=== PATIENT | female | born 1945 | race Caucasian/White ===

== ENCOUNTER 2016-08-10 10:52 | Inpatient (IN) | payer OTHER ==
[~2016-08-10] VITALS: Ht 162.6 cm; Wt 85.0 kg
[~2016-08-10 10:52] MED LIST: ALBUAER2 INH; ARTIOIN OPB; ASCO10003 PO; CALCTAB65 PO; CLOB-65 TOP; GLUC1CAP35 PO; LACT10SO30 PO; LSX20 PO; MAGN400T6 PO; METO25TA3 PO; MULTTAB58 PO; OFLO0.3S OP; OMEP20CA9 PO; PRED1SUS3 OPL; RSTOPS OPB; SPIR25TA PO; TRAM-10 PO; ZINC1CAP PO
[2016-08-10] MEDS ORDERED: DIFL0.0519 OP (11:36)
[2016-08-10] MEDS ORDERED: SODIUM CHLORIDE 0.9% 1000ML 1,000 ML IV STA ×2 (12:05→14:13)
--- NOTE | 2016-08-10 12:34 | DIAGNOSTIC IMAGING REPORT ---
CHEST ONE VIEW PORTABLE CLINICAL HISTORY: Altered mental status. Weakness. COMPARISON STUDY: Chest radiograph June 08, 2014. FINDINGS: Lung volumes are normal. No consolidation is present. Mild interstitial thickening is likely chronic. There is no evidence of pulmonary edema. Cardiomediastinal silhouette is normal. IMPRESSION: No acute cardiopulmonary findings. Electronically signed by: Nelson Stokes M.D. 08/10/2016 12:32 PM Dictated Date/Time: 08/10/2016 12:32 PM
[2016-08-10 13:04] LABS: VEN BLD GAS O2 SATURATION 72.5 %
[2016-08-10 13:25] LABS: INR 1.3 (0.9-1.1); PARTIAL THROMBOPLASTIN RATIO 1.2; PROTHROMBIN TIME (PATIENT) 14.1 SECONDS (9.0-12.0)
[2016-08-10 13:38] LABS: BASO ABS # 0.06 K/uL (0-0.2); COMPLETE YES; EOS % 2.5 %; HEMATOCRIT 39.4 % (37-47); IG% 0.2 %; LYMPH % 20.4 %; LYMPH ABS # 1.23 K/uL (1.2-3.4); MEAN CELL VOLUME 92.7 fL (80-100); MEAN CORPUSCULAR HEMOGLOBIN 33.9 pg (25-34); MEAN CORPUSCULAR HGB CONC 36.5 g/dl (32-36); MEAN PLATELET VOLUME 10.8 fL (7.4-10.4); MONO % 10.4 %; NEUT % 65.5 %; PLATELET COUNT 55 K/uL (130-400); PLT ESTIMATE DECREASED; RED BLOOD COUNT 4.25 M/uL (4.2-5.4); WHITE BLOOD COUNT 6.03 K/uL (4.8-10.8)
[2016-08-10 13:40] LABS: ALT/SGPT 27 U/L (12-78); AST/SGOT 33 U/L (15-37); BETA-HYDROXYBUTYRATE 4.01 mg/dL (0.2-2.81); BLOOD UREA NITROGEN 12 mg/dl (7-18); BUN/CREATININE RATIO 11.7 (10-20); CALCIUM 9.8 mg/dl (8.5-10.1); CARBON DIOXIDE 26 mmol/L (21-32); CHLORIDE 99 mmol/L (98-107); CREATININE 0.99 mg/dl (0.60-1.20); GLUCOSE 475 mg/dl (70-99); MAGNESIUM 1.8 mg/dl (1.8-2.4); PHOSPHORUS 2.6 mg/dl (2.5-4.9); POTASSIUM 4.2 mmol/L (3.5-5.1); SODIUM 135 mmol/L (136-145)
[2016-08-10 13:49] LABS: ALKALINE PHOSPHATASE 81 U/L (45-117); THYROID STIMULATING HORMONE 0.035 uIu/ml (0.300-4.500)
--- NOTE | 2016-08-10 14:03 | DIAGNOSTIC IMAGING REPORT ---
CT SCAN OF THE BRAIN WITHOUT IV CONTRAST CLINICAL HISTORY: Weakness. Change in mental status. COMPARISON STUDY: CT of the brain dated 06/06/2014. TECHNIQUE: Unenhanced axial CT scan of the brain is performed from the vertex to the skull base. CT DOSE: 729.78 mGycm FINDINGS: Brain parenchyma: There are age-related involutional changes noting mild subcortical and periventricular microangiopathic change. A chronic lacunar infarct is identified in the right caudate head. There is no hemorrhage, mass effect, or evidence of acute territorial ischemia by CT criteria. Sunshine-white matter is preserved. Mineralization is noted in the basal ganglia. No extra-axial fluid collection is seen. Ventricles, sulci, cisterns: Prominent secondary to involutional change. Intracranial vasculature: There is atherosclerotic calcification of the cavernous carotid and vertebral arteries. Calvarium: Unremarkable. Sinuses and mastoids: The visualized paranasal sinuses are clear. The mastoid air cells are well pneumatized. Orbits: The bony orbits are grossly intact. There is a left ocular lens implant. IMPRESSION: There is no hemorrhage, mass effect, or evidence of acute territorial ischemia by CT criteria. Electronically signed by: Warren Sifuentes M.D. 08/10/2016 2:01 PM Dictated Date/Time: 08/10/2016 1:56 PM
[2016-08-10] MEDS ORDERED: NovoLIN-R INSULIN PER UNIT CHARGE IV STA (14:13)
[2016-08-10 14:19] LABS: URINE APPEARANCE CLEAR (CLEAR); URINE BILIRUBIN NEG (NEG); URINE COLOR YELLOW; URINE EPITHELIAL CELL AUTO 20-30 /lpf (0-5); URINE NITRITE NEG (NEG); URINE PH 6.5 (4.5-7.5); URINE SPECIFIC GRAVITY 1.014 (1.000-1.030); UROBILINOGEN NEG (NEG)
[2016-08-10 14:30] LABS: MANUAL MICROSCOPIC REQUIRED? NO; REVIEW REQ? NO
--- NOTE | 2016-08-10 15:35 | EMERGENCY ROOM VISIT NOTE ---
History Report prepared by Dianna: Daisy Culver Under the Supervision of: Dr. Alfonso Willson D.O. First contact with patient: 11:59 Chief Complaint: ABNORMAL LABS Stated Complaint: LIVER DISEASE-ABNORMAL LABS History of Present Illness The patient is a 70 year old female who presents to the Emergency Room as referred by PCP as her ammonia levels were found to be elevated at 97 during her appointment yesterday. Per , patient was diagnosed with cirrhosis of her liver 4 years ago, but her ammonia levels have normally been controlled with lactulose. However, over the past 3 weeks, states that the patient has become more confused and began hallucinating, so he took her to her PCP's office yesterday. During her appointment, states that the patient's ammonia levels were elevated at 97, her BSG was over 500, and they told him that she had "poor liver functioning", so she was referred to the ED for further evaluation today. Patient states that she has become increasingly incontinent, but she denies having any rectal bleeding, diarrhea, melena or hematochezia. She also denies fevers, chills, headache, chest pain, shortness of breath, abdominal pain, nausea, vomiting, or urinary symptoms. She has not suffered any recent falls or had any other abnormal bleeding. does note that the patient has a new rash around the area of her peritoneum, but there is no swelling or discharge present. Source of History: patient, spouse/significant other Onset: yesterday Position: other (general) Quality: other (elevated ammonia) Timing: other (increased) Associated Symptoms: No SOB, No abdominal pain, No chest pain, No chills, No diarrhea, No fevers, No headache, No nausea, No urinary symptoms, No vomiting Note: Per , patient has been more confused over the past 3 weeks. Review of Systems See HPI for pertinent positives & negatives. A total of 10 systems reviewed and were otherwise negative. Past Medical & Surgical Medical Problems: (1) Alcoholic cirrhosis (2) Asthma with COPD (3) Bakers cyst (4) CVA (cerebral vascular accident) (5) Diverticulosis (6) Dyslipidemia (7) GERD (gastroesophageal reflux disease) (8) Heel spur (9) HTN (hypertension) (10) Osteoarthritis (11) Osteoporosis (12) Thrombocytopenia (13) VRE (vancomycin resistant enterococcus) culture positive Surgical Problems: (1) H/O Achilles tendon repair (2) H/O arthroscopic knee surgery (3) H/O hemorrhoidectomy (4) H/O inguinal hernia repair (5) H/O shoulder surgery (6) H/O tubal ligation (7) H/O unilateral oophorectomy (8) History of appendectomy (9) History of partial colectomy (10) History of total hip replacement Family History FHx: heart disease Hypertension Social History Smoking Status: Former Smoker Alcohol Use: occasionally Drug Use: none Marital Status: Housing Status: lives with family Occupation Status: retired Current/Historical Medications Scheduled Artificial Tears Oph Oint (Lacri-Lube Sop Oph Oint), 0.25-0.5 INCH OPB HS Ascorbic Acid (Vitamin C), 1,000 MG PO QAM Calcium Carbonate-Vitamin D (Calcium 500 + D), 1 TAB PO BID Clobetasol Propionate (Clobetasol Propionate), 1 APPLN TOP BID Difluprednate (Durezol), 1 DROP OP QID Furosemide (Furosemide), 1 TAB PO DIRECTED Nkgmwckpuyw-Knpkfqvsbmu-Naa C- (Glucosamine Chondroitin), 1 CAP PO QPM Lactulose (Encephalopathy) (Lactulose), 15 ML PO BID Magnesium Oxide (Mag-Ox), 400 MG PO QAM Metoprolol Succ (Toprol Xl) (Toprol-Xl), 25 MG PO QAM Multiple Vitamin (Multivitamin), 1 TAB PO QAM Omeprazole (Prilosec), 20 MG PO BID Spironolactone (Aldactone), 2 TAB PO BID Zinc Sulfate (Zinc Sulfate), 220 MG PO BID Scheduled PRN Tramadol (Ultram), 25-50 MG PO Q6H PRN for Pain Allergies Coded Allergies: TAMAR Inhibitors (Verified Adverse Reaction, Mild, PALPITATIONS (BUT TAKES LISINOPRIL), 07/26/16) LOTREL - DIDN'T FEEL WELL. COMBO TAMAR INHIB IS PROBLEM - NOT TAMAR SOLO. Hydrocodone (Verified Adverse Reaction, Mild, HEART RACING, 07/26/16) Meperidine (Verified Adverse Reaction, Mild, SEVERE GI, 07/26/16) Oxycodone (Verified Adverse Reaction, Mild, DEPRESSION, 07/26/16) Ranitidine (Verified Adverse Reaction, Mild, DIZZINESS, 07/26/16) Sulfa Antibiotics (Verified Adverse Reaction, Mild, "SULFA DRUGS": SEVERE GI, 07/26/16) Physical Exam Vital Signs Date Time Temp Pulse Resp B/P Pulse Ox O2 Delivery O2 Flow Rate FiO2 08/10/16 17:27 36.8 75 19 127/57 96 08/10/16 16:41 75 19 127/57 96 Room Air 08/10/16 15:37 Room Air 08/10/16 14:23 78 08/10/16 14:04 84 17 139/70 95 Room Air 08/10/16 13:17 75 16 118/55 94 Room Air 78 134/57 75 137/74 08/10/16 12:54 Room Air 08/10/16 12:52 Room Air 08/10/16 10:57 36.8 79 17 124/66 93 Room Air Physical Exam GENERAL: Patient is awake, alert, and non-anxious appearing. Does not appear to be in pain. EYES: The conjunctivae are clear. The pupils are round and reactive. EARS, NOSE, MOUTH AND THROAT: The nose is without any evidence of any deformity. Mucous membranes are dry, tongue is midline NECK: The neck is nontender and supple. RESPIRATORY: Lung sounds diminished at both bases. CARDIOVASCULAR: Regular rate and rhythm noted there no murmurs rubs or gallops normal S1 normal S2 GASTROINTESTINAL: The abdomen is soft. Bowel sounds are present in all quadrants. Abdomen is nontender RECTAL: Rectal exam revealed brown stool, heme negative. MUSCULOSKELETAL/EXTREMITIES: There is no evidence of gross deformity full range of motion is noted in the hips and shoulders SKIN: There appears to be a candidal rash in the peritoneum. No swelling or discharge noted. NEUROLOGIC: Patient is awake alert and oriented x3, strength is symmetric Medical Decision & Procedures ER Provider Diagnostic Interpretation: CT results as stated below per my review and radiologist interpretation. X-ray results as stated below per interpretation by me and the radiologist. CT SCAN OF THE BRAIN WITHOUT IV CONTRAST CLINICAL HISTORY: Weakness. Change in mental status. COMPARISON STUDY: CT of the brain dated 06/06/2014. TECHNIQUE: Unenhanced axial CT scan of the brain is performed from the vertex to the skull base. CT DOSE: 729.78 mGycm FINDINGS: Brain parenchyma: There are age-related involutional changes noting mild subcortical and periventricular microangiopathic change. A chronic lacunar infarct is identified in the right caudate head. There is no hemorrhage, mass effect, or evidence of acute territorial ischemia by CT criteria. Sunshine-white matter is preserved. Mineralization is noted in the basal ganglia. No extra-axial fluid collection is seen. Ventricles, sulci, cisterns: Prominent secondary to involutional change. Intracranial vasculature: There is atherosclerotic calcification of the cavernous carotid and vertebral arteries. Calvarium: Unremarkable. Sinuses and mastoids: The visualized paranasal sinuses are clear. The mastoid air cells are well pneumatized. Orbits: The bony orbits are grossly intact. There is a left ocular lens implant. IMPRESSION: There is no hemorrhage, mass effect, or evidence of acute territorial ischemia by CT criteria. Electronically signed by: Warren Sifuentes M.D. 08/10/2016 2:01 PM Dictated Date/Time: 08/10/2016 1:56 PM CHEST ONE VIEW PORTABLE CLINICAL HISTORY: Altered mental status. Weakness. COMPARISON STUDY: Chest radiograph June 08, 2014. FINDINGS: Lung volumes are normal. No consolidation is present. Mild interstitial thickening is likely chronic. There is no evidence of pulmonary edema. Cardiomediastinal silhouette is normal. IMPRESSION: No acute cardiopulmonary findings. Electronically signed by: Nelson Stokes M.D. 08/10/2016 12:32 PM Dictated Date/Time: 08/10/2016 12:32 PM Laboratory Results 08/10/16 12:50 Red Blood Count 4.25, Mean Corpuscular Volume 92.7, Mean Corpuscular Hemoglobin 33.9, Mean Corpuscular Hemoglobin Concent 36.5, Mean Platelet Volume 10.8, Neutrophils (%) (Auto) 65.5, Lymphocytes (%) (Auto) 20.4, Monocytes (%) (Auto) 10.4, Eosinophils (%) (Auto) 2.5, Basophils (%) (Auto) 1.0, Neutrophils # (Auto ) 3.95, Lymphocytes # (Auto) 1.23, Monocytes # (Auto) 0.63, Eosinophils # (Auto ) 0.15, Basophils # (Auto) 0.06 08/10/16 12:50 Test 08/10/16 00:00 08/10/16 12:50 08/10/16 13:06 Urine Color YELLOW Urine Appearance CLEAR (CLEAR) Urine pH 6.5 (4.5-7.5) Urine Specific [place] 1.014 (1.000-1.030) Urine Protein NEG (NEG) Urine Glucose (UA) 3+ (NEG) Urine Ketones NEG (NEG) Urine Occult Blood NEG (NEG) Urine Nitrite NEG (NEG) Urine Bilirubin NEG (NEG) Urine Urobilinogen NEG (NEG) Urine Leukocyte Esterase TRACE (NEG) Urine WBC (Auto) 5-10 /hpf (0-5) Urine RBC (Auto) 0-4 /hpf (0-4) Urine Hyaline Casts (Auto) 0 /lpf (0-5) Urine Epithelial Cells (Auto) 20-30 /lpf (0-5) Urine Bacteria (Auto) 1+ (NEG) White Blood Count 6.03 K/uL (4.8-10.8) Red Blood Count 4.25 M/uL (4.2-5.4) Hemoglobin 14.4 g/dL (12.0-16.0) Hematocrit 39.4 % (37-47) Mean Corpuscular Volume 92.7 fL (80-100) Mean Corpuscular Hemoglobin 33.9 pg (25-34) Mean Corpuscular Hemoglobin Concent 36.5 g/dl (32-36) Platelet Count 55 K/uL (130-400) Mean Platelet Volume 10.8 fL (7.4-10.4) Neutrophils (%) (Auto) 65.5 % Lymphocytes (%) (Auto) 20.4 % Monocytes (%) (Auto) 10.4 % Eosinophils (%) (Auto) 2.5 % Basophils (%) (Auto) 1.0 % Neutrophils # (Auto) 3.95 K/uL (1.4-6.5) Lymphocytes # (Auto) 1.23 K/uL (1.2-3.4) Monocytes # (Auto) 0.63 K/uL (0.11-0.59) Eosinophils # (Auto) 0.15 K/uL (0-0.5) Basophils # (Auto) 0.06 K/uL (0-0.2) RDW Standard Deviation 51.7 fL (36.4-46.3) RDW Coefficient of Variation 15.3 % (11.5-14.5) Immature Granulocyte % (Auto) 0.2 % Immature Granulocyte # (Auto) 0.01 K/uL (0.00-0.02) Platelet Estimate DECREASED Prothrombin Time 14.1 SECONDS (9.0-12.0) Prothromb Time International Ratio 1.3 (0.9-1.1) Activated Partial Thromboplast Time 29.9 SECONDS (21.0-31.0) Partial Thromboplastin Ratio 1.2 Venous Blood pH 7.41 (7.36-7.41) Venous Blood Partial Pressure CO2 46 mmHg (38.0-50.0) Venous Blood Partial Pressure O2 39 mmHg Venous Blood HCO3 28 mmol/L Venous Blood Oxygen Saturation 72.5 % Venous Blood Base Excess 3.0 mmol/L Anion Gap 10.0 mmol/L (3-11) Est Creatinine Clear Calc Drug Dose 54.2 ml/min Estimated GFR () 66.0 Estimated GFR (Non- 56.9 BUN/Creatinine Ratio 11.7 (10-20) Estimated Average Glucose 292 mg/dl Hemoglobin A1c 11.8 % (4.5-5.6) Calcium Level 9.8 mg/dl (8.5-10.1) Phosphorus Level 2.6 mg/dl (2.5-4.9) Magnesium Level 1.8 mg/dl (1.8-2.4) Total Bilirubin 4.4 mg/dl (0.2-1) Direct Bilirubin 1.7 mg/dl (0-0.2) Aspartate Amino Transf (AST/SGOT) 33 U/L (15-37) Alanine Aminotransferase (ALT/SGPT) 27 U/L (12-78) Alkaline Phosphatase 81 U/L (45-117) Ammonia 54.0 umol/L (11-32) Total Creatine Kinase 45 U/L (26-192) Creatine Kinase MB 0.9 ng/ml (0.5-3.6) Creatine Kinase MB Ratio 2.0 (0-3.0) Troponin I < 0.015 ng/ml (0-0.045) Pro-B-Type Natriuretic Peptide 94 pg/ml (0-900) Total Protein 7.0 gm/dl (6.4-8.2) Albumin 2.8 gm/dl (3.4-5.0) Lipase 362 U/L (73-393) Beta-Hydroxybutyric Acid 4.01 mg/dL (0.2-2.81) Thyroid Stimulating Hormone (TSH) 0.035 uIu/ml (0.300-4.500) Bedside Glucose 442 mg/dl (70-90) Laboratory results per my review. Medications Administered Medications (Trade) Dose Ordered Sig/Migdalia Route Start Time Stop Time Status Last Admin Dose Admin Sodium Chloride 1,000 ml @ 999 mls/hr Q1H1M STAT IV 08/10/16 12:05 08/10/16 13:05 DC 08/10/16 12:57 999 MLS/HR Sodium Chloride (Nss 1000ml) 1,000 ml @ 999 mls/hr Q1H1M STAT IV 08/10/16 14:13 08/10/16 15:13 DC 08/10/16 14:32 999 MLS/HR Insulin Human Regular (novoLIN-R U-100 PER UNIT) 6 units NOW STAT IV 08/10/16 14:13 08/10/16 14:14 DC 08/10/16 14:30 6 UNITS ECG Indication: other (abnormal labs) Rate (beats per minute): 78 Rhythm: normal sinus Findings: no ectopy, other (No acute ST segment abnormalities. ) Change: no significant change (when compared to EKG from 06/06/14.) ED Course 1203: The patient was evaluated in room C9. A complete history and physical examination were performed. 1205: NSS bolus IV was ordered. 1413: Insulin Human Regular 6 units IV and NSS bolus IV were ordered. 1425: Upon reevaluation, the patient was doing well and appeared to be resting more comfortably. I updated her and her on the results of her radiology reports and lab tests. The hospitalist will be contacted. 1454: After discussion with Jolanta Sepulveda PA-C, the [facility]. The patient and her verbalized their understanding and agreement with this treatment plan. Medical Decision Prior records/ancillary studies reviewed and summarized above. Nursing notes reviewed. Additional history obtained from the patient's . Differential diagnosis: Etiologies such as metabolic, infection, hypo/hyperglycemia, electrolyte abnormalities, cardiac sources, intracerebral event, toxicologic, neurologic, as well as others were entertained. The patient is a 70-year-old female who was sent to the emergency department for abnormal laboratory studies. The patient is a history of liver disease. She does not have a known history of diabetes but did have hyperglycemia one other time when she was on prednisone. Currently she is not taking any steroids. She was found have an elevated blood sugar. She was treated with IV fluids as well as IV insulin. I discussed her case with the on-call [facility] hospitalist group. They've agreed to evaluate the patient in the emergency apartment for further management and disposition. Consults Time Called: 1430 Consulting Physician: Jolanta Martin Returned Call: [phone] Discussed the patient's case. She will continue to be evaluated by the [facility] hospitalist for further management. Impression Primary Impression: Hyperglycemia Additional Impressions: Diabetes mellitus, new onset Hepatic encephalopathy Scribe Attestation The scribe's documentation has been prepared under my direction and personally reviewed by me in its entirety. I confirm that the note above accurately reflects all work, treatment, procedures, and medical decision making performed by me. Departure Information Dispostion Being Evaluated By Hospitalist (Mario) Referrals Alfredo Martines M.D. (PCP) Problem Qualifiers
[2016-08-10 15:37] VITALS: BP 136/76; PULSE 75; TEMP 36.6; BMI 32.2
[2016-08-10] MEDS ORDERED: INSULIN IV INFUSION PROTOCOL STA (15:43)
[2016-08-10] MEDS ORDERED: ONDANSETRON INJ 2 MG/ML 2 ML VIAL IV PRN (15:45)
[2016-08-10] MEDS ORDERED: HHS GOAL RANGE 250-350 mg/dl ONE (15:45)
[2016-08-10] MEDS ORDERED: SEVERE STRESS LEVEL ONE (15:45)
[2016-08-10] MEDS ORDERED: ACETAMINOPHEN 325 MG TAB PO PRN (15:45)
[2016-08-10] MEDS ORDERED: CLBPO15 TOP (15:54)
[2016-08-10 16:03] LABS: ESTIMATED AVERAGE GLUCOSE 292 mg/dl; HA1C FLAG Normal (Normal)
[2016-08-10] MEDS ORDERED: CEFTRIAXONE SOD INJ 1 GM in DEXTROSE 5% ADD-VANTAGE 50ML 50 ML IV SCH (16:15)
--- NOTE | 2016-08-10 17:00 | History and Physical ---
History & Physical Date & Time of Service: Aug 10, 2016 at 16:28 Chief Complaint: Confusion, Weakness, Referred by PCP for Abnormal Labs Primary Care Physician: Alfredo Martines M.D. History of Present Illness 70 year old female who presents to the ER by referral of her PCP for abnormal labs, confusion, and weakness. is at the bedside who provides some of the information. He reports he has noted the patient has been having increasing confusion for the past 3 weeks. She has had hallucinations at times. called the PCP who ordered labs that showed a glucose of 500 and ammonia of 97. Patient has history of cirrhosis and is on chronic Lactulose. Patient reports decreasing her dose by half about one month ago due to the diarrhea it caused. Patient reports feeling generally weak yesterday. She also has had increased thirst and urination. She reports urinary leaking and has developed a perineal rash. She denies dysuria. No abdominal pain, nausea, or vomiting. She denies chest pain and shortness of breath. Some mild lightheadedness and dizziness today but denies any syncopal events. No fever or chills. In the ER, glucose is 475 and ammonia is 54. Patient was given 2L IVF and 6 units IV insulin. 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 Surgical Problems: (1) H/O Achilles tendon repair Status: Chronic (2) H/O arthroscopic knee surgery Status: Chronic (3) H/O hemorrhoidectomy Status: Chronic (4) H/O inguinal hernia repair Status: Chronic (5) H/O shoulder surgery Status: Chronic (6) H/O tubal ligation Status: Chronic (7) H/O unilateral oophorectomy Status: Chronic (8) History of appendectomy Status: Chronic (9) History of partial colectomy Permanent Comment: sigmoid Status: Chronic (10) History of total hip replacement Status: Chronic Social History Smoking Status: Former Smoker Alcohol Use: former heavy ETOH use Marital Status: Immunizations History of Influenza Vaccine: Yes Influenza Vaccine Date: Apr 26, 2016 History of Tetanus Vaccine?: Yes Tetanus Immunization Date: Jul 14, 1999 History of Pneumococcal: Yes Pneumococcal Date: Feb 22, 2016 Multi-Drug Resistant Organisms History of MDRO: Yes Type of MDRO: VRE Allergies Coded Allergies: TAMAR Inhibitors (Verified Adverse Reaction, Mild, PALPITATIONS (BUT TAKES LISINOPRIL), 07/26/16) LOTREL - DIDN'T FEEL WELL. COMBO TAMAR INHIB IS PROBLEM - NOT TAMAR SOLO. Hydrocodone (Verified Adverse Reaction, Mild, HEART RACING, 07/26/16) Meperidine (Verified Adverse Reaction, Mild, SEVERE GI, 07/26/16) Oxycodone (Verified Adverse Reaction, Mild, DEPRESSION, 07/26/16) Ranitidine (Verified Adverse Reaction, Mild, DIZZINESS, 07/26/16) Sulfa Antibiotics (Verified Adverse Reaction, Mild, "SULFA DRUGS": SEVERE GI, 07/26/16) Home Medications Scheduled Artificial Tears Oph Oint (Lacri-Lube Sop Oph Oint), 0.25-0.5 INCH OPB HS Ascorbic Acid (Vitamin C), 1,000 MG PO QAM Calcium Carbonate-Vitamin D (Calcium 500 + D), 1 TAB PO BID Clobetasol Propionate (Clobetasol Propionate), 1 APPLN TOP BID Difluprednate (Durezol), 1 DROP OP QID Furosemide (Furosemide), 1 TAB PO DIRECTED Tjsdolcavtr-Yviewukazno-Ybf C- (Glucosamine Chondroitin), 1 CAP PO QPM Lactulose (Encephalopathy) (Lactulose), 15 ML PO BID Magnesium Oxide (Mag-Ox), 400 MG PO QAM Metoprolol Succ (Toprol Xl) (Toprol-Xl), 25 MG PO QAM Multiple Vitamin (Multivitamin), 1 TAB PO QAM Omeprazole (Prilosec), 20 MG PO BID Spironolactone (Aldactone), 2 TAB PO BID Zinc Sulfate (Zinc Sulfate), 220 MG PO BID Scheduled PRN Tramadol (Ultram), 25-50 MG PO Q6H PRN for Pain Review of Systems 10 point review of systems was completed with the pertinent positives and negatives noted per the HPI Physical Exam Vital Signs Date Time Temp Pulse Resp B/P Pulse Ox O2 Delivery O2 Flow Rate FiO2 08/10/16 15:37 Room Air 08/10/16 14:23 78 08/10/16 14:04 84 17 139/70 95 Room Air 08/10/16 13:17 75 16 118/55 94 Room Air 78 134/57 75 137/74 08/10/16 12:54 Room Air 08/10/16 12:52 Room Air 08/10/16 10:57 36.8 79 17 124/66 93 Room Air General Appearance: no apparent distress Head: normocephalic Eyes: normal inspection ENT: hearing grossly normal Neck: supple, no JVD Respiratory/Chest: lungs clear, normal breath sounds, no respiratory distress Cardiovascular: regular rate, rhythm, no edema, normal peripheral pulses Abdomen/GI: normal bowel sounds, non tender, soft Genitourinary - Female: + pertinent finding (perineal excoriation) Extremities/Musculoskelatal: normal inspection, no calf tenderness Neurologic/Psych: no motor/sensory deficits, alert, normal mood/affect, oriented x 3 Skin: normal color, warm/dry Diagnostics Laboratory Results Results Past 24 Hours Test 08/10/16 00:00 08/10/16 12:50 08/10/16 13:06 Range/Units Urine Color YELLOW Urine Appearance CLEAR CLEAR Urine pH 6.5 4.5-7.5 Urine Specific [place] 1.014 1.000-1.030 Urine Protein NEG NEG Urine Glucose (UA) 3+ NEG Urine Ketones NEG NEG Urine Occult Blood NEG NEG Urine Nitrite NEG NEG Urine Bilirubin NEG NEG Urine Urobilinogen NEG NEG Urine Leukocyte Esterase TRACE NEG Urine WBC (Auto) 5-10 0-5 /hpf Urine RBC (Auto) 0-4 0-4 /hpf Urine Hyaline Casts (Auto) 0 0-5 /lpf Urine Epithelial Cells (Auto) 20-30 0-5 /lpf Urine Bacteria (Auto) 1+ NEG White Blood Count 6.03 4.8-10.8 K/uL Red Blood Count 4.25 4.2-5.4 M/uL Hemoglobin 14.4 12.0-16.0 g/dL Hematocrit 39.4 37-47 % Mean Corpuscular Volume 92.7 80-100 fL Mean Corpuscular Hemoglobin 33.9 25-34 pg Mean Corpuscular Hemoglobin Concent 36.5 32-36 g/dl Platelet Count 55 130-400 K/uL Mean Platelet Volume 10.8 7.4-10.4 fL Neutrophils (%) (Auto) 65.5 % Lymphocytes (%) (Auto) 20.4 % Monocytes (%) (Auto) 10.4 % Eosinophils (%) (Auto) 2.5 % Basophils (%) (Auto) 1.0 % Neutrophils # (Auto) 3.95 1.4-6.5 K/uL Lymphocytes # (Auto) 1.23 1.2-3.4 K/uL Monocytes # (Auto) 0.63 0.11-0.59 K/uL Eosinophils # (Auto) 0.15 0-0.5 K/uL Basophils # (Auto) 0.06 0-0.2 K/uL RDW Standard Deviation 51.7 36.4-46.3 fL RDW Coefficient of Variation 15.3 11.5-14.5 % Immature Granulocyte % (Auto) 0.2 % Immature Granulocyte # (Auto) 0.01 0.00-0.02 K/uL Platelet Estimate DECREASED Prothrombin Time 14.1 9.0-12.0 SECONDS Prothromb Time International Ratio 1.3 0.9-1.1 Activated Partial Thromboplast Time 29.9 21.0-31.0 SECONDS Partial Thromboplastin Ratio 1.2 Venous Blood pH 7.41 7.36-7.41 Venous Blood Partial Pressure CO2 46 38.0-50.0 mmHg Venous Blood Partial Pressure O2 39 mmHg Venous Blood HCO3 28 mmol/L Venous Blood Oxygen Saturation 72.5 % Venous Blood Base Excess 3.0 mmol/L Sodium Level 135 136-145 mmol/L Potassium Level 4.2 3.5-5.1 mmol/L Chloride Level 99 98-107 mmol/L Carbon Dioxide Level 26 21-32 mmol/L Anion Gap 10.0 3-11 mmol/L Blood Urea Nitrogen 12 7-18 mg/dl Creatinine 0.99 0.60-1.20 mg/dl Est Creatinine Clear Calc Drug Dose 54.2 ml/min Estimated GFR () 66.0 Estimated GFR (Non- 56.9 BUN/Creatinine Ratio 11.7 10-20 Random Glucose 475 70-99 mg/dl Estimated Average Glucose 292 mg/dl Hemoglobin A1c 11.8 4.5-5.6 % Calcium Level 9.8 8.5-10.1 mg/dl Phosphorus Level 2.6 2.5-4.9 mg/dl Magnesium Level 1.8 1.8-2.4 mg/dl Total Bilirubin 4.4 0.2-1 mg/dl Direct Bilirubin 1.7 0-0.2 mg/dl Aspartate Amino Transf (AST/SGOT) 33 15-37 U/L Alanine Aminotransferase (ALT/SGPT) 27 12-78 U/L Alkaline Phosphatase 81 45-117 U/L Ammonia 54.0 11-32 umol/L Total Creatine Kinase 45 26-192 U/L Creatine Kinase MB 0.9 0.5-3.6 ng/ml Creatine Kinase MB Ratio 2.0 0-3.0 Troponin I < 0.015 0-0.045 ng/ml Pro-B-Type Natriuretic Peptide 94 0-900 pg/ml Total Protein 7.0 6.4-8.2 gm/dl Albumin 2.8 3.4-5.0 gm/dl Lipase 362 73-393 U/L Beta-Hydroxybutyric Acid 4.01 0.2-2.81 mg/dL Thyroid Stimulating Hormone (TSH) 0.035 0.300-4.500 uIu/ml Bedside Glucose 442 70-90 mg/dl Diagnostic Radiology CT HEAD IMPRESSION: There is no hemorrhage, mass effect, or evidence of acute territorial ischemia by CT criteria. CXR IMPRESSION: No acute cardiopulmonary findings. Impression Assessment and Plan SEVERE HYPERGLYCEMIA - admit to med/surg - presenting with blood sugar 475, hgb a1c 11.5 - no signs of DKA - s/p 2 L IVF in ED, will hold on further IVF for now due to cirrhosis - will start insulin gtt with transition to SQ insulin - histology teacher consult ALTERED MENTAL STATUS DUE TO HEPATIC ENCEPHALOPATHY, ETOH CIRRHOSIS - hepatic encephalopathy likely due to self decreasing Lactulose dose - ammonia level 97 on today - will start 20gm BID - hold diuretics for today due to severe hyperglycemia - LFTs noted to be at baseline - GI consult ABNORMAL U/A - possible UTI; could be contributing to AMS - grew VRE on most recent urine culture - will place on Dapto for now, adjust per culture results - no signs of sepsis HTN - BP controlled, continue metoprolol THROMBOCYTOPENIA - due to liver disease - no signs of bleeding - at baseline DVT PROPHYLAXIS - SCDs due to thrombocytopenia DISPO - In my clinical judgment this beneficiary meets acute admission criteria, established by [facility], that includes being hospitalized through two midnights. ATTENDING NOTE Patient seen & examined at bedside. Reviewed above History/Physical and confirmed all the findings in person. Patient with known history of liver cirrhosis has been brought to ED with increasing confusion and lethargy. She had decreased Lactulose dose about 3-4 weeks back on her own. Found to have elevated ammonia level and has hyperglycemia consistent with new onset diabetes. Increased Lactulose to 20 G twice a day. Will give IVF conservatively as she can third-space easily. She is getting I/V Fluids and I/V Insulin. Being admitted to Medical floor and will be started on Insulin drip. HbA1c is 11.1. Will need to be on long and short term insulin. Bowling Floor Manager consult requested. Patient is FULL CODE. DVT Prophylaxis: SCDs. Patient will be followed by Dr. Fair. José Olivas MD Level of Care Med/Surg Advanced Directives Existing Advance Directive: No (UNSURE) Existing Power of [employer] Officer: Yes Resuscitation Status FULL RESUSCITATION VTE Prophylaxis VTE Risk Assessment Done? Y/N: Yes Risk Level: Moderate Given or contraindicated: SCD's
[2016-08-10] MEDS ORDERED: INSULIN ASPART 100 UNITS/ML 3 ML PEN SC SCH (18:00)
[2016-08-10] MEDS ORDERED: DAPTOMYCIN CONSULT ACTIVE PRN ×2 (18:32)
[2016-08-10] MEDS: LACTULOSE SYRUP 20 GM/30 ML UDC PO SCH ×2 (19:56→21:22)
[2016-08-10] MEDS: DAPTOmycin IV 350 MG in SODIUM CHLORIDE 0.9% 50ML 50 ML IV SCH (19:56)
[2016-08-10] MEDS: NYSTATIN POWDER 15GM BTL EXT SCH (20:05)
[2016-08-10] MEDS: DIFLUPREDNATE 0.05% OP SCH (20:06)
[2016-08-10] MEDS: ARTIFICIAL TEARS OP OINT 3.5 GM TUBE OPB SCH (20:06)
[2016-08-10] MEDS: ZINC SULFATE 220 MG CAP PO SCH (20:06)
[2016-08-10] MEDS: PANTOprazole SOD 40 MG TAB PO SCH (20:07)
[2016-08-10] MEDS: CALCIUM 600MG + VIT D 400 IU TAB PO SCH (20:07)
[2016-08-10] MEDS: GLUCOSAMINE SULFATE 500 MG CAP PO SCH (20:07)
[2016-08-10] MEDS: INSULIN ASPART 100 UNITS/ML 3 ML PEN SC SCH (21:27)
[2016-08-10 23:16] VITALS: BP 142/69; PULSE 82; TEMP 36.7; O2SAT 93
[2016-08-11] MEDS: INSULIN ASPART 100 UNITS/ML 3 ML PEN SC SCH ×4 (06:30→20:41)
[2016-08-11 07:17] VITALS: BP 124/58; PULSE 80; TEMP 36.6; O2SAT 92
[2016-08-11 07:24] LABS: INR 1.4 (0.9-1.1)
[2016-08-11 07:48] LABS: BUN/CREATININE RATIO 12.6 (10-20); CALCIUM 8.8 mg/dl (8.5-10.1); POTASSIUM 3.9 mmol/L (3.5-5.1)
[2016-08-11 07:50] LABS: HEMATOCRIT 35.6 % (37-47); MEAN CELL VOLUME 93.2 fL (80-100); MEAN CORPUSCULAR HGB CONC 36.5 g/dl (32-36); PLATELET COUNT 46 K/uL (130-400); PLT ESTIMATE DECREASED; RED BLOOD COUNT 3.82 M/uL (4.2-5.4); WHITE BLOOD COUNT 5.28 K/uL (4.8-10.8)
[2016-08-11 08:00] VITALS: O2SAT 92
[2016-08-11] MEDS: NYSTATIN POWDER 15GM BTL EXT SCH ×2 (08:10→20:04)
[2016-08-11] MEDS: CALCIUM 600MG + VIT D 400 IU TAB PO SCH ×2 (08:10→20:04)
[2016-08-11] MEDS: DIFLUPREDNATE 0.05% OP SCH ×4 (08:10→20:04)
[2016-08-11] MEDS: LACTULOSE SYRUP 20 GM/30 ML UDC PO SCH ×2 (08:11→20:04)
[2016-08-11] MEDS: MAGNESIUM OXIDE 400 MG TAB PO SCH (08:12)
[2016-08-11] MEDS: ASCORBIC ACID 500 MG TAB PO SCH (08:12)
[2016-08-11] MEDS: MULTIVITAMIN TAB PO SCH (08:12)
[2016-08-11] MEDS: ZINC SULFATE 220 MG CAP PO SCH ×2 (08:12→20:04)
[2016-08-11] MEDS: PANTOprazole SOD 40 MG TAB PO SCH ×2 (08:12→20:04)
[2016-08-11] MEDS: METOPROLOL SUCC 25MG EXT REL TAB PO SCH (08:13)
[2016-08-11 08:30] LABS: CREATININE 0.65 mg/dl (0.60-1.20)
--- NOTE | 2016-08-11 10:28 | Gastrointestinal Consultation ---
Gastrointestinal Consultation Date of Consultation: Aug 11, 2016 Consulting Physician: Dr. Linares Reason for Consultation: confusion History of Present Illness Patient is a 70 year old female with past medical history significant for ETOH cirrhosis, HTN, diverticulosis, GERD, previous CVA and COPD who presented to the ED for evaluation of abnormal labs, weakness and confusion. Outpatient labs were completed this week where it was noted that her glucose was elevated to 500 and her ammonia was 100. The patient's is at bedside and states that the patient is not diabetic. He notes that this has happened one other time many years ago secondary to prolonged steroid use for asthma/COPD. The patient and both deny any recent steroid use. The notes that his typically decreases her dose of lactulose because she does not like having bowel movements. He suggests that she was probably taking around 10 gm daily. He notes that he has noticed worsening confusion for about the past few weeks. Although she is improving today, there is stool evidence of confusion. 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 Patient is alert and oriented x 3 this morning. She denies any fever, chills, chest pain, SOB, abdominal pain, black/bloody stools or emesis. 08/10/16 NH3: 54 EGD 03/2016 Colonoscopy: 2013 CT head 08/10/16: There is no hemorrhage, mass effect, or evidence of acute territorial ischemia by CT criteria. Family History FHx: heart disease FATHER ( from [place] in his 60s) MOTHER ( from [place] in her 60s) Social History Smoking Status: Former Smoker Alcohol Use: occasionally Marital Status: Housing Status: lives with family Allergies Coded Allergies: TAMAR Inhibitors (Verified Adverse Reaction, Mild, PALPITATIONS (BUT TAKES LISINOPRIL), 07/26/16) LOTREL - DIDN'T FEEL WELL. COMBO TAMAR INHIB IS PROBLEM - NOT TAMAR SOLO. Hydrocodone (Verified Adverse Reaction, Mild, HEART RACING, 07/26/16) Meperidine (Verified Adverse Reaction, Mild, SEVERE GI, 07/26/16) Oxycodone (Verified Adverse Reaction, Mild, DEPRESSION, 07/26/16) Ranitidine (Verified Adverse Reaction, Mild, DIZZINESS, 07/26/16) Sulfa Antibiotics (Verified Adverse Reaction, Mild, "SULFA DRUGS": SEVERE GI, 07/26/16) Current Medications Home Meds and Scripts Medications Dose Route/Sig Max Daily Dose Days Date Category Dose Instructions Clobetasol Propionate 45 Appln/15 Gm Oint 1 Appln TOP BID 7 08/10/16 Reported Durezol (Difluprednate) 0.05 % Emu 1 Drop OP QID 08/10/16 Reported QID today, then change to TID on 08/11 for 7 days Aldactone (Spironolactone) 25 Mg Tab 2 Tab PO BID 04/18/16 Reported Multivitamin (Multiple Vitamin) 1 Tab Tab 1 Tab PO QAM 04/13/16 Reported Mag-Ox (Magnesium Oxide) 400 Mg Tab 400 Mg PO QAM 04/13/16 Reported Zinc Sulfate 220 Mg Cap 220 Mg PO BID 04/13/16 Reported Lacri-Lube Sop Oph Oint (Artificial Tears) Oint 0.25-0.5 Inch OPB HS 04/13/16 Reported TO THE AFFECTED EYE UP TO QID PRN Lactulose (Lactulose (Encephalopathy)) 10 Gm/15 Ml Olena 15 Ml PO BID 04/13/16 Reported WILL TAKE MORE IF NEEDED DIRECTED BY DOCTOR OFFICE. Toprol-Xl (Metoprolol Succinate) 25 Mg Tabcr 25 Mg PO QAM 04/13/16 Reported Glucosamine Chondroitin (Jxhmcqyayoh-Opcsyhtbdyn-Uqe C-) 1 Cap Cap 1 Cap PO QPM 04/13/16 Reported Prilosec (Omeprazole) 20 Mg Cap 20 Mg PO BID 12/30/14 Reported Vitamin C (Ascorbic Acid) 1,000 Mg Tab 1,000 Mg PO QAM 06/06/14 Reported Ultram (Tramadol HCl) 50 Mg Tab 25-50 Mg PO Q6H PRN 06/06/14 Reported MAXIMUM OF 400 MG/24 HOURS. Furosemide 20 Mg Tab 1 Tab PO DIRECTED 06/06/14 Reported ALTERNATES EVERY OTHER DAY WITH TAKING 1TAB AND 2 TABS Calcium 500 + D (Calcium Carbonate-Vitamin D) 1 Tab Tab 1 Tab PO BID 06/06/14 Reported Review of Systems Constitutional: No chills, No fever ENT: No hearing loss Respiratory: No cough, No shortness of breath Cardiac: No chest pain, No edema Abdomen: No GI bleeding, No constipation, No diarrhea, No nausea, No pain, No vomiting Physical Exam Date Time Temp Pulse Resp B/P Pulse Ox O2 Delivery O2 Flow Rate FiO2 08/11/16 07:17 36.6 80 20 124/58 92 Nasal Cannula 08/11/16 00:00 Room Air 08/10/16 23:16 36.7 82 18 142/69 93 Room Air 08/10/16 17:27 36.8 75 19 127/57 96 08/10/16 16:41 75 19 127/57 96 Room Air 08/10/16 15:37 36.6 75 18 136/76 Room Air 08/10/16 14:23 78 08/10/16 14:04 84 17 139/70 95 Room Air 08/10/16 13:17 75 16 118/55 94 Room Air 78 134/57 75 137/74 08/10/16 12:54 Room Air 08/10/16 12:52 Room Air 08/10/16 10:57 36.8 79 17 124/66 93 Room Air General Appearance: no apparent distress Eyes: PERRL ENT: hearing grossly normal Neck: supple, trachea midline Respiratory/Chest: lungs clear, normal breath sounds, no respiratory distress, no accessory muscle use Cardiovascular: regular rate, rhythm, no edema, no gallop, no JVD, no murmur Abdomen: normal bowel sounds, non tender, soft, no organomegaly, no pulsatile mass Neurologic/Psych: alert, normal mood/affect, oriented x 3 (patient is only oriented to self and location) Skin: normal color, no jaundice, warm/dry, no rash Laboratory Results Last 24 Hours Test 08/10/16 12:50 08/10/16 13:06 08/10/16 19:29 08/10/16 23:52 White Blood Count 6.03 K/uL Red Blood Count 4.25 M/uL Hemoglobin 14.4 g/dL Hematocrit 39.4 % Mean Corpuscular Volume 92.7 fL Mean Corpuscular Hemoglobin 33.9 pg Mean Corpuscular Hemoglobin Concent 36.5 g/dl Platelet Count 55 K/uL Mean Platelet Volume 10.8 fL Neutrophils (%) (Auto) 65.5 % Lymphocytes (%) (Auto) 20.4 % Monocytes (%) (Auto) 10.4 % Eosinophils (%) (Auto) 2.5 % Basophils (%) (Auto) 1.0 % Neutrophils # (Auto) 3.95 K/uL Lymphocytes # (Auto) 1.23 K/uL Monocytes # (Auto) 0.63 K/uL Eosinophils # (Auto) 0.15 K/uL Basophils # (Auto) 0.06 K/uL RDW Standard Deviation 51.7 fL RDW Coefficient of Variation 15.3 % Immature Granulocyte % (Auto) 0.2 % Immature Granulocyte # (Auto) 0.01 K/uL Platelet Estimate DECREASED Prothrombin Time 14.1 SECONDS Prothromb Time International Ratio 1.3 Activated Partial Thromboplast Time 29.9 SECONDS Partial Thromboplastin Ratio 1.2 Venous Blood pH 7.41 Venous Blood Partial Pressure CO2 46 mmHg Venous Blood Partial Pressure O2 39 mmHg Venous Blood HCO3 28 mmol/L Venous Blood Oxygen Saturation 72.5 % Venous Blood Base Excess 3.0 mmol/L Sodium Level 135 mmol/L Potassium Level 4.2 mmol/L Chloride Level 99 mmol/L Carbon Dioxide Level 26 mmol/L Anion Gap 10.0 mmol/L Blood Urea Nitrogen 12 mg/dl Creatinine 0.99 mg/dl Est Creatinine Clear Calc Drug Dose 54.2 ml/min Estimated GFR () 66.0 Estimated GFR (Non- 56.9 BUN/Creatinine Ratio 11.7 Random Glucose 475 mg/dl Estimated Average Glucose 292 mg/dl Hemoglobin A1c 11.8 % Calcium Level 9.8 mg/dl Phosphorus Level 2.6 mg/dl Magnesium Level 1.8 mg/dl Total Bilirubin 4.4 mg/dl Direct Bilirubin 1.7 mg/dl Aspartate Amino Transf (AST/SGOT) 33 U/L Alanine Aminotransferase (ALT/SGPT) 27 U/L Alkaline Phosphatase 81 U/L Ammonia 54.0 umol/L Total Creatine Kinase 45 U/L Creatine Kinase MB 0.9 ng/ml Creatine Kinase MB Ratio 2.0 Troponin I < 0.015 ng/ml Pro-B-Type Natriuretic Peptide 94 pg/ml Total Protein 7.0 gm/dl Albumin 2.8 gm/dl Lipase 362 U/L Beta-Hydroxybutyric Acid 4.01 mg/dL Thyroid Stimulating Hormone (TSH) 0.035 uIu/ml Bedside Glucose 442 mg/dl 258 mg/dl 276 mg/dl Test 08/11/16 06:43 White Blood Count 5.28 K/uL Red Blood Count 3.82 M/uL Hemoglobin 13.0 g/dL Hematocrit 35.6 % Mean Corpuscular Volume 93.2 fL Mean Corpuscular Hemoglobin 34.0 pg Mean Corpuscular Hemoglobin Concent 36.5 g/dl RDW Standard Deviation 52.0 fL RDW Coefficient of Variation 15.4 % Platelet Count 46 K/uL Mean Platelet Volume 11.0 fL Platelet Estimate DECREASED Prothrombin Time 15.0 SECONDS Prothromb Time International Ratio 1.4 Sodium Level 139 mmol/L Potassium Level 3.9 mmol/L Chloride Level 105 mmol/L Carbon Dioxide Level 23 mmol/L Anion Gap 11.0 mmol/L Blood Urea Nitrogen 8 mg/dl Creatinine 0.65 mg/dl Est Creatinine Clear Calc Drug Dose 82.6 ml/min Estimated GFR () 102.8 Estimated GFR (Non- 88.7 BUN/Creatinine Ratio 12.6 Random Glucose 252 mg/dl Calcium Level 8.8 mg/dl Total Bilirubin 3.7 mg/dl Direct Bilirubin 1.5 mg/dl Aspartate Amino Transf (AST/SGOT) 32 U/L Alanine Aminotransferase (ALT/SGPT) 22 U/L Alkaline Phosphatase 65 U/L Total Protein 5.8 gm/dl Albumin 2.3 gm/dl Impression Patient is a 70 year old female with elevated NHA on admission to , elevated glucose 475, HA1C 12, UTI, confusion and CT of head unremarkable. Differentials include delirium secondary to UTI, hepatic encephalopathy Plan Diet as tolerated Lactulose 20gm BID xifaxin 550 BID lasix 20/spironolactone 50 once lightheadedness and dizziness resolves PPI BID Zofran PRN nausea ATTESTATION: I have performed a history and physical examination of this patient and reviewed the electronic record. Specifically, on physical examination there is no asterixis at this time. I have discussed the case with LEXY Shukla. The above note reflects my findings, conclusions, and recommendations. Alfonso Linares MD
[2016-08-11] MEDS: FLUCONAZOLE 100 MG TAB PO SCH (10:53)
[2016-08-11 11:11] VITALS: BMI 32.2
--- NOTE | 2016-08-11 13:34 | Clinical Documentation Query ---
CLINICAL DOCUMENTATION QUERY Dr. LUND, In your clinical opinion is this patient being managed for: ( x ) Acute or acute on chronic hepatic encephalopathy ( ) Other explanation of clinical findings (Please Explain) ( ) Unable to determine (Please Define) ( ) Need to Discuss ( ) Not Agree The medical record reflects the following clinical findings, treatment, and risk factors. Clinical Indicators: 70 yo female presenting with increasing confusion over the past 3 weeks. Pt had been decreasing her lactulose about 1 month ago due to diarrhea. Ammonia level 54, pt also hallucinating. Treatment:start lactulose 20 gm BID, GI consult, conservative IV fluids, xifaxin 550 BID, lasix 20/spironolactone 50 once lightheadedness and dizziness resolves Risk Factors: noncompliance with lactulose , liver cirrhosis Please clarify and document your clinical opinion in the progress notes and discharge summary. Terms such as "probable", "suspected", "likely", "questionable", "possible", or "still to be ruled out" are acceptable. IF IN AGREEMENT, YOU MUST DOCUMENT ABOVE DIAGNOSTIC STATEMENT IN DAILY PROGRESS NOTES AND DISCHARGE SUMMARY. This document is not part of the patient's record. Thank You, Nayeli Dennis RN [phone]
[2016-08-11 14:18] VITALS: O2SAT 92
[2016-08-11 15:42] VITALS: BP 132/81; PULSE 87; TEMP 36.7; O2SAT 93
--- NOTE | 2016-08-11 19:09 | Progress Note ---
Medicine Progress Note Date & Time of Visit: Aug 11, 2016 at 19:00. Subjective Patient still confused, does not recall seeing diabetes education or her today though they were here. No overnight events noted. Denies any new complaints. Tolerating PO but does not recall her meals. Objective Last 8 Hrs Date Time Temp Pulse Resp B/P Pulse Ox O2 Delivery O2 Flow Rate FiO2 08/11/16 16:00 Room Air 08/11/16 15:42 36.7 87 20 132/81 93 Room Air 08/11/16 14:18 92 Physical Exam: GENERAL: Patient is in no acute distress. HEENT: No acute trauma, normocephalic, mucous membranes moist, no nasal congestion, no scleral icterus. NECK: No stridor, trachea is midline. LUNGS: Clear to auscultation bilaterally, no wheeze, no rhonchi, breath sounds equal. HEART: Without murmurs gallops or rubs, regular rate and rhythm. ABDOMEN: Soft, nontender, bowel sounds positive EXTREMITIES: No cyanosis or edema NEUROLOGIC: Oriented, no acute motor or sensory deficits, no focal weakness. SKIN: No rash, no jaundice, no diaphoresis. Laboratory Results: Last 24 Hours Test 08/10/16 19:29 08/10/16 23:52 08/11/16 06:43 08/11/16 11:49 Bedside Glucose 258 mg/dl 276 mg/dl 274 mg/dl White Blood Count 5.28 K/uL Red Blood Count 3.82 M/uL Hemoglobin 13.0 g/dL Hematocrit 35.6 % Mean Corpuscular Volume 93.2 fL Mean Corpuscular Hemoglobin 34.0 pg Mean Corpuscular Hemoglobin Concent 36.5 g/dl RDW Standard Deviation 52.0 fL RDW Coefficient of Variation 15.4 % Platelet Count 46 K/uL Mean Platelet Volume 11.0 fL Platelet Estimate DECREASED Prothrombin Time 15.0 SECONDS Prothromb Time International Ratio 1.4 Sodium Level 139 mmol/L Potassium Level 3.9 mmol/L Chloride Level 105 mmol/L Carbon Dioxide Level 23 mmol/L Anion Gap 11.0 mmol/L Blood Urea Nitrogen 8 mg/dl Creatinine 0.65 mg/dl Est Creatinine Clear Calc Drug Dose 82.6 ml/min Estimated GFR () 102.8 Estimated GFR (Non- 88.7 BUN/Creatinine Ratio 12.6 Random Glucose 252 mg/dl Calcium Level 8.8 mg/dl Total Bilirubin 3.7 mg/dl Direct Bilirubin 1.5 mg/dl Aspartate Amino Transf (AST/SGOT) 32 U/L Alanine Aminotransferase (ALT/SGPT) 22 U/L Alkaline Phosphatase 65 U/L Total Protein 5.8 gm/dl Albumin 2.3 gm/dl Test 08/11/16 16:23 Bedside Glucose 282 mg/dl Date/Time Source Procedure Growth Status 08/11/16 00:00 Urine,Catheterized Urine Culture Pending Received Assessment & Plan SEVERE HYPERGLYCEMIA: -presented with blood glucose of 475 -HbA1c: 11.5% -no signs of DKA -patient denies being diabetic -s/p 2 L IVF in ED, holding off on further IVF for now due to cirrhosis -was started on insulin gtt with transition to SQ insulin -breastfeeding educator consult -Glycemic pharmacy consulted ALTERED MENTAL STATUS DUE TO HEPATIC ENCEPHALOPATHY, ETOH CIRRHOSIS: -hepatic encephalopathy likely due to self decreasing Lactulose dose -ammonia level 97 on 08/09 -started on lactulose 20gm BID -hold diuretics for now due to severe hyperglycemia -LFTs noted to be at baseline -GI consulted, appreciate recs POSSIBLE UTI: -urine culture pending -grew VRE on most recent urine culture -on Dapto for now, will adjust per culture results -no signs of sepsis HTN: -BP controlled, continue metoprolol THROMBOCYTOPENIA: -due to liver disease -no signs of bleeding, monitor closely -at baseline Current Inpatient Medications: Current Inpatient Medications Medications (Trade) Dose Ordered Sig/Migdalia Route Start Time Stop Time Status Last Admin Dose Admin Acetaminophen (Tylenol Tab) 650 mg Q4H PRN PO 08/10/16 15:45 09/09/16 15:44 Ondansetron HCl (Zofran Inj) 4 mg Q6H PRN IV 08/10/16 15:45 09/09/16 15:44 Lactulose (Chronulac Syrup) 20 gm BID PO 08/10/16 18:30 09/09/16 18:29 08/11/16 08:11 20 GM Nystatin (Mycostatin Powder) 1 appln BID EXT 08/10/16 21:00 09/09/16 20:59 08/11/16 08:10 1 APPLN Artificial Tears (Lacri-Lube Oph Oint) 1 appln HS OPB 08/10/16 21:00 2/11/17 20:59 08/10/16 20:06 1 APPLN Magnesium Oxide (Mag-Ox Tab) 400 mg QAM PO 08/11/16 09:00 09/10/16 08:59 08/11/16 08:12 400 MG Metoprolol Succinate (Toprol Xl Tab) 25 mg QAM PO 08/11/16 09:00 09/10/16 08:59 08/11/16 08:13 25 MG Multivitamins (Multivitamin Tab) 1 tab QAM PO 08/11/16 09:00 09/10/16 08:59 08/11/16 08:12 1 TAB Zinc Sulfate (Zinc Sulfate Cap) 220 mg BID PO 08/10/16 21:00 09/09/16 20:59 08/11/16 08:12 220 MG Ascorbic Acid (Vitamin C Tab) 1,000 mg QAM PO 08/11/16 09:00 09/10/16 08:59 08/11/16 08:12 1,000 MG Calcium/Vitamin D (Caltrate Plus Tab) 1 tab BID PO 08/10/16 21:00 09/09/16 20:59 08/11/16 08:10 1 TAB Glucosamine Sulfate (Glucosamine Cap) 500 mg QPM PO 08/10/16 21:00 09/09/16 20:59 08/10/16 20:07 500 MG Pantoprazole Sodium (Protonix Tab) 40 mg BID PO 08/10/16 21:00 09/09/16 20:59 08/11/16 08:12 40 MG Daptomycin 1 ea 1 ea UD PRN N/A 08/10/16 18:32 09/09/16 18:31 Daptomycin/Sodium Chloride (Cubicin IV/Nss 50ml) 57 ml @ 120 mls/hr DAILY@2000 IV 08/10/16 20:00 08/15/16 19:59 08/10/16 19:56 120 MLS/HR Insulin Aspart (novoLOG ASPART) SLIDING SCALE G... ACHS SC 08/10/16 21:00 09/09/16 20:59 08/11/16 17:29 12 UNITS Fluconazole (Diflucan Tab) 100 mg QAM PO 08/11/16 10:00 09/10/16 09:59 08/11/16 10:53 100 MG Rifaximin (Xifaxan Tab) 550 mg BID PO 08/11/16 21:00 09/10/16 20:59 Nystatin/ Triamcinolone Acetonide (Mycogen II Oint) 1 appln BID EXT 08/11/16 21:00 09/10/16 20:59
[2016-08-11] MEDS: DAPTOmycin IV 350 MG in SODIUM CHLORIDE 0.9% 50ML 50 ML IV SCH (19:51)
[2016-08-11] MEDS: NYSTATIN/TRIAMCINOLONE OINT 15 GM TUBE EXT SCH (20:04)
[2016-08-11] MEDS: RIFAXIMIN TAB 550 MG TAB PO SCH (20:04)
[2016-08-11] MEDS: GLUCOSAMINE SULFATE 500 MG CAP PO SCH (20:04)
[2016-08-11] MEDS: ARTIFICIAL TEARS OP OINT 3.5 GM TUBE OPB SCH (20:04)
[2016-08-11 22:53] VITALS: BP 139/81; PULSE 91; TEMP 36.7; O2SAT 91
[2016-08-12 07:02] VITALS: BP 125/66; PULSE 83; TEMP 36.5; O2SAT 92
--- NOTE | 2016-08-12 07:22 | Gastroenterology Progress Note ---
Progress Note Date of Service: Aug 12, 2016 Subjective Pt evaluation today including: conversation w/ patient, physical exam The patient reports that her memory seems better this morning. She does not seem confused during today's exam. She is able to tell me her location and time of day. Review of Systems Constitutional: No fatigue, No fever, No sweats ENT: No hearing loss, No sore throat, No trouble swallowing Cardiac: No chest pain, No palpitations Abdomen: No nausea, No pain, No vomiting Medications Current Inpatient Medications Medications (Trade) Dose Ordered Sig/Migdalia Route Start Time Stop Time Status Last Admin Dose Admin Acetaminophen (Tylenol Tab) 650 mg Q4H PRN PO 08/10/16 15:45 09/09/16 15:44 Ondansetron HCl (Zofran Inj) 4 mg Q6H PRN IV 08/10/16 15:45 09/09/16 15:44 Lactulose (Chronulac Syrup) 20 gm BID PO 08/10/16 18:30 09/09/16 18:29 08/11/16 20:04 20 GM Nystatin (Mycostatin Powder) 1 appln BID EXT 08/10/16 21:00 09/09/16 20:59 08/11/16 20:04 1 APPLN Artificial Tears (Lacri-Lube Oph Oint) 1 appln HS OPB 08/10/16 21:00 09/09/16 20:59 08/11/16 20:04 1 APPLN Magnesium Oxide (Mag-Ox Tab) 400 mg QAM PO 08/11/16 09:00 09/10/16 08:59 08/11/16 08:12 400 MG Metoprolol Succinate (Toprol Xl Tab) 25 mg QAM PO 08/11/16 09:00 09/10/16 08:59 08/11/16 08:13 25 MG Multivitamins (Multivitamin Tab) 1 tab QAM PO 08/11/16 09:00 09/10/16 08:59 08/11/16 08:12 1 TAB Zinc Sulfate (Zinc Sulfate Cap) 220 mg BID PO 08/10/16 21:00 09/09/16 20:59 08/11/16 20:04 220 MG Ascorbic Acid (Vitamin C Tab) 1,000 mg QAM PO 08/11/16 09:00 09/10/16 08:59 08/11/16 08:12 1,000 MG Calcium/Vitamin D (Caltrate Plus Tab) 1 tab BID PO 08/10/16 21:00 09/09/16 20:59 08/11/16 20:04 1 TAB Glucosamine Sulfate (Glucosamine Cap) 500 mg QPM PO 08/10/16 21:00 09/09/16 20:59 08/11/16 20:04 500 MG Pantoprazole Sodium (Protonix Tab) 40 mg BID PO 08/10/16 21:00 09/09/16 20:59 08/11/16 20:04 40 MG Daptomycin 1 ea 1 ea UD PRN N/A 08/10/16 18:32 09/09/16 18:31 Daptomycin/Sodium Chloride (Cubicin IV/Nss 50ml) 57 ml @ 120 mls/hr DAILY@2000 IV 08/10/16 20:00 08/15/16 19:59 08/11/16 19:51 120 MLS/HR Insulin Aspart (novoLOG ASPART) SLIDING SCALE G... ACHS SC 08/10/16 21:00 09/09/16 20:59 08/11/16 20:41 8 UNITS Fluconazole (Diflucan Tab) 100 mg QAM PO 08/11/16 10:00 09/10/16 09:59 08/11/16 10:53 100 MG Rifaximin (Xifaxan Tab) 550 mg BID PO 08/11/16 21:00 09/10/16 20:59 08/11/16 20:04 550 MG Nystatin/ Triamcinolone Acetonide (Mycogen II Oint) 1 appln BID EXT 08/11/16 21:00 09/10/16 20:59 08/11/16 20:04 1 APPLN Objective Vital Signs Date Time Temp Pulse Resp B/P Pulse Ox O2 Delivery O2 Flow Rate FiO2 08/12/16 07:02 36.5 83 18 125/66 92 Room Air 08/12/16 00:00 Room Air 08/11/16 22:53 36.7 91 20 139/81 91 Room Air 08/11/16 16:00 Room Air 08/11/16 15:42 36.7 87 20 132/81 93 Room Air 08/11/16 14:18 92 08/11/16 08:00 92 Nasal Cannula 2.0 Physical Exam General Appearance: no apparent distress Neck: no JVD Respiratory/Chest: lungs clear Cardiovascular: regular rate, rhythm, + systolic murmur Abdomen: non tender, soft Neurologic/Psych: + pertinent finding (no asterixis) Laboratory Results Last 24 Hours Test 08/11/16 11:49 08/11/16 16:23 08/11/16 20:20 Bedside Glucose 274 mg/dl 282 mg/dl 297 mg/dl Assessment and Plan Patient admitted with hepatic encephalopathy. Her symptoms appeared to be improving with addition of rifaximin. Recommendations Advance diet as tolerated (low sodium) Continue rifaximin 550 mg twice daily\ Continue lactulose two times daily
[2016-08-12] MEDS: NYSTATIN/TRIAMCINOLONE OINT 15 GM TUBE EXT SCH ×2 (08:02→20:15)
[2016-08-12] MEDS: METOPROLOL SUCC 25MG EXT REL TAB PO SCH (08:02)
[2016-08-12] MEDS: ZINC SULFATE 220 MG CAP PO SCH ×2 (08:02→20:18)
[2016-08-12] MEDS: CALCIUM 600MG + VIT D 400 IU TAB PO SCH ×2 (08:02→20:17)
[2016-08-12] MEDS: FLUCONAZOLE 100 MG TAB PO SCH (08:02)
[2016-08-12] MEDS: RIFAXIMIN TAB 550 MG TAB PO SCH ×2 (08:02→20:19)
[2016-08-12] MEDS: DIFLUPREDNATE 0.05% OP SCH ×3 (08:02→20:14)
[2016-08-12] MEDS: MAGNESIUM OXIDE 400 MG TAB PO SCH (08:02)
[2016-08-12] MEDS: MULTIVITAMIN TAB PO SCH (08:02)
[2016-08-12] MEDS: NYSTATIN POWDER 15GM BTL EXT SCH ×2 (08:02→20:15)
[2016-08-12] MEDS: ASCORBIC ACID 500 MG TAB PO SCH (08:02)
[2016-08-12] MEDS: PANTOprazole SOD 40 MG TAB PO SCH ×2 (08:02→20:17)
[2016-08-12] MEDS: LACTULOSE SYRUP 20 GM/30 ML UDC PO SCH ×2 (08:02→20:15)
[2016-08-12] MEDS: INSULIN ASPART 100 UNITS/ML 3 ML PEN SC SCH ×4 (08:13→20:22)
[2016-08-12 11:19] LABS: BUN/CREATININE RATIO 9.9 (10-20); CALCIUM 8.9 mg/dl (8.5-10.1); CREATININE 0.82 mg/dl (0.60-1.20); HEMATOCRIT 39.4 % (37-47); MEAN CELL VOLUME 93.6 fL (80-100); MEAN CORPUSCULAR HGB CONC 36.3 g/dl (32-36); MEAN PLATELET VOLUME 11.8 fL (7.4-10.4); PLATELET COUNT 58 K/uL (130-400); PLT ESTIMATE DECREASED; POTASSIUM 3.9 mmol/L (3.5-5.1); RED BLOOD COUNT 4.21 M/uL (4.2-5.4); WHITE BLOOD COUNT 6.11 K/uL (4.8-10.8)
[2016-08-12] MEDS ORDERED: MAGIC MOUTHWASH PO PRN (12:30)
[2016-08-12] MEDS: DEXAMETHASONE CONC SOLN 3.75 MG, NYSTATIN SUSP 30 ML, DiphenhydrAMINE HCL SYRUP 300 MG,... PO PRN ×10 (14:02→20:16)
[2016-08-12 14:47] VITALS: BP 128/75; PULSE 81; TEMP 36.6; O2SAT 92
[2016-08-12] MEDS: CEFTRIAXONE SOD INJ 1000 MG in DEXTROSE 5% 50ML IV SCH (15:49)
[2016-08-12 16:00] VITALS: O2SAT 92
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
[2016-08-12] MEDS: ARTIFICIAL TEARS OP OINT 3.5 GM TUBE OPB SCH (20:14)
[2016-08-12] MEDS: GLUCOSAMINE SULFATE 500 MG CAP PO SCH (20:19)
[2016-08-12 23:32] VITALS: BP 176/72; PULSE 86; TEMP 36.7; O2SAT 90
[2016-08-13 06:53] VITALS: BP 127/73; PULSE 82; TEMP 36.7; O2SAT 92
[2016-08-13] MEDS: RIFAXIMIN TAB 550 MG TAB PO SCH ×2 (07:46→20:08)
[2016-08-13] MEDS: CALCIUM 600MG + VIT D 400 IU TAB PO SCH ×2 (07:46→20:08)
[2016-08-13] MEDS: PANTOprazole SOD 40 MG TAB PO SCH ×2 (07:47→20:08)
[2016-08-13] MEDS: ASCORBIC ACID 500 MG TAB PO SCH (07:47)
[2016-08-13] MEDS: FLUCONAZOLE 100 MG TAB PO SCH (07:47)
[2016-08-13] MEDS: METOPROLOL SUCC 25MG EXT REL TAB PO SCH (07:47)
[2016-08-13] MEDS: MULTIVITAMIN TAB PO SCH (07:47)
[2016-08-13] MEDS: ZINC SULFATE 220 MG CAP PO SCH ×2 (07:47→20:07)
[2016-08-13] MEDS: LACTULOSE SYRUP 20 GM/30 ML UDC PO SCH ×2 (07:48→20:08)
[2016-08-13] MEDS: NYSTATIN POWDER 15GM BTL EXT SCH ×2 (07:48→20:07)
[2016-08-13] MEDS: MAGNESIUM OXIDE 400 MG TAB PO SCH (07:48)
[2016-08-13] MEDS: DIFLUPREDNATE 0.05% OP SCH ×3 (07:49→20:09)
[2016-08-13] MEDS: NYSTATIN/TRIAMCINOLONE OINT 15 GM TUBE EXT SCH ×2 (07:49→20:09)
[2016-08-13] MEDS: INSULIN ASPART 100 UNITS/ML 3 ML PEN SC SCH ×4 (08:31→20:13)
[2016-08-13 11:18] LABS: BUN/CREATININE RATIO 10.4 (10-20); CALCIUM 8.8 mg/dl (8.5-10.1); CREATININE 0.74 mg/dl (0.60-1.20); POTASSIUM 3.9 mmol/L (3.5-5.1)
[2016-08-13 11:40] LABS: MEAN CELL VOLUME 94.9 fL (80-100); MEAN CORPUSCULAR HEMOGLOBIN 34.1 pg (25-34); MEAN CORPUSCULAR HGB CONC 35.9 g/dl (32-36); MEAN PLATELET VOLUME 11.5 fL (7.4-10.4); PLATELET COUNT 45 K/uL (130-400); PLT ESTIMATE DECREASED; WHITE BLOOD COUNT 5.19 K/uL (4.8-10.8)
[2016-08-13] MEDS: DEXAMETHASONE CONC SOLN 3.75 MG, NYSTATIN SUSP 30 ML, DiphenhydrAMINE HCL SYRUP 300 MG,... PO PRN ×5 (13:05)
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
[2016-08-13 15:35] VITALS: BP 117/69; PULSE 77; TEMP 36.5; O2SAT 95
[2016-08-13] MEDS: CEFTRIAXONE SOD INJ 1000 MG in DEXTROSE 5% 50ML IV SCH (15:52)
--- NOTE | 2016-08-13 19:16 | Progress Note ---
Medicine Progress Note Date & Time of Visit: Aug 13, 2016 at 19:16. Subjective Patient continues to have hallucinations/confusion but is otherwise oriented, she does however seem to have difficulty reality from these other hallucinations. She recalls some of the events from this admission but things get mixed into her hallucinations. She otherwise denies any complaints or symptoms. Objective Last 8 Hrs Date Time Temp Pulse Resp B/P Pulse Ox O2 Delivery O2 Flow Rate FiO2 08/13/16 16:00 Room Air 08/13/16 15:35 36.5 77 16 117/69 95 Room Air Physical Exam: GENERAL: Patient is in no acute distress. HEENT: No acute trauma, normocephalic, mucous membranes moist, no nasal congestion, no scleral icterus. NECK: No stridor, trachea is midline. LUNGS: Clear to auscultation bilaterally, no wheeze, no rhonchi, breath sounds equal. HEART: Without murmurs gallops or rubs, regular rate and rhythm. ABDOMEN: Soft, nontender, bowel sounds positive EXTREMITIES: No cyanosis or edema NEUROLOGIC: Oriented, no acute motor or sensory deficits, no focal weakness. SKIN: No rash, no jaundice, no diaphoresis. Laboratory Results: Last 24 Hours Test 08/12/16 20:15 08/13/16 07:40 08/13/16 10:38 08/13/16 11:33 Bedside Glucose 287 mg/dl 224 mg/dl 252 mg/dl White Blood Count 5.19 K/uL Red Blood Count 3.90 M/uL Hemoglobin 13.3 g/dL Hematocrit 37.0 % Mean Corpuscular Volume 94.9 fL Mean Corpuscular Hemoglobin 34.1 pg Mean Corpuscular Hemoglobin Concent 35.9 g/dl RDW Standard Deviation 53.8 fL RDW Coefficient of Variation 15.5 % Platelet Count 45 K/uL Mean Platelet Volume 11.5 fL Platelet Estimate DECREASED Sodium Level 139 mmol/L Potassium Level 3.9 mmol/L Chloride Level 103 mmol/L Carbon Dioxide Level 23 mmol/L Anion Gap 13.0 mmol/L Blood Urea Nitrogen 8 mg/dl Creatinine 0.74 mg/dl Est Creatinine Clear Calc Drug Dose 72.5 ml/min Estimated GFR () 93.8 Estimated GFR (Non- 80.9 BUN/Creatinine Ratio 10.4 Random Glucose 293 mg/dl Calcium Level 8.8 mg/dl Ammonia 51.0 umol/L Test 08/13/16 16:46 Bedside Glucose 260 mg/dl Assessment & Plan SEVERE HYPERGLYCEMIA: -presented with blood glucose of 475 -HbA1c: 11.2% -no signs of DKA -patient denies being diabetic, her also denies any history of diabetes except when she takes steroids which she has not done in over 6 months -s/p 2 L IVF in ED, holding off on further IVF for now due to cirrhosis -was started on insulin gtt with transition to SQ insulin -diabetic education consulted, appreciate recs -Glycemic pharmacy consulted, appreciate recommendations ENCEPHALOPATHY/ALTERED MENTAL STATUS: -has known chronic hepatic encephalopathy but ammonia level was 54 on admission , and 51 now, which is not significantly elevated per the patients -differential includes hepatic, or metabolic from infection -ammonia level was 97 on 08/09 -started on lactulose 20gm BID, rifaximin BID -holding diuretics for now -LFTs noted to be at baseline -coags elevated -GI consulted UTI: -urine culture shows multi-drug resistent E coli, but sensitive to ceftriaxone -grew VRE on most recent urine culture -was on Dapto, but abx changed to ceftriaxone day#2 due to cultures -no signs of sepsis -possible cause of encephalopathy in this patient as well HTN: -BP controlled, continue metoprolol THROMBOCYTOPENIA: -due to liver disease -no signs of bleeding, monitor closely -at baseline -patient also 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 Current Inpatient Medications: Current Inpatient Medications Medications (Trade) Dose Ordered Sig/Migdalia Route Start Time Stop Time Status Last Admin Dose Admin Acetaminophen (Tylenol Tab) 650 mg Q4H PRN PO 08/10/16 15:45 09/09/16 15:44 Ondansetron HCl (Zofran Inj) 4 mg Q6H PRN IV 08/10/16 15:45 09/09/16 15:44 Lactulose (Chronulac Syrup) 20 gm BID PO 08/10/16 18:30 09/09/16 18:29 08/13/16 07:48 20 GM Nystatin (Mycostatin Powder) 1 appln BID EXT 08/10/16 21:00 09/09/16 20:59 08/13/16 07:48 1 APPLN Artificial Tears (Lacri-Lube Oph Oint) 1 appln HS OPB 08/10/16 21:00 09/09/16 20:59 08/12/16 20:14 1 APPLN Magnesium Oxide (Mag-Ox Tab) 400 mg QAM PO 08/11/16 09:00 09/10/16 08:59 08/13/16 07:48 400 MG Metoprolol Succinate (Toprol Xl Tab) 25 mg QAM PO 08/11/16 09:00 09/10/16 08:59 08/13/16 07:47 25 MG Multivitamins (Multivitamin Tab) 1 tab QAM PO 08/11/16 09:00 09/10/16 08:59 08/13/16 07:47 1 TAB Zinc Sulfate (Zinc Sulfate Cap) 220 mg BID PO 08/10/16 21:00 09/09/16 20:59 08/13/16 07:47 220 MG Ascorbic Acid (Vitamin C Tab) 1,000 mg QAM PO 08/11/16 09:00 09/10/16 08:59 08/13/16 07:47 1,000 MG Calcium/Vitamin D (Caltrate Plus Tab) 1 tab BID PO 08/10/16 21:00 09/09/16 20:59 08/13/16 07:46 1 TAB Glucosamine Sulfate (Glucosamine Cap) 500 mg QPM PO 08/10/16 21:00 09/09/16 20:59 08/12/16 20:19 500 MG Pantoprazole Sodium (Protonix Tab) 40 mg BID PO 08/10/16 21:00 09/09/16 20:59 08/13/16 07:47 40 MG Insulin Aspart (novoLOG ASPART) SLIDING SCALE G... ACHS SC 08/10/16 21:00 09/09/16 20:59 08/13/16 17:30 9 UNITS Fluconazole (Diflucan Tab) 100 mg QAM PO 08/11/16 10:00 09/10/16 09:59 08/13/16 07:47 100 MG Rifaximin (Xifaxan Tab) 550 mg BID PO 08/11/16 21:00 09/10/16 20:59 08/13/16 07:46 550 MG Nystatin/ Triamcinolone Acetonide 1 appln BID EXT 08/11/16 21:00 09/10/16 20:59 08/13/16 07:49 1 APPLN Dexamethasone 3.75 mg/Nystatin 30 ml/ Diphenhydramine HCl 300 mg/ Sucrose 45 ml/ Microcrystalline Cellulose 45 ml/ Barcode 1 ea Q6H PRN PO 08/12/16 13:45 09/11/16 13:44 08/13/16 13:05 5 ML Ceftriaxone Sodium/Dextrose (Rocephin Inj/D5 50ml) 60 ml @ 120 mls/hr Q24H IV 08/12/16 16:00 08/22/16 15:59 08/13/16 15:52 120 MLS/HR
[2016-08-13] MEDS: GLUCOSAMINE SULFATE 500 MG CAP PO SCH (20:08)
[2016-08-13] MEDS: ARTIFICIAL TEARS OP OINT 3.5 GM TUBE OPB SCH (20:08)
[2016-08-13 23:30] VITALS: BP 167/76; PULSE 86; TEMP 36.9; O2SAT 96
[2016-08-14 06:49] LABS: HEMATOCRIT 35.7 % (37-47); MEAN CELL VOLUME 93.2 fL (80-100); MEAN CORPUSCULAR HEMOGLOBIN 34.5 pg (25-34); MEAN PLATELET VOLUME 12.1 fL (7.4-10.4); PLATELET COUNT 44 K/uL (130-400); RED BLOOD COUNT 3.83 M/uL (4.2-5.4)
[2016-08-14 06:52] VITALS: BP 137/63; PULSE 67; TEMP 36.7; O2SAT 93
[2016-08-14 06:52] LABS: BUN/CREATININE RATIO 12.2 (10-20); CALCIUM 8.7 mg/dl (8.5-10.1); CREATININE 0.73 mg/dl (0.60-1.20); POTASSIUM 3.7 mmol/L (3.5-5.1)
--- NOTE | 2016-08-14 08:23 | Gastroenterology Progress Note ---
Progress Note Date of Service: Aug 14, 2016 Subjective Pt evaluation today including: conversation w/ patient, conversation w/ family , physical exam, chart review Patient was seen and examined this morning. She is oriented to self only. She is sitting up in bed eating her breakfast. She denies any fever, chills, chest pain, SOB, abdominal pain, black/bloody stools. She is pleasantly confused. Review of Systems Constitutional: No chills, No fever Respiratory: + cough, No shortness of breath Cardiac: No chest pain, No edema Abdomen: No GI bleeding, No constipation, No diarrhea, No nausea, No pain, No vomiting Medications Current Inpatient Medications Medications (Trade) Dose Ordered Sig/Imgdalia Route Start Time Stop Time Status Last Admin Dose Admin Acetaminophen (Tylenol Tab) 650 mg Q4H PRN PO 08/10/16 15:45 09/09/16 15:44 08/14/16 00:37 650 MG Ondansetron HCl (Zofran Inj) 4 mg Q6H PRN IV 08/10/16 15:45 09/09/16 15:44 Lactulose (Chronulac Syrup) 20 gm BID PO 08/10/16 18:30 09/09/16 18:29 08/13/16 20:08 20 GM Nystatin (Mycostatin Powder) 1 appln BID EXT 08/10/16 21:00 09/09/16 20:59 08/13/16 20:07 1 APPLN Artificial Tears (Lacri-Lube Oph Oint) 1 appln HS OPB 08/10/16 21:00 09/09/16 20:59 08/13/16 20:08 1 APPLN Magnesium Oxide (Mag-Ox Tab) 400 mg QAM PO 08/11/16 09:00 09/10/16 08:59 08/13/16 07:48 400 MG Metoprolol Succinate (Toprol Xl Tab) 25 mg QAM PO 08/11/16 09:00 09/10/16 08:59 08/13/16 07:47 25 MG Multivitamins (Multivitamin Tab) 1 tab QAM PO 08/11/16 09:00 09/10/16 08:59 08/13/16 07:47 1 TAB Zinc Sulfate (Zinc Sulfate Cap) 220 mg BID PO 08/10/16 21:00 09/09/16 20:59 08/13/16 20:07 220 MG Ascorbic Acid (Vitamin C Tab) 1,000 mg QAM PO 08/11/16 09:00 09/10/16 08:59 08/13/16 07:47 1,000 MG Calcium/Vitamin D (Caltrate Plus Tab) 1 tab BID PO 08/10/16 21:00 09/09/16 20:59 08/13/16 20:08 1 TAB Glucosamine Sulfate (Glucosamine Cap) 500 mg QPM PO 08/10/16 21:00 09/09/16 20:59 08/13/16 20:08 500 MG Pantoprazole Sodium (Protonix Tab) 40 mg BID PO 08/10/16 21:00 09/09/16 20:59 08/13/16 20:08 40 MG Insulin Aspart (novoLOG ASPART) SLIDING SCALE G... ACHS SC 08/10/16 21:00 09/09/16 20:59 08/13/16 20:13 8 UNITS Fluconazole (Diflucan Tab) 100 mg QAM PO 08/11/16 10:00 09/10/16 09:59 08/13/16 07:47 100 MG Rifaximin (Xifaxan Tab) 550 mg BID PO 08/11/16 21:00 09/10/16 20:59 08/13/16 20:08 550 MG Nystatin/ Triamcinolone Acetonide 1 appln BID EXT 08/11/16 21:00 09/10/16 20:59 08/13/16 20:09 1 APPLN Dexamethasone 3.75 mg/Nystatin 30 ml/ Diphenhydramine HCl 300 mg/ Sucrose 45 ml/ Microcrystalline Cellulose 45 ml/ Barcode 1 ea Q6H PRN PO 08/12/16 13:45 09/11/16 13:44 08/13/16 13:05 5 ML Ceftriaxone Sodium/Dextrose (Rocephin Inj/D5 50ml) 60 ml @ 120 mls/hr Q24H IV 08/12/16 16:00 08/22/16 15:59 08/13/16 15:52 120 MLS/HR Objective Vital Signs Date Time Temp Pulse Resp B/P Pulse Ox O2 Delivery O2 Flow Rate FiO2 08/14/16 06:52 36.7 67 18 137/63 93 Room Air 08/14/16 00:10 Room Air 08/13/16 23:30 36.9 86 20 167/76 96 Room Air 08/13/16 16:00 Room Air 08/13/16 15:35 36.5 77 16 117/69 95 Room Air Physical Exam General Appearance: no apparent distress Eyes: PERRL ENT: hearing grossly normal Neck: supple, trachea midline Respiratory/Chest: lungs clear, normal breath sounds, no respiratory distress, no accessory muscle use Cardiovascular: regular rate, rhythm, no edema, no gallop, no JVD, no murmur Abdomen: normal bowel sounds, non tender, soft, no organomegaly, no pulsatile mass Neurologic/Psych: alert, normal mood/affect, + pertinent finding (oriented to self) Skin: normal color, no jaundice, warm/dry, no rash Laboratory Results Last 24 Hours Test 08/13/16 10:38 08/13/16 11:33 08/13/16 16:46 08/13/16 20:04 White Blood Count 5.19 K/uL Red Blood Count 3.90 M/uL Hemoglobin 13.3 g/dL Hematocrit 37.0 % Mean Corpuscular Volume 94.9 fL Mean Corpuscular Hemoglobin 34.1 pg Mean Corpuscular Hemoglobin Concent 35.9 g/dl RDW Standard Deviation 53.8 fL RDW Coefficient of Variation 15.5 % Platelet Count 45 K/uL Mean Platelet Volume 11.5 fL Platelet Estimate DECREASED Sodium Level 139 mmol/L Potassium Level 3.9 mmol/L Chloride Level 103 mmol/L Carbon Dioxide Level 23 mmol/L Anion Gap 13.0 mmol/L Blood Urea Nitrogen 8 mg/dl Creatinine 0.74 mg/dl Est Creatinine Clear Calc Drug Dose 72.5 ml/min Estimated GFR () 93.8 Estimated GFR (Non- 80.9 BUN/Creatinine Ratio 10.4 Random Glucose 293 mg/dl Calcium Level 8.8 mg/dl Ammonia 51.0 umol/L Bedside Glucose 252 mg/dl 260 mg/dl 296 mg/dl Test 08/14/16 05:36 08/14/16 07:20 White Blood Count 5.80 K/uL Red Blood Count 3.83 M/uL Hemoglobin 13.2 g/dL Hematocrit 35.7 % Mean Corpuscular Volume 93.2 fL Mean Corpuscular Hemoglobin 34.5 pg Mean Corpuscular Hemoglobin Concent 37.0 g/dl RDW Standard Deviation 52.1 fL RDW Coefficient of Variation 15.2 % Platelet Count 44 K/uL Mean Platelet Volume 12.1 fL Sodium Level 137 mmol/L Potassium Level 3.7 mmol/L Chloride Level 103 mmol/L Carbon Dioxide Level 22 mmol/L Anion Gap 12.0 mmol/L Blood Urea Nitrogen 9 mg/dl Creatinine 0.73 mg/dl Est Creatinine Clear Calc Drug Dose 73.5 ml/min Estimated GFR () 95.4 Estimated GFR (Non- 82.3 BUN/Creatinine Ratio 12.2 Random Glucose 226 mg/dl Calcium Level 8.7 mg/dl Bedside Glucose 207 mg/dl Assessment and Plan Patient is a 70 year old female admitted with confusion, thought to be related to hepatic encephalopathy. Treatment was initiated with Xifaxan and lactulose and symptoms began to improve. However, patient is still confused. Patient's states that this is not her baseline and she was not like this a month ago. GI suggests additional workup Continue low sodium diet as tolerated Continue rifaximin 550 mg BID. Continue 20gm lactulose BID. Consider neurology consult and additional workup GI to sign off. Please call with any questions I performed a history and physical examination of the patient. I have discussed the patient's case, impression and plan with LEXY Shukla. Her note reflects my findings and plan. Symptoms possibly related to UTI. Mike Marcano MD
[2016-08-14] MEDS: INSULIN ASPART 100 UNITS/ML 3 ML PEN SC SCH ×4 (08:49→20:27)
[2016-08-14] MEDS: ZINC SULFATE 220 MG CAP PO SCH ×2 (08:51→20:33)
[2016-08-14] MEDS: PANTOprazole SOD 40 MG TAB PO SCH ×2 (08:51→20:34)
[2016-08-14] MEDS: RIFAXIMIN TAB 550 MG TAB PO SCH ×2 (08:51→20:32)
[2016-08-14] MEDS: METOPROLOL SUCC 25MG EXT REL TAB PO SCH (08:51)
[2016-08-14] MEDS: MAGNESIUM OXIDE 400 MG TAB PO SCH (08:51)
[2016-08-14] MEDS: CALCIUM 600MG + VIT D 400 IU TAB PO SCH ×2 (08:51→20:33)
[2016-08-14] MEDS: MULTIVITAMIN TAB PO SCH (08:52)
[2016-08-14] MEDS: ASCORBIC ACID 500 MG TAB PO SCH (08:52)
[2016-08-14] MEDS: NYSTATIN POWDER 15GM BTL EXT SCH ×2 (08:52→20:31)
[2016-08-14] MEDS: FLUCONAZOLE 100 MG TAB PO SCH (08:52)
[2016-08-14] MEDS: LACTULOSE SYRUP 20 GM/30 ML UDC PO SCH ×2 (08:53→20:32)
[2016-08-14] MEDS: DIFLUPREDNATE 0.05% OP SCH ×3 (08:53→20:31)
[2016-08-14] MEDS: NYSTATIN/TRIAMCINOLONE OINT 15 GM TUBE EXT SCH ×2 (08:54→20:34)
[2016-08-14 14:43] VITALS: BP 125/70; PULSE 85; TEMP 36.8; O2SAT 92
--- NOTE | 2016-08-14 15:35 | Neurology Consultation ---
Neurology Consultation Date of Consultation: Aug 14, 2016. Attending Physician: Graciela Fair D.O. Primary Care Physician: Alfredo Martines M.D. Reason for Consultation: persistent encephalopathy History of Present Illness Source: patient Haylie is a 70 year old female who presents to the ER requested by her PCP for abnormal labs, confusion, and weakness. Her had reported on admission she has had increased confusion for the past 3 weeks. She has had hallucinations at times.Her glucose was 500 and ammonia of 97. She has a history of cirrhosis of the liver and taking Lactulose 20 g twice daily. That was reduced 1 month ago because of excessive diarrhea. She states she was not feeling well and her thirst was increased and she was leaking urine which caused a perineal rash. She thinks she is doing better but she is still not feeling herself. She states she knows she has a urinary tract infection and her ammonia was high that's why she is in the hospital. There is no family currently in the room. denies CP, SOB, abdominal pain, weakness, numbness tingling, N, V, headache, vision changes. Social History Smoking Status: Former smoker Alcohol Use: former heavy ETOH use Marital Status: Housing Status: lives with family Allergies Coded Allergies: TAMAR Inhibitors (Verified Adverse Reaction, Mild, PALPITATIONS (BUT TAKES LISINOPRIL), 07/26/16) LOTREL - DIDN'T FEEL WELL. COMBO TAMAR INHIB IS PROBLEM - NOT TAMAR SOLO. Hydrocodone (Verified Adverse Reaction, Mild, HEART RACING, 07/26/16) Meperidine (Verified Adverse Reaction, Mild, SEVERE GI, 07/26/16) Oxycodone (Verified Adverse Reaction, Mild, DEPRESSION, 07/26/16) Ranitidine (Verified Adverse Reaction, Mild, DIZZINESS, 07/26/16) Sulfa Antibiotics (Verified Adverse Reaction, Mild, "SULFA DRUGS": SEVERE GI, 07/26/16) Current Inpatient Medications Current Inpatient Medications Medications (Trade) Dose Ordered Sig/Migdalia Route Start Time Stop Time Status Last Admin Dose Admin Acetaminophen (Tylenol Tab) 650 mg Q4H PRN PO 08/10/16 15:45 09/09/16 15:44 08/14/16 00:37 650 MG Ondansetron HCl (Zofran Inj) 4 mg Q6H PRN IV 08/10/16 15:45 09/09/16 15:44 Lactulose (Chronulac Syrup) 20 gm BID PO 08/10/16 18:30 09/09/16 18:29 08/14/16 08:53 20 GM Nystatin (Mycostatin Powder) 1 appln BID EXT 08/10/16 21:00 09/09/16 20:59 08/14/16 08:52 1 APPLN Artificial Tears (Lacri-Lube Oph Oint) 1 appln HS OPB 08/10/16 21:00 09/09/16 20:59 08/13/16 20:08 1 APPLN Magnesium Oxide (Mag-Ox Tab) 400 mg QAM PO 08/11/16 09:00 09/10/16 08:59 08/14/16 08:51 400 MG Metoprolol Succinate (Toprol Xl Tab) 25 mg QAM PO 08/11/16 09:00 09/10/16 08:59 08/14/16 08:51 25 MG Multivitamins (Multivitamin Tab) 1 tab QAM PO 08/11/16 09:00 09/10/16 08:59 08/14/16 08:52 1 TAB Zinc Sulfate (Zinc Sulfate Cap) 220 mg BID PO 08/10/16 21:00 09/09/16 20:59 08/14/16 08:51 220 MG Ascorbic Acid (Vitamin C Tab) 1,000 mg QAM PO 08/11/16 09:00 09/10/16 08:59 08/14/16 08:52 1,000 MG Calcium/Vitamin D (Caltrate Plus Tab) 1 tab BID PO 08/10/16 21:00 09/09/16 20:59 08/14/16 08:51 1 TAB Glucosamine Sulfate (Glucosamine Cap) 500 mg QPM PO 08/10/16 21:00 09/09/16 20:59 08/13/16 20:08 500 MG Pantoprazole Sodium (Protonix Tab) 40 mg BID PO 08/10/16 21:00 09/09/16 20:59 08/14/16 08:51 40 MG Insulin Aspart (novoLOG ASPART) SLIDING SCALE G... ACHS SC 08/10/16 21:00 09/09/16 20:59 08/14/16 12:26 7 UNITS Fluconazole (Diflucan Tab) 100 mg QAM PO 08/11/16 10:00 09/10/16 09:59 08/14/16 08:52 100 MG Rifaximin (Xifaxan Tab) 550 mg BID PO 08/11/16 21:00 09/10/16 20:59 08/14/16 08:51 550 MG Nystatin/ Triamcinolone Acetonide 1 appln BID EXT 08/11/16 21:00 09/10/16 20:59 08/14/16 08:54 1 APPLN Dexamethasone 3.75 mg/Nystatin 30 ml/ Diphenhydramine HCl 300 mg/ Sucrose 45 ml/ Microcrystalline Cellulose 45 ml/ Barcode 1 ea Q6H PRN PO 08/12/16 13:45 09/11/16 13:44 08/13/16 13:05 5 ML Ceftriaxone Sodium/Dextrose (Rocephin Inj/D5 50ml) 60 ml @ 120 mls/hr Q24H IV 08/12/16 16:00 08/22/16 15:59 08/13/16 15:52 120 MLS/HR Physical Exam Vital Signs (Past 24 Hrs): Date Time Temp Pulse Resp B/P Pulse Ox O2 Delivery O2 Flow Rate FiO2 08/14/16 14:43 36.8 85 18 125/70 92 Room Air 08/14/16 08:20 Room Air 08/14/16 06:52 36.7 67 18 137/63 93 Room Air 08/14/16 00:10 Room Air 08/13/16 23:30 36.9 86 20 167/76 96 Room Air 08/13/16 16:00 Room Air 08/13/16 15:35 36.5 77 16 117/69 95 Room Air Physical Exam: Constitutional: appearance ill appearing, looks older than stated age Ears, Nose, Mouth and Throat: mucous membranes moist, no injection eyes normal Cardiovascular: normal S-1 and S-2 and regular rate and rhythm Respiratory: clear to auscultation (CTA) and no rales, rhonchi or wheeze Musculoskeletal: no peripheral edema and good distal pulses Skin: no stigmata of neurocutaneous disease noted and normal and intact Eyes: extraocular muscles intact (EOMI) and pupils equal, round and reactive to light (PERRL), horizontal nystagmus, icteric NEUROLOGIC EXAMINATION: Mental status: Alert and interactive Oriented to president is Ar, she is in a hospital, lives near [place] but can't name town, does not know year or month Oriented to person Speech fluent with no evidence of aphasia Cranial Nerves eye brow raise and smile symmetric, tongue midline Reflexes: Deep tendon reflexes were symmetrical and graded 2/5. Plantar responses were flexor. Sensory: no deficit to light touch, GT proprioception intact Coordination: finger to nose with without bi pass, slight essential tremor Gait/Stance: Posture normal. Gait normal: with steady with wide base Motor: Negative for pronator drift of out stretched arms with eyes closed. Strength: biceps triceps deltoids bilaterally 5/5, hip flex plantar flex ext 5/5 bilaterally Laboratory Results Past 24 Hours: 08/14/16 05:36 08/14/16 05:36 Test 08/14/16 05:36 08/14/16 11:25 Red Blood Count 3.83 M/uL (4.2-5.4) Mean Corpuscular Volume 93.2 fL (80-100) Mean Corpuscular Hemoglobin 34.5 pg (25-34) Mean Corpuscular Hemoglobin Concent 37.0 g/dl (32-36) RDW Standard Deviation 52.1 fL (36.4-46.3) RDW Coefficient of Variation 15.2 % (11.5-14.5) Mean Platelet Volume 12.1 fL (7.4-10.4) Anion Gap 12.0 mmol/L (3-11) Est Creatinine Clear Calc Drug Dose 73.5 ml/min Estimated GFR () 95.4 Estimated GFR (Non- 82.3 BUN/Creatinine Ratio 12.2 (10-20) Calcium Level 8.7 mg/dl (8.5-10.1) Vitamin B12 Level 1582 pg/mL (211-911) Folate 16.19 ng/mL (>5.38) Bedside Glucose 225 mg/dl (70-90) Imaging CT head- no acute hemorrhage or CVA Impression 70 year old female hx EtOH cirrhosis, new onset DM, increased confusion Plan 1. new onset DM insulin injections currently 2. MRI brain with and without - any new CVA or lesions 3. EEG to evaluate for triphasic spikes seen in encephalopathy 4. continue to treat ammonia level and DM control 5. GI recommendations for lactulose treatment 6. will continue to follow I have seen and discussed above patient with Dr Deysi Burroughs, neurology Pt seen and examined. Outpt chart reviewed. 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 Pt indicated no ongoing cognitive decline with the exception of the last 2 months during which time the pt liver dysfunction increased and she had unrecognized diabetes, uncontrolled. Pt is currently aware , alert, mildly distractable, admitting to intermittent hallucinations. Her exam is notable for the above and a mildly wide-based gait. Suspect pt remains mildly encephalopathic related to liver dysfunction and hyperglycemia. The return to baseline will occur gradually. No obvious evidence of WERnickes/ korsakoff. Check thiamine. REc mri, eeg. will follow with you, ROXY Burroughs MD
[2016-08-14] MEDS: CEFTRIAXONE SOD INJ 1000 MG in DEXTROSE 5% 50ML IV SCH (16:11)
--- NOTE | 2016-08-14 19:43 | Progress Note ---
Medicine Progress Note Date & Time of Visit: Aug 14, 2016 at 19:34. Subjective Patient states she feels better overall, but still feels a "haze" preventing her from thinking straight. No overnight events noted. States she did not sleep well as she kept waking up and forgetting where she is. Family was not at this bedside this AM. Denies any CP or SOB. States vulvar symptoms are better. Denies any urinary symptoms. Tolerating PO. Tongue has been less sore with magic mouthwash Objective Last 8 Hrs Date Time Temp Pulse Resp B/P Pulse Ox O2 Delivery O2 Flow Rate FiO2 08/14/16 14:43 36.8 85 18 125/70 92 Room Air Physical Exam: GENERAL: Patient is in no acute distress. HEENT: No acute trauma, normocephalic, mucous membranes moist, no nasal congestion, no scleral icterus. NECK: No stridor, trachea is midline. LUNGS: Clear to auscultation bilaterally, no wheeze, no rhonchi, breath sounds equal. HEART: Without murmurs gallops or rubs, regular rate and rhythm. ABDOMEN: Soft, nontender, bowel sounds positive EXTREMITIES: No cyanosis or edema NEUROLOGIC: Oriented, no acute motor or sensory deficits, no focal weakness. SKIN: No rash, no jaundice, no diaphoresis. Laboratory Results: Last 24 Hours Test 08/13/16 20:04 08/14/16 05:36 08/14/16 07:20 08/14/16 11:25 Bedside Glucose 296 mg/dl 207 mg/dl 225 mg/dl White Blood Count 5.80 K/uL Red Blood Count 3.83 M/uL Hemoglobin 13.2 g/dL Hematocrit 35.7 % Mean Corpuscular Volume 93.2 fL Mean Corpuscular Hemoglobin 34.5 pg Mean Corpuscular Hemoglobin Concent 37.0 g/dl RDW Standard Deviation 52.1 fL RDW Coefficient of Variation 15.2 % Platelet Count 44 K/uL Mean Platelet Volume 12.1 fL Sodium Level 137 mmol/L Potassium Level 3.7 mmol/L Chloride Level 103 mmol/L Carbon Dioxide Level 22 mmol/L Anion Gap 12.0 mmol/L Blood Urea Nitrogen 9 mg/dl Creatinine 0.73 mg/dl Est Creatinine Clear Calc Drug Dose 73.5 ml/min Estimated GFR () 95.4 Estimated GFR (Non- 82.3 BUN/Creatinine Ratio 12.2 Random Glucose 226 mg/dl Calcium Level 8.7 mg/dl Vitamin B12 Level 1582 pg/mL Folate 16.19 ng/mL Test 08/14/16 16:25 08/14/16 16:54 Bedside Glucose 214 mg/dl Assessment & Plan SEVERE HYPERGLYCEMIA: -presented with blood glucose of 475 -HbA1c: 11.8% -no signs of DKA -patient denies being diabetic, her also denies any history of diabetes except when she takes steroids which she has not done in over 6 months -s/p 2 L IVF in ED, holding off on further IVF for now due to cirrhosis -was started on insulin gtt with transition to SQ insulin -diabetic education consulted, appreciate recs -Glycemic pharmacy consulted, appreciate recommendations ENCEPHALOPATHY/ALTERED MENTAL STATUS: -has known chronic hepatic encephalopathy but ammonia level was 54 on admission , and 51 yesterday, which is not significantly elevated per the patients -differential includes hepatic, or metabolic from infection -ammonia level was 97 on 08/09 -started on lactulose 20gm BID, rifaximin BID -holding diuretics for now -LFTs noted to be at baseline -coags elevated -GI consulted -Neurology consulted for further recommendations as encephalopathy has persisted despite treating UTI and hyperammonemia and hyperglycemia; appreciate recs -EEG and MRI brain pending UTI: -urine culture shows multi-drug resistent E coli, but sensitive to ceftriaxone -grew VRE on most recent urine culture -was on Dapto, but abx changed to ceftriaxone day#3 due to cultures -no signs of sepsis -possible cause of encephalopathy in this patient as well HTN: -BP controlled, continue metoprolol THROMBOCYTOPENIA: -due to liver disease -no signs of bleeding, monitor closely -at baseline (platelets in 40's-50's) -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 -outpatient follow up with [employer] if not resolved Current Inpatient Medications: Current Inpatient Medications Medications (Trade) Dose Ordered Sig/Migdalia Route Start Time Stop Time Status Last Admin Dose Admin Acetaminophen (Tylenol Tab) 650 mg Q4H PRN PO 08/10/16 15:45 09/09/16 15:44 1/16/17 00:37 650 MG Ondansetron HCl (Zofran Inj) 4 mg Q6H PRN IV 08/10/16 15:45 09/09/16 15:44 Lactulose (Chronulac Syrup) 20 gm BID PO 08/10/16 18:30 09/09/16 18:29 08/14/16 08:53 20 GM Nystatin (Mycostatin Powder) 1 appln BID EXT 08/10/16 21:00 09/09/16 20:59 08/14/16 08:52 1 APPLN Artificial Tears (Lacri-Lube Oph Oint) 1 appln HS OPB 08/10/16 21:00 09/09/16 20:59 08/13/16 20:08 1 APPLN Magnesium Oxide (Mag-Ox Tab) 400 mg QAM PO 08/11/16 09:00 09/10/16 08:59 08/14/16 08:51 400 MG Metoprolol Succinate (Toprol Xl Tab) 25 mg QAM PO 08/11/16 09:00 09/10/16 08:59 08/14/16 08:51 25 MG Multivitamins (Multivitamin Tab) 1 tab QAM PO 08/11/16 09:00 09/10/16 08:59 08/14/16 08:52 1 TAB Zinc Sulfate (Zinc Sulfate Cap) 220 mg BID PO 08/10/16 21:00 09/09/16 20:59 08/14/16 08:51 220 MG Ascorbic Acid (Vitamin C Tab) 1,000 mg QAM PO 08/11/16 09:00 09/10/16 08:59 08/14/16 08:52 1,000 MG Calcium/Vitamin D (Caltrate Plus Tab) 1 tab BID PO 08/10/16 21:00 09/09/16 20:59 08/14/16 08:51 1 TAB Glucosamine Sulfate (Glucosamine Cap) 500 mg QPM PO 08/10/16 21:00 09/09/16 20:59 08/13/16 20:08 500 MG Pantoprazole Sodium (Protonix Tab) 40 mg BID PO 08/10/16 21:00 09/09/16 20:59 08/14/16 08:51 40 MG Insulin Aspart (novoLOG ASPART) SLIDING SCALE G... ACHS SC 08/10/16 21:00 09/09/16 20:59 08/14/16 17:58 10 UNITS Fluconazole (Diflucan Tab) 100 mg QAM PO 08/11/16 10:00 09/10/16 09:59 08/14/16 08:52 100 MG Rifaximin (Xifaxan Tab) 550 mg BID PO 08/11/16 21:00 09/10/16 20:59 08/14/16 08:51 550 MG Nystatin/ Triamcinolone Acetonide 1 appln BID EXT 08/11/16 21:00 09/10/16 20:59 08/14/16 08:54 1 APPLN Dexamethasone 3.75 mg/Nystatin 30 ml/ Diphenhydramine HCl 300 mg/ Sucrose 45 ml/ Microcrystalline Cellulose 45 ml/ Barcode 1 ea Q6H PRN PO 08/12/16 13:45 09/11/16 13:44 08/13/16 13:05 5 ML Ceftriaxone Sodium/Dextrose (Rocephin Inj/D5 50ml) 60 ml @ 120 mls/hr Q24H IV 08/12/16 16:00 08/22/16 15:59 08/14/16 16:11 120 MLS/HR Thiamine HCl (Vitamin B-1 Tab) 100 mg QAM PO 08/15/16 09:00 09/14/16 08:59
[2016-08-14] MEDS: ARTIFICIAL TEARS OP OINT 3.5 GM TUBE OPB SCH (20:31)
[2016-08-14] MEDS: GLUCOSAMINE SULFATE 500 MG CAP PO SCH (20:33)
[2016-08-14] MEDS ORDERED: GADAVIST IV PRN (21:30)
--- NOTE | 2016-08-14 23:10 | DIAGNOSTIC IMAGING REPORT ---
Brain MRI WITH AND WITHOUT CONTRAST HISTORY: encephalopathy. Mental status change. R/o stroke TECHNIQUE: Multiplanar multisequence MRI of the brain was performed both before and after the intravenous administration of contrast. COMPARISON STUDY: Head CT 08/10/2016. FINDINGS: There are no definite areas of restricted diffusion to suggest acute infarction. Questionable punctate focus of restricted diffusion within the right posterior frontal lobe on image 16 likely represents T2 shine through. A few scattered areas of T2 hyperintensity seen within the periventricular and subcortical white matter are nonspecific but suggestive of mild microvascular ischemic change. There are mild atrophic changes within the brain. 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 The midline structures are intact. The paranasal sinuses are clear. The mastoid air cells are clear. The ventricles and sulci are within normal limits for age. There is no mass, hematoma, midline shift. The major vascular flow-voids at the skull base are well maintained. Postcontrast sequences show no areas of abnormal enhancement. IMPRESSION: No acute intracranial abnormality. Scattered foci of T2 hyperintensity seen within the periventricular and subcortical white matter are nonspecific but favor microvascular ischemic change. Electronically signed by: Enrike Pryor M.D. 08/14/2016 11:08 PM Dictated Date/Time: 08/14/2016 11:02 PM
[2016-08-14] MEDS: DEXAMETHASONE CONC SOLN 3.75 MG, NYSTATIN SUSP 30 ML, DiphenhydrAMINE HCL SYRUP 300 MG,... PO PRN ×5 (23:52)
[2016-08-15 00:39] VITALS: BP 127/73; PULSE 86; TEMP 36.8; O2SAT 94
[2016-08-15 07:22] VITALS: BP 147/68; PULSE 84; TEMP 36.5; O2SAT 91
[2016-08-15 07:45] VITALS: O2SAT 92
[2016-08-15 08:02] LABS: BUN/CREATININE RATIO 11.3 (10-20); CALCIUM 8.9 mg/dl (8.5-10.1); CREATININE 0.63 mg/dl (0.60-1.20)
[2016-08-15 08:05] LABS: HEMATOCRIT 36.5 % (37-47); MEAN CELL VOLUME 93.8 fL (80-100); MEAN CORPUSCULAR HEMOGLOBIN 33.7 pg (25-34); MEAN CORPUSCULAR HGB CONC 35.9 g/dl (32-36); MEAN PLATELET VOLUME 10.6 fL (7.4-10.4); PLATELET COUNT 45 K/uL (130-400); RED BLOOD COUNT 3.89 M/uL (4.2-5.4)
[2016-08-15] MEDS: METOPROLOL SUCC 25MG EXT REL TAB PO SCH (08:34)
[2016-08-15] MEDS: ZINC SULFATE 220 MG CAP PO SCH ×2 (08:34→21:18)
[2016-08-15] MEDS: NYSTATIN POWDER 15GM BTL EXT SCH ×2 (08:34→21:16)
[2016-08-15] MEDS: MAGNESIUM OXIDE 400 MG TAB PO SCH (08:34)
[2016-08-15] MEDS: CALCIUM 600MG + VIT D 400 IU TAB PO SCH ×2 (08:34→21:19)
[2016-08-15] MEDS: MULTIVITAMIN TAB PO SCH (08:35)
[2016-08-15] MEDS: ASCORBIC ACID 500 MG TAB PO SCH (08:35)
[2016-08-15] MEDS: NYSTATIN/TRIAMCINOLONE OINT 15 GM TUBE EXT SCH ×2 (08:35→21:15)
[2016-08-15] MEDS: DIFLUPREDNATE 0.05% OP SCH ×3 (08:36→21:17)
[2016-08-15] MEDS: RIFAXIMIN TAB 550 MG TAB PO SCH ×2 (08:37→21:20)
[2016-08-15] MEDS: FLUCONAZOLE 100 MG TAB PO SCH (08:37)
[2016-08-15] MEDS: THIAMINE HCL 100 MG TAB PO SCH (08:37)
[2016-08-15] MEDS: LACTULOSE SYRUP 20 GM/30 ML UDC PO SCH ×2 (08:37→21:14)
[2016-08-15] MEDS: PANTOprazole SOD 40 MG TAB PO SCH ×2 (08:38→21:19)
[2016-08-15] MEDS: INSULIN ASPART 100 UNITS/ML 3 ML PEN SC SCH ×4 (08:43→21:25)
--- NOTE | 2016-08-15 10:07 | ELECTROENCEPHALOGRAPH REPORT ---
REFERRING: Deysi Davis PA-C. CLINICAL DIAGNOSIS: Encephalopathy with change in mental status and known hepatic cirrhosis. ELECTROENCEPHALOGRAPHY DIAGNOSIS: Mildly diffusely abnormal EEG during wakefulness. DESCRIPTION OF TRACING: This EEG was done as a bedside recording with a simultaneous video analysis of patient movement and behavior. Photic stimulation is the only stimulus utilized. Drowsiness and light sleep are not clearly recorded. During wakefulness, there is evidence for a background rhythm in the upper theta range at 8 Hz maximum frequency often running 7 Hz, and of up to 30 microvolts of maximum amplitude. This is maximum posterior head regions bilaterally symmetrical. Polymorphic mid to lower frequency theta activity intermixed with occasional waveforms in the upper delta range is seen over all head regions without clear focal or regional predominance other than the fact it is a little more prominent in the central regions in a symmetrical fashion. Anterior head region maximum bilaterally symmetrical low voltage fast activity in the beta range is present. Photic stimulation provoked some minimal driving response without a photomyogenic or photic paroxysmal component. At no time during the waking tracing is there evidence for potentially epileptogenic activity in the form of polyspike or spike wave bursts, focal sharp waves or focal spikes. There is also no clear evidence for triphasic waves or other characteristic findings for hepatic encephalopathy. SUMMARY: This EEG is mildly diffusely abnormal in a highly nonspecific fashion. The abnormalities consist of an absence of a normal background alpha rhythm and slightly excessive amounts of theta delta activity. There are no paroxysmal abnormalities and no EEG evidence to support the presence of an hepatic encephalopathy. The pattern is otherwise nonspecific, could correlate with any one of a number of toxic or metabolic issues or diffuse subcortical structural disease. Clinical correlation is required. [facility]
--- NOTE | 2016-08-15 15:22 | Neurology Progress Notes ---
Neurology Progress Note Date of Service Aug 15, 2016. Edu Stallings is a 70 year old female who presents to the ER requested by her PCP for abnormal labs, confusion, and weakness. Her had reported on admission she has had increased confusion for the past 3 weeks. She has had hallucinations at times.Her glucose was 500 and ammonia of 97. She has a history of cirrhosis of the liver and taking Lactulose 20 g twice daily. That was reduced 1 month ago because of excessive diarrhea. She states she was not feeling well and her thirst was increased and she was leaking urine which caused a perineal rash. She thinks she is doing better but she is still not feeling herself. She states she knows she has a urinary tract infection and her ammonia was high that's why she is in the hospital. Her and son are bedside and think she is a little less confused but last night when she had the MRI she thought she was going out into space. denies CP, SOB, abdominal pain, weakness, numbness tingling, N, V, falls. she has been out of bed to the bathroom with her and he feels her walking is back to baseline. Objective Date Time Temp Pulse Resp B/P Pulse Ox O2 Delivery O2 Flow Rate FiO2 08/15/16 07:45 92 Room Air 08/15/16 07:22 36.5 84 18 147/68 91 Room Air 08/15/16 00:39 36.8 86 18 127/73 94 Room Air 08/15/16 00:00 Room Air 08/14/16 22:32 Room Air Last 24 Hours Test 08/14/16 16:25 08/14/16 16:54 08/14/16 20:09 08/15/16 06:58 Bedside Glucose 214 mg/dl 287 mg/dl White Blood Count 6.00 K/uL Red Blood Count 3.89 M/uL Hemoglobin 13.1 g/dL Hematocrit 36.5 % Mean Corpuscular Volume 93.8 fL Mean Corpuscular Hemoglobin 33.7 pg Mean Corpuscular Hemoglobin Concent 35.9 g/dl RDW Standard Deviation 53.7 fL RDW Coefficient of Variation 15.6 % Platelet Count 45 K/uL Mean Platelet Volume 10.6 fL Sodium Level 138 mmol/L Potassium Level 4.0 mmol/L Chloride Level 105 mmol/L Carbon Dioxide Level 22 mmol/L Anion Gap 11.0 mmol/L Blood Urea Nitrogen 7 mg/dl Creatinine 0.63 mg/dl Est Creatinine Clear Calc Drug Dose 85.2 ml/min Estimated GFR () 103.9 Estimated GFR (Non- 89.6 BUN/Creatinine Ratio 11.3 Random Glucose 197 mg/dl Calcium Level 8.9 mg/dl Test 08/15/16 07:40 08/15/16 11:37 Bedside Glucose 200 mg/dl 229 mg/dl Imaging: MRI brain with and without- No acute intracranial abnormality. Scattered foci of T2 hyperintensity seen within the periventricular and subcortical white matter are nonspecific but favor microvascular ischemic change. EEG- This EEG is mildly diffusely abnormal in a highly nonspecific fashion. The abnormalities consist of an absence of a normal background alpha rhythm and slightly excessive amounts of theta delta activity. There are no paroxysmal abnormalities and no EEG evidence to support the presence of an hepatic encephalopathy. The pattern is otherwise nonspecific, could correlate with any one of a number of toxic or metabolic issues or diffuse subcortical structural disease. Clinical correlation is required. Exam: Physical Exam: Constitutional: appearance nourished, healthy and normal Ears, Nose, Mouth and Throat: mucous membranes moist, no injection Cardiovascular: normal S-1 and S-2 and regular rate and rhythm Respiratory: clear to auscultation (CTA) and no rales, rhonchi or wheeze Musculoskeletal: no peripheral edema and good distal pulses Skin: no stigmata of neurocutaneous disease noted and normal and intact Eyes: extraocular muscles intact (EOMI) and pupils equal, round and reactive to light (PERRL), icteric NEUROLOGIC EXAMINATION: Mental status: Alert and interactive Oriented location hospital [facility] after looking at the cup. Ar is president, 1922 then realized not right, new son's name in room Oriented to person Speech fluent with no evidence of aphasia Cranial Nerves smile and eye brow raise symmetric, tongue midline Sensory: no sensory deficits with light touch Coordination: finger to nose without bi pass Gait/Stance: sitting up in bed Motor: Negative for pronator drift of out stretched arms with eyes closed. Strength: biceps triceps hand mat gauger bilaterally 5/5, hip flex plantar flex ext 5/5 bilaterally Current Inpatient Medications Medications (Trade) Dose Ordered Sig/Migdalia Route Start Time Stop Time Status Last Admin Dose Admin Acetaminophen (Tylenol Tab) 650 mg Q4H PRN PO 08/10/16 15:45 09/09/16 15:44 08/14/16 00:37 650 MG Ondansetron HCl (Zofran Inj) 4 mg Q6H PRN IV 08/10/16 15:45 09/09/16 15:44 Lactulose (Chronulac Syrup) 20 gm BID PO 08/10/16 18:30 09/09/16 18:29 08/15/16 08:37 20 GM Nystatin (Mycostatin Powder) 1 appln BID EXT 08/10/16 21:00 09/09/16 20:59 08/15/16 08:34 1 APPLN Artificial Tears (Lacri-Lube Oph Oint) 1 appln HS OPB 08/10/16 21:00 09/09/16 20:59 08/14/16 20:31 1 APPLN Magnesium Oxide (Mag-Ox Tab) 400 mg QAM PO 08/11/16 09:00 09/10/16 08:59 08/15/16 08:34 400 MG Metoprolol Succinate (Toprol Xl Tab) 25 mg QAM PO 08/11/16 09:00 09/10/16 08:59 08/15/16 08:34 25 MG Multivitamins (Multivitamin Tab) 1 tab QAM PO 08/11/16 09:00 09/10/16 08:59 08/15/16 08:35 1 TAB Zinc Sulfate (Zinc Sulfate Cap) 220 mg BID PO 08/10/16 21:00 09/09/16 20:59 08/15/16 08:34 220 MG Ascorbic Acid (Vitamin C Tab) 1,000 mg QAM PO 08/11/16 09:00 09/10/16 08:59 08/15/16 08:35 1,000 MG Calcium/Vitamin D (Caltrate Plus Tab) 1 tab BID PO 08/10/16 21:00 09/09/16 20:59 08/15/16 08:34 1 TAB Glucosamine Sulfate (Glucosamine Cap) 500 mg QPM PO 08/10/16 21:00 09/09/16 20:59 08/14/16 20:33 500 MG Pantoprazole Sodium (Protonix Tab) 40 mg BID PO 08/10/16 21:00 09/09/16 20:59 08/15/16 08:38 40 MG Insulin Aspart (novoLOG ASPART) SLIDING SCALE G... ACHS SC 08/10/16 21:00 09/09/16 20:59 08/15/16 12:11 11 UNITS Fluconazole (Diflucan Tab) 100 mg QAM PO 08/11/16 10:00 09/10/16 09:59 08/15/16 08:37 100 MG Rifaximin (Xifaxan Tab) 550 mg BID PO 08/11/16 21:00 09/10/16 20:59 08/15/16 08:37 550 MG Nystatin/ Triamcinolone Acetonide 1 appln BID EXT 08/11/16 21:00 09/10/16 20:59 08/15/16 08:35 1 APPLN Dexamethasone 3.75 mg/Nystatin 30 ml/ Diphenhydramine HCl 300 mg/ Sucrose 45 ml/ Microcrystalline Cellulose 45 ml/ Barcode 1 ea Q6H PRN PO 08/12/16 13:45 09/11/16 13:44 08/14/16 23:52 5 ML Ceftriaxone Sodium/Dextrose (Rocephin Inj/D5 50ml) 60 ml @ 120 mls/hr Q24H IV 08/12/16 16:00 08/22/16 15:59 08/14/16 16:11 120 MLS/HR Thiamine HCl (Vitamin B-1 Tab) 100 mg QAM PO 08/15/16 09:00 09/14/16 08:59 08/15/16 08:37 100 MG Gadobutrol (Gadavist) 8 mmol UD PRN IV 08/14/16 21:30 08/18/16 21:29 Impression 70 year old female hx EtOH cirrhosis, new onset DM, increased confusion Plan 1. new onset DM insulin injections currently- improving 2. MRI brain with and without - no new acute findings 3. EEG to evaluate for triphasic spikes seen in encephalopathy not seen but some waves to indicate metabolic issues 4. continue to treat ammonia level and DM control 5. GI recommendations for lactulose treatment 6. will be available for further input as needed. I have seen and discussed above patient with Dr Deysi Burroughs, neurology Pt seen, MRI, EEG reviewed. Pt improving, suspect encephalopathy worse than baseline related to hyperglycemia and hyperammonia. Will sign off. ROXY Burroughs MD
[2016-08-15 15:29] VITALS: BP 133/63; PULSE 72; TEMP 36.5; O2SAT 93
[2016-08-15] MEDS: CEFTRIAXONE SOD INJ 1000 MG in DEXTROSE 5% 50ML IV SCH (16:23)
[2016-08-15] MEDS ORDERED: PHARMACY GLYCEMIC MGMT CONSULT PRN (16:55)
--- NOTE | 2016-08-15 17:33 | Progress Note ---
Medicine Progress Note Date & Time of Visit: Aug 15, 2016 at 17:17. Subjective patient states she feels improved today, less confused at bedside, states she is 70% better denies chest pain, dyspnea, palpitations no abdominal pain, urinary symptoms no other symptoms Objective Last 8 Hrs Date Time Temp Pulse Resp B/P Pulse Ox O2 Delivery O2 Flow Rate FiO2 08/15/16 16:33 Room Air 08/15/16 15:29 36.5 72 14 133/63 93 Physical Exam: General- oriented x 3, not in distress, speaks in sentences Eyes- EOMI, anicteric tongue- (+)erythema on the right side Neck- supple, no JVD Lungs- clear to auscultation bilaterally Heart- normal rate, regular rhythm; no murmurs Abdomen- normal bowel sounds, soft, nontender Extremities- no pretibial edema, no calf tenderness Neuro- alert, oriented x 3; no gross deficits Skin- warm & dry Laboratory Results: Last 24 Hours Test 08/14/16 20:09 08/15/16 06:58 08/15/16 07:40 08/15/16 11:37 Bedside Glucose 287 mg/dl 200 mg/dl 229 mg/dl White Blood Count 6.00 K/uL Red Blood Count 3.89 M/uL Hemoglobin 13.1 g/dL Hematocrit 36.5 % Mean Corpuscular Volume 93.8 fL Mean Corpuscular Hemoglobin 33.7 pg Mean Corpuscular Hemoglobin Concent 35.9 g/dl RDW Standard Deviation 53.7 fL RDW Coefficient of Variation 15.6 % Platelet Count 45 K/uL Mean Platelet Volume 10.6 fL Sodium Level 138 mmol/L Potassium Level 4.0 mmol/L Chloride Level 105 mmol/L Carbon Dioxide Level 22 mmol/L Anion Gap 11.0 mmol/L Blood Urea Nitrogen 7 mg/dl Creatinine 0.63 mg/dl Est Creatinine Clear Calc Drug Dose 85.2 ml/min Estimated GFR () 103.9 Estimated GFR (Non- 89.6 BUN/Creatinine Ratio 11.3 Random Glucose 197 mg/dl Calcium Level 8.9 mg/dl Test 08/15/16 16:30 Bedside Glucose 191 mg/dl Assessment & Plan DM TYPE 2 -presented with severe hyperglycemia -presented with blood glucose of 475 -HbA1c: 11.8% -no signs of DKA -patient denies being diabetic, her also denies any history of diabetes except when she takes steroids which she has not done in over 6 months -- improved -- will consult Pharmacy Glycemic Control METABOLIC ENCEPHALOPATHY, MULTIFACTORIAL: UTI HYPERGLYCEMIA ELEVATED AMMONIA - MRI Brain: unremarkable EEG: non specific - evaluated by Neurology appreciate input - on Ceftriaxone on Insulin Sliding Scale on Rifaximin and Lactulose - improving continue PT/OT repeat tsh/t4 UTI, E coli -urine culture shows multi-drug resistent E coli, but sensitive to ceftriaxone -grew VRE on most recent urine culture -was on Dapto, but abx changed to ceftriaxone day#3 due to cultures -- continue Ceftriaxone IV HTN: -BP controlled, continue metoprolol THROMBOCYTOPENIA: -due to liver disease -no signs of bleeding, monitor closely -at baseline (platelets in 40's-50's) -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 -outpatient follow up with [employer] if not resolved DVT prophylaxis SCDs patient has thrombocytopenia Disposition patient would like to return home continue PT/OT Current Inpatient Medications: Current Inpatient Medications Medications (Trade) Dose Ordered Sig/Migdalia Route Start Time Stop Time Status Last Admin Dose Admin Acetaminophen (Tylenol Tab) 650 mg Q4H PRN PO 08/10/16 15:45 09/09/16 15:44 08/14/16 00:37 650 MG Ondansetron HCl (Zofran Inj) 4 mg Q6H PRN IV 08/10/16 15:45 09/09/16 15:44 Lactulose (Chronulac Syrup) 20 gm BID PO 08/10/16 18:30 09/09/16 18:29 08/15/16 08:37 20 GM Nystatin (Mycostatin Powder) 1 appln BID EXT 08/10/16 21:00 09/09/16 20:59 08/15/16 08:34 1 APPLN Artificial Tears (Lacri-Lube Oph Oint) 1 appln HS OPB 08/10/16 21:00 09/09/16 20:59 08/14/16 20:31 1 APPLN Magnesium Oxide (Mag-Ox Tab) 400 mg QAM PO 08/11/16 09:00 09/10/16 08:59 08/15/16 08:34 400 MG Metoprolol Succinate (Toprol Xl Tab) 25 mg QAM PO 08/11/16 09:00 09/10/16 08:59 08/15/16 08:34 25 MG Multivitamins (Multivitamin Tab) 1 tab QAM PO 08/11/16 09:00 09/10/16 08:59 08/15/16 08:35 1 TAB Zinc Sulfate (Zinc Sulfate Cap) 220 mg BID PO 08/10/16 21:00 09/09/16 20:59 08/15/16 08:34 220 MG Ascorbic Acid (Vitamin C Tab) 1,000 mg QAM PO 08/11/16 09:00 09/10/16 08:59 08/15/16 08:35 1,000 MG Calcium/Vitamin D (Caltrate Plus Tab) 1 tab BID PO 08/10/16 21:00 09/09/16 20:59 08/15/16 08:34 1 TAB Glucosamine Sulfate (Glucosamine Cap) 500 mg QPM PO 08/10/16 21:00 09/09/16 20:59 08/14/16 20:33 500 MG Pantoprazole Sodium (Protonix Tab) 40 mg BID PO 08/10/16 21:00 09/09/16 20:59 08/15/16 08:38 40 MG Insulin Aspart (novoLOG ASPART) SLIDING SCALE G... ACHS SC 08/10/16 21:00 09/09/16 20:59 08/15/16 12:11 11 UNITS Fluconazole (Diflucan Tab) 100 mg QAM PO 08/11/16 10:00 09/10/16 09:59 08/15/16 08:37 100 MG Rifaximin (Xifaxan Tab) 550 mg BID PO 08/11/16 21:00 09/10/16 20:59 08/15/16 08:37 550 MG Nystatin/ Triamcinolone Acetonide 1 appln BID EXT 08/11/16 21:00 09/10/16 20:59 08/15/16 08:35 1 APPLN Dexamethasone 3.75 mg/Nystatin 30 ml/ Diphenhydramine HCl 300 mg/ Sucrose 45 ml/ Microcrystalline Cellulose 45 ml/ Barcode 1 ea Q6H PRN PO 08/12/16 13:45 09/11/16 13:44 08/14/16 23:52 5 ML Ceftriaxone Sodium/Dextrose (Rocephin Inj/D5 50ml) 60 ml @ 120 mls/hr Q24H IV 08/12/16 16:00 08/22/16 15:59 08/15/16 16:23 120 MLS/HR Thiamine HCl (Vitamin B-1 Tab) 100 mg QAM PO 08/15/16 09:00 09/14/16 08:59 08/15/16 08:37 100 MG Gadobutrol (Gadavist) 8 mmol UD PRN IV 08/14/16 21:30 08/18/16 21:29 Miscellaneous Information (Consult Glycemic Management Pharmacy) 1 ea UD PRN N/A 08/15/16 16:55 09/14/16 16:54
--- NOTE | 2016-08-15 18:13 | Pharmacy Progress Note ---
Glycemic Control Intl Consult Date of Service Aug 15, 2016. Scope Glycemic Pharmacist consulted by Dr Jones on 08/15/2016 for glycemic control and to write orders per [facility] inpatient glycemic control protocol Objective Weight (Kilograms): 85.000 Accuchecks BSG (last 24hrs): Test 08/14/16 20:09 08/15/16 06:58 08/15/16 07:40 08/15/16 11:37 Bedside Glucose 287 mg/dl (70-90) 200 mg/dl (70-90) 229 mg/dl (70-90) Random Glucose 197 mg/dl (70-99) Test 08/15/16 16:30 Bedside Glucose 191 mg/dl (70-90) Laboratory Data (last 24hrs) Test 08/15/16 06:58 Anion Gap 11.0 mmol/L BUN/Creatinine Ratio 11.3 Blood Urea Nitrogen 7 mg/dl Creatinine 0.63 mg/dl Potassium Level 4.0 mmol/L Sodium Level 138 mmol/L White Blood Count 6.00 K/uL HbA1c Test 08/10/16 12:50 Hemoglobin A1c 11.8 % (4.5-5.6) H Recent Pertinent Medications Outpatient Anti-diabetic Regimen: * undiagnosed as outpatient * A1c = 11.8 % 08/10/16 The patient is currently receiving: * Correctional Insulin: Novolog Correction per scale ACHS Goal Range: Low 110 mg/dL - High 140 mg/dL Correction Factor: 20 mg/dL/unit * Prandial insulin: Per carb ratio of 1 unit per 10 grams CHO consumed * Oral Agents: Risk Factors for Insulin Resistance: * Steroids: * Infection: UTI, currently on Rocephin * Pressors: * IVF: * Recent Surgery * Diet: * Mechanical Ventilation: Assessment & Plan ASSESSMENT: * ADA & AACE recommend a goal blood sugar range 140-180 mg/dl for the majority of critically ill & non-critically ill patients. However, more stringent targets may be selected in individual cases. PLAN FOR INPATIENT GLYCEMIC CONTROL: * Starting Lantus 10 units SQ BID * Continuing correction factor of 20 mg/dl/unit * Continuing carb ratio 1 unit per 10 grams CHO consumed * Continuing goal range of Low 110 mg/dL - High 140 mg/dL * Please note that the plan above was derived based on current level of insulin resistance and hospital stress. These recommendations are appropriate for inpatient admission only. Plan of care upon discharge will need to be reassessed to avoid potential outpatient hypo/hyperglycemia. Thank you.
[2016-08-15] MEDS: INSULIN GLARGINE SOLOSTAR 100 UNITS/ML 3 ML PEN SC SCH (19:34)
[2016-08-15] MEDS: ARTIFICIAL TEARS OP OINT 3.5 GM TUBE OPB SCH (21:14)
[2016-08-15] MEDS: BENZOCAINE 20% (ORAJEL) 11.9 GM TUBE MT SCH (21:18)
[2016-08-15] MEDS: GLUCOSAMINE SULFATE 500 MG CAP PO SCH (21:20)
[2016-08-16 00:11] VITALS: BP 149/83; PULSE 93; TEMP 36.5; O2SAT 93
[2016-08-16] MEDS ORDERED: INSULIN ASPART 100 UNITS/ML 3 ML PEN SC SCH (02:00)
[2016-08-16 07:10] LABS: THYROID STIMULATING HORMONE 0.035 uIu/ml (0.300-4.500)
[2016-08-16 08:10] VITALS: BP 127/72; PULSE 74; TEMP 36.6; O2SAT 94
[2016-08-16] MEDS: NYSTATIN POWDER 15GM BTL EXT SCH ×2 (08:32→21:23)
[2016-08-16] MEDS: NYSTATIN/TRIAMCINOLONE OINT 15 GM TUBE EXT SCH ×2 (08:32→21:23)
[2016-08-16] MEDS: BENZOCAINE 20% (ORAJEL) 11.9 GM TUBE MT SCH ×2 (08:33→21:23)
[2016-08-16] MEDS: METOPROLOL SUCC 25MG EXT REL TAB PO SCH (08:33)
[2016-08-16] MEDS: ZINC SULFATE 220 MG CAP PO SCH ×2 (08:33→21:31)
[2016-08-16] MEDS: PANTOprazole SOD 40 MG TAB PO SCH ×2 (08:33→21:30)
[2016-08-16] MEDS: THIAMINE HCL 100 MG TAB PO SCH (08:33)
[2016-08-16] MEDS: MAGNESIUM OXIDE 400 MG TAB PO SCH (08:33)
[2016-08-16] MEDS: DIFLUPREDNATE 0.05% OP SCH ×3 (08:33→21:24)
[2016-08-16] MEDS: CALCIUM 600MG + VIT D 400 IU TAB PO SCH ×2 (08:33→21:29)
[2016-08-16] MEDS: ASCORBIC ACID 500 MG TAB PO SCH (08:33)
[2016-08-16] MEDS: MULTIVITAMIN TAB PO SCH (08:33)
[2016-08-16] MEDS: RIFAXIMIN TAB 550 MG TAB PO SCH ×2 (08:33→21:30)
[2016-08-16] MEDS: INSULIN GLARGINE SOLOSTAR 100 UNITS/ML 3 ML PEN SC SCH ×2 (08:36→21:42)
[2016-08-16] MEDS: INSULIN ASPART 100 UNITS/ML 3 ML PEN SC SCH ×4 (08:37→21:41)
[2016-08-16] MEDS: LACTULOSE SYRUP 20 GM/30 ML UDC PO SCH ×2 (09:21→21:29)
--- NOTE | 2016-08-16 09:38 | Pharmacy Progress Note ---
Glycemic: Assessment & Plan Date of Service Aug 16, 2016. Assessment & Plan Item Value Date Time Bedside Glucose 258 mg/dl H 08/16/16 0739 Bedside Glucose 255 mg/dl H 08/16/16 0310 Bedside Glucose 253 mg/dl H 08/15/16 2055 Bedside Glucose 191 mg/dl H 08/15/16 1630 Bedside Glucose 229 mg/dl H 08/15/16 1137 Bedside Glucose 200 mg/dl H 08/15/16 0740 Random Glucose 197 mg/dl H 08/15/16 0658 Hemoglobin A1c 11.8 % H 08/10/16 1250 PLAN: Started basal insulin with Lantus last evening. Will tightened ordered Novolog CR this am. * Basal insulin: Continue Lantus 10 units every 12 hours, give 1/2 dose for BSG < 110mg/dL * Correctional Insulin: Novolog Correction per scale ACHS Goal Range: Low 110 mg/dL - High 140 mg/dL Correction Factor: 20 mg/dL/unit * Prandial insulin: "TIGHTENED" carb ratio of 1 unit per 8 grams CHO consumed Pharmacy will continue to monitor patient daily and write orders per [facility] inpatient glycemic control protocol. Thanks. * Please note that the plan above was derived based on current level of insulin resistance and hospital stress. These recommendations are appropriate for inpatient admission only. Plan of care upon discharge will need to be reassessed to avoid potential outpatient hypo/hyperglycemia.
[2016-08-16] MEDS ORDERED: GLUCOSE 10 TABS/TUBE PO PRN (15:30)
[2016-08-16] MEDS ORDERED: GLUCOSE 40% GEL 15 GM TUBE PO PRN (15:30)
[2016-08-16] MEDS ORDERED: GLUCAGON FOR INJ 1 MG VIAL SQ PRN (15:30)
[2016-08-16] MEDS ORDERED: DEXTROSE 50% 50 ML SYR IV PRN (15:30)
[2016-08-16 15:37] VITALS: BP 88/43; PULSE 73; TEMP 36.5; O2SAT 94
[2016-08-16 16:30] VITALS: O2SAT 94
[2016-08-16] MEDS: CEFTRIAXONE SOD INJ 1000 MG in DEXTROSE 5% 50ML IV SCH (16:34)
--- NOTE | 2016-08-16 20:30 | Progress Note ---
Medicine Progress Note Date & Time of Visit: Aug 16, 2016 at 20:25. Subjective states she feels improved today less confused per family at bedside, patient's mental status also improving no chills, abdominal pain, dyspnea, chest pain, dizziness no other symptoms Objective Last 8 Hrs Date Time Temp Pulse Resp B/P Pulse Ox O2 Delivery O2 Flow Rate FiO2 08/16/16 15:37 36.5 73 20 88/43 94 Room Air Physical Exam: General- oriented x 3, not in distress, speaks in sentences Eyes- mild icterus Neck- no JVD Lungs- clear breath sounds bilaterally Heart- normal rate, regular rhythm; no murmurs Abdomen- normal bowel sounds, soft, nontender Extremities- no pretibial edema, no calf tenderness Neuro- alert, oriented x 3; no gross deficits Skin- warm & dry Laboratory Results: Last 24 Hours Test 08/15/16 20:55 08/16/16 03:10 08/16/16 05:40 08/16/16 07:39 Bedside Glucose 253 mg/dl 255 mg/dl 258 mg/dl Thyroid Stimulating Hormone (TSH) 0.035 uIu/ml Free Thyroxine 1.90 ng/dl Test 08/16/16 11:53 Bedside Glucose 236 mg/dl Assessment & Plan METABOLIC ENCEPHALOPATHY, MULTIFACTORIAL: UTI HYPERGLYCEMIA ELEVATED AMMONIA - MRI Brain: unremarkable EEG: non specific - evaluated by Neurology appreciate input - on Ceftriaxone on Insulin Sliding Scale and Lantus on Rifaximin and Lactulose - improving daily continue PT/OT repeat tsh/t4: possible hyperthyroidism, will need thyroid US - possible d/c in AM DM TYPE 2 -presented with severe hyperglycemia -presented with blood glucose of 475 -HbA1c: 11.8% -no signs of DKA -patient denies being diabetic, her also denies any history of diabetes except when she takes steroids which she has not done in over 6 months -- improved -- consulted Pharmacy Glycemic Control will need Insulin when discharged UTI, E coli -urine culture shows multi-drug resistent E coli, but sensitive to ceftriaxone -grew VRE on most recent urine culture -was on Dapto, but abx changed to ceftriaxone due to cultures -- continue Ceftriaxone IV Day 5 HTN: -BP controlled, continue metoprolol THROMBOCYTOPENIA: -due to liver disease -no signs of bleeding, monitor closely -at baseline (platelets in 40's-50's) -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 -outpatient follow up with [employer] if not resolved DVT prophylaxis SCDs patient has thrombocytopenia Disposition patient would like to return home possible d/c home with home health/PT tomorrow Current Inpatient Medications: Current Inpatient Medications Medications (Trade) Dose Ordered Sig/Migdalia Route Start Time Stop Time Status Last Admin Dose Admin Acetaminophen (Tylenol Tab) 650 mg Q4H PRN PO 08/10/16 15:45 09/09/16 15:44 08/14/16 00:37 650 MG Ondansetron HCl (Zofran Inj) 4 mg Q6H PRN IV 08/10/16 15:45 09/09/16 15:44 Lactulose (Chronulac Syrup) 20 gm BID PO 08/10/16 18:30 09/09/16 18:29 08/16/16 09:21 20 GM Nystatin (Mycostatin Powder) 1 appln BID EXT 08/10/16 21:00 09/09/16 20:59 08/16/16 08:32 1 APPLN Artificial Tears (Lacri-Lube Oph Oint) 1 appln HS OPB 08/10/16 21:00 09/09/16 20:59 08/15/16 21:14 1 APPLN Magnesium Oxide (Mag-Ox Tab) 400 mg QAM PO 08/11/16 09:00 09/10/16 08:59 08/16/16 08:33 400 MG Metoprolol Succinate (Toprol Xl Tab) 25 mg QAM PO 08/11/16 09:00 09/10/16 08:59 08/16/16 08:33 25 MG Multivitamins (Multivitamin Tab) 1 tab QAM PO 08/11/16 09:00 09/10/16 08:59 08/16/16 08:33 1 TAB Zinc Sulfate (Zinc Sulfate Cap) 220 mg BID PO 08/10/16 21:00 09/09/16 20:59 08/16/16 08:33 220 MG Ascorbic Acid (Vitamin C Tab) 1,000 mg QAM PO 08/11/16 09:00 09/10/16 08:59 08/16/16 08:33 1,000 MG Calcium/Vitamin D (Caltrate Plus Tab) 1 tab BID PO 08/10/16 21:00 09/09/16 20:59 08/16/16 08:33 1 TAB Glucosamine Sulfate (Glucosamine Cap) 500 mg QPM PO 08/10/16 21:00 09/09/16 20:59 08/15/16 21:20 500 MG Pantoprazole Sodium (Protonix Tab) 40 mg BID PO 08/10/16 21:00 09/09/16 20:59 08/16/16 08:33 40 MG Insulin Aspart (novoLOG ASPART) SLIDING SCALE G... ACHS SC 08/10/16 21:00 09/09/16 20:59 08/16/16 17:59 16 UNITS Rifaximin (Xifaxan Tab) 550 mg BID PO 08/11/16 21:00 09/10/16 20:59 08/16/16 08:33 550 MG Nystatin/ Triamcinolone Acetonide 1 appln BID EXT 08/11/16 21:00 09/10/16 20:59 08/16/16 08:32 1 APPLN Dexamethasone 3.75 mg/Nystatin 30 ml/ Diphenhydramine HCl 300 mg/ Sucrose 45 ml/ Microcrystalline Cellulose 45 ml/ Barcode 1 ea Q6H PRN PO 08/12/16 13:45 09/11/16 13:44 08/14/16 23:52 5 ML Ceftriaxone Sodium/Dextrose (Rocephin Inj/D5 50ml) 60 ml @ 120 mls/hr Q24H IV 08/12/16 16:00 08/22/16 15:59 08/16/16 16:34 120 MLS/HR Thiamine HCl (Vitamin B-1 Tab) 100 mg QAM PO 08/15/16 09:00 09/14/16 08:59 08/16/16 08:33 100 MG Gadobutrol (Gadavist) 8 mmol UD PRN IV 08/14/16 21:30 08/18/16 21:29 Miscellaneous Information (Consult Glycemic Management Pharmacy) 1 ea UD PRN N/A 08/15/16 16:55 09/14/16 16:54 Benzocaine (Orajel 2% Oral Gel) 1 appln BID MT 08/15/16 21:00 09/14/16 20:59 08/16/16 08:33 1 APPLN Insulin Glargine (Lantus Solostar Pen) 10 unit BID SC 08/15/16 19:00 09/14/16 18:59 08/16/16 08:36 10 UNIT Glucose (Glucose 40% Gel) 15-30 GRAMS 15 GRAMS... UD PRN PO 08/16/16 15:30 09/15/16 15:29 Glucose (Glucose Chew Tab) 4-8 Tablets 4 Tabl... UD PRN PO 08/16/16 15:30 09/15/16 15:29 Dextrose (Dextrose 50% 50ML Syringe) 25-50ML OF 50% DW IV FOR... UD PRN IV 08/16/16 15:30 09/15/16 15:29 Glucagon (Glucagon Inj) 1 mg UD PRN SQ 08/16/16 15:30 09/15/16 15:29
--- NOTE | 2016-08-16 20:59 | DIAGNOSTIC IMAGING REPORT ---
LEFT KNEE 2 VIEWS HISTORY: Left knee pain. r/o fracture COMPARISON: None. FINDINGS: There is no fracture or dislocation. Vascular calcifications are noted. Lateral subcutaneous edema. Questionable areas of subchondral lucency at the medial and lateral femoral condyles. The bones are osteopenic. There is chondrocalcinosis at the medial compartment. Suboptimal lateral view. No definite knee effusion. IMPRESSION: 1. No acute fracture or dislocation within the left knee. 2. Chondrocalcinosis. 3. Questionable subchondral lucency at the articular surfaces of the medial and lateral femoral condyles. This could be positional or related to avascular necrosis. However, there is no collapse of the articular surface at this time Nonemergent left knee MRI can be used for further evaluation if clinically warranted. Electronically signed by: Enrike Pryor M.D. 08/16/2016 8:57 PM Dictated Date/Time: 08/16/2016 8:54 PM
[2016-08-16] MEDS: ARTIFICIAL TEARS OP OINT 3.5 GM TUBE OPB SCH (21:25)
[2016-08-16] MEDS: GLUCOSAMINE SULFATE 500 MG CAP PO SCH (21:30)
[2016-08-16] MEDS: SPIRONOLACTONE 25 MG TAB PO SCH (22:01)
[2016-08-16 23:37] VITALS: BP 139/66; PULSE 74; TEMP 36.6; O2SAT 93
[2016-08-17] MEDS: INSULIN ASPART 100 UNITS/ML 3 ML PEN SC SCH ×5 (02:00→21:37)
[2016-08-17 07:29] VITALS: BP 143/79; PULSE 77; TEMP 36.5; O2SAT 94
[2016-08-17] MEDS: NYSTATIN POWDER 15GM BTL EXT SCH ×2 (07:45→21:17)
[2016-08-17] MEDS: BENZOCAINE 20% (ORAJEL) 11.9 GM TUBE MT SCH ×2 (07:45→21:18)
[2016-08-17] MEDS: NYSTATIN/TRIAMCINOLONE OINT 15 GM TUBE EXT SCH ×2 (07:45→21:18)
[2016-08-17] MEDS: SPIRONOLACTONE 25 MG TAB PO SCH ×2 (07:46→21:27)
[2016-08-17] MEDS: CALCIUM 600MG + VIT D 400 IU TAB PO SCH ×2 (07:46→21:28)
[2016-08-17] MEDS: LACTULOSE SYRUP 20 GM/30 ML UDC PO SCH ×2 (07:46→21:28)
[2016-08-17] MEDS: DIFLUPREDNATE 0.05% OP SCH ×3 (07:46→21:22)
[2016-08-17] MEDS: MULTIVITAMIN TAB PO SCH (07:46)
[2016-08-17] MEDS: FUROSEMIDE 20 MG TAB PO SCH (07:46)
[2016-08-17] MEDS: ZINC SULFATE 220 MG CAP PO SCH ×2 (07:46→21:31)
[2016-08-17] MEDS: PANTOprazole SOD 40 MG TAB PO SCH ×2 (07:46→21:30)
[2016-08-17] MEDS: MAGNESIUM OXIDE 400 MG TAB PO SCH (07:46)
[2016-08-17] MEDS: RIFAXIMIN TAB 550 MG TAB PO SCH ×2 (07:46→21:31)
[2016-08-17] MEDS: METOPROLOL SUCC 25MG EXT REL TAB PO SCH (07:46)
[2016-08-17] MEDS: ASCORBIC ACID 500 MG TAB PO SCH (07:46)
[2016-08-17] MEDS: THIAMINE HCL 100 MG TAB PO SCH (07:46)
[2016-08-17 08:19] LABS: BUN/CREATININE RATIO 11.5 (10-20); CALCIUM 9.3 mg/dl (8.5-10.1); CREATININE 0.62 mg/dl (0.60-1.20)
[2016-08-17] MEDS: INSULIN GLARGINE SOLOSTAR 100 UNITS/ML 3 ML PEN SC SCH ×2 (08:20→21:38)
[2016-08-17 08:24] LABS: BASO % 1.3 %; BASO ABS # 0.07 K/uL (0-0.2); COMPLETE YES; HEMATOCRIT 37.5 % (37-47); IG% 0.2 %; LYMPH % 30.6 %; LYMPH ABS # 1.65 K/uL (1.2-3.4); MEAN CELL VOLUME 95.4 fL (80-100); MEAN CORPUSCULAR HEMOGLOBIN 34.4 pg (25-34); MEAN PLATELET VOLUME 11.1 fL (7.4-10.4); NEUT % 56.9 %; PLATELET COUNT 52 K/uL (130-400); PLT ESTIMATE DECREASED; RED BLOOD COUNT 3.93 M/uL (4.2-5.4)
--- NOTE | 2016-08-17 12:05 | Progress Note ---
Medicine Progress Note Date & Time of Visit: Aug 17, 2016 at 12:02. Subjective seen sitting up in bed, in good spirits states she feels improved today mental status further improved denies abdominal pain ,nausea, chest pain, dyspnea progressive left knee pain when walking Objective Last 8 Hrs Date Time Temp Pulse Resp B/P Pulse Ox O2 Delivery O2 Flow Rate FiO2 08/17/16 08:00 Room Air 08/17/16 07:29 36.5 77 20 143/79 94 Physical Exam: General- oriented x 3, not in distress, speaks in sentences Eyes- mild icterus Neck- no JVD Lungs- clear breath sounds bilaterally, no rales /wheeze Heart- normal rate, regular rhythm; no murmurs Abdomen- normal bowel sounds, soft, nontender Extremities- no pretibial edema, no calf tenderness left knee: mild swelling and crepitus no warmth/tenderness Neuro- alert, oriented x 3; no gross deficits Skin- warm & dry Laboratory Results: Last 24 Hours Test 08/16/16 16:06 08/16/16 20:10 08/17/16 02:24 08/17/16 07:04 Bedside Glucose 314 mg/dl 305 mg/dl 140 mg/dl White Blood Count 5.40 K/uL Red Blood Count 3.93 M/uL Hemoglobin 13.5 g/dL Hematocrit 37.5 % Mean Corpuscular Volume 95.4 fL Mean Corpuscular Hemoglobin 34.4 pg Mean Corpuscular Hemoglobin Concent 36.0 g/dl Platelet Count 52 K/uL Mean Platelet Volume 11.1 fL Neutrophils (%) (Auto) 56.9 % Lymphocytes (%) (Auto) 30.6 % Monocytes (%) (Auto) 8.0 % Eosinophils (%) (Auto) 3.0 % Basophils (%) (Auto) 1.3 % Neutrophils # (Auto) 3.08 K/uL Lymphocytes # (Auto) 1.65 K/uL Monocytes # (Auto) 0.43 K/uL Eosinophils # (Auto) 0.16 K/uL Basophils # (Auto) 0.07 K/uL RDW Standard Deviation 55.4 fL RDW Coefficient of Variation 15.8 % Immature Granulocyte % (Auto) 0.2 % Immature Granulocyte # (Auto) 0.01 K/uL Platelet Estimate DECREASED Sodium Level 139 mmol/L Potassium Level 4.0 mmol/L Chloride Level 107 mmol/L Carbon Dioxide Level 23 mmol/L Anion Gap 9.0 mmol/L Blood Urea Nitrogen 7 mg/dl Creatinine 0.62 mg/dl Est Creatinine Clear Calc Drug Dose 86.5 ml/min Estimated GFR () 104.4 Estimated GFR (Non- 90.1 BUN/Creatinine Ratio 11.5 Random Glucose 131 mg/dl Calcium Level 9.3 mg/dl Test 08/17/16 07:18 08/17/16 11:09 Bedside Glucose 123 mg/dl 209 mg/dl Assessment & Plan METABOLIC ENCEPHALOPATHY, MULTIFACTORIAL: UTI HYPERGLYCEMIA ELEVATED AMMONIA - MRI Brain: unremarkable EEG: non specific - evaluated by Neurology appreciate input - on Ceftriaxone day 6/7 on Insulin Sliding Scale and Lantus on Rifaximin and Lactulose - improving daily continue PT/OT repeat tsh/t4: possible hyperthyroidism, will need thyroid US DM TYPE 2 -presented with severe hyperglycemia -presented with blood glucose of 475 -HbA1c: 11.8% -no signs of DKA -patient denies being diabetic, her also denies any history of diabetes except when she takes steroids which she has not done in over 6 months -- improved -- consulted Pharmacy Glycemic Control will need Insulin Lantus BID when discharge UTI, E coli -urine culture shows multi-drug resistent E coli, but sensitive to ceftriaxone -grew VRE on most recent urine culture -was on Dapto, but abx changed to ceftriaxone due to cultures -- continue Ceftriaxone IV Day 6 Liver Cirrhosis - continue Rifaximin and Lactulose - lasix and spironolactone resumed HTN: -BP controlled, continue metoprolol THROMBOCYTOPENIA: -due to liver disease -no signs of bleeding, monitor closely -at baseline (platelets in 40's-50's) -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 -outpatient follow up with [employer] if not resolved DVT prophylaxis SCDs patient has thrombocytopenia Disposition patient would like to return home possible d/c home with home health/PT later today after MRI Current Inpatient Medications: Current Inpatient Medications Medications (Trade) Dose Ordered Sig/Migdalia Route Start Time Stop Time Status Last Admin Dose Admin Acetaminophen (Tylenol Tab) 650 mg Q4H PRN PO 08/10/16 15:45 09/09/16 15:44 08/14/16 00:37 650 MG Ondansetron HCl (Zofran Inj) 4 mg Q6H PRN IV 08/10/16 15:45 09/09/16 15:44 Lactulose (Chronulac Syrup) 20 gm BID PO 08/10/16 18:30 09/09/16 18:29 08/17/16 07:46 20 GM Nystatin (Mycostatin Powder) 1 appln BID EXT 08/10/16 21:00 09/09/16 20:59 08/17/16 07:45 1 APPLN Artificial Tears (Lacri-Lube Oph Oint) 1 appln HS OPB 08/10/16 21:00 09/09/16 20:59 08/16/16 21:25 1 APPLN Magnesium Oxide (Mag-Ox Tab) 400 mg QAM PO 08/11/16 09:00 09/10/16 08:59 08/17/16 07:46 400 MG Metoprolol Succinate (Toprol Xl Tab) 25 mg QAM PO 08/11/16 09:00 09/10/16 08:59 08/17/16 07:46 25 MG Multivitamins (Multivitamin Tab) 1 tab QAM PO 08/11/16 09:00 09/10/16 08:59 08/17/16 07:46 1 TAB Zinc Sulfate (Zinc Sulfate Cap) 220 mg BID PO 08/10/16 21:00 09/09/16 20:59 08/17/16 07:46 220 MG Ascorbic Acid (Vitamin C Tab) 1,000 mg QAM PO 08/11/16 09:00 09/10/16 08:59 08/17/16 07:46 1,000 MG Calcium/Vitamin D (Caltrate Plus Tab) 1 tab BID PO 08/10/16 21:00 09/09/16 20:59 08/17/16 07:46 1 TAB Glucosamine Sulfate (Glucosamine Cap) 500 mg QPM PO 08/10/16 21:00 09/09/16 20:59 08/16/16 21:30 500 MG Pantoprazole Sodium (Protonix Tab) 40 mg BID PO 08/10/16 21:00 09/09/16 20:59 08/17/16 07:46 40 MG Insulin Aspart (novoLOG ASPART) SLIDING SCALE G... ACHS SC 08/10/16 21:00 09/09/16 20:59 08/17/16 08:21 4 UNITS Rifaximin (Xifaxan Tab) 550 mg BID PO 08/11/16 21:00 09/10/16 20:59 08/17/16 07:46 550 MG Nystatin/ Triamcinolone Acetonide 1 appln BID EXT 08/11/16 21:00 09/10/16 20:59 08/17/16 07:45 1 APPLN Dexamethasone/ Nystatin/ Diphenhydramine HCl/Sucrose/ Microcrystalline Cellulose/Barcode (Decadron Conc Soln/Mycostatin Susp/Benadryl Syrup/Ora-Sweet Syrup/Ora-Plus Susp. Vehicle) Q6H PRN PO 08/12/16 13:45 09/11/16 13:44 08/14/16 23:52 5 ML Thiamine HCl (Vitamin B-1 Tab) 100 mg QAM PO 08/15/16 09:00 09/14/16 08:59 08/17/16 07:46 100 MG Gadobutrol (Gadavist) 8 mmol UD PRN IV 08/14/16 21:30 08/18/16 21:29 Miscellaneous Information (Consult Glycemic Management Pharmacy) 1 ea UD PRN N/A 08/15/16 16:55 09/14/16 16:54 Benzocaine (Orajel 2% Oral Gel) 1 appln BID MT 08/15/16 21:00 09/14/16 20:59 08/17/16 07:45 1 APPLN Insulin Glargine (Lantus Solostar Pen) 10 unit BID SC 08/15/16 19:00 09/14/16 18:59 08/17/16 08:20 10 UNIT Glucose (Glucose 40% Gel) 15-30 GRAMS 15 GRAMS... UD PRN PO 08/16/16 15:30 09/15/16 15:29 Glucose (Glucose Chew Tab) 4-8 Tablets 4 Tabl... UD PRN PO 08/16/16 15:30 09/15/16 15:29 Dextrose (Dextrose 50% 50ML Syringe) 25-50ML OF 50% DW IV FOR... UD PRN IV 08/16/16 15:30 09/15/16 15:29 Glucagon (Glucagon Inj) 1 mg UD PRN SQ 08/16/16 15:30 09/15/16 15:29 Furosemide (Lasix Tab) 20 mg DAILY PO 08/17/16 09:00 09/16/16 08:59 08/17/16 07:46 20 MG Spironolactone (Aldactone Tab) 50 mg BID PO 08/16/16 21:00 09/15/16 20:59 08/17/16 07:46 50 MG Insulin Aspart SLIDING SCALE G... 0200 SC 08/17/16 02:00 09/16/16 01:59 Ceftriaxone Sodium/Dextrose (Rocephin Inj/ Dextrose Add-Ruston 50ML) 50 ml @ 120 mls/hr Q24H IV 08/17/16 16:00 08/22/16 15:59
--- NOTE | 2016-08-17 14:55 | Pharmacy Progress Note ---
Glycemic: Assessment & Plan Date of Service Aug 17, 2016. Assessment & Plan ASSESSMENT: * The patient received 75 units of insulin yesterday with BSGs ranging from 236 - 314 mg/dl. * Current HbA1c (11.8%) indicates that patient will likely require insulin upon discharge in order to regain glycemic control. A reasonable goal for this patient may be closer to 6.5-7%. * CDE has been working with patient and her in preparation for discharge. PLAN: * Basal insulin: Lantus 10 units every 12 hours * Correctional Insulin: Novolog Correction per scale ACHS Goal Range: Low 110 mg/dL - High 140 mg/dL Correction Factor: 20 mg/dL/unit * Prandial insulin: Per carb ratio of 1 unit per 8 grams CHO consumed RECOMMENDATIONS FOR DISCHARGE: * It is difficult to determine what patient's true insulin needs may be at this time, as basal insulin has been newly added and is not yet at steady state. Patient will require close follow-up with her PCP/blending operator after discharge to adjust her insulin regimen. * May consider: * Lantus 20-25 units SQ once daily. * If additional control is desired, may consider Novolog 5-10 units with meals. * It may be reasonable to start with Lantus-only in order to simplify regimen until outpatient follow-up is arranged? Pharmacy will continue to monitor patient daily and write orders per [facility] inpatient glycemic control protocol. Thanks. * Please note that the plan above was derived based on current level of insulin resistance and hospital stress. These recommendations are appropriate for inpatient admission only. Plan of care upon discharge will need to be reassessed to avoid potential outpatient hypo/hyperglycemia.
[2016-08-17 15:03] VITALS: BP 120/64; PULSE 71; TEMP 36.5; O2SAT 92
--- NOTE | 2016-08-17 15:08 | DIAGNOSTIC IMAGING REPORT ---
LEFT KNEE MRI HISTORY: Abnormal radiograph. Left knee pain. r/o avascular necrosis COMPARISON STUDY: Left knee radiograph 08/16/2016. TECHNIQUE: Multiplanar multisequence MRI of the left knee was performed according to standard department protocol without the use of contrast. FINDINGS: Menisci: There is an oblique tear extending to the undersurface of the posterior horn of the medial meniscus. There is also a focal free edge tear at the body of the lateral meniscus. Ligaments: The anterior and posterior cruciate ligaments are intact. The medial and lateral collateral ligaments are normal in appearance. Extensor mechanism: The quadriceps tendon and patellar ligament are intact. Articular cartilage and bone: No fracture or dislocation. Normal marrow signal intensity within the visualized osseous structures. No evidence for avascular necrosis. Greater than 50% cartilage thinning at the medial compartment of the knee and mild cartilage thinning within the lateral compartment. The patellofemoral compartment appears intact. Joint effusion: None. Soft tissues: Mild subcutaneous edema within the knee. IMPRESSION: 1. No evidence for avascular necrosis. 2. Medial and lateral meniscal tears as described above. 3. Moderate osteoarthritis within the medial compartment and mild osteoarthritis within the lateral compartment of the knee. Electronically signed by: Enrike Pryor M.D. 08/17/2016 3:06 PM Dictated Date/Time: 08/17/2016 2:56 PM
[2016-08-17 15:40] VITALS: BMI 32.2
[2016-08-17] MEDS ORDERED: CEFTRIAXONE SOD INJ 1 GM in DEXTROSE 5% ADD-VANTAGE 50ML 50 ML IV SCH (16:00)
[2016-08-17] MEDS: ARTIFICIAL TEARS OP OINT 3.5 GM TUBE OPB SCH (21:23)
[2016-08-17] MEDS: GLUCOSAMINE SULFATE 500 MG CAP PO SCH (21:29)
[2016-08-17 22:50] VITALS: BP 137/64; PULSE 76; TEMP 36.6; O2SAT 93
[2016-08-18] MEDS ORDERED: ONDANSETRON 4 MG TAB PO PRN (00:15)
[2016-08-18] MEDS: INSULIN ASPART 100 UNITS/ML 3 ML PEN SC SCH ×3 (02:00→12:34)
[2016-08-18 07:07] VITALS: BP 107/50; PULSE 76; TEMP 36.6; O2SAT 93
[2016-08-18] MEDS: ZINC SULFATE 220 MG CAP PO SCH (07:59)
[2016-08-18] MEDS: RIFAXIMIN TAB 550 MG TAB PO SCH (07:59)
[2016-08-18] MEDS: ASCORBIC ACID 500 MG TAB PO SCH (08:00)
[2016-08-18] MEDS: METOPROLOL SUCC 25MG EXT REL TAB PO SCH (08:00)
[2016-08-18] MEDS: THIAMINE HCL 100 MG TAB PO SCH (08:00)
[2016-08-18] MEDS: PANTOprazole SOD 40 MG TAB PO SCH (08:01)
[2016-08-18] MEDS: MAGNESIUM OXIDE 400 MG TAB PO SCH (08:01)
[2016-08-18] MEDS: CALCIUM 600MG + VIT D 400 IU TAB PO SCH (08:01)
[2016-08-18] MEDS: FUROSEMIDE 20 MG TAB PO SCH (08:02)
[2016-08-18] MEDS: MULTIVITAMIN TAB PO SCH (08:02)
[2016-08-18] MEDS: SPIRONOLACTONE 25 MG TAB PO SCH (08:04)
[2016-08-18] MEDS: NYSTATIN/TRIAMCINOLONE OINT 15 GM TUBE EXT SCH (08:05)
[2016-08-18] MEDS: LACTULOSE SYRUP 20 GM/30 ML UDC PO SCH (08:05)
[2016-08-18] MEDS: BENZOCAINE 20% (ORAJEL) 11.9 GM TUBE MT SCH (08:05)
[2016-08-18] MEDS: DIFLUPREDNATE 0.05% OP SCH ×2 (08:08→14:00)
[2016-08-18] MEDS: NYSTATIN POWDER 15GM BTL EXT SCH (08:10)
[2016-08-18 08:25] LABS: BUN/CREATININE RATIO 10.4 (10-20); CALCIUM 8.9 mg/dl (8.5-10.1); CREATININE 0.67 mg/dl (0.60-1.20)
[2016-08-18] MEDS: INSULIN GLARGINE SOLOSTAR 100 UNITS/ML 3 ML PEN SC SCH (08:30)
[2016-08-18 09:09] LABS: HEMATOCRIT 35.3 % (37-47); MEAN CELL VOLUME 96.4 fL (80-100); MEAN CORPUSCULAR HEMOGLOBIN 34.2 pg (25-34); MEAN CORPUSCULAR HGB CONC 35.4 g/dl (32-36); PLATELET COUNT 56 K/uL (130-400); RED BLOOD COUNT 3.66 M/uL (4.2-5.4); WHITE BLOOD COUNT 4.92 K/uL (4.8-10.8)
[2016-08-18 09:10] LABS: BASO % 1.2 %; BASO ABS # 0.06 K/uL (0-0.2); COMPLETE YES; EOS % 3.3 %; IG% 0.4 %; LYMPH % 32.7 %; LYMPH ABS # 1.61 K/uL (1.2-3.4); MONO % 7.9 %; NEUT % 54.5 %; SMUDGE CELLS PRESENT
[2016-08-18] MEDS ORDERED: METHYLPREDNISOLONE ACETATE 80 MG/ML VIAL IA ONE (11:00)
[2016-08-18] MEDS ORDERED: BUPIVACAINE/EPINEPHRINE 0.5% MPF 1:200,000 30 ML VIAL INFIL ONE (11:00)
[2016-08-18] MEDS ORDERED: ETHYL CHLORIDE AER SPR 100 ML CAN EXT ONE (11:00)
--- NOTE | 2016-08-18 11:05 | CONSULTATION REPORT ---
DATE OF CONSULTATION: 08/18/2016 DATE OF CONSULTATION: 08/18/2016. REASON FOR CONSULT: Left knee pain. HISTORY OF PRESENT ILLNESS: The patient is a 70-year-old white female who is known to our practice and had a previous left PATI performed by Dr. Gaitan in the past. The patient was initially admitted on 08/10/2016 with a diagnosis of metabolic encephalopathy, multifactorial, UTI, hyperglycemia and elevated ammonia, also history of diabetes mellitus type 2, liver cirrhosis, hypertension, thrombocytopenia. She was admitted when her noted that she was having increased confusion and weakness. Over her stay she improved greatly; however, she was having some complaints of left knee pain that was progressive. She states the more she uses it the more pain that she gets from the knee. She states it is only with ambulation, especially whenever she has to go up and down a lot of stairs. Currently, she states that the knee feels fine and has no pain but is again depend on how much she ambulates. We have been consulted to evaluate her left knee pain. PAST MEDICAL HISTORY: As noted above with alcoholic cirrhosis, asthma, COPD, CVA in the past, diverticulosis, dyslipidemia, GERD, hypertension, osteoarthritis, osteoporosis, thrombocytopenia, history of VRE culture from her urine. PAST SURGICAL HISTORY: Achilles tendon repair, arthroscopic knee surgery, hemorrhoidectomy, inguinal hernia repair. She has had shoulder surgery in the past, tubal ligation, oophorectomy, appendectomy, partial colectomy, left total hip replacement. FAMILY AND SOCIAL HISTORY: As per admitting history and physical. MEDICATIONS: Artificial Tears ophthalmic ointment at bedtime, ascorbic acid 1000 mg p.o. q.a.m., calcium 500 Plus D 1 tab p.o. b.i.d., clobetasol proprionate 1 application topically b.i.d., Durezol 1 drop OP q.i.d., furosemide 1 tab p.o. as directed, glucosamine 1 cap p.o. q.p.m., lactulose 15 mL p.o. b.i.d., Mag-Ox 400 mg p.o. q.a.m., metoprolol extended release 25 mg p.o. q.a.m., multiple vitamin 1 tab p.o. q.a.m., omeprazole 20 mg p.o. b.i.d., spironolactone 2 tabs p.o. b.i.d., zinc sulfate 220 mg p.o. b.i.d., tramadol 25-50 mg p.o. q. 6 hours p.r.n. pain. ALLERGIES: TAMAR INHIBITORS, HYDROCODONE, MEPERIDINE, OXYCODONE, RANITIDINE, AND SULFA ANTIBIOTICS. REVIEW OF SYSTEMS: As per admitting history and physical. PHYSICAL EXAMINATION: VITAL SIGNS: This morning showed temperature 36.6, pulse 76, respirations 20, BP 107/50, pulse ox 93 on room air. GENERAL: Currently, the patient is lying in bed and is awake and alert and oriented. She is in no acute distress and is pleasant and cooperative. EXTREMITIES: On examination of her left knee it does not appear to be overtly swollen or have an effusion compared to the right and both knees at this time feel about the same as far as temperature goes. There is no overt heat or warmth to it. There is no erythema. She has no tenderness on palpation of the left knee at this time and active range of motion of the left knee goes to approximately 120 degrees with some mild crepitus, but no crepitus during extension. She does have full extension of the knee at this time, medial and lateral collateral ligaments feel stable and she has good end point to her ACL and PCL. Neurovascular appears to be intact. X-RAY ASSESSMENT: X-ray of the left knee shows mild joint narrowing at the medial compartment. Review shows chondrocalcinosis and some subchondral lucency at the articular surfaces which led to MRI. MRI of the left knee showed no evidence of AVN and medial and lateral meniscal tear. ASSESSMENT: Medial and lateral meniscal tears as noted in the MRI of the left knee. PLAN: I discussed the case with Dr. Gaitan's office and with the patient's comorbidities, it was felt that she would be a moderate risk for any type of surgery but with the type and size of tears that she has it would be best at this time to try injection of the left knee to help alleviate her pain symptoms. Plans will be to order methylprednisolone 80 mg and inject her today in hopes of helping taking care of her discomfort. I have discussed this with the patient and her . I also recommended wearing a neoprene sleeve on the knee which they have at home, that this may or may not also help improve her symptoms. She can follow up with Dr Gaitan as needed. We discussed risks involved with the injection including possible infection and/or bleeding into the knee joint. Also discussed risks of steroid flare postinjection and signs to watch for. We will plan on ordering up methylprednisolone at this point in time and inject her knee prior to her discharge today. Thank you for this consult. BAILEE
--- NOTE | 2016-08-18 12:19 | ORTHOPEDIC PROGRESS NOTE ---
DATE: 08/18/2016 SUBJECTIVE: The patient was in agreement for a steroid injection in the left knee, after discussion with Dr. Gaitan and reviewing her films. OBJECTIVE: GENERAL: The patient is awake, alert and oriented x3 and in no acute distress, pleasant and cooperative. EXTREMITIES: The left knee was placed on top of the folded pillow to get her to approximately 60 degrees of flexion, at that point in time a medial injection site was marked along the medial joint line of the left knee. This area was swabbed with 2 alcohol swabs and 3 Betadine drops and let to dry. At that point in time, Ethyl chloride skin anesthesia was applied and 80 mg of Depo-Medrol and 4 mL of 0.5% Marcaine with epinephrine were placed into the left knee without difficulty. The needle was withdrawn and a small pressure dressing was applied with 4x4 and paper tape. The patient tolerated the procedure well. ASSESSMENT: Left medial and lateral meniscal tears with mild degenerative joint disease, left knee. PLAN: We discussed again the possibilities of steroid flare up from the injection and use of a neoprene sleeve, if the patient wanted to try that to help alleviate some of her symptoms. She can follow up with Dr. Gaitan at anytime that she feels necessary, if this continues to be a problem. BAILEE
[2016-08-18 13:45] VITALS: BP 107/50; PULSE 76; TEMP 36.6; O2SAT 93
--- NOTE | 2016-08-18 14:02 | Progress Note ---
Medicine Progress Note Date & Time of Visit: Aug 18, 2016 at 13:52. Subjective patient states she feels better overall in good spirits s/p steroid injection to left knee, tolerated well, no pain denies confusion at bedside states she is ready and would like to be discharged today Objective Last 8 Hrs Date Time Temp Pulse Resp B/P Pulse Ox O2 Delivery O2 Flow Rate FiO2 08/18/16 13:45 36.6 76 20 93 Room Air 08/18/16 10:00 Room Air 08/18/16 07:07 36.6 76 20 107/50 93 Physical Exam: General- oriented x 3, not in distress, speaks in sentences Eyes- mild icterus Neck- no JVD Lungs- clear breath sounds no rales /wheeze b/l Heart- normal rate, regular rhythm; no murmurs Abdomen- normal bowel sounds, soft, nontender Extremities- no pretibial edema, no calf tenderness left knee: dressing in place, no bleeding, mild swelling ; no warmth/tenderness Neuro- alert, oriented x 3; no gross deficits Skin- warm & dry Laboratory Results: Last 24 Hours Test 08/17/16 16:01 08/17/16 20:05 08/18/16 01:59 08/18/16 06:27 Bedside Glucose 195 mg/dl 262 mg/dl 124 mg/dl 103 mg/dl Test 08/18/16 06:52 08/18/16 07:56 08/18/16 11:14 White Blood Count 4.92 K/uL Red Blood Count 3.66 M/uL Hemoglobin 12.5 g/dL Hematocrit 35.3 % Mean Corpuscular Volume 96.4 fL Mean Corpuscular Hemoglobin 34.2 pg Mean Corpuscular Hemoglobin Concent 35.4 g/dl Platelet Count 56 K/uL Mean Platelet Volume 11.0 fL Neutrophils (%) (Auto) 54.5 % Lymphocytes (%) (Auto) 32.7 % Monocytes (%) (Auto) 7.9 % Eosinophils (%) (Auto) 3.3 % Basophils (%) (Auto) 1.2 % Neutrophils # (Auto) 2.68 K/uL Lymphocytes # (Auto) 1.61 K/uL Monocytes # (Auto) 0.39 K/uL Eosinophils # (Auto) 0.16 K/uL Basophils # (Auto) 0.06 K/uL RDW Standard Deviation 56.0 fL RDW Coefficient of Variation 15.9 % Immature Granulocyte % (Auto) 0.4 % Immature Granulocyte # (Auto) 0.02 K/uL Smudge Cells PRESENT Sodium Level 139 mmol/L Potassium Level 4.0 mmol/L Chloride Level 106 mmol/L Carbon Dioxide Level 25 mmol/L Anion Gap 8.0 mmol/L Blood Urea Nitrogen 7 mg/dl Creatinine 0.67 mg/dl Est Creatinine Clear Calc Drug Dose 80.1 ml/min Estimated GFR () 101.8 Estimated GFR (Non- 87.8 BUN/Creatinine Ratio 10.4 Random Glucose 108 mg/dl Calcium Level 8.9 mg/dl Bedside Glucose 113 mg/dl 187 mg/dl Assessment & Plan METABOLIC ENCEPHALOPATHY, MULTIFACTORIAL: UTI HYPERGLYCEMIA ELEVATED AMMONIA - MRI Brain: unremarkable EEG: non specific - evaluated by Neurology appreciate input - received Ceftriaxone x 6 days, continue Cefuroxime 250mg BID x 1 more day to complete 7 days therapy placed on Insulin Sliding Scale and Lantus, BSGs improved, continue Lantus 15 units and use Novolog with sliding scale TID evaluated by GI, Rifaximin 550mg BID added to Lactulose - gradually improved patient prefers to return home with home health ff up with Dr. Martines in 3-5 days DM TYPE 2 -presented with severe hyperglycemia, blood glucose of 475 - HbA1c: 11.8% - no signs of DKA - patient denies being diabetic, her also denies any history of diabetes except when she takes steroids which she has not done in over 6 months -- improved -- consulted Pharmacy Glycemic Control placed on Insulin Sliding Scale and Lantus, BSGs improved, continue Lantus 15 units and use Novolog with sliding scale TID monitor as outpatient discussed with patient and , they are comfortable with Insulin administration UTI, E coli -urine culture shows multi-drug resistent E coli, but sensitive to ceftriaxone -grew VRE on most recent urine culture -was on Dapto, but abx changed to ceftriaxone due to cultures received Ceftriaxone x 6 days, continue Cefuroxime 250mg BID x 1 more day to complete 7 days therapy Liver Cirrhosis - continue Rifaximin and Lactulose - lasix and spironolactone resumed evaluated by GI, Rifaximin 550mg BID added to Lactulose resume diuretics ff up with GI HTN -BP controlled, continue metoprolol THROMBOCYTOPENIA: -due to liver disease -no signs of bleeding -at baseline (platelets in 40's-50's) monitor 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 -outpatient follow up with Maintenance Planner if not resolved LEFT KNEE MENISCAL TEAR, OSTEOARTHRITIS - patient reporting increasing left knee pain with ambulation - MRI Knee: 1. No evidence for avascular necrosis. 2. Medial and lateral meniscal tears as described above. 3. Moderate osteoarthritis within the medial compartment and mild osteoarthritis within the lateral compartment of the knee. - evaluated by Ortho- PA Dr. Kandy Perez s/p Steroid injection to the L knee 08/18/16 advised to use neosprene sleeve on the knee ff up with Dr. Gaitan in 1-2 weeks ELEVATED TSH, LOW T4 - tsh 0.03, t4 1.9 possible hyperthyroidism repeat TFTs as outpatient may need Thyroid US Disposition d/c home with home health/PT ff up with PCP in 3-5 days Current Inpatient Medications: Current Inpatient Medications Medications (Trade) Dose Ordered Sig/Migdalia Route Start Time Stop Time Status Last Admin Dose Admin Acetaminophen (Tylenol Tab) 650 mg Q4H PRN PO 08/10/16 15:45 09/09/16 15:44 08/14/16 00:37 650 MG Ondansetron HCl (Zofran Inj) 4 mg Q6H PRN IV 08/10/16 15:45 09/09/16 15:44 Lactulose (Chronulac Syrup) 20 gm BID PO 08/10/16 18:30 09/09/16 18:29 08/18/16 08:05 20 GM Nystatin (Mycostatin Powder) 1 appln BID EXT 08/10/16 21:00 09/09/16 20:59 08/18/16 08:10 1 APPLN Artificial Tears (Lacri-Lube Oph Oint) 1 appln HS OPB 08/10/16 21:00 09/09/16 20:59 08/17/16 21:23 1 APPLN Magnesium Oxide (Mag-Ox Tab) 400 mg QAM PO 08/11/16 09:00 09/10/16 08:59 08/18/16 08:01 400 MG Metoprolol Succinate (Toprol Xl Tab) 25 mg QAM PO 08/11/16 09:00 09/10/16 08:59 08/18/16 08:00 25 MG Multivitamins (Multivitamin Tab) 1 tab QAM PO 08/11/16 09:00 09/10/16 08:59 08/18/16 08:02 1 TAB Zinc Sulfate (Zinc Sulfate Cap) 220 mg BID PO 08/10/16 21:00 09/09/16 20:59 08/18/16 07:59 220 MG Ascorbic Acid (Vitamin C Tab) 1,000 mg QAM PO 08/11/16 09:00 09/10/16 08:59 08/18/16 08:00 1,000 MG Calcium/Vitamin D (Caltrate Plus Tab) 1 tab BID PO 08/10/16 21:00 09/09/16 20:59 08/18/16 08:01 1 TAB Glucosamine Sulfate (Glucosamine Cap) 500 mg QPM PO 08/10/16 21:00 09/09/16 20:59 08/17/16 21:29 500 MG Pantoprazole Sodium (Protonix Tab) 40 mg BID PO 08/10/16 21:00 09/09/16 20:59 08/18/16 08:01 40 MG Insulin Aspart (novoLOG ASPART) SLIDING SCALE G... ACHS SC 08/10/16 21:00 09/09/16 20:59 08/18/16 12:34 11 UNITS Rifaximin (Xifaxan Tab) 550 mg BID PO 08/11/16 21:00 09/10/16 20:59 08/18/16 07:59 550 MG Nystatin/ Triamcinolone Acetonide 1 appln BID EXT 08/11/16 21:00 09/10/16 20:59 08/18/16 08:05 1 APPLN Dexamethasone/ Nystatin/ Diphenhydramine HCl/Sucrose/ Microcrystalline Cellulose/Barcode (Decadron Conc Soln/Mycostatin Susp/Benadryl Syrup/Ora-Sweet Syrup/Ora-Plus Susp. Vehicle) Q6H PRN PO 08/12/16 13:45 09/11/16 13:44 08/14/16 23:52 5 ML Thiamine HCl (Vitamin B-1 Tab) 100 mg QAM PO 08/15/16 09:00 09/14/16 08:59 08/18/16 08:00 100 MG Gadobutrol (Gadavist) 8 mmol UD PRN IV 08/14/16 21:30 08/18/16 21:29 Miscellaneous Information (Consult Glycemic Management Pharmacy) 1 ea UD PRN N/A 08/15/16 16:55 09/14/16 16:54 Benzocaine (Orajel 2% Oral Gel) 1 appln BID MT 08/15/16 21:00 09/14/16 20:59 08/18/16 08:05 1 APPLN Insulin Glargine (Lantus Solostar Pen) 10 unit BID SC 08/15/16 19:00 09/14/16 18:59 08/18/16 08:30 10 UNIT Glucose (Glucose 40% Gel) 15-30 GRAMS 15 GRAMS... UD PRN PO 08/16/16 15:30 09/15/16 15:29 Glucose (Glucose Chew Tab) 4-8 Tablets 4 Tabl... UD PRN PO 08/16/16 15:30 09/15/16 15:29 Dextrose (Dextrose 50% 50ML Syringe) 25-50ML OF 50% DW IV FOR... UD PRN IV 08/16/16 15:30 09/15/16 15:29 Glucagon (Glucagon Inj) 1 mg UD PRN SQ 08/16/16 15:30 09/15/16 15:29 Furosemide (Lasix Tab) 20 mg DAILY PO 08/17/16 09:00 09/16/16 08:59 08/18/16 08:02 20 MG Spironolactone 50 mg 50 mg BID PO 08/16/16 21:00 09/15/16 20:59 08/18/16 08:04 50 MG Ceftriaxone Sodium/Dextrose (Rocephin Inj/ Dextrose Add-Garrison 50ML) 50 ml @ 120 mls/hr Q24H IV 08/17/16 16:00 08/22/16 15:59 08/17/16 17:42 120 MLS/HR Ondansetron HCl (Zofran Tab) 4 mg Q4H PRN PO 08/18/16 00:15 09/17/16 00:14 08/18/16 08:36 4 MG
[2016-08-18] MEDS ORDERED: ORJ MT (14:18)
[2016-08-18] MEDS ORDERED: LCTL30 PO (14:18)
[2016-08-18] MEDS ORDERED: INSDGIPEN SC (14:18)
[2016-08-18] MEDS ORDERED: CEFU1TAB33 PO (14:18)
[2016-08-18] MEDS ORDERED: NVLGIPEN SC ×2 (14:18→14:19)
[2016-08-18] MEDS ORDERED: MYCO15 EXT (14:18)
[2016-08-18] MEDS ORDERED: XFX550 PO (14:18)
[2016-08-18] MEDS ORDERED: THM100 PO (14:18)
--- NOTE | 2016-08-18 14:25 | Discharge Instructions ---
Discharge Instructions Admission Reason for Admission: Hepatic Encephalopathy, Hyperglycemia Discharge Discharge Diagnosis / Problem: ALTERED MENTAL STATUS, URINARY TRACT INFECTION, ELEVATED BLOOD SUGAR Discharge Goals Goal(s): Diagnostic testing, Therapeutic intervention Activity Recommendations Activity Limitations: as noted below (NO HEAVY EXERTION UNTIL SEEN BY PRIMARY CARE PHYSICIAN) Driving or Machine Use: NO DRIVING UNTIL SEEN BY PRIMARY CARE PHYSICIAN . Instructions / Follow-Up Instructions / Follow-Up PLEASE REVIEW YOUR MEDICATION LIST AND FOLLOW INSTRUCTIONS CAREFULLY. CALL PRIMARY CARE PHYSICIAN OR RETURN TO ER IMMEDIATELY IF WITH RECURRENCE OF SYMPTOMS, FEVER/CHILLS, WEAKNESS, NAUSEA, BLOOD SUGAR READING BELOW 100 OR MORE THAN 300.\\ FOLLOW THIS SLIDING SCALE FOR INSULIN NOVOLOG: use three times a day with meals, for blood glucose 140-180, administer 1 unit subcutaneously for blood glucose 181-220, administer 2 units subcutaneously for blood glucose 221-260, administer 3 units subcutaneously or blood glucose 261-300, administer 4 units subcutaneously for blood glucose greater than 300, call your doctor for advice FOLLOW UP WITH DR. PERKINS ON Sunday08/23/16 AT 10:50PM. FOLLOW UP WITH ORTHOPEDIC SURGEON DR. LUKE IN 1-2 WEEKS. TEL NO. [phone] Current Hospital Diet Patient's current hospital diet: Low Sodium Diet (2gm Na), Diabetes Type 2 Diet Discharge Diet Recommended Diet: AHA Diet (Heart Healthy), Diabetes Type 2 Diet Fluid Restriction: 2000 ml (8 cups) Pending Studies Studies pending at discharge: no Laboratory Results Hemoglobin A1c Test 08/10/16 12:50 Range/Units Estimated Average Glucose 292 mg/dl Hemoglobin A1c 11.8 H 4.5-5.6 % Medical Emergencies . Who to Call and When: Medical Emergencies: If at any time you feel your situation is an emergency, please call 911 immediately. . Non-Emergent Contact Non-Emergency issues call your: Primary Care Provider Call Non-Emergent contact if: you have a fever, your pain is not controlled, wound has increased drainage, wound has increased redness, wound has increased pain, you have any medication questions . Past History Medical & Surgical History: (1) HTN (hypertension) (2) Diverticulosis (3) GERD (gastroesophageal reflux disease) (4) Osteoporosis (5) Dyslipidemia (6) CVA (cerebral vascular accident) (7) Asthma with COPD (8) Osteoarthritis (9) Thrombocytopenia (10) Alcoholic cirrhosis (11) Heel spur (12) Bakers cyst (13) VRE (vancomycin resistant enterococcus) culture positive (14) H/O arthroscopic knee surgery (15) H/O hemorrhoidectomy (16) H/O inguinal hernia repair (17) H/O tubal ligation (18) History of partial colectomy (19) H/O Achilles tendon repair (20) History of appendectomy (21) H/O unilateral oophorectomy (22) H/O shoulder surgery (23) History of total hip replacement . "Provider Documentation" section prepared by Qasim Jones. VTE Core Measure Inpt VTE Proph given/why not?: SCD's
--- NOTE | 2016-08-18 14:30 | Discharge Summary ---
Discharge Summary Admission Date: Aug 10, 2016 at 15:43 Discharge Date: Aug 18, 2016 Discharge Disposition: Home with services Principal Diagnosis: METABOLIC ENCEPHALOPATHY, MULTIFACTORIAL: UTI HYPERGLYCEMIA ELEVATED AMMONIA Secondary Diagnoses/Problems: PLEASE REFER TO HOSPITAL COURSE BELOW. Procedures: BRAIN MRI IMPRESSION: No acute intracranial abnormality. Scattered foci of T2 hyperintensity seen within the periventricular and subcortical white matter are nonspecific but favor microvascular ischemic change. LEFT KNEE MRI: IMPRESSION: 1. No evidence for avascular necrosis. 2. Medial and lateral meniscal tears as described above. 3. Moderate osteoarthritis within the medial compartment and mild osteoarthritis within the lateral compartment of the knee. Consultations: Reconciliation Specialist, Orthopedic Pending Studies/Follow-Up: Please refer to hospital course below. Medication Reconciliation New Medications: Cefuroxime Axetil (Cefuroxime Axetil) 250 Mg Tab 1 TAB PO BID for 1 Day, #2 TABS 0 Refills Benzocaine (Hurricaine) 20 % Gel 1 APPLN MT BID for 10 Days, #1 TUBE 2 Refills Insulin Aspart (Novolog Flexpen) 100 Units/Ml Inj 0 UNITS SC TID, #5 PEN 2 Refills use TID with meals, for blood glucose 140-180, administer 1 unit subcutaneously for blood glucose 181-220, administer 2 units subcutaneously for blood glucose 221-260, administer 3 units subcutaneously for blood glucose 261-300, administer 4 units subcutaneously for blood glucose greater than 300, call your doctor for advice Insulin Glargine (Lantus Solostar) 100 Unit/Ml Inj 15 UNIT SC BID, #5 PEN 2 Refills administer BID in AM and at bedtime; hold if blood glucose is below 110 or skipping meal Lactulose (Lactulose) 20 Gm/30 Ml Syrp 20 GM PO BID for 30 Days, #1800 ML 2 Refills Nystatin/Triamcinolone (Nystatin/Triamcinolone 721759-1.1 Unit/gm-%) 45 Appln/ 15 Gm Oint 1 APPLN EXT BID for 30 Days, #1 TUBE 2 Refills Rifaximin (Xifaxan) 550 Mg Tab 550 MG PO BID for 30 Days, #60 TAB 2 Refills Thiamine HCl (Vitamin B-1) 100 Mg Tab 100 MG PO QAM for 30 Days, #30 TAB 2 Refills Continued Medications: Artificial Tears Oph Oint (Lacri-Lube Sop Oph Oint) Oint 0.25-0.5 INCH OPB HS, #1 TUBE TO THE AFFECTED EYE UP TO QID PRN Ascorbic Acid (Vitamin C) 1,000 Mg Tab 1000 MG PO QAM Calcium Carbonate-Vitamin D (Calcium 500 + D) 1 Tab Tab 1 TAB PO BID Furosemide (Furosemide) 20 Mg Tab 1 TAB PO DIRECTED ALTERNATES EVERY OTHER DAY WITH TAKING 1TAB AND 2 TABS Khcsjpfvxeh-Ikdosrqmrpq-Mcl C- (Glucosamine Chondroitin) 1 Cap Cap 1 CAP PO QPM Magnesium Oxide (Mag-Ox) 400 Mg Tab 400 MG PO QAM, TAB Metoprolol Succ (Toprol Xl) (Toprol-Xl) 25 Mg Tabcr 25 MG PO QAM, #30 TAB Multiple Vitamin (Multivitamin) 1 Tab Tab 1 TAB PO QAM, TAB Omeprazole (Prilosec) 20 Mg Cap 20 MG PO BID, CAP Spironolactone (Aldactone) 25 Mg Tab 2 TAB PO BID, TAB Tramadol (Ultram) 50 Mg Tab 25-50 MG PO Q6H PRN for Pain, TAB MAXIMUM OF 400 MG/24 HOURS. Zinc Sulfate (Zinc Sulfate) 220 Mg Cap 220 MG PO BID, CAP Discontinued Medications: Clobetasol Propionate (Clobetasol Propionate) 45 Appln/15 Gm Oint 1 APPLN TOP BID for 7 Days, #15 GM Difluprednate (Durezol) 0.05 % Emu 1 DROP OP QID for from sx QID today, then change to TID on 08/11 for 7 days Lactulose (Encephalopathy) (Lactulose) 10 Gm/15 Ml Olena 15 ML PO BID WILL TAKE MORE IF NEEDED DIRECTED BY DOCTOR OFFICE. Admission Information HPI (per Admitting provider): 70 year old female who presents to the ER by referral of her PCP for abnormal labs, confusion, and weakness. is at the bedside who provides some of the information. He reports he has noted the patient has been having increasing confusion for the past 3 weeks. She has had hallucinations at times. called the PCP who ordered labs that showed a glucose of 500 and ammonia of 97. Patient has history of cirrhosis and is on chronic Lactulose. Patient reports decreasing her dose by half about one month ago due to the diarrhea it caused. Patient reports feeling generally weak yesterday. She also has had increased thirst and urination. She reports urinary leaking and has developed a perineal rash. She denies dysuria. No abdominal pain, nausea, or vomiting. She denies chest pain and shortness of breath. Some mild lightheadedness and dizziness today but denies any syncopal events. No fever or chills. In the ER, glucose is 475 and ammonia is 54. Patient was given 2L IVF and 6 units IV insulin. Physical Exam (per Admitting): General Appearance: no apparent distress Head: normocephalic Eyes: normal inspection ENT: hearing grossly normal Neck: supple, no JVD Respiratory/Chest: lungs clear, normal breath sounds, no respiratory distress Cardiovascular: regular rate, rhythm, no edema, normal peripheral pulses Abdomen/GI: normal bowel sounds, non tender, soft Genitourinary - Female: + pertinent finding (perineal excoriation) Extremities/Musculoskelatal: normal inspection, no calf tenderness Neurologic/Psych: no motor/sensory deficits, alert, normal mood/affect, oriented x 3 Skin: normal color, warm/dry Hospital Course METABOLIC ENCEPHALOPATHY, MULTIFACTORIAL: UTI HYPERGLYCEMIA ELEVATED AMMONIA - MRI Brain: unremarkable EEG: non specific - evaluated by Neurology appreciate input - received Ceftriaxone x 6 days, continue Cefuroxime 250mg BID x 1 more day to complete 7 days therapy placed on Insulin Sliding Scale and Lantus, BSGs improved, continue Lantus 15 units and use Novolog with sliding scale TID evaluated by GI, Rifaximin 550mg BID added to Lactulose - gradually improved patient prefers to return home with home health ff up with Dr. Martines in 3-5 days DM TYPE 2 -presented with severe hyperglycemia, blood glucose of 475 - HbA1c: 11.8% - no signs of DKA - patient denies being diabetic, her also denies any history of diabetes except when she takes steroids which she has not done in over 6 months -- improved -- consulted Pharmacy Glycemic Control placed on Insulin Sliding Scale and Lantus, BSGs improved, continue Lantus 15 units and use Novolog with sliding scale TID monitor as outpatient discussed with patient and , they are comfortable with Insulin administration UTI, E coli -urine culture shows multi-drug resistent E coli, but sensitive to ceftriaxone -grew VRE on most recent urine culture -was on Dapto, but abx changed to ceftriaxone due to cultures received Ceftriaxone x 6 days, continue Cefuroxime 250mg BID x 1 more day to complete 7 days therapy Liver Cirrhosis - evaluated by GI - NH4 54 - Rifaximin BID ordered continued Lactulose - lasix and spironolactone held, then resumed resume diuretics ff up with GI HTN -BP controlled, continue metoprolol THROMBOCYTOPENIA: -due to liver disease -no signs of bleeding -at baseline (platelets in 40's-50's) monitor 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 -outpatient follow up with [facility] if not resolved LEFT KNEE MENISCAL TEAR, OSTEOARTHRITIS - patient reporting increasing left knee pain with ambulation - MRI Knee: 1. No evidence for avascular necrosis. 2. Medial and lateral meniscal tears as described above. 3. Moderate osteoarthritis within the medial compartment and mild osteoarthritis within the lateral compartment of the knee. - evaluated by Ortho- PA Edil Morales, Dr. Luke s/p Steroid injection to the L knee 08/18/16 advised to use neosprene sleeve on the knee ff up with Dr. Luke in 1-2 weeks ELEVATED TSH, LOW T4 - tsh 0.03, t4 1.9 possible hyperthyroidism repeat TFTs as outpatient may need Thyroid US Disposition d/c home with home health/PT ff up with PCP in 3-5 days Total time spent on discharge = 50 minutes This includes examination of the patient, discharge planning, medication reconciliation, and communication with other providers. Discharge Instructions Discharge Instructions Admission Reason for Admission: Hepatic Encephalopathy, Hyperglycemia Discharge Discharge Diagnosis / Problem: ALTERED MENTAL STATUS, URINARY TRACT INFECTION, ELEVATED BLOOD SUGAR Discharge Goals Goal(s): Diagnostic testing, Therapeutic intervention Activity Recommendations Activity Limitations: as noted below (NO HEAVY EXERTION UNTIL SEEN BY PRIMARY CARE PHYSICIAN) Driving or Machine Use: NO DRIVING UNTIL SEEN BY PRIMARY CARE PHYSICIAN . Instructions / Follow-Up Instructions / Follow-Up PLEASE REVIEW YOUR MEDICATION LIST AND FOLLOW INSTRUCTIONS CAREFULLY. CALL PRIMARY CARE PHYSICIAN OR RETURN TO ER IMMEDIATELY IF WITH RECURRENCE OF SYMPTOMS, FEVER/CHILLS, WEAKNESS, NAUSEA, BLOOD SUGAR READING BELOW 100 OR MORE THAN 300.\\ FOLLOW THIS SLIDING SCALE FOR INSULIN NOVOLOG: use three times a day with meals, for blood glucose 140-180, administer 1 unit subcutaneously for blood glucose 181-220, administer 2 units subcutaneously for blood glucose 221-260, administer 3 units subcutaneously or blood glucose 261-300, administer 4 units subcutaneously for blood glucose greater than 300, call your doctor for advice FOLLOW UP WITH DR. MARTINES ON Sunday08/23/16 AT 10:50PM. FOLLOW UP WITH ORTHOPEDIC SURGEON DR. LUKE IN 1-2 WEEKS. TEL NO. [phone] Current Hospital Diet Patient's current hospital diet: Low Sodium Diet (2gm Na), Diabetes Type 2 Diet Discharge Diet Recommended Diet: AHA Diet (Heart Healthy), Diabetes Type 2 Diet Fluid Restriction: 2000 ml (8 cups) Pending Studies Studies pending at discharge: no Laboratory Results Hemoglobin A1c Test 08/10/16 12:50 Range/Units Estimated Average Glucose 292 mg/dl Hemoglobin A1c 11.8 H 4.5-5.6 % Medical Emergencies . Who to Call and When: Medical Emergencies: If at any time you feel your situation is an emergency, please call 911 immediately. . Non-Emergent Contact Non-Emergency issues call your: Primary Care Provider Call Non-Emergent contact if: you have a fever, your pain is not controlled, wound has increased drainage, wound has increased redness, wound has increased pain, you have any medication questions . Past History Medical & Surgical History: (1) HTN (hypertension) (2) Diverticulosis (3) GERD (gastroesophageal reflux disease) (4) Osteoporosis (5) Dyslipidemia (6) CVA (cerebral vascular accident) (7) Asthma with COPD (8) Osteoarthritis (9) Thrombocytopenia (10) Alcoholic cirrhosis (11) Heel spur (12) Bakers cyst (13) VRE (vancomycin resistant enterococcus) culture positive (14) H/O arthroscopic knee surgery (15) H/O hemorrhoidectomy (16) H/O inguinal hernia repair (17) H/O tubal ligation (18) History of partial colectomy (19) H/O Achilles tendon repair (20) History of appendectomy (21) H/O unilateral oophorectomy (22) H/O shoulder surgery (23) History of total hip replacement . "Provider Documentation" section prepared by Qasim Jones. VTE Core Measure Inpt VTE Proph given/why not?: SCD's
[2016-08-25 16:03] VITALS: Ht 162.6 cm; Wt 85.0 kg
[2016-10-02] MEDS ORDERED: METF1TAB85 PO (13:51)
== END 2016-08-18 15:00 | disposition home or self-care (01) | DRG 637 ==
LOC: ENRESERVDT → ENRESERVTM → C.EDB 10:53 → UNDOADMIN 15:43 → C.MED 15:43 → C.MS2W 08-16 06:17
PROVIDERS: ADMIT Emergency Medicine; ATTEND Internal Medicine
PROC: 3E0U33Z Introduction of Anti-inflammatory into Joints, Percutaneous Approach (ICD-10-PCS; principal; 2016-08-18)
PROC: 3E0U3BZ Introduction of Anesthetic Agent into Joints, Percutaneous Approach (ICD-10-PCS; 2016-08-18)
DX: E11.9 Type 2 diabetes mellitus without complications (principal); G93.41 Metabolic encephalopathy; E72.20 Disorder of urea cycle metabolism, unspecified; N39.0 Urinary tract infection, site not specified; J44.9 Chronic obstructive pulmonary disease, unspecified; J45.909 Unspecified asthma, uncomplicated; K70.30 Alcoholic cirrhosis of liver without ascites; Z86.73 Personal history of transient ischemic attack (TIA), and cerebral infarction without residual deficits; K57.90 Diverticulosis of intestine, part unspecified, without perforation or abscess without bleeding; E78.5 Hyperlipidemia, unspecified; K21.9 Gastro-esophageal reflux disease without esophagitis; I10 Essential (primary) hypertension; M81.0 Age-related osteoporosis without current pathological fracture; D69.6 Thrombocytopenia, unspecified; Z90.49 Acquired absence of other specified parts of digestive tract; Z98.51 Tubal ligation status; Z90.721 Acquired absence of ovaries, unilateral; Z87.891 Personal history of nicotine dependence; Z88.8 Allergy status to other drugs, medicaments and biological substances; Z88.2 Allergy status to sulfonamides; Z88.5 Allergy status to narcotic agent; Z79.899 Other long term (current) drug therapy; Z82.49 Family history of ischemic heart disease and other diseases of the circulatory system; Z96.642 Presence of left artificial hip joint; B96.20 Unspecified Escherichia coli [E. coli] as the cause of diseases classified elsewhere; M17.12 Unilateral primary osteoarthritis, left knee; Z16.24 Resistance to multiple antibiotics; S83.282A Other tear of lateral meniscus, current injury, left knee, initial encounter; S83.242A Other tear of medial meniscus, current injury, left knee, initial encounter; X58.XXXA Exposure to other specified factors, initial encounter

== ENCOUNTER → 2016-10-11 | Day surgery (SDC) | payer OTHER ==
[2016-10-02 13:53] VITALS: Ht 163.8 cm; Wt 81.8 kg
[~2016-10-11] VITALS: Ht 163.8 cm; Wt 81.8 kg
[~2016-10-11] MED LIST changes: +500ML BSS 0.3ML EPI 1:1000PF IRRIG ONE; +ACETAMINOPHEN 325 MG TAB PO PRN; -ALBUAER2 INH; +AMVISC PLUS 0.8ML SYRINGE INT OCU ONE; +ATROPINE SULFATE 0.1 MG/ML 5ML SYR IV PRN; +BSS FLUSH ONE; -CLOB-65 TOP; +ENDOCOAT 0.85ML SYRINGE INT OCU ONE; +EpHEDrine SULFATE INJ 50 MG/ML AMP IV PRN; +EpINEphrine INJ 1MG/ML AMP 1 MG/ML AMP ONE; +FENTANYL CITRATE INJ 50 MCG/1 ML 2 ML VIAL ONE; -LACT10SO30 PO; +LACTATED RINGER'S 1000ML 500 ML IV SCH; +LCTL30 PO; +LIDOCAINE 4% OP SOLN DROP CHARGE ONE; +LIDOCAINE 4% OP SOLN DROP CHARGE OPR SCH; +LIDOCAINE HCL 1% MPF 2 ML VIAL ONE; +METF1TAB85 PO; +MIDAZOLAM HCL 1 MG/ML 2ML VIAL ONE; +MIX: 4ML BSS 1ML EPI 1:1000 PF TOP ONE; +MOXIFLOXACIN OPH SOLN PER DROP CHARGE ONE; +MYCO15 EXT; -OFLO0.3S OP; +POVIDONE-IODINE OP SOLN 30 ML BTL ONE; -PRED1SUS3 OPL; +PROPARACAINE 0.5% OP SOLN PER DROP CHARGE OPR SCH; -RSTOPS OPB; +THM100 PO; +TOBRAMYCIN/DEXAMETHASONE OPH OINT PER APPLN CHARGE ONE; +XFX550 PO
[2016-10-11] MEDS: PHENYLEPHRINE HCL 2.5% OP SOLN PER DROP CHARGE OPR SCH ×3 (06:41→06:51)
[2016-10-11] MEDS: TROPICAMIDE 1% OP SOLN PER DROP CHARGE OPR SCH ×3 (06:42→06:52)
--- NOTE | 2016-10-11 06:42 | History & Physical Bridge - SC ---
H&P Re-Evaluation Bridge Note: I have examined the patient, reviewed the History & Physical and in the interval since the performance of the History & Physical I have noted the following changes of clinical significance: No changes noted
[2016-10-11] MEDS: CYCLOPENTOLATE HCL 1% OP SOLN PER DROP CHARGE OPR SCH ×3 (06:43→06:53)
[2016-10-11] MEDS: MOXIFLOXACIN OPH SOLN PER DROP CHARGE OPR SCH ×3 (06:44→06:54)
--- NOTE | 2016-10-11 07:24 | [facility] Post Operative Brief Note ---
Immediate Operative Summary Operative Date Oct 11, 2016. Pre-Operative Diagnosis Right Eye Cataract Post-Operative Diagnosis same Procedure(s) Performed Right Cataract Phacoemulsification With Intraocular Lens Implant Surgeon Dr. Dinorah Salgado [facility] Associate Surgeon(s) 0 Estimated Blood Loss 0 Findings right cataract Specimens none Complication(s) None Disposition
--- NOTE | 2016-10-11 07:25 | [facility] Operative Report ---
Operative Report Date of Service Oct 11, 2016. Operative Report Phaco with monofocal IOL DATE OF OPERATION: 10/11/16 PREOPERATIVE DIAGNOSIS: Senile nuclear cataract, right eye POSTOPERATIVE DIAGNOSIS: Senile nuclear cataract, right eye PROCEDURE PERFORMED: Phacoemulsification with intraocular lens implantation, right eye SURGEON: Dr. Tera Salgado ANESTHESIA: Topical with 1% intracameral lidocaine and monitored anesthesia care COMPLICATIONS: None DESCRIPTION OF PROCEDURE: After positively identifying the patient both verbally and by wristband in the preoperative area, the right eye was marked as the operative eye. The patient was then brought back to the operating room by the anesthesia and nursing staff where they were given a drop of Lidocaine and betadine into the operative eye. They were then sterilely prepped and draped in the standard fashion typical for ophthalmic surgery. Steri-strips were placed along the upper eyelids to keep the lashes back, and a lid speculum was placed into the operative eye. At this point, a documented time out was performed with members of the ophthalmology, nursing, and anesthesia staffs all agreeing upon the correct patient, correct location for surgery, correct procedure, and correct type and power of intraocular lens to be implanted. The microscope was then swung into position. First, a paracentesis wound was made using a sideport blade. Then, in sequence, 1% preservative-free lidocaine followed by Endocoat viscoelastic was injected into the anterior chamber. Next , the main incision was made with a keratome blade in triplanar fashion. A sharp cystotome was introduced into the eye and used to create a tear in the anterior capsule, which was directed into a continuous curvilinear capsulorrhexis using Utrata forceps. Hydrodissection was then performed with BSS on a flat-tip cannula. Next, the phacoemulsification handpiece was introduced into the eye and used to remove the nucleus in a [id number] fashion. This was done without complication and then the irrigation-aspiration handpiece was introduced into the eye and used to remove all remaining cortical and epinuclear material. Amvisc was then injected into the anterior chamber as well as into the capsular bag and using the lens injector system, an MX60 25.0 D lens, serial number [id number], and expiration date 06/2018 was injected into the capsular bag and rotated into the correct position. Next, the irrigation- aspiration handpiece was used to remove all remaining Amvisc. BSS was used to hydrate the main wound, and then BSS was injected into the paracentesis site to reach physiologic pressure and then the main wound was checked and found to be watertight. The patient was given drops of Vigamox and Tobradex ointment into the operative eye, and then the surrounding area was cleaned and dried. A clear plastic shield was placed over the eye and the patient was then sat up and taken from the operating room by the anesthesia staff having tolerated the procedure well and suffering no complications. DISPOSITION: The patient was returned to the recovery room in stable condition. I attest to the content of the Intraoperative Record and any orders documented therein. Any exceptions are noted below.
--- NOTE | 2016-10-11 07:26 | Discharge Instructions-SurgCtr ---
Discharge Instructions Date of Service Oct 11, 2016. Visit Reason for Visit: Right Cataract Discharge Discharge Diagnosis / Problem: right cataract Discharge Goals Goal(s): Decrease discomfort, Improve function Medications Stopped Medications Name(s): Metformin stopped Sunday Activity Recommendations Activity Limitations: as noted below Anesthesia . Post Anesthesia Instructions: If you have had General Anesthesia or IV Sedation: * Do not drive today. * Resume driving when surgeon permits. * Do not make important decisions or sign legal documents today. * Call surgeon for: 1. Temperature elevations greater than 101 degrees F. 2. Uncontrollable pain. 3. Excessive bleeding. 4. Persistent nausea and vomiting. 5. Medication intolerance (nausea, vomiting or rash). * For nausea and vomiting use only clear liquids such as: tea, soda, bouillon until nausea subsides, then gradually increase diet as tolerated. * If you have any concerns or questions, call your surgeon's office. If physician is unavailable and it is an emergency, call 911 or go to the nearest emergency room. . Instructions / Follow-Up Instructions / Follow-Up ACTIVITY RECOMMENDATIONS: * Light activities. * You may walk outside, read, watch television. * You may notice redness on the white part of the eye and some blurry vision - this is normal. MEDICATIONS: Resume previous medications unless instructed otherwise by your surgeon. Start all eye drops at 9:30 am today: * Eye drops (today): Prednisone - one drop in operative eye every 2 hours while awake Ofloxacin - one drop in operative eye every 2 hours while awake SPECIAL CARE INSTRUCTIONS: * Tape plastic shield over eye to sleep at night. Call your doctor at with any concerns or problems. FOLLOW UP VISIT: Follow-up with Dr Salgado at [facility] as scheduled. Diet Recommendations Home Diet: no limitations Procedures Procedures Performed: Right Cataract Phacoemulsification With Intraocular Lens Implant Pending Studies Studies pending at discharge: no Medical Emergencies . Who to Call and When: Medical Emergencies: If at any time you feel your situation is an emergency, please call 911 immediately. . Non-Emergent Contact Non-Emergency issues call your: Surgeon . . "Provider Documentation" section prepared by Tera Salgado.
[2016-10-11 07:27] VITALS: TEMP 36.3
[2016-10-11 07:47] VITALS: BP 113/72; PULSE 68; O2SAT 96
--- NOTE | 2016-10-11 07:50 | Anesthesia Progress Nt - [facility] ---
Anesthesia Post Op Note Date & Time Oct 11, 2016 at 07:51 Vital Signs Pain Intensity: 0 Vital Signs Past 12 Hours Date Time Temp Pulse Resp B/P Pulse Ox O2 Delivery O2 Flow Rate FiO2 10/11/16 07:47 68 20 113/72 96 Room Air 10/11/16 07:27 36.3 68 20 111/52 98 Room Air 10/11/16 06:41 36.9 70 18 134/64 96 Room Air Notes Mental Status: alert / awake / arousable, participated in evaluation Pt Amnestic to Procedure: Yes Nausea / Vomiting: adequately controlled Pain: adequately controlled Airway Patency, RR, SpO2: stable & adequate BP & HR: stable & adequate Hydration State: stable & adequate Anesthetic Complications: no major complications apparent
== END | disposition home or self-care (01) ==
LOC: X.SURG 05:56
PROVIDERS: ATTEND Ophthalmology
DX: H25.11 Age-related nuclear cataract, right eye (principal); H35.349 Macular cyst, hole, or pseudohole, unspecified eye; Z98.49 Cataract extraction status, unspecified eye; H04.309 Unspecified dacryocystitis of unspecified lacrimal passage; I10 Essential (primary) hypertension; H55.00 Unspecified nystagmus; E11.9 Type 2 diabetes mellitus without complications; Z79.4 Long term (current) use of insulin; Z87.891 Personal history of nicotine dependence

== ENCOUNTER 2019-08-05 11:10 | Inpatient (IN) ==
--- OUTSIDE RECORDS SUMMARY | 2019-08-05 11:12 | External Medical Summary | Continuity of Care Document ---
:1945 Author Name Nai Pierce Address Unavailable Unavailable , Care Team Providers Name Role Phone Carla Concepcion M.D. Unavailable [email or web address] [place] Caitlin PERKINS Unavailable Unavailable Problems Active medical history not documented Allergies and Adverse Reactions TAMAR Inhibitors (Allergy) Hydrocodone-Acetaminophen CAPS (Allergy) Sulfa Drugs (Allergy) Medications Multiple Vitamin TABS Refills: 0 Calcium 600+D 600-200 MG-UNIT Oral Tablet Refills: 0 Aspirin 81 MG Oral Tablet Chewable Refills: 0 Lisinopril 20 MG Oral Tablet Refills: 0 Potassium Chloride CR 20 MEQ TBCR Refills: 0 Lofibra TABS Refills: 0 NexIUM 24HR 20 MG Oral Capsule Delayed Release Refills: 0 Restasis 0.05 % Ophthalmic Emulsion Refills: 0 Fosamax 70 MG Oral Tablet Refills: 0 Flonase 50 MCG/ACT SUSP Refills: 0 Atenolol 50 MG Oral Tablet Refills: 0 Diltiazem HCl CR 180 MG/24HR CPCR Refills: 0 Procedures Procedures not documented Immunizations Immunizations not documented Plan of Treatment Planned Observations Planned Goals not documented Results No Known Results Results not documented
[2019-08-05] MEDS ORDERED: SODIUM CHLORIDE 0.9% 1000ML 1,000 ML IV ONE (11:37)
[2019-08-05 12:27] LABS: INR 1.8 (0.9-1.1); Prothrombin Time 17.3 Seconds (9.0-12.0)
[2019-08-05 12:31] LABS: Hematocrit (blood only) 34.5 % (37-47); Hemoglobin 11.9 g/dL (12.0-16.0); Mean Corpuscular Hemoglobin 34.1 pg (25-34); Mean Corpuscular Hgb Conc 34.5 g/dL (32-36); Mean Corpuscular Volume 98.9 fL (80-100); Mean Platelet Volume 10.7 fL (7.4-10.4); Platelet Count 72 K/uL (130-400); RDW Coefficient of Variation 18.1 % (11.5-14.5); Red Blood Count 3.49 M/uL (4.2-5.4); White Blood Count 5.46 K/uL (4.8-10.8)
[2019-08-05 12:32] LABS: Basophils # (auto) 0.09 K/uL (0-0.2); Basophils % (auto) 1.6 %; Eosinophils # (auto) 0.33 K/uL (0-0.5); Immature Granulocytes # (auto) 0.01 K/uL (0.00-0.02); Immature Granulocytes % (auto) 0.2 %; Lymphocytes # (auto) 1.38 K/uL (1.2-3.4); Lymphocytes % (auto) 25.3 %; Monocytes # (auto) 0.57 K/uL (0.11-0.59); Monocytes % (auto) 10.4 %; Neutrophils # (auto) 3.08 K/uL (1.4-6.5); Neutrophils % (auto) 56.5 %; Platelet Estimate Decreased (Normal)
[2019-08-05 12:37] LABS: Alanine Aminotransferase 39 U/L (12-78); Albumin Level 2.5 gm/dl (3.4-5.0); Aspartate Aminotransferase 64 U/L (15-37); BUN Creatinine Ratio 10.8 (10-20); Blood Urea Nitrogen 11 mg/dl (7-18); Calcium 9.7 mg/dl (8.5-10.1); Carbon Dioxide 25 mmol/L (21-32); Chloride 110 mmol/L (98-107); Est GFR (African American) 65.4; Est GFR (Non-African American) 56.4; Glucose 118 mg/dl (70-99); Sodium 143 mmol/L (136-145)
[2019-08-05 12:43] LABS: Albumin Globulin Ratio 0.6 (0.9-2); Alkaline Phosphatase 105 U/L (45-117); Bilirubin,Total 7.8 mg/dl (0.2-1); Creatine Kinase 180 U/L (26-192); Creatine Kinase MB 3.7 ng/ml (0.5-3.6); Globulin 4.3 gm/dl (2.5-4.0); Total Protein 6.8 gm/dl (6.4-8.2)
--- NOTE | 2019-08-05 13:03 | XRay Report ---
XR chest 1V portable HISTORY: weakness COMPARISON: Chest 08/10/2016. FINDINGS: The lungs are clear. Cardiac silhouette is normal in size. No pleural effusions. No pneumot horax. IMPRESSION: No acute process. ACT 112: Negative or not required by law. Electronically signed by: Enrike Pryor M.D. 08/05/2019 1:02 PM
--- NOTE | 2019-08-05 13:09 | CT Scan Report ---
HEAD CT NONCONTRAST CT DOSE: 1996.36 mGy.cm HISTORY: Altered mental status. TECHNIQUE: Multiaxial CT images of the head were performed without the use of intravenous contrast. A utomated exposure control was utilized for this study. A dose lowering technique was utilized adheri ng to the principles of ALARA. Comparison: Head CT 08/10/2016. Findings: The paranasal sinuses and mastoid air cells are clear. The calvarium and skull base are int act. There is no mass, hematoma, midline shift, acute infarct. White matter hypodensity is nonspecifi c but suggestive of microvascular ischemic change. The ventricles and sulci demonstrate mild age-rela km involutional changes. Moderate motion artifact. Old lacunar infarct within the right basal gangli a, unchanged. Impression: Motion artifact. No significant change compared to the prior study. No definite acute intracranial ab normality. ACT 112: Negative or not required by law. Electronically signed by: Enrike Pryor M.D. 08/05/2019 1:08 PM
--- NOTE | 2019-08-05 13:58 | Electrocardiogram Report ---
Test Reason : Blood Pressure : / mmHG Vent. Rate : 088 BPM Atrial Rate : 088 BPM P-R Int : 116 ms QRS Dur : 072 ms QT Int : 428 ms P-R-T Axes : 050 056 040 degrees QTc Int : 517 ms Poor data quality, interpretation may be adversely affected Sinus rhythm with Premature atrial complexes Low voltage QRS Nonspecific ST abnormality Prolonged QT Abnormal ECG When compared with ECG of 10-AUG-2016 12:39, Premature atrial complexes are now Present QRS voltage has decreased ST now depressed in Anterior leads QT has lengthened Confirmed by Alfonso Trivedi ([id number]) on 08/05/2019 1:58:03 PM Referred By: Confirmed By:Alfonso Trivedi
[2019-08-05] MEDS ORDERED: LACTULOSE SYRUP 20 GM/30 ML UDC PO ONE (14:19)
--- NOTE | 2019-08-05 14:29 | Gastrointestinal Consultation ---
Date of Consultation August 05, 2019 Assessment & Plan (1) Hepatic encephalopathy: (2) Cirrhosis of liver: (3) History of alcohol abuse: Pt is a 73 y/o female who presented w confusion x 3 days, hx of ETOH cirrhosis. Noted increasing Tbili in last few months, also some non compliance w Lactulose intake. Ammonia level up. Likely hepatic encephalopathy in decompensated cirrhotic. MELD 21 - Head CT, CXR unremarkable. Will f/u blood cx. Recommend urine cx, check urine tox screen & ETOH level. - CT abd/pelvis to r/o acute processes. If ascites is seen will plan for diagnostic tap to r/o SBP - Lactulose GA enema as I don't think she can ingest safely by mouth in her current state of confusion - Will continue to follow along Attg add: I interviewed and examined pt, reviewed chart and labs. Pt with confusion, family reports non compliance with lactulose. R/o infection, liver imaging, lactulose enemas. History of Present Illness Reason for Consultation: Hepatic encephalopathy; decompensated cirrhosis Attending Physician: Dr. Aiden Harvey History of Present Illness Pt is a 73 y/o female who was brought to ED by her family for confusion x 3 days. Pt appears agitated, not answering much questions but able to tell me she's having abd pain. Most of HPI info obtained from family ( Kristina, son John) and chart review. Pt w hx of ETOH cirrhosis. Unclear last ETOH intake - family reports at least 6 months ago but per last outpt GI notes on 04/2019 (seen by LEXY Shukla) she may have splash of ETOH twice a week. Family said pt had been taking her meds. However was having more frequent stools and stopped taking her Lactulose per dosed x 1 month. She is on Xifaxan. VS stable. Labs reviewed: no signs of leukocytosis, mild anemia, PT/INR 17/1.8. LFTs w increasing Tbili over last few months now 7, AST 64, ALT 39, alk phos 108, ammonia 137. CK MD mildly up at 3.7. Renal function normal. CXR, head CT unremarkable. Blood cx pending. Allergies Allergy/AdvReac Type Severity Reaction Status Date / Time TAMAR Inhibitors AdvReac Mild PALPITATIONS Verified 08/05/19 13:57 (BUT TAKES LISINOPRIL) hydrocodone AdvReac Mild HEART Verified 08/05/19 13:57 RACING meperidine AdvReac Mild SEVERE GI Verified 08/05/19 13:57 oxycodone AdvReac Mild DEPRESSION Verified 08/05/19 13:57 ranitidine AdvReac Mild DIZZINESS Verified 08/05/19 13:57 Sulfa (Sulfonamide AdvReac Mild "SULFA Verified 08/05/19 13:57 Antibiotics) DRUGS": SEVERE GI Home Medications Home Medications Medication Instructions Recorded Confirmed Type ascorbic acid (vitamin C) 1 g PO DAILY 08/05/19 08/05/19 History calcium carbonate-vitamin D3 1 tab PO BID 08/05/19 08/05/19 History [Calcium 500 + D] furosemide 20 mg PO DAILY 08/05/19 08/05/19 History glucos sul [id number] 1 cap PO DAILY 08/05/19 08/05/19 History [Glucosamine Chondroitin] lactulose 20 g PO BID PRN 08/05/19 08/05/19 History metformin 1,000 mg PO DAILY 08/05/19 08/05/19 History metoprolol succinate 25 mg PO DAILY 08/05/19 08/05/19 History multivitamin 1 tab PO DAILY 08/05/19 08/05/19 History omeprazole 20 mg PO BID 08/05/19 08/05/19 History rifaximin [Xifaxan] 550 mg PO BID 08/05/19 08/05/19 History spironolactone 50 mg PO BID 08/05/19 08/05/19 History thiamine HCl (vitamin B1) 100 mg PO DAILY 08/05/19 08/05/19 History tramadol 50 mg PO Q6 PRN 08/05/19 08/05/19 History white petrolatum-mineral oil 0.25 inch OPHTHALMIC (EYE) HS PRN 08/05/19 08/05/19 History [Artificial Tears (murray/min)] zinc sulfate 220 mg PO BID 08/05/19 08/05/19 History Patient History Medical History (Updated 08/05/19 @ 16:07 by Diana Sharif PA-C) Alcoholic cirrhosis (Chronic) Asthma with COPD (Chronic) Bakers cyst (Chronic) "removed" CVA (cerebral vascular accident) (Chronic) Diverticulosis (Chronic) Dyslipidemia (Chronic) GERD (gastroesophageal reflux disease) (Chronic) Heel spur (Chronic) "removed" HTN (hypertension) (Chronic) Osteoarthritis (Chronic) Osteoporosis (Chronic) T2DM (type 2 diabetes mellitus) Thrombocytopenia (Chronic) 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) "urine" Surgical History H/O Achilles tendon repair (Chronic) H/O arthroscopic knee surgery (Chronic) H/O hemorrhoidectomy (Chronic) H/O inguinal hernia repair (Chronic) H/O tubal ligation (Chronic) History of partial colectomy (Chronic) "sigmoid" Family History Other No pertinent family history in first degree relatives Social History (Updated 08/05/19 @ 15:01 by Diana Sharif PA-C) Communication Ability: Unable marital status: Current Living Situation: Spouse 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 Feels Safe at Home: Yes Smoking Status: Former smoker Hx Alcohol Use: Yes Alcohol type: beer Alcohol Intake Frequency: Daily Alcohol Intake Frequency Comment: unknown last intake; family states > 6 months Review of Systems Review of Systems: Unobtainable due to cognitive status Physical Exam Constitutional: + thin, + altered mental status and + disheveled Eyes: + scleral abnormality (icteric sclera) ENMT: external ear and nose normal, oropharynx normal Respiratory: normal respiratory effort; no respiratory distress and does not use accessory muscles Auscultation: + diminished lung sounds Cardiovascular: RRR, no murmur, no edema Gastrointestinal (Abdomen): Inspection/Auscultation: + hypoactive bowel sounds Percussion/Palpation: + abdomen tender and abdomen soft Skin: no rashes, warm and dry + jaundice Psychiatric: confused, agitated Lymphatic: + lymphedema (+1 edema on bilateral LE ) Results & Data Vital Signs (Past 12 Hours) Vital Signs Temp Pulse Pulse Resp BP BP Pulse Ox 08/05/19 12:48 97 H 18 154/59 H 98 08/05/19 12:02 93 H 19 158/67 H 99 08/05/19 11:31 92 H 19 08/05/19 11:28 89 24 140/78 98 08/05/19 11:15 36.3 C L 96 H 20 146/70 H 98
[2019-08-05] MEDS ORDERED: LACTULOSE 200 GM, WATER, STERILE IRRIG 700 ML, BARCODE IDENTIFIER 1 EA PR STA (14:41)
--- NOTE | 2019-08-05 15:06 | History & Physical Report ---
Date of Service August 05, 2019 Assessment & Plan (1) Hepatic encephalopathy: (2) Cirrhosis of liver: (3) Hyperbilirubinemia: (4) Abdominal pain: Mrs. Bass is a 73-year-old female who has significant PMH of alcoholic cirrhosis, dementia in setting of alcohol abuse, chronic thrombocytopenia, elevated INR in setting of cirrhosis, HTN, HLD, depression, history of CVA, angiodysplasia of colon who presents to ED secondary to confusion x 2-3 days. In ED she was found to have elevated ammonia at 137, H&H 11.9 and 34.5, WBC 5.46, platelets 72, INR 1.8, BUN/creatinine 11 and 0.98, total bili 7.8, AST 64, TSH WNL. Chest x-ray is negative for acute abnormality. Head CT negative for acute abnormality, but did reveal chronic microvascular ischemic change along with old lacunar infarct in the right basal ganglia. Patient with hepatic encephalopathy likely in setting of noncompliance with lactulose and progression of cirrhosis. Infection not entirely ruled out as source of worsening confusion. MELD 21. admit to PCU GI consulted - appreciate their recommendations Lactulose enema CT scan abd/pelvis reviewed obtain RUQ U/S r/o bile duct pathology follow LFTS, NH3 neuro checks blood/urine culture ordered drug tox screen, ETOH level (5) Thrombocytopenia: Platelet count stable, 72 Monitor CBC, no signs of bleeding (6) Lactic acid acidosis: Lactic acid 2.8 Possibly secondary to metformin and or dehydration Placed on IVF Repeat lactic acid at 7 PM Obtain procalcitonin (7) Swelling of right lower extremity: R > L obtain RLE venous U/S r/o dvt (8) Elevated INR (international normalized ratio): INR 1.8 Elevated in setting of liver disease (9) T2DM (type 2 diabetes mellitus): Last A1c 5.0 11/2018 On metformin as outpatient Hold metformin, likely able to reduce dosage at discharge Obtain A1c in a.m. (10) HTN (hypertension): Blood pressure controlled Continue metoprolol, Lasix, Aldactone (11) DVT prophylaxis: SCD/teds only secondary to thrombocytopenia and auto anticoagulated Disposition: Admit to telemetry/PCU, case management consulted Follow-up: PCP Dr. Martines upon discharge Patient was seen and examined in collaboration with Dr. Martinez, please see addendum History of Present Illness Chief Complaint: Confusion x 2-3 days. Primary Care Provider: Alfredo Martines MD Mrs. Bass is a 73-year-old female who has significant PMH of alcoholic cirrhosis, dementia in setting of alcohol abuse, chronic thrombocytopenia, elevated INR in setting of cirrhosis, HTN, HLD, depression, history of CVA, angiodysplasia of colon who presents to ED secondary to confusion x 2-3 days. and son are at bedside. Over the past 2 to 3 days she has notably been coming more confused. At baseline she does have dementia secondary to cirrhosis. Known baseline is she is independent of ADLs and she is usually alert and oriented to self and family. Over the past 2 to 3 days she has been becoming increasingly more confused, weak, inability to walk and aggressive. Family denies any known fever or chills, chest pain, nausea, vomiting, hematemesis, melena, hematochezia. states she does move bowels 2 times daily despite not taking lactulose. Has been noncompliant with her lactulose for approximately 1 month. She is taking rifaximin. Unable to obtain ROS from PT. poor oral intake today, but otherwise oral intake has been normal. No apparent weight loss/gain. She been compliant with all other meds. She lives with and normally is ambulatory at baseline. Family denies known current alcohol use. Denies tobacco use. In ED she was found to have elevated ammonia at 137, H&H 11.9 and 34.5, WBC 5.46, platelets 72, INR 1.8, BUN/creatinine 11 and 0.98, total bili 7.8, AST 64, TSH WNL. Chest x-ray is negative for acute abnormality. Head CT negative for acute abnormality, but did reveal chronic microvascular ischemic change along with old lacunar infarct in the right basal ganglia. PMH reviewed in EPIC. Unable to obtain FH due to pt cognitive status Discussed case with ED Provider Dr. Diego and GI provider LEXY Tamayo. Allergies Allergy/AdvReac Type Severity Reaction Status Date / Time TAMAR Inhibitors AdvReac Mild PALPITATIONS Verified 08/05/19 13:57 (BUT TAKES LISINOPRIL) hydrocodone AdvReac Mild HEART Verified 08/05/19 13:57 RACING meperidine AdvReac Mild SEVERE GI Verified 08/05/19 13:57 oxycodone AdvReac Mild DEPRESSION Verified 08/05/19 13:57 ranitidine AdvReac Mild DIZZINESS Verified 08/05/19 13:57 Sulfa (Sulfonamide AdvReac Mild "SULFA Verified 08/05/19 13:57 Antibiotics) DRUGS": SEVERE GI Home Medications Home Medications Medication Instructions Recorded Confirmed Type ascorbic acid (vitamin C) 1 g PO DAILY 08/05/19 08/05/19 History calcium carbonate-vitamin D3 1 tab PO BID 08/05/19 08/05/19 History [Calcium 500 + D] furosemide 20 mg PO DAILY 08/05/19 08/05/19 History glucos sul [id number]-Mn 1 cap PO DAILY 08/05/19 08/05/19 History [Glucosamine Chondroitin] lactulose 20 g PO BID PRN 08/05/19 08/05/19 History metformin 1,000 mg PO DAILY 08/05/19 08/05/19 History metoprolol succinate 25 mg PO DAILY 08/05/19 08/05/19 History multivitamin 1 tab PO DAILY 08/05/19 08/05/19 History omeprazole 20 mg PO BID 08/05/19 08/05/19 History rifaximin [Xifaxan] 550 mg PO BID 08/05/19 08/05/19 History spironolactone 50 mg PO BID 08/05/19 08/05/19 History thiamine HCl (vitamin B1) 100 mg PO DAILY 08/05/19 08/05/19 History tramadol 50 mg PO Q6 PRN 08/05/19 08/05/19 History white petrolatum-mineral oil 0.25 inch OPHTHALMIC (EYE) HS PRN 08/05/19 08/05/19 History [Artificial Tears (murray/min)] zinc sulfate 220 mg PO BID 08/05/19 08/05/19 History Past Med/Surg History Medical History (Updated 08/06/19 @ 07:47 by John Diego MD) Alcoholic cirrhosis (Chronic) Asthma with COPD (Chronic) Bakers cyst (Chronic) "removed" CVA (cerebral vascular accident) (Chronic) Diverticulosis (Chronic) Dyslipidemia (Chronic) GERD (gastroesophageal reflux disease) (Chronic) Heel spur (Chronic) "removed" HTN (hypertension) (Chronic) Osteoarthritis (Chronic) Osteoporosis (Chronic) T2DM (type 2 diabetes mellitus) Thrombocytopenia (Chronic) 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) "urine" Surgical History H/O Achilles tendon repair (Chronic) H/O arthroscopic knee surgery (Chronic) H/O hemorrhoidectomy (Chronic) H/O inguinal hernia repair (Chronic) H/O tubal ligation (Chronic) History of partial colectomy (Chronic) "sigmoid" Family History Other No pertinent family history in first degree relatives Social History (Updated 08/05/19 @ 15:01 by Diana Sharif PA-C) Communication Ability: Impaired Beliefs That Will Affect Care: None marital status: Current Living Situation: Spouse 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 Other Information That Helps Us Care for You: No Feels Safe at Home: Yes Smoking Status: Former smoker Hx Alcohol Use: No Hx Substance Use: No Review of Systems Review of Systems: Unobtainable due to cognitive status Physical Exam Physical Exam: Constitutional: Older than appearing age, F, jaundice, vitals as above, restless, sitting up in bed, alert, but somnolent, not answering questions appropriately Head: Normocephalic, Atraumatic Eyes: PERRL, conjunctivae normal, icteric sclerae ENMT: external ear and nose normal, oropharynx dry mucous membranes Neck: trachea midline, no thyromegaly normal visual inspection Respiratory: Poor inspiratory effort secondary to inability to follow commands, lungs otherwise clear to auscultation, no wheeze, rales, rhonchi. Normal insp/exp effort, no accessory muscle use Cardiovascular: Tachycardic, but regular rate with occasional ectopy, bilateral venous stasis changes, right lower extremity edema +1, Vessels: no JVD or c arotid bruit Chest: normal inspection of chest Abdomen: normal bowel sounds, soft but tender along RLQ/RUQ without rebound, guarding or rigidity Musculoskeletal: no cyanosis or clubbing, extremities strength inability to test secondary to not following command Skin: no rashes, warm and dry moderate turgor Neurologic: PERRL, EOMI, accommodation nl, no face palsy, no dysarthria CN's II-XI intact bilaterally and moves all extremities Psychiatric: A+O to self only, restless Lymphatic: no cervical or axillary lymphadenopathy : deferred Results & Data Vital Signs (Past 12 Hours) Vital Signs Temp Pulse Pulse Resp BP BP Pulse Ox 08/05/19 14:31 99 H 20 108/91 97 08/05/19 12:48 97 H 18 154/59 H 98 08/05/19 12:02 93 H 19 158/67 H 99 08/05/19 11:31 92 H 19 08/05/19 11:28 89 24 140/78 98 08/05/19 11:15 36.3 C L 96 H 20 146/70 H 98 Laboratory Results Short CBC 08/05/19 Range/Units 11:55 WBC 5.46 (4.8-10.8) K/uL Hgb 11.9 L (12.0-16.0) g/dL Hct 34.5 L (37-47) % Plt Count 72 L (130-400) K/uL BMP 08/05/19 11:55 Sodium 143 Potassium 4.0 Chloride 110 H Carbon Dioxide 25 BUN 11 Creatinine 0.98 Glucose 118 H Calcium 9.7 Cardiac Enzymes 08/05/19 Range/Units 11:55 Total Creatine Kinase 180 (26-192) U/L CK-MB (CK-2) 3.7 H (0.5-3.6) ng/ml Troponin I 0.020 (0-0.045) ng/ml Liver Function 08/05/19 Range/Units 11:55 Total Bilirubin 7.8 H (0.2-1) mg/dl AST 64 H (15-37) U/L ALT 39 (12-78) U/L Alkaline Phosphatase 105 (45-117) U/L Albumin 2.5 L (3.4-5.0) gm/dl Diagnostic Findings CXR: IMPRESSION: No acute process. Head CT: HISTORY: Altered mental status. TECHNIQUE: Multiaxial CT images of the head were performed without the use of intravenous contrast. Automated exposure control was utilized for this study. A dose lowering technique was utilized adhering to the principles of ALARA. Comparison: Head CT 08/10/2016. Findings: The paranasal sinuses and mastoid air cells are clear. The calvarium and skull base are intact. There is no mass, hematoma, midline shift, acute infarct. White matter hypodensity is nonspecific but suggestive of microvascular ischemic change. The ventricles and sulci demonstrate mild age-related involutional changes. Moderate motion artifact. Old lacunar infarct within the right basal ganglia, unchanged. Impression: Motion artifact. No significant change compared to the prior study. No definite acute intracranial abnormality. CT scan abd/pelvis: IMPRESSION: 1. Cirrhotic liver with splenomegaly and splenorenal varices. 2. Mild body wall edema and trace ascites. 3. Cholelithiasis. 4. No definite bowel wall thickening or obstruction. 5. Colonic diverticulosis. 6. Additional findings as described above. Medications Administered Discontinued Medications Sodium Chloride (Nss 1000ml) 1,000 mls @ 999 mls/hr IV .Q1H1M ONE Stop: 08/05/19 12:37 Last Infusion: 08/05/19 13:05 Dose: 0 mls/hr Documented by: [id number] Admin: 08/05/19 12:01 Dose: 999 mls/hr Documented by: [id number] ECG Rhythm: normal sinus Findings: + PAC and + prolonged QT (QTC 517MS) Code Status & VTE Plan Code Status DNR discussed with VTE Prophylaxis Plan VTE Prophylaxis will be ordered: Yes Reason for no VTE drug order: Contraindicated Supervising Physician Co-Signing Physician Notes Pt was seen and examined. Agreed with Chante SWEET exam, assessment and plan. 73-year-old female who has significant PMH of alcoholic cirrhosis, dementia in setting of alcohol abuse, chronic thrombocytopenia, elevated INR in setting of cirrhosis, HTN, HLD, depression, history of CVA, angiodysplasia of colon who presents to ED with confusion. CT head done in the ER showed no acute intracranial abnormality. CT abd/pelvis showed cirrhotic of liver with splenomegaly and splenorenal varices. Mild body wall edema and trace ascites. Abdomen u/s showed cirrhosis.No biliary ductal dilatation. Sensitivity for detection of common bile duct calculi significantly diminished on this exam giv en motion artifact. Small gallstone within the gallbladder. Ammonia level 137 on admission. LFT elevated on admission. Will consult GI. Since pt is confused GI recommended to give lactulose LA. Will monitor closely. If develops any fever, will cover with abx. Continue monitor closely. MD Juan
--- NOTE | 2019-08-05 15:50 | CT Scan Report ---
ABDOMEN AND PELVIS CT WITHOUT CONTRAST CT DOSE: 818.41 mGy.cm HISTORY: Generalized abdominal pain. TECHNIQUE: Multiaxial CT images of the abdomen and pelvis were performed without contrast. A dose lo wering technique was utilized adhering to the principles of ALARA. COMPARISON STUDY: Outside hospital abdomen and pelvis CT 01/29/2013. FINDINGS: The lung bases are essentially clear. No pneumoperitoneum. No pneumatosis. Left total hip a rthroplasty. No suspicious lytic or blastic osseous lesions. Mild body wall edema. There is motion ar tifact. Metallic artifact obscures the deep pelvic structures. The gallbladder is not well visualized due to the motion artifact. There are few punctate gallstones. Nodular contour to the liver consiste nt with cirrhosis. The liver is atrophic. The spleen is mildly enlarged. Multiple splenorenal varices are noted. No retroperitoneal lymphadenopathy. Calcified plaque within the normal caliber abdominal aorta. The unenhanced pancreas and kidneys appear to be within normal limits. No hydronephrosis. Trac e ascites. The bladder and uterus are not well visualized due to metallic artifact within the left hi p prosthesis but appear grossly unremarkable. A 1.8 cm hypodense focus within the left inguinal regio n may represent a small amount of fluid within the inguinal canal. Suboptimal evaluation for bowel pa thology due to the lack of intravenous and oral contrast. However, there is no definite bowel wall th ickening or obstruction. Colonic diverticulosis. Prior distal sigmoid anastomosis. IMPRESSION: 1. Cirrhotic liver with splenomegaly and splenorenal varices. 2. Mild body wall edema and trace ascites. 3. Cholelithiasis. 4. No definite bowel wall thickening or obstruction. 5. Colonic diverticulosis. 6. Additional findings as described above. ACT 112: Negative or not required by law. Electronically signed by: Enrike Pryor M.D. 08/05/2019 3:49 PM
[2019-08-05] MEDS ORDERED: SODIUM CHLORIDE 0.9% 1000ML 1,000 ML IV SCH (16:15)
[2019-08-05] MEDS ORDERED: GLUCOSE 10 TABS/TUBE PO PRN (16:51)
[2019-08-05] MEDS ORDERED: CARBOHYDRATES FOR HYPOGLYCEMIA PO PRN (16:51)
[2019-08-05] MEDS ORDERED: DEXTROSE 50% 50 ML SYRINGE IV PRN (16:51)
[2019-08-05] MEDS ORDERED: GLUCAGON FOR INJ 1 MG VIAL SQ PRN (16:51)
[2019-08-05] MEDS ORDERED: GLUCOSE 40% GEL 15 GM TUBE PO PRN (16:51)
[2019-08-05] MEDS ORDERED: MAGNESIUM HYDROXIDE SUSP 30 ML UDC PO PRN (16:51)
[2019-08-05] MEDS ORDERED: TRAMADOL HCL 50 MG TABLET PO PRN (16:51)
[2019-08-05] MEDS ORDERED: ALUMINUM/MAGNESIUM SUSP 30 ML UDC PO PRN (16:51)
[2019-08-05] MEDS ORDERED: LORazepam 2 MG/ML VIAL (IM USE) IM SCH (17:30)
[2019-08-05] MEDS: INSULIN ASPART 100 UNITS/ML 3 ML PEN SC SCH ×2 (17:55→22:21)
[2019-08-05] MEDS ORDERED: SPIRONOLACTONE 25 MG TAB PO SCH (21:00)
[2019-08-05] MEDS: RIFAXIMIN 550 MG TABLET PO SCH (21:17)
[2019-08-05] MEDS: PANTOprazole 40 MG TAB PO SCH (21:17)
[2019-08-05] MEDS: LACTULOSE 200 GM, WATER, STERILE IRRIG 700 ML, BARCODE IDENTIFIER 1 EA PR SCH (21:18)
[2019-08-05] MEDS: UNIT DOSE COMPOUND PR SCH (21:18)
[2019-08-05] MEDS: CALCIUM 600MG + VIT D 400 IU TAB PO SCH (21:18)
[2019-08-06] MEDS ORDERED: cefTRIAXone SODIUM 1,000 MG in DEXTROSE 5% 50 ML IV SCH (00:15)
[2019-08-06] MEDS ORDERED: MAGNESIUM SULFATE / D5W 1 GM/100 ML BAG IV ONE (00:21)
--- NOTE | 2019-08-06 00:21 | Communication Note ---
Date of Service: August 06, 2019 Made aware by RN of worsening lactic acidosis Cardiac rate 110s. Abdominal pain as per a.m. notes. AP Lactic acidosis possibly secondary to sepsis ? Possible SBP as source given abdominal pain complaints, ascites on imaging IV ceftriaxone, IV albumin for now Hold home diuretics for now Follow lactic acid Ultrasound-guided paracentesis in a.m. if with sufficient ascitic fluid sample. Will relay to AM provider.
[2019-08-06 00:52] LABS: Magnesium 1.4 mg/dl (1.8-2.4)
[2019-08-06] MEDS: ALBUMIN 25% 50 ML IV SCH ×3 (01:28→11:56)
[2019-08-06] MEDS: cefTRIAXone SODIUM 2,000 MG in DEXTROSE 5% 50 ML IV SCH (02:17)
[2019-08-06 02:20] LABS: Appearance Urine Cloudy (Clear); Bacteria Urine Automated 2+ (Negative); Blood Urine Trace (Negative); Color Urine Orange; Glucose Urine UA Negative (Negative); Ketones Urine Trace (Negative); Leukocyte Esterase Urine 2+ (Negative); Nitrite Urine Positive (Negative); Protein Urine Negative (Negative); Specific Gravity Urine 1.025 (1.000-1.030); Urobilinogen Urine Negative (Negative); WBC Urine Automated >30 /hpf (0-5)
[2019-08-06 02:33] LABS: Bilirubin Urine 1+ (Negative); Ictotest Urine Positive (Negative)
[2019-08-06 02:44] LABS: RBC Urine Automated 0-4 /hpf (0-4)
[2019-08-06 02:51] LABS: Amphetamines+Metham, Urine Neg (Neg); Barbiturates, Urine Neg (Neg); Benzodiazepine, Urine Neg (Neg); Cocaine, Urine Neg (Neg); MDMA (Ecstacy), Urine Neg (Neg); Methadone, Urine Neg (Neg); Opiate, Urine Neg (Neg); Phencyclidine, Urine Neg (Neg)
[2019-08-06] MEDS: MAGNESIUM SULFATE / D5W 1 GM/100 ML BAG IV SCH ×2 (03:51→04:40)
[2019-08-06 04:31] LABS: INR 2.1 (0.9-1.1)
[2019-08-06 04:41] LABS: Albumin Level 2.3 gm/dl (3.4-5.0); BUN Creatinine Ratio 13.8 (10-20); Calcium 8.5 mg/dl (8.5-10.1); Creatinine Clr Calc Pharmacy 59.4 ml/min; Est GFR (African American) 75.5; Est GFR (Non-African American) 65.2; Potassium 3.8 mmol/L (3.5-5.1)
[2019-08-06 04:48] LABS: Albumin Globulin Ratio 0.6 (0.9-2); Bilirubin,Total 7.6 mg/dl (0.2-1); Globulin 3.6 gm/dl (2.5-4.0); Total Protein 5.9 gm/dl (6.4-8.2)
[2019-08-06 04:50] LABS: Hemoglobin 9.8 g/dL (12.0-16.0); Mean Corpuscular Hgb Conc 33.8 g/dL (32-36); Mean Corpuscular Volume 100.7 fL (80-100); Mean Platelet Volume 10.4 fL (7.4-10.4); Platelet Count 65 K/uL (130-400); RDW Standard Deviation 66.5 fL (36.4-46.3); Red Blood Count 2.88 M/uL (4.2-5.4); White Blood Count 7.74 K/uL (4.8-10.8)
[2019-08-06] MEDS ORDERED: LACTATED RINGER'S 1,000 ML IV ONE (04:51)
[2019-08-06 04:52] LABS: Basophils # (auto) 0.04 K/uL (0-0.2); Basophils % (auto) 0.5 %; Echinocytes 1+; Eosinophils # (auto) 0.12 K/uL (0-0.5); Eosinophils % (auto) 1.6 %; Immature Granulocytes # (auto) 0.02 K/uL (0.00-0.02); Immature Granulocytes % (auto) 0.3 %; Lymphocytes # (auto) 0.79 K/uL (1.2-3.4); Lymphocytes % (auto) 10.2 %; Monocytes # (auto) 0.75 K/uL (0.11-0.59); Monocytes % (auto) 9.7 %; Neutrophils # (auto) 6.02 K/uL (1.4-6.5); Neutrophils % (auto) 77.7 %
[2019-08-06] MEDS ORDERED: METOPROLOL SUCC 25MG EXT REL TAB PO SCH ×2 (05:00→09:00)
[2019-08-06] MEDS: UNIT DOSE COMPOUND PR SCH ×2 (05:58→15:01)
[2019-08-06] MEDS: LACTULOSE 200 GM, WATER, STERILE IRRIG 700 ML, BARCODE IDENTIFIER 1 EA PR SCH ×3 (05:58→22:47)
--- NOTE | 2019-08-06 06:36 | Ultrasound Report ---
US venous doppler LE RT CLINICAL HISTORY: edema COMPARISON STUDY: 06/06/2014 FINDINGS: Real-time and color flow Doppler imaging were performed. Flow was seen within the femoral, popliteal and calf veins with no intraluminal thrombus demonstrated. The saphenous vein is patent. It should be noted that study was quite difficult for technical standpoint due to lack of patient coope ration. IMPRESSION: No evidence of right lower extremity DVT. ACT 112: Negative or not required by law. Electronically signed by: Helio Ball M.D. 08/06/2019 6:34 AM
--- NOTE | 2019-08-06 06:47 | Ultrasound Report ---
ABDOMINAL ULTRASOUND, RIGHT UPPER QUADRANT HISTORY: RUQ, r/o choledocholithiasis. COMPARISON: Right upper quadrant ultrasound June 09, 2014. CT of the abdomen and pelvis August 05, 2019. FINDINGS: This exam is significantly compromised from a technical standpoint due to patient's inabili ty to suspend respiration with motion artifact. The pancreas is grossly unremarkable. Coarsening of h epatic echotexture with nodularity of the liver surface indicates cirrhosis. There is no gallbladder wall thickening. There is no sonographic Zhu sign. The small gallstone shown on CT is not evident on this exam given motion artifact. There is no biliary ductal dilatation. The common bile duct measu res 3 mm in caliber. There is no right hydronephrosis. IMPRESSION: 1. Cirrhosis. 2. No biliary ductal dilatation. Sensitivity for detection of common bile duct calculi significantly diminished on this exam given motion artifact. Small gallstone within the gallbladder better depicted by CT. ACT 112: Negative or not required by law. Electronically signed by: Nelson Stokes M.D. 08/06/2019 6:46 AM
--- NOTE | 2019-08-06 07:47 | Emergency Department Note ---
Entered by Fabiano Sena acting as a scribe for History of Present Illness General Chief complaint: Confusion Stated complaint: CONFUSION Time Seen by Provider: 08/05/19 11:31 Source: patient History of Present Illness Provider complaint: Confusion Onset (ago): day(s) 3 Location: head Severity: similar to prior episodes Pain Consistency: + constant Maximum Pain Intensity: 0 Relieved By: + none Associated symptoms: + other (Urinary symptoms) The patient is a 73 year old female who presents to the Emergency Room with complaints of constant confusion that started about 3 days ago. The history was given by the patient's given her current mental state. The states about 3 days ago she started having urinary symptoms as well consisting only of increased frequency. The mentioned that she has a history of liver cirrhosis. The reports that the patient has not been taking her Lactulose for the past month. HPI is limited secondary to the patient's altered mental status. Home Medications Home Medications Medication Instructions Recorded Confirmed Type ascorbic acid (vitamin C) 1 g PO DAILY 08/05/19 08/05/19 History calcium carbonate-vitamin D3 1 tab PO BID 08/05/19 08/05/19 History [Calcium 500 + D] furosemide 20 mg PO DAILY 08/05/19 08/05/19 History glucos sul [id number]-Mn 1 cap PO DAILY 08/05/19 08/05/19 History [Glucosamine Chondroitin] lactulose 20 g PO BID PRN 08/05/19 08/05/19 History metformin 1,000 mg PO DAILY 08/05/19 08/05/19 History metoprolol succinate 25 mg PO DAILY 08/05/19 08/05/19 History multivitamin 1 tab PO DAILY 08/05/19 08/05/19 History omeprazole 20 mg PO BID 08/05/19 08/05/19 History rifaximin [Xifaxan] 550 mg PO BID 08/05/19 08/05/19 History spironolactone 50 mg PO BID 08/05/19 08/05/19 History thiamine HCl (vitamin B1) 100 mg PO DAILY 08/05/19 08/05/19 History tramadol 50 mg PO Q6 PRN 08/05/19 08/05/19 History white petrolatum-mineral oil 0.25 inch OPHTHALMIC (EYE) HS PRN 08/05/19 08/05/19 History [Artificial Tears (murray/min)] zinc sulfate 220 mg PO BID 08/05/19 08/05/19 History Allergies Allergy/AdvReac Type Severity Reaction Status Date / Time TAMAR Inhibitors AdvReac Mild PALPITATIONS Verified 08/05/19 13:57 (BUT TAKES LISINOPRIL) hydrocodone AdvReac Mild HEART Verified 08/05/19 13:57 RACING meperidine AdvReac Mild SEVERE GI Verified 08/05/19 13:57 oxycodone AdvReac Mild DEPRESSION Verified 08/05/19 13:57 ranitidine AdvReac Mild DIZZINESS Verified 08/05/19 13:57 Sulfa (Sulfonamide AdvReac Mild "SULFA Verified 08/05/19 13:57 Antibiotics) DRUGS": SEVERE GI Past Med/Surg History Medical History (Updated 08/06/19 @ 07:47 by John Diego MD) Alcoholic cirrhosis (Chronic) Asthma with COPD (Chronic) Bakers cyst (Chronic) "removed" CVA (cerebral vascular accident) (Chronic) Diverticulosis (Chronic) Dyslipidemia (Chronic) GERD (gastroesophageal reflux disease) (Chronic) Heel spur (Chronic) "removed" HTN (hypertension) (Chronic) Osteoarthritis (Chronic) Osteoporosis (Chronic) T2DM (type 2 diabetes mellitus) Thrombocytopenia (Chronic) 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) "urine" Surgical History H/O Achilles tendon repair (Chronic) H/O arthroscopic knee surgery (Chronic) H/O hemorrhoidectomy (Chronic) H/O inguinal hernia repair (Chronic) H/O tubal ligation (Chronic) History of partial colectomy (Chronic) "sigmoid" Family History Other No pertinent family history in first degree relatives Social History (Updated 08/05/19 @ 15:01 by Diana Sharif PA-C) Communication Ability: Effective Beliefs That Will Affect Care: None marital status: Current Living Situation: Spouse 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 and A total of 10 systems reviewed and were otherwise negative Physical Exam Vital Signs Vital Signs - 24 hr 08/05/19 11:15 08/05/19 11:28 08/05/19 11:31 Temperature 36.3 C L Temperature Source Oral Pulse Rate 96 H 89 92 H Pulse Rate [Left Finger] Pulse Rate from SpO2 Sensor 90 Respiratory Rate 20 24 19 Respiratory Effort / Characteristics Non-Labored Respiratory Depth Normal Blood Pressure 146/70 H 140/78 Blood Pressure [Left Arm] Blood Pressure Mean 95 113 Blood Pressure Mean [Left Arm] Pulse Oximetry 98 98 Oxygen Delivery Method Room Air Sepsis Recent Fever Within 48 Hours No Sepsis Action Taken by Nursing No Action Required 08/05/19 12:02 08/05/19 12:48 Temperature Temperature Source Pulse Rate 93 H Pulse Rate [Left Finger] 97 H Pulse Rate from SpO2 Sensor 92 H Respiratory Rate 19 18 Respiratory Effort / Characteristics Respiratory Depth Blood Pressure 158/67 H Blood Pressure [Left Arm] 154/59 H Blood Pressure Mean 80 Blood Pressure Mean [Left Arm] 90 Pulse Oximetry 99 98 Oxygen Delivery Method Room Air Room Air Sepsis Recent Fever Within 48 Hours Sepsis Action Taken by Nursing GENERAL: Responds to painful stimuli and is able to moan. HENT: Normocephalic, atraumatic. Oropharynx unremarkable. EYES: Normal conjunctiva. Sclera non-icteric. NECK: Supple. No nuchal rigidity. FROM. No masses. RESPIRATORY: Clear to auscultation. No wheezes. No rales. Normal respiratory effort. CARDIAC: Normal rate. Normal rhythm. No murmurs. No rubs. Extremities warm and well perfused. Pulses equal. No JVD. GI: Soft, non-distended. No tenderness to palpation. No rebound or guarding. No masses. RECTAL: Deferred. MUSCULOSKELETAL: Atraumatic. Chest examination reveals no tenderness. The back is symmetrical on inspection without obvious abnormality. There is no CVA tenderness to palpation. No joint edema. LOWER EXTREMITIES: Calves are equal size bilaterally and non-tender. No edema. No discoloration. NEURO: Altered sensorium. No sensory or motor deficits noted. Responds to painful stimuli. SKIN: Jaundiced. Course Course 1132: Past medical records reviewed. The patient was evaluated in room A03, and a complete history and physical examination were performed. 1333: I reevaluated the patient and she is resting in bed. I updated her with the test results as well as the treatment plan. 1342: I discussed the patient's case with Diana Martin PAC under Dr. Juan Martin Hospitalist. They agreed to accept the patient for further evaluation. Consultations Consultation #1: I discussed the patient's case with Diana Martin PAC under Dr. Juan Rivas. They agreed to accept the patient for further evaluation. Time: 13:42 Administered Medications Lactulose 200 gm/ Sterile Water 700 ml/ BARCODE IDENTIFIER 1 ea 0 gm DC Q8H MACK Stop: 09/04/19 21:59 Last Admin: 08/06/19 05:58 Dose: Not Given Documented by: [id number] Admin: 08/05/19 21:18 Dose: Not Given Documented by: [id number] Albumin Human (Albumin 25%) 50 mls @ 50 mls/hr IV Q6H MACK Stop: 08/09/19 00:14 Last Infusion: 08/06/19 07:42 Dose: 0 mls/hr Documented by: [id number] Admin: 08/06/19 06:40 Dose: 50 mls/hr Documented by: [id number] Infusion: 08/06/19 02:18 Dose: 0 mls/hr Documented by: [id number] Admin: 08/06/19 01:28 Dose: 50 mls/hr Documented by: [id number] Ceftriaxone Sodium 2,000 mg/ (Dextrose) 70 mls @ 140 mls/hr IV Q24H MACK Stop: 08/16/19 00:59 Last Infusion: 08/06/19 03:27 Dose: 0 mls/hr Documented by: [id number] Admin: 08/06/19 02:17 Dose: 140 mls/hr Documented by: [id number] Lactated Ringer's (Lr) 1,000 mls @ 80 mls/hr IV .[id number] ONE Stop: 08/06/19 17:20 Last Infusion: 08/06/19 07:42 Dose: 80 mls/hr Documented by: [id number] Infusion: 08/06/19 06:49 Dose: 0 mls/hr Documented by: [id number] Admin: 08/06/19 05:56 Dose: 80 mls/hr Documented by: [id number] Insulin Aspart (Novolog Flexpen) 0 units SC ACHS MACK Stop: 09/04/19 17:29 Last Admin: 08/05/19 22:21 Dose: Not Given Documented by: [id number] Cosigned by: [id number] Admin: 08/05/19 17:55 Dose: Not Given Documented by: [id number] Cosigned by: [id number] Metoprolol Succinate (Toprol Xl) 25 mg PO DAILY MACK Stop: 09/05/19 04:59 Last Admin: 08/06/19 06:40 Dose: 25 mg Documented by: [id number] Miscellaneous (Unit Dose Compound) 1 ea DC Q8H MACK Stop: 09/04/19 21:59 Last Admin: 08/06/19 05:58 Dose: Not Given Documented by: [id number] Admin: 08/05/19 21:18 Dose: Not Given Documented by: [id number] Multivitamins/Minerals (Caltrate Plus) 1 tab PO BID MACK Stop: 09/04/19 20:59 Last Admin: 08/05/19 21:18 Dose: 1 tab Documented by: [id number] Pantoprazole Sodium (Protonix) 40 mg PO BID MACK Stop: 09/04/19 20:59 Last Admin: 08/05/19 21:17 Dose: 40 mg Documented by: [id number] Rifaximin (Xifaxan) 550 mg PO BID MACK Stop: 09/04/19 20:59 Last Admin: 08/05/19 21:17 Dose: 550 mg Documented by: [id number] Spironolactone (Aldactone) 50 mg PO BID17 MACK Stop: 09/04/19 20:59 Last Admin: 08/05/19 21:16 Dose: 50 mg Documented by: [id number] Discontinued Medications Lactulose 200 gm/ Sterile Water 700 ml/ BARCODE IDENTIFIER 1 ea 0 gm DC NOW STA Stop: 08/05/19 14:42 Last Admin: 08/05/19 15:33 Dose: 200 gm Documented by: [id number] Sodium Chloride (Nss 1000ml) 1,000 mls @ 999 mls/hr IV .Q1H1M ONE Stop: 08/05/19 12:37 Last Infusion: 08/05/19 13:05 Dose: 0 mls/hr Documented by: [id number] Admin: 01/07/20 12:01 Dose: 999 mls/hr Documented by: [id number] Sodium Chloride (Nss 1000ml) 1,000 mls @ 100 mls/hr IV .Q10H [facility] Stop: 08/06/19 02:14 Last Infusion: 08/06/19 05:58 Dose: 0 mls/hr Documented by: [id number] Infusion: 08/06/19 02:59 Dose: 200 mls/hr Documented by: [id number] Admin: 08/05/19 20:20 Dose: 100 mls/hr Documented by: [id number] Magnesium Sulfate/Dextrose (Magnesium Sulfate / D5w) 1 gm in 100 mls @ 100 mls/hr IV ONE ONE Stop: 08/06/19 01:20 Last Infusion: 08/06/19 04:13 Dose: 0 mls/hr Documented by: [id number] Admin: 08/06/19 02:47 Dose: 100 mls/hr Documented by: [id number] Magnesium Sulfate/Dextrose (Magnesium Sulfate / D5w) 1 gm in 100 mls @ 100 mls/hr IV Q1H [facility] Stop: 08/06/19 03:36 Last Infusion: 08/06/19 05:58 Dose: 0 mls/hr Documented by: [id number] Admin: 08/06/19 04:40 Dose: 100 mls/hr Documented by: [id number] Infusion: 08/06/19 04:40 Dose: 100 mls/hr Documented by: [id number] Admin: 08/06/19 03:51 Dose: 100 mls/hr Documented by: [id number] Lactulose (Chronulac) 20 gm PO NOW ONE Stop: 08/05/19 14:20 Last Admin: 08/05/19 17:59 Dose: Not Given Documented by: [id number] Lorazepam (Ativan) 0.5 mg IM 1730 [facility] Stop: 08/05/19 23:59 Last Admin: 08/05/19 18:38 Dose: 0.5 mg Documented by: [id number] Medical Decision Making Differential Diagnosis Differential diagnoses includes but is not limited to toxic, metabolic, infectious, traumatic, cardiac, neurologic, hematologic, psychiatric and inflammatory etiologies. Medical Records Attestation: I reviewed the patient's medical records. Home Medications Current Medication List: was personally reviewed by me Laboratory Data Attestation: I reviewed the patient's lab results. Result diagrams: 08/06/19 04:12 08/06/19 04:12 Lab Results 08/05/19 08/05/19 08/05/19 Range/Units 11:30 11:55 11:55 WBC 5.46 (4.8-10.8) K/uL RBC 3.49 L (4.2-5.4) M/uL Hgb 11.9 L (12.0-16.0) g/dL Hct 34.5 L (37-47) % MCV 98.9 (80-100) fL MCH 34.1 H (25-34) pg MCHC 34.5 (32-36) g/dL RDW Std Deviation 65.0 H (36.4-46.3) fL RDW Coeff of Justin 18.1 H (11.5-14.5) % Plt Count 72 L (130-400) K/uL MPV 10.7 H (7.4-10.4) fL Immature Gran % (Auto) 0.2 % Neut % (Auto) 56.5 % Lymph % (Auto) 25.3 % [place] % (Auto) 10.4 % Eos % (Auto) 6.0 % Baso % (Auto) 1.6 % Immature Gran # (Auto) 0.01 (0.00-0.02) K/uL Neut # (Auto) 3.08 (1.4-6.5) K/uL Lymph # (Auto) 1.38 (1.2-3.4) K/uL [place] # (Auto) 0.57 (0.11-0.59) K/uL Eos # (Auto) 0.33 (0-0.5) K/uL Baso # (Auto) 0.09 (0-0.2) K/uL Platelet Estimate Decreased L (Normal) PT 17.3 H (9.0-12.0) Seconds INR 1.8 H (0.9-1.1) Sodium (136-145) mmol/L Potassium (3.5-5.1) mmol/L Chloride (98-107) mmol/L Carbon Dioxide (21-32) mmol/L Anion Gap (3-11) BUN (7-18) mg/dl Creatinine (0.6-1.2) mg/dl Est Cr Clr Drug Dosing Est GFR ( Amer) Est GFR (Non-Af Amer) BUN/Creatinine Ratio (10-20) Glucose (70-99) mg/dl POC Glucose 109 H (70-99) Calcium (8.5-10.1) mg/dl Total Bilirubin (0.2-1) mg/dl AST (15-37) U/L ALT (12-78) U/L Alkaline Phosphatase (45-117) U/L Ammonia (11-32) umol/L Total Creatine Kinase (26-192) U/L CK-MB (CK-2) (0.5-3.6) ng/ml CK/CKMB % Calc (0-3.0) Troponin I (0-0.045) ng/ml Total Protein (6.4-8.2) gm/dl Albumin (3.4-5.0) gm/dl Globulin (2.5-4.0) gm/dl Albumin/Globulin Ratio (0.9-2) TSH (0.300-4.500) uIu/ml 08/05/19 08/05/19 Range/Units 11:55 12:40 WBC (4.8-10.8) K/uL RBC (4.2-5.4) M/uL Hgb (12.0-16.0) g/dL Hct (37-47) % MCV (80-100) fL MCH (25-34) pg MCHC (32-36) g/dL RDW Std Deviation (36.4-46.3) fL RDW Coeff of Justin (11.5-14.5) % Plt Count (130-400) K/uL MPV (7.4-10.4) fL Immature Gran % (Auto) % Neut % (Auto) % Lymph % (Auto) % [place] % (Auto) % Eos % (Auto) % Baso % (Auto) % Immature Gran # (Auto) (0.00-0.02) K/uL Neut # (Auto) (1.4-6.5) K/uL Lymph # (Auto) (1.2-3.4) K/uL [place] # (Auto) (0.11-0.59) K/uL Eos # (Auto) (0-0.5) K/uL Baso # (Auto) (0-0.2) K/uL Platelet Estimate (Normal) PT (9.0-12.0) Seconds INR (0.9-1.1) Sodium 143 (136-145) mmol/L Potassium 4.0 (3.5-5.1) mmol/L Chloride 110 H (98-107) mmol/L Carbon Dioxide 25 (21-32) mmol/L Anion Gap 8.0 (3-11) BUN 11 (7-18) mg/dl Creatinine 0.98 (0.6-1.2) mg/dl Est Cr Clr Drug Dosing Not Reportable Est GFR ( Amer) 65.4 Est GFR (Non-Af Amer) 56.4 BUN/Creatinine Ratio 10.8 (10-20) Glucose 118 H (70-99) mg/dl POC Glucose (70-99) Calcium 9.7 (8.5-10.1) mg/dl Total Bilirubin 7.8 H (0.2-1) mg/dl AST 64 H (15-37) U/L ALT 39 (12-78) U/L Alkaline Phosphatase 105 (45-117) U/L Ammonia 137.7 H (11-32) umol/L Total Creatine Kinase 180 (26-192) U/L CK-MB (CK-2) 3.7 H (0.5-3.6) ng/ml CK/CKMB % Calc 2.1 (0-3.0) Troponin I 0.020 (0-0.045) ng/ml Total Protein 6.8 (6.4-8.2) gm/dl Albumin 2.5 L (3.4-5.0) gm/dl Globulin 4.3 H (2.5-4.0) gm/dl Albumin/Globulin Ratio 0.6 L (0.9-2) TSH 1.800 (0.300-4.500) uIu/ml Imaging Data Radiologist's Impression: Radiology results as stated below per my review and the radiologist's interpretation: XR chest 1V portable HISTORY: weakness COMPARISON: Chest 08/10/2016. FINDINGS: The lungs are clear. Cardiac silhouette is normal in size. No pleural effusions. No pneumothorax. IMPRESSION: No acute process. ACT 112: Negative or not required by law. Electronically signed by: Enrike Pryor M.D. 08/05/2019 1:[address]AST CT DOSE: 1996.36 mGy.cm HISTORY: Altered mental status. TECHNIQUE: Multiaxial CT images of the head were performed without the use of intravenous contrast. Automated exposure control was utilized for this study. A dose lowering technique was utilized adhering to the principles of ALARA. Comparison: Head CT 08/10/2016. Findings: The paranasal sinuses and mastoid air cells are clear. The calvarium and skull base are intact. There is no mass, hematoma, midline shift, acute infarct. White matter hypodensity is nonspecific but suggestive of microvascular ischemic change. The ventricles and sulci demonstrate mild age-related involutional changes. Moderate motion artifact. Old lacunar infarct within the right basal ganglia, unchanged. Impression: Motion artifact. No significant change compared to the prior study. No definite acute intracranial abnormality. ACT 112: Negative or not required by law. Electronically signed by: Enrike Pryor M.D. 08/05/2019 1:08 PM ECG Data Attestation: I personally reviewed and interpreted this ECG as follows: Indication: + altered mental status Rate (beats per minute): 88 Rhythm: + sinus rhythm ECG Intervals/blocks: + Prolonged QT ECG Andrews: + Normal ECG ST segments: no ST depression and no ST elevation ECG Findings: + PACs and + Other (QTC 517) Blood Pressure Blood Pressure Findings: Elevated blood pressure Blood Pressure Disposition: Referred to patients primary care provider MDM Narrative This is a 73-year-old female who presents emergency department complaining of altered mental status. The patient only moans to painful stimuli. The patient stopped taking her lactulose approximately 1 month ago. Her T bili was found to be grossly elevated. She was sent for CAT scan of the head as well as chest x- ray. She was given a liter fluid. Her lactic acid was found to be elevated. I did discuss the case with the hospitalist service who did agree to admit the patient. Patient family were in agreement with the treatment plan peer Impression & Plan Thrombocytopenia, Altered mental status, Cirrhosis of liver, Hepatic encephalopathy Discharge Plan Visit Data *Final* Discharge Date/Time: 08/05/19 16:16 Chief Complaint: Confusion Stated Complaint: CONFUSION ED Provider: John Diego Discharge Problem: Thrombocytopenia, Altered mental status, Cirrhosis of liver, Hepatic encephalopathy Patient Disposition: Admitted As Inpatient Discharge Instructions Interventions: ED Discharge Assessment Last Done: 08/05/19 16:16 Discharge Problem: Altered mental status Qualifiers: Altered mental status type: unspecified Qualified Code(s): R41.82 - Altered mental status, unspecified Cirrhosis of liver Qualifiers: Hepatic cirrhosis type: unspecified hepatic cirrhosis Ascites presence: unspecified Qualified Code(s): K74.60 - Unspecified cirrhosis of liver The scribe's documentation has been prepared under my direction and personally reviewed by me in its entirety. I confirm that the note above accurately reflects all work, treatment, procedures, and medical decision making performed by me.
[2019-08-06 08:11] LABS: Estimated Average Glucose 85 mg/dl; Hemoglobin A1C 4.6 % (4.5-5.6)
[2019-08-06] MEDS ORDERED: MULTIVITAMIN TAB PO SCH (09:00)
[2019-08-06] MEDS ORDERED: THIAMINE HCL 100 MG TAB PO SCH (09:00)
[2019-08-06] MEDS ORDERED: FUROSEMIDE 20 MG TAB PO SCH (09:00)
[2019-08-06] MEDS: INSULIN ASPART 100 UNITS/ML 3 ML PEN SC SCH ×3 (09:22→17:37)
[2019-08-06] MEDS: CALCIUM 600MG + VIT D 400 IU TAB PO SCH ×2 (10:12→21:57)
[2019-08-06] MEDS: PANTOprazole 40 MG TAB PO SCH (10:13)
[2019-08-06] MEDS: ASCORBIC ACID 500 MG TAB PO SCH (10:13)
[2019-08-06] MEDS: RIFAXIMIN 550 MG TABLET PO SCH (10:13)
--- NOTE | 2019-08-06 10:14 | Gastroenterology Progress Note ---
Date of Service August 06, 2019 Assessment & Plan (1) Hepatic encephalopathy: (2) Cirrhosis of liver: (3) History of alcohol abuse: Pt is a 73 y/o female who presented w confusion x 3 days, hx of ETOH cirrhosis. Noted increasing Tbili in last few months, also some non compliance w Lactulose intake. Ammonia level up. Likely hepatic encephalopathy in decompensated cirrhotic. MELD 21 - Head CT, CXR unremarkable. Urine tox and ETOH screens negative. Will f/u blood cx. Recommend urine cx. - CT abd/pelvis to r/o acute processes -> no acute processes, too small amt of ascites to tap for dx paracentesis. - Lactulose NH enema q8hrs. - Will continue to follow along Attg add: I interviewed and examined pt, reviewed chart and labs. Pt with still confusion, on Rocephin. CT unremarkable. Cont lactulose enemas, also aspiration precautions. Subjective Pt remains to be confused. Unable to obtain ROS from her. She has a sitter at bedside. Per RN report, pt had multiple loose stool w incontinence last night and this AM. No signs of blood in stools. She was started on Ceftriaxone and Albumin IV by night shift manager physician for suspected SBP given trace amt of ascites noted on CT scan and c/o abd pain. I reviewed the CT images and findings with Dr. Ansley Sanchez (Radiologist) - too small amt of ascites on CT which is not amenable to paracentesis Review of Systems Review of Systems: Unobtainable due to cognitive status Physical Exam Constitutional: + thin, + altered mental status and + disheveled Eyes: + scleral abnormality (icteric sclera) ENMT: external ear and nose normal, oropharynx normal Respiratory: normal respiratory effort; no respiratory distress and does not use accessory muscles Auscultation: + diminished lung sounds Cardiovascular: RRR, no murmur, no edema Gastrointestinal (Abdomen): Inspection/Auscultation: + hypoactive bowel sounds Percussion/Palpation: + abdomen tender; + abdomen not soft Skin: no rashes, warm and dry + jaundice Neurologic: confused Lymphatic: + lymphedema (+1 edema on bilateral LE ) Results & Data Vital Signs (Past 12 Hours) Vital Signs Temp Pulse Pulse Pulse Resp BP Pulse Ox 08/06/19 08:24 36.6 C 118 H 24 126/63 99 08/06/19 07:48 117 H 08/06/19 04:05 37 C 124 H 20 169/94 H 92 08/06/19 00:00 100 H 08/05/19 23:11 36.9 C 110 H 19 157/64 H 95 (1) Cirrhosis of liver Ascites presence: unspecified Hepatic cirrhosis type: unspecified hepatic cirrhosis Qualified Code(s): K74.60 - Unspecified cirrhosis of liver
[2019-08-06] MEDS ORDERED: PHYTONADIONE 5 MG in SODIUM CHLORIDE 0.9% 50 ML IV STA (10:21)
[2019-08-06] MEDS ORDERED: D5W AND 1/2NSS 1,000 ML IV SCH (12:00)
[2019-08-06 15:50] LABS: Potassium 4.1 mmol/L (3.5-5.1)
[2019-08-06 15:51] LABS: Albumin Globulin Ratio 0.8 (0.9-2); Albumin Level 2.4 gm/dl (3.4-5.0); Bilirubin,Total 8.1 mg/dl (0.2-1); Calcium 8.2 mg/dl (8.5-10.1); Creatinine Clr Calc Pharmacy 52.8 ml/min; Est GFR (African American) 70.6; Est GFR (Non-African American) 60.9; Globulin 3.2 gm/dl (2.5-4.0); Total Protein 5.6 gm/dl (6.4-8.2)
[2019-08-06 16:24] LABS: INR 2.3 (0.9-1.1); Prothrombin Time 22.4 Seconds (9.0-12.0)
[2019-08-06] MEDS: SODIUM CHLORIDE 0.9% 1000ML 1,000 ML IV SCH (17:28)
--- NOTE | 2019-08-06 18:31 | Hospitalist Progress Note ---
Date of Service August 06, 2019 Assessment & Plan (1) Hepatic encephalopathy: Acute Hepatic Encephalopathy Hyperammonemia -Mrs. Bass is a 73-year-old female who has significant PMH of alcoholic cirrhosis, dementia in setting of alcohol abuse, chronic thrombocytopenia, elevated INR in setting of cirrhosis, HTN, HLD, depression, history of CVA, angiodysplasia of colon who presents to ED secondary to confusion x 2-3 days. -Patient with hepatic encephalopathy likely in setting of not using lactulose and progression of cirrhosis with elevated ammonia levels -Patient is evaluated by gastroenterology team and on scheduled rectal lactulose as patient not able to cooperate to take oral medications (2) Cirrhosis of liver: -management as above (3) Hyperbilirubinemia: -management as above -secondary to liver dysfunction -follow liver labs (4) Abdominal pain: -patient cannot express at this time if having abdominal pain -avoid acetaminophen at this time given liver problems (5) Lactic acid acidosis: -admission lactic acid as 2.8 -because of acute haptic encephalopathy, patient has been very difficult to track lactic acid levels -lactic acid levels have remained above 2 and IV fluid formulations and rates have been multiple times on 08/06/2019; currently on normal saline at 125 ml/hr - decision to limit excessive blood draws to follow lactic acid levels have been made given patient being combative to phlebotomy staff, will reattempt blood draws on 08/07/2019 -currently no strong evidence that mental status changes is from an acute infection but but the ceftriaxone 2 gram q24 hours is primarily used as prophylaxis in case of Spontaneous bacterial peritonitis (SBP); minimal ascites on 08/05/2019 imaging but continue ceftriaxone for now possible urinary tract infection -bacteria is in the urine -already on ceftriaxone but the ceftriaxone is primarily used as prophylaxis in case of Spontaneous bacterial peritonitis (SBP) (6) Thrombocytopenia: -thrombocytopenia is from liver dysfunction, monitor labs (7) Elevated INR (international normalized ratio): -Elevated INR in setting of liver disease -patient has received IV vitamin K on 08/06/2019 (8) Swelling of right lower extremity: -ultrasound: No evidence of right lower extremity DVT. (9) T2DM (type 2 diabetes mellitus): -HbA1c 5.0 11/2018 -hold metformin for now -HbA1c 4.6 on this admission -patient not able to eat at this time, no need for insulin at this time (10) HTN (hypertension): -patient not ready to take oral medications -will give metoprolol 5 mg IV q6 hours if heart rates above 110 bpm (11) DVT prophylaxis: SCD/teds patient's Kristina Bass [phone] Subjective Patient seen throughout the day with agitation, periodically moaning and rolling around and made it very difficult for phlebotomy to draw her labs to follow the lactic acid levels. Patient's family was at the bedside and medical information obtain from patient's Kristina Bass [phone] Review of Systems Review of Systems: Unobtainable due to cognitive status Physical Exam Constitutional: + frail appearing Eyes: PERRL, conjunctivae normal, anicteric sclerae EOM intact bilaterally ENMT: external ear and nose normal, oropharynx normal Neck: normal visual inspection Respiratory: normal respiratory effort Cardiovascular: Rate/Rhythm: + tachycardic Gastrointestinal (Abdomen): Inspection/Auscultation: normal bowel sounds Musculoskeletal: Head/Neck/Chest: normocephalic and head atraumatic Neurologic: moves all extremities Psychiatric: Motor Behavior: + psychomotor agitation Results & Data Vital Signs (Past 12 Hours) Vital Signs Temp Pulse Pulse Resp BP Pulse Ox 08/06/19 15:23 36.9 C 123 H 24 163/62 H 95 08/06/19 14:48 112 H 08/06/19 11:07 36.8 C 109 H 26 H 149/78 H 99 08/06/19 08:24 36.6 C 118 H 24 126/63 99 08/06/19 07:48 117 H (1) Cirrhosis of liver Ascites presence: unspecified Hepatic cirrhosis type: unspecified hepatic cirrhosis Qualified Code(s): K74.60 - Unspecified cirrhosis of liver
[2019-08-06] MEDS ORDERED: METOPROLOL TARTRATE 1 MG/ML VIAL IV PRN (19:01)
[2019-08-07] MEDS: cefTRIAXone SODIUM 2,000 MG in DEXTROSE 5% 50 ML IV SCH (01:22)
[2019-08-07] MEDS: SODIUM CHLORIDE 0.9% 1000ML 1,000 ML IV SCH ×2 (01:22→09:49)
[2019-08-07 01:24] LABS: INR 2.2 (0.9-1.1); Prothrombin Time 21.7 Seconds (9.0-12.0)
[2019-08-07 01:40] LABS: Albumin Globulin Ratio 0.7 (0.9-2); Albumin Level 2.3 gm/dl (3.4-5.0); Calcium 8.1 mg/dl (8.5-10.1); Creatinine Clr Calc Pharmacy 61.5 ml/min; Est GFR (African American) 84.9; Est GFR (Non-African American) 73.2; Globulin 3.2 gm/dl (2.5-4.0); Magnesium 1.6 mg/dl (1.8-2.4); Phosphorus 2.2 mg/dl (2.5-4.9); Potassium 3.5 mmol/L (3.5-5.1); Total Protein 5.5 gm/dl (6.4-8.2)
[2019-08-07 03:00] LABS: Basophils # (auto) 0.05 K/uL (0-0.2); Basophils % (auto) 0.8 %; Eosinophils # (auto) 0.31 K/uL (0-0.5); Eosinophils % (auto) 4.9 %; Hemoglobin 8.5 g/dL (12.0-16.0); Immature Granulocytes # (auto) 0.02 K/uL (0.00-0.02); Immature Granulocytes % (auto) 0.3 %; Lymphocytes # (auto) 0.99 K/uL (1.2-3.4); Lymphocytes % (auto) 15.5 %; Mean Corpuscular Hemoglobin 33.9 pg (25-34); Mean Corpuscular Volume 99.6 fL (80-100); Mean Platelet Volume 10.6 fL (7.4-10.4); Monocytes # (auto) 0.79 K/uL (0.11-0.59); Monocytes % (auto) 12.4 %; Neutrophils # (auto) 4.22 K/uL (1.4-6.5); Neutrophils % (auto) 66.1 %; Platelet Count 34 K/uL (130-400); RDW Coefficient of Variation 18.5 % (11.5-14.5); RDW Standard Deviation 67.7 fL (36.4-46.3); Red Blood Count 2.51 M/uL (4.2-5.4); White Blood Count 6.38 K/uL (4.8-10.8)
[2019-08-07] MEDS ORDERED: POTASSIUM PHOS 3 MMOL/1 ML INFUSION IV STA ×2 (04:17→09:40)
[2019-08-07] MEDS ORDERED: POTASSIUM PHOSPHATE 21 MMOL in SODIUM CHLORIDE 0.9% 500 ML IV ONE (04:30)
[2019-08-07] MEDS: MAGNESIUM SULFATE / D5W 1 GM/100 ML BAG IV SCH ×2 (05:09→06:09)
[2019-08-07] MEDS ORDERED: UNIT DOSE COMPOUND PR SCH (06:00)
[2019-08-07] MEDS: LACTULOSE 200 GM, WATER, STERILE IRRIG 700 ML, BARCODE IDENTIFIER 1 EA PR SCH (06:09)
[2019-08-07 08:28] LABS: INR 2.1 (0.9-1.1); Prothrombin Time 20.7 Seconds (9.0-12.0)
[2019-08-07 08:38] LABS: Albumin Globulin Ratio 0.7 (0.9-2); Albumin Level 2.3 gm/dl (3.4-5.0); BUN Creatinine Ratio 14.5 (10-20); Bilirubin,Total 7.9 mg/dl (0.2-1); Calcium 8.3 mg/dl (8.5-10.1); Creatinine Clr Calc Pharmacy 64.8 ml/min; Est GFR (African American) 90.4; Globulin 3.1 gm/dl (2.5-4.0); Magnesium 2.3 mg/dl (1.8-2.4); Phosphorus 2.7 mg/dl (2.5-4.9); Potassium 3.6 mmol/L (3.5-5.1); Total Protein 5.4 gm/dl (6.4-8.2)
[2019-08-07] MEDS: ASCORBIC ACID 500 MG TAB PO SCH (08:57)
[2019-08-07] MEDS: CALCIUM 600MG + VIT D 400 IU TAB PO SCH (08:57)
[2019-08-07] MEDS ORDERED: POTASSIUM PHOSPHATE 15 MMOL in SODIUM CHLORIDE 0.9% 250 ML IV ONE (09:45)
--- NOTE | 2019-08-07 12:22 | Gastroenterology Progress Note ---
Date of Service August 07, 2019 Assessment & Plan (1) Hepatic encephalopathy: (2) Cirrhosis of liver: (3) History of alcohol abuse: Pt is a 73 y/o female who presented w confusion x 3 days, hx of ETOH cirrhosis consistent w hepatic encephalopathy. MELD 21. She is slow to improve. - Head CT, CXR unremarkable. Urine tox and ETOH screens, blood cx negative. Urine cx showed GNB, will continue Ceftriaxone IV antibx. - CT abd/pelvis to r/o acute processes -> no acute processes, too small amt of ascites to tap for dx paracentesis. - If able to tolerate PO intake will convert Lactulose enema to Lactulose 30g BID - Will continue to follow along Attg add: I interviewed and examined pt, reviewed chart and labs. Pt with persistent confusion, although improved. Cont abx for UTI, HE therapy. Subjective Pt oriented to person and place, not time. Reports abd pain but mostly related to sensation to urinated. Denies any n/v. Review of Systems Review of Systems: All systems reviewed & are unremarkable except as noted in HPI & below Physical Exam Constitutional: + thin, + disheveled, cooperative and comfortable Eyes: + scleral abnormality (icteric sclera) ENMT: external ear and nose normal, oropharynx normal Respiratory: normal respiratory effort; no respiratory distress and does not use accessory muscles Auscultation: + diminished lung sounds Cardiovascular: RRR, no murmur, no edema Gastrointestinal (Abdomen): Inspection/Auscultation: + hypoactive bowel sounds Percussion/Palpation: abdomen soft; abdomen nontender Skin: no rashes, warm and dry + jaundice Results & Data Vital Signs (Past 12 Hours) Vital Signs Temp Pulse Pulse Resp BP BP Pulse Ox 08/07/19 12:01 36.6 C 109 H 20 162/75 H 97 08/07/19 07:20 36.5 C 108 H 23 180/85 H 96 08/07/19 03:44 36.3 C L 109 H 24 161/79 H 99 08/07/19 00:28 36.4 C L 110 H 20 148/82 H 99 (1) Cirrhosis of liver Ascites presence: unspecified Hepatic cirrhosis type: unspecified hepatic cirrhosis Qualified Code(s): K74.60 - Unspecified cirrhosis of liver
[2019-08-07] MEDS ORDERED: MULTI-VITAMIN INFUSION 10 ML, THIAMINE HCL 100 MG, FOLIC ACID 1 MG in SODIUM CHLORIDE 0... IV ONE (14:00)
--- NOTE | 2019-08-07 14:56 | Hospitalist Progress Note ---
Date of Service August 07, 2019 Assessment & Plan (1) Hepatic encephalopathy: Acute Hepatic Encephalopathy Hyperammonemia -Mrs. Bass is a 73-year-old female who has significant PMH of alcoholic cirrhosis, dementia in setting of alcohol abuse, chronic thrombocytopenia, elevated INR in setting of cirrhosis, HTN, HLD, depression, history of CVA, angiodysplasia of colon who presents to ED secondary to confusion x 2-3 days. -Patient with hepatic encephalopathy likely in setting of not using lactulose and progression of cirrhosis with elevated ammonia levels -Patient is evaluated by gastroenterology team was initially on scheduled rectal lactulose as patient not able to cooperate to take oral medications but has been transitioned to oral lactulose as of 08/07/2019 (2) Cirrhosis of liver: -management as above (3) Hyperbilirubinemia: -bilirubin consistently near 8 -management as above -secondary to liver dysfunction -follow liver labs (4) Abdominal pain: -patient cannot express at this time if having abdominal pain -avoid acetaminophen at this time given liver problems (5) Lactic acid acidosis: -admission lactic acid as 2.8 -because of acute haptic encephalopathy, patient has been very difficult to track lactic acid levels -lactic acid levels have remained above 2 and IV fluid formulations and rates have been multiple times on 08/06/2019; currently on normal saline at 125 ml/hr - decision to limit excessive blood draws to follow lactic acid levels have been made given patient being combative to phlebotomy staff, -blood draw attempts more successful as 08/07/2019 and lactic acid normalized with IV fluids, IV fluids now stopped as of 08/07/2019 -currently no strong evidence that mental status changes is from an acute infection but but the ceftriaxone 2 gram q24 hours is primarily used as prophylaxis in case of Spontaneous bacterial peritonitis (SBP); minimal ascites on 08/05/2019 imaging but continue ceftriaxone for now possible urinary tract infection -bacteria is in the urine -already on ceftriaxone but the ceftriaxone is primarily used as prophylaxis in case of Spontaneous bacterial peritonitis (SBP) Hypernatremia -serum sodium 147 on 08/07/2019 likely from sodium in IV fluid contents -monitor serum soidum levels (6) Thrombocytopenia: -thrombocytopenia is from liver dysfunction -platelets have downtrended, monitor labs (7) Elevated INR (international normalized ratio): -Elevated INR in setting of liver disease -patient has received IV vitamin K on 08/06/2019 but INR still around 2 as of 08/07/2019 (8) Swelling of right lower extremity: -ultrasound: No evidence of right lower extremity DVT. (9) T2DM (type 2 diabetes mellitus): -HbA1c 5.0 11/2018 -hold metformin for now -HbA1c 4.6 on this admission -will start sliding scale insulin based on blood glucose (10) HTN (hypertension): Tachycardia -will give metoprolol 5 mg IV q6 hours if heart rates above 110 bpm -metoprolol 25 mg succinate restarted on 08/07/2019 (11) DVT prophylaxis: SCD/teds patient's Kristina Bass [phone] Subjective Patient's mental status somewhat improved today. She has been able to speak to medical doctor briefly and have some oral intake and less restless but clearly not at mental baseline. Patient does not express pain or shortness of breath when asked. Patient's has been sitting next to her and helping her orient to the hospital Review of Systems Review of Systems: All systems reviewed & are unremarkable except as noted in HPI & below Physical Exam Constitutional: + frail appearing Eyes: PERRL, conjunctivae normal, anicteric sclerae EOM intact bilaterally ENMT: external ear and nose normal, oropharynx normal Neck: normal visual inspection Respiratory: normal respiratory effort Cardiovascular: Rate/Rhythm: + tachycardic Gastrointestinal (Abdomen): Inspection/Auscultation: normal bowel sounds Musculoskeletal: Head/Neck/Chest: normocephalic and head atraumatic Neurologic: moves all extremities Psychiatric: Motor Behavior: + psychomotor agitation Results & Data Vital Signs (Past 12 Hours) Vital Signs Temp Pulse Pulse Resp BP BP Pulse Ox 08/07/19 12:01 36.6 C 109 H 20 162/75 H 97 08/07/19 07:20 36.5 C 108 H 23 180/85 H 96 08/07/19 03:44 36.3 C L 109 H 24 161/79 H 99 (1) Cirrhosis of liver Ascites presence: unspecified Hepatic cirrhosis type: unspecified hepatic cirrhosis Qualified Code(s): K74.60 - Unspecified cirrhosis of liver
[2019-08-07] MEDS ORDERED: GLUCAGON FOR INJ 1 MG VIAL SQ PRN (15:03)
[2019-08-07] MEDS ORDERED: LACTULOSE 200 GM, WATER, STERILE IRRIG 700 ML, BARCODE IDENTIFIER 1 EA PR SCH (16:00)
[2019-08-07] MEDS ORDERED: LACTULOSE 200 GM, WATER, STERILE IRRIG 700 ML, BARCODE IDENTIFIER 1 EA PR PRN (17:48)
[2019-08-07] MEDS: METOPROLOL SUCC 25MG EXT REL TAB PO SCH (17:57)
[2019-08-07] MEDS: MULTI-VITAMIN INFUSION 10 ML, THIAMINE HCL 100 MG, FOLIC ACID 1 MG in SODIUM CHLORIDE 0... IV SCH (17:58)
[2019-08-07] MEDS: INSULIN ASPART 100 UNITS/ML 3 ML PEN SC SCH ×2 (17:59→21:41)
[2019-08-07] MEDS ORDERED: LACTULOSE SYRUP 30 GM/45 ML UDP PO SCH (21:00)
[2019-08-07] MEDS: RIFAXIMIN 550 MG TABLET PO SCH (21:12)
[2019-08-07] MEDS: LORazepam 0.25 MG/0.5 ML VIAL IV PRN (21:21)
[2019-08-08] MEDS: cefTRIAXone SODIUM 2,000 MG in DEXTROSE 5% 50 ML IV SCH (01:07)
[2019-08-08 08:48] LABS: INR 1.9 (0.9-1.1)
[2019-08-08 09:15] LABS: Albumin Globulin Ratio 0.7 (0.9-2); Albumin Level 2.2 gm/dl (3.4-5.0); BUN Creatinine Ratio 16.1 (10-20); Bilirubin,Total 7.6 mg/dl (0.2-1); Calcium 8.1 mg/dl (8.5-10.1); Creatinine Clr Calc Pharmacy 71.3 ml/min; Est GFR (African American) 99.2; Est GFR (Non-African American) 85.6; Globulin 3.1 gm/dl (2.5-4.0); Potassium 3.9 mmol/L (3.5-5.1); Total Protein 5.3 gm/dl (6.4-8.2)
[2019-08-08 09:26] LABS: Hematocrit (blood only) 24.2 % (37-47); Hemoglobin 8.1 g/dL (12.0-16.0); Mean Corpuscular Hgb Conc 33.5 g/dL (32-36); Mean Corpuscular Volume 101.7 fL (80-100); RDW Coefficient of Variation 18.9 % (11.5-14.5); Red Blood Count 2.38 M/uL (4.2-5.4); White Blood Count 6.18 K/uL (4.8-10.8)
[2019-08-08] MEDS: METOPROLOL SUCC 25MG EXT REL TAB PO SCH (09:32)
[2019-08-08] MEDS: RIFAXIMIN 550 MG TABLET PO SCH ×2 (09:32→20:20)
[2019-08-08] MEDS: MULTI-VITAMIN INFUSION 10 ML, THIAMINE HCL 100 MG, FOLIC ACID 1 MG in SODIUM CHLORIDE 0... IV SCH (09:34)
[2019-08-08 09:49] LABS: Mean Platelet Volume 11.7 fL (7.4-10.4); Platelet Count 49 K/uL (130-400)
[2019-08-08] MEDS: INSULIN ASPART 100 UNITS/ML 3 ML PEN SC SCH ×4 (09:49→20:32)
[2019-08-08 09:51] LABS: Basophils # (auto) 0.09 K/uL (0-0.2); Basophils % (auto) 1.5 %; Eosinophils # (auto) 0.48 K/uL (0-0.5); Eosinophils % (auto) 7.8 %; Immature Granulocytes # (auto) 0.03 K/uL (0.00-0.02); Immature Granulocytes % (auto) 0.5 %; Lymphocytes # (auto) 0.98 K/uL (1.2-3.4); Lymphocytes % (auto) 15.9 %; Monocytes # (auto) 0.61 K/uL (0.11-0.59); Monocytes % (auto) 9.9 %; Neutrophils # (auto) 3.99 K/uL (1.4-6.5); Neutrophils % (auto) 64.4 %; Platelet Estimate Decreased (Normal)
--- NOTE | 2019-08-08 10:43 | Gastroenterology Progress Note ---
Date of Service August 08, 2019 Assessment & Plan (1) Hepatic encephalopathy: (2) Cirrhosis of liver: (3) History of alcohol abuse: Pt is a 73 y/o female who presented w confusion x 3 days, hx of ETOH cirrhosis consistent w hepatic encephalopathy. MELD 21. She is slow to improve. - Monitor Na levels -> 149 today. Jose change IVF to 1/2 NS - Head CT, CXR unremarkable. Urine tox and ETOH screens, blood cx negative. E.coli UTI, will continue Ceftriaxone IV antibx. - CT abd/pelvis to r/o acute processes -> no acute processes, too small amt of ascites to tap for dx paracentesis. - Continue Lactulose, begin xifaxan - Will continue to follow along Attg add: I interviewed and examined pt, reviewed chart and labs. Pt is alert and oriented to placed during my interview. Per her , she is much improved from admission. She has mild tremor and no asterixis on exam. Please continue to address hypernatremia, which may be contributing to persistent confusion. Cont lactulose, xifaxan. If she remains slow to improve, consider repeat head CT to r/o CVA. Subjective Pt remains confused, mostly answering "yes/no". Denies any pain. Review of Systems Review of Systems: Unobtainable due to cognitive status Physical Exam Constitutional: + thin, + disheveled, cooperative and comfortable Eyes: + scleral abnormality (icteric sclera) ENMT: external ear and nose normal, oropharynx normal Respiratory: normal respiratory effort; no respiratory distress and does not use accessory muscles Auscultation: + diminished lung sounds Cardiovascular: RRR, no murmur, no edema Gastrointestinal (Abdomen): Inspection/Auscultation: + hypoactive bowel sounds Percussion/Palpation: abdomen soft; abdomen nontender Skin: no rashes, warm and dry + jaundice Psychiatric: lethargic, confused Lymphatic: + lymphedema (+1 edema on bilateral LE ) Results & Data Vital Signs (Past 12 Hours) Vital Signs Temp Pulse Pulse Resp BP BP Pulse Ox 08/08/19 08:39 36.6 C 93 H 18 112/61 96 08/08/19 04:28 36.8 C 97 H 18 157/72 H 97 08/07/19 23:21 36.5 C 100 H 20 161/78 H 100 (1) Cirrhosis of liver Ascites presence: unspecified Hepatic cirrhosis type: unspecified hepatic cirrhosis Qualified Code(s): K74.60 - Unspecified cirrhosis of liver
[2019-08-08] MEDS ORDERED: LACTULOSE 200 GM, WATER, STERILE IRRIG 700 ML, BARCODE IDENTIFIER 1 EA PR SCH ×2 (10:45→20:00)
[2019-08-08] MEDS ORDERED: LACTULOSE SYRUP 30 GM/45 ML UDP PO ONE (12:00)
[2019-08-08] MEDS ORDERED: LEVALBUTEROL 1.25MG/0.5ML NEB NEB STA (12:02)
--- NOTE | 2019-08-08 12:06 | Hospitalist Progress Note ---
Date of Service August 08, 2019 Assessment & Plan (1) Hepatic encephalopathy: Acute Hepatic Encephalopathy Hyperammonemia -Mrs. Bass is a 73-year-old female who has significant PMH of alcoholic cirrhosis, dementia in setting of alcohol abuse, chronic thrombocytopenia, elevated INR in setting of cirrhosis, HTN, HLD, depression, history of CVA, angiodysplasia of colon who presents to ED secondary to confusion x 2-3 days. -Patient with hepatic encephalopathy likely in setting of not using lactulose and progression of cirrhosis with elevated ammonia levels -Patient is evaluated by gastroenterology team was initially on scheduled rectal lactulose as patient not able to cooperate to take oral medications but has been transitioned to oral lactulose as of 08/07/2019 -08/08/2019: Patient took oral lactulose and then eating lunch. She has been having coughs since the oral lactulose. discussed with patient's at bedside that medical doctor to order stat nebulizer treatment. will get speech and swallow evaluation. will have Chest X ray scheduled for 08/09/2018. GI to switch back from oral lactulose to lactulose enema (2) Cirrhosis of liver: -management as above (3) Hyperbilirubinemia: -bilirubin consistently near 8 -management as above -secondary to liver dysfunction -follow liver labs (4) Abdominal pain: -no current abdominal pain at this time -avoid acetaminophen at this time given liver problems (5) Thrombocytopenia: -thrombocytopenia is from liver dysfunction -platelets have downtrended, monitor labs (6) Lactic acid acidosis: -admission lactic acid as 2.8 -because of acute haptic encephalopathy, patient has been very difficult to track lactic acid levels -lactic acid levels have remained above 2 and IV fluid formulations and rates have been multiple times on 08/06/2019; currently on normal saline at 125 ml/hr - decision to limit excessive blood draws to follow lactic acid levels have been made given patient being combative to phlebotomy staff, -blood draw attempts more successful as 08/07/2019 and lactic acid normalized with IV fluids, IV fluids now stopped as of 08/07/2019 -currently no strong evidence that mental status changes is from an acute infection but but the ceftriaxone 2 gram q24 hours is primarily used as prophylaxis in case of Spontaneous bacterial peritonitis (SBP); minimal ascites on 08/05/2019 imaging but continue ceftriaxone for now possible urinary tract infection -bacteria is in the urine -already on ceftriaxone but the ceftriaxone is primarily used as prophylaxis in case of Spontaneous bacterial peritonitis (SBP) Hypernatremia -serum sodium 147 on 08/07/2019 likely from sodium in IV fluid contents -serum sodium 149 on 08/08/2019 and will give D5 1/2 normal saline 80 cc/hr for now (7) Swelling of right lower extremity: -ultrasound: No evidence of right lower extremity DVT. (8) Elevated INR (international normalized ratio): -Elevated INR in setting of liver disease -patient has received IV vitamin K on 08/06/2019 but INR still around 2 as of 08/07/2019 (9) T2DM (type 2 diabetes mellitus): -HbA1c 5.0 11/2018 -hold metformin for now -HbA1c 4.6 on this admission -on sliding scale insulin based on blood glucose (10) HTN (hypertension): Tachycardia -will give metoprolol 5 mg IV q6 hours if heart rates above 110 bpm -metoprolol 25 mg succinate restarted on 08/07/2019 (11) DVT prophylaxis: SCD/teds patient's Kristina Bass [phone] Subjective Patient took oral lactulose and then eating lunch. She has been having coughs since the oral lactulose. discussed with patient's at bedside that medical doctor to order stat nebulizer treatment. patient less agitated today. she is verbal and able to follow basic directions. Review of Systems Review of Systems: All systems reviewed & are unremarkable except as noted in HPI & below Physical Exam Constitutional: + frail appearing Eyes: PERRL, conjunctivae normal, anicteric sclerae EOM intact bilaterally ENMT: external ear and nose normal, oropharynx normal Neck: normal visual inspection Respiratory: normal respiratory effort Cardiovascular: Rate/Rhythm: regular rate Gastrointestinal (Abdomen): Inspection/Auscultation: normal bowel sounds Musculoskeletal: Head/Neck/Chest: normocephalic and head atraumatic Neurologic: moves all extremities Psychiatric: Orientation: cooperative Results & Data Vital Signs (Past 12 Hours) Vital Signs Temp Pulse Pulse Resp BP BP Pulse Ox 08/08/19 11:08 36.8 C 97 H 18 129/89 94 08/08/19 08:39 36.6 C 93 H 18 112/61 96 08/08/19 04:28 36.8 C 97 H 18 157/72 H 97 (1) Cirrhosis of liver Ascites presence: unspecified Hepatic cirrhosis type: unspecified hepatic cirrhosis Qualified Code(s): K74.60 - Unspecified cirrhosis of liver
[2019-08-08] MEDS ORDERED: SODIUM CHLORIDE 0.45 % 1,000 ML IV SCH (12:15)
[2019-08-08] MEDS: D5W AND 1/2NSS 1,000 ML IV SCH (13:35)
[2019-08-08 19:45] LABS: Creatinine Clr Calc Pharmacy 51.6 ml/min; Est GFR (African American) 68.8; Est GFR (Non-African American) 59.3; Potassium 3.7 mmol/L (3.5-5.1)
[2019-08-08] MEDS: LACTULOSE SYRUP 30 GM/45 ML UDP PO SCH (20:20)
[2019-08-08] MEDS ORDERED: LACTULOSE SYRUP 30 GM/45 ML UDP PO SCH (21:00)
[2019-08-08] MEDS: LORazepam 0.25 MG/0.5 ML VIAL IV PRN (22:10)
[2019-08-09] MEDS: cefTRIAXone SODIUM 2,000 MG in DEXTROSE 5% 50 ML IV SCH (01:12)
[2019-08-09] MEDS: D5W AND 1/2NSS 1,000 ML IV SCH (03:13)
[2019-08-09 07:56] LABS: Albumin Globulin Ratio 0.7 (0.9-2); Albumin Level 2.1 gm/dl (3.4-5.0); BUN Creatinine Ratio 15.6 (10-20); Bilirubin,Total 6.9 mg/dl (0.2-1); Calcium 8.2 mg/dl (8.5-10.1); Creatinine Clr Calc Pharmacy 68.3 ml/min; Est GFR (African American) 91.9; Est GFR (Non-African American) 79.3; Globulin 3.2 gm/dl (2.5-4.0); Potassium 3.5 mmol/L (3.5-5.1); Total Protein 5.3 gm/dl (6.4-8.2)
[2019-08-09] MEDS: LACTULOSE SYRUP 30 GM/45 ML UDP PO SCH ×2 (08:01→21:00)
[2019-08-09] MEDS: METOPROLOL SUCC 25MG EXT REL TAB PO SCH (08:04)
[2019-08-09] MEDS: RIFAXIMIN 550 MG TABLET PO SCH ×2 (08:04→21:01)
[2019-08-09] MEDS: INSULIN ASPART 100 UNITS/ML 3 ML PEN SC SCH ×4 (08:08→21:01)
[2019-08-09] MEDS ORDERED: POTASSIUM CHLORIDE / WTR 10 MEQ/100 ML PLCT IV SCH (08:30)
--- NOTE | 2019-08-09 11:45 | XRay Report ---
XR chest 1V portable HISTORY: follow for lung infiltrates COMPARISON: Chest 08/05/2019. FINDINGS: There are low lung volumes. No new focal lung consolidations to suggest pneumonia. No evide nce for pulmonary edema. No pleural effusions. No pneumothorax. The heart is normal in size. Small li near density at the right lung base favor subsegmental atelectasis. IMPRESSION: No acute process. ACT 112: Negative or not required by law. Electronically signed by: Enrike Pryor M.D. 08/09/2019 11:43 AM
--- NOTE | 2019-08-09 13:37 | Hospitalist Progress Note ---
Date of Service August 09, 2019 Assessment & Plan (1) Hepatic encephalopathy: Acute Hepatic Encephalopathy Hyperammonemia -Mrs. Bass is a 73-year-old female who has significant PMH of alcoholic cirrhosis, dementia in setting of alcohol abuse, chronic thrombocytopenia, elevated INR in setting of cirrhosis, HTN, HLD, depression, history of CVA, angiodysplasia of colon who presents to ED secondary to confusion x 2-3 days. -08/05/[address]: The paranasal sinuses and mastoid air cells are clear. The calvarium and skull base are intact. There is no mass, hematoma, midline shift, acute infarct. White matter hypodensity is nonspecific but suggestive of microvascular ischemic change. The ventricles and sulci demonstrate mild age- related involutional changes. Moderate motion artifact. Old lacunar infarct within the right basal ganglia, unchanged. -Patient with hepatic encephalopathy likely in setting of not using lactulose and progression of cirrhosis with elevated ammonia levels -Patient is evaluated by gastroenterology team was initially on scheduled rectal lactulose as patient not able to cooperate to take oral medications but has been transitioned to oral lactulose as of 08/07/2019 -08/08/2019: Patient took oral lactulose and then eating lunch. She has been having coughs since the oral lactulose. discussed with patient's at bedside that medical doctor to order stat nebulizer treatment. get speech and swallow evaluation. switched back from oral lactulose to lactulose enema 08/09/2019: CXR with no new lung infiltrates. on oral lactulose and rifaximin (2) Cirrhosis of liver: -management as above (3) Hyperbilirubinemia: -bilirubin consistently near 8, with recent downtrend to 6.7 by 08/09/2019 -elevated bilirubin secondary to liver dysfunction -follow liver labs (4) Abdominal pain: -no current abdominal pain at this time -avoid acetaminophen at this time given liver problems (5) Thrombocytopenia: -thrombocytopenia is from liver dysfunction -platelets as 49,000 by 08/08/2019, monitor labs (6) Lactic acid acidosis: -admission lactic acid as 2.8 -because of acute haptic encephalopathy, patient has been very difficult to track lactic acid levels -lactic acid levels have remained above 2 and IV fluid formulations and rates have been multiple times on 08/06/2019; currently on normal saline at 125 ml/hr - decision to limit excessive blood draws to follow lactic acid levels have been made given patient being combative to phlebotomy staff, -blood draw attempts more successful as 08/07/2019 and lactic acid normalized with IV fluids, IV fluids now stopped as of 08/07/2019 -ceftriaxone 2 gram q24 hours which was started on 08/06/2019 primarily used as prophylaxis in case of Spontaneous bacterial peritonitis (SBP); minimal ascites on 08/05/2019 imaging, continue ceftriaxone possible urinary tract infection -bacteria is in the urine -urine culture resulted as E.coli which is sensitive toceftriaxone -ceftriaxone 2 gram q24 hours which was started on 08/06/2019 primarily used as prophylaxis in case of Spontaneous bacterial peritonitis (SBP); minimal ascites on 08/05/2019 imaging, continue ceftriaxone Hypernatremia -serum sodium 147 on 08/07/2019 likely from sodium in IV fluid contents -serum sodium 149 on 08/08/2019 and will give D5 1/2 normal saline 80 cc/hr for now -serum sodium 144 on 08/09/2019 and D5 1/2 normal saline is stopped (7) Swelling of right lower extremity: -ultrasound: No evidence of right lower extremity DVT. 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 She was arousable and she spoke very briefly with medical doctor. She knew she was in the hospital. She knew her family members at the bedside but she could not recall their names. patient did not appear to have acute pain. she has peripheral IV line on left foot. Review of Systems Review of Systems: All systems reviewed & are unremarkable except as noted in HPI & below Physical Exam Constitutional: + frail appearing Eyes: PERRL, conjunctivae normal, anicteric sclerae EOM intact bilaterally ENMT: external ear and nose normal, oropharynx normal Neck: normal visual inspection Respiratory: normal respiratory effort Cardiovascular: Rate/Rhythm: regular rate Gastrointestinal (Abdomen): Inspection/Auscultation: normal bowel sounds Musculoskeletal: Head/Neck/Chest: normocephalic and head atraumatic Neurologic: moves all extremities Psychiatric: Eye Contact: + poor eye contact Results & Data Vital Signs (Past 12 Hours) Vital Signs Temp Pulse Pulse Pulse Resp BP Pulse Ox 08/09/19 11:50 36.9 C 105 H 22 127/64 97 08/09/19 08:00 100 H 08/09/19 06:52 37.0 C 106 H 20 154/77 H 96 08/09/19 04:40 95 H 154/74 H 08/09/19 03:57 108 H 08/09/19 03:20 37.0 C 108 H 19 188/80 H 98 (1) Cirrhosis of liver Ascites presence: unspecified Hepatic cirrhosis type: unspecified hepatic cirrhosis Qualified Code(s): K74.60 - Unspecified cirrhosis of liver
[2019-08-09] MEDS: LORazepam 0.25 MG/0.5 ML VIAL IV PRN (21:15)
[2019-08-10] MEDS: cefTRIAXone SODIUM 2,000 MG in DEXTROSE 5% 50 ML IV SCH (01:45)
[2019-08-10 07:38] LABS: Hematocrit (blood only) 24.4 % (37-47); Hemoglobin 8.1 g/dL (12.0-16.0); Mean Corpuscular Hemoglobin 33.5 pg (25-34); Mean Corpuscular Hgb Conc 33.2 g/dL (32-36); Mean Corpuscular Volume 100.8 fL (80-100); Platelet Count 46 K/uL (130-400); RDW Coefficient of Variation 18.7 % (11.5-14.5); RDW Standard Deviation 66.7 fL (36.4-46.3); Red Blood Count 2.42 M/uL (4.2-5.4); White Blood Count 6.57 K/uL (4.8-10.8)
[2019-08-10 07:39] LABS: Basophils # (auto) 0.06 K/uL (0-0.2); Basophils % (auto) 0.9 %; Echinocytes 1+; Eosinophils # (auto) 0.54 K/uL (0-0.5); Eosinophils % (auto) 8.2 %; Immature Granulocytes # (auto) 0.02 K/uL (0.00-0.02); Immature Granulocytes % (auto) 0.3 %; Lymphocytes # (auto) 1.09 K/uL (1.2-3.4); Lymphocytes % (auto) 16.6 %; Monocytes # (auto) 0.75 K/uL (0.11-0.59); Monocytes % (auto) 11.4 %; Neutrophils # (auto) 4.11 K/uL (1.4-6.5); Neutrophils % (auto) 62.6 %
[2019-08-10 08:00] LABS: Albumin Globulin Ratio 0.6 (0.9-2); BUN Creatinine Ratio 19.9 (10-20); Bilirubin,Total 7.8 mg/dl (0.2-1); Calcium 8.1 mg/dl (8.5-10.1); Creatinine Clr Calc Pharmacy 85.6 ml/min; Est GFR (African American) 103.9; Est GFR (Non-African American) 89.7; Globulin 3.3 gm/dl (2.5-4.0); Potassium 3.7 mmol/L (3.5-5.1); Total Protein 5.3 gm/dl (6.4-8.2)
[2019-08-10] MEDS: INSULIN ASPART 100 UNITS/ML 3 ML PEN SC SCH ×4 (08:05→21:11)
[2019-08-10] MEDS: RIFAXIMIN 550 MG TABLET PO SCH ×2 (08:35→21:42)
[2019-08-10] MEDS: METOPROLOL SUCC 25MG EXT REL TAB PO SCH (08:36)
[2019-08-10] MEDS: LACTULOSE SYRUP 30 GM/45 ML UDP PO SCH ×2 (08:38→21:42)
--- NOTE | 2019-08-10 10:18 | Hospitalist Progress Note ---
Date of Service August 10, 2019 Assessment & Plan (1) Hepatic encephalopathy: Acute Hepatic Encephalopathy Hyperammonemia -Mrs. Bass is a 73-year-old female who has significant PMH of alcoholic cirrhosis, dementia in setting of alcohol abuse, chronic thrombocytopenia, elevated INR in setting of cirrhosis, HTN, HLD, depression, history of CVA, angiodysplasia of colon who presents to ED secondary to confusion x 2-3 days. -08/05/[address]: The paranasal sinuses and mastoid air cells are clear. The calvarium and skull base are intact. There is no mass, hematoma, midline shift, acute infarct. White matter hypodensity is nonspecific but suggestive of microvascular ischemic change. The ventricles and sulci demonstrate mild age- related involutional changes. Moderate motion artifact. Old lacunar infarct within the right basal ganglia, unchanged. -Patient with hepatic encephalopathy likely in setting of not using lactulose and progression of cirrhosis with elevated ammonia levels -Patient is evaluated by gastroenterology team was initially on scheduled rectal lactulose as patient not able to cooperate to take oral medications but has been transitioned to oral lactulose as of 08/07/2019 -08/08/2019: Patient took oral lactulose and then eating lunch. She has been having coughs since the oral lactulose. discussed with patient's at bedside that medical doctor to order stat nebulizer treatment. get speech and swallow evaluation. switched back from oral lactulose to lactulose enema -08/09/2019: CXR with no new lung infiltrates. on oral lactulose and rifaximin -08/10/2019: Patient seen and examined this AM. She had been able to finish her breakfast. Intermittent level of alertness of per nurse. Patient did respond appropriately to questions this AM from medical doctor. Patient breathing on room air. denies shortness of breath. denies abdominal pain. does not report of other symptom. continue laculose and rifaximin (2) Cirrhosis of liver: -management as above (3) Hyperbilirubinemia: -bilirubin consistently near 8, with recent downtrend to 6.7 by 08/09/2019 and then back up to 7.8 on 08/10/2019 -elevated bilirubin secondary to liver dysfunction -follow liver labs (4) Abdominal pain: -no current abdominal pain at this time -avoid acetaminophen at this time given liver problems (5) Thrombocytopenia: -thrombocytopenia is from liver dysfunction -platelets as 46,000 by 08/09/2019, monitor labs (6) Lactic acid acidosis: -admission lactic acid as 2.8 -because of acute haptic encephalopathy, patient has been very difficult to track lactic acid levels -lactic acid levels have remained above 2 and IV fluid formulations and rates have been multiple times on 08/06/2019; currently on normal saline at 125 ml/hr - decision to limit excessive blood draws to follow lactic acid levels have been made given patient being combative to phlebotomy staff, -blood draw attempts more successful as 08/07/2019 and lactic acid normalized with IV fluids, IV fluids now stopped as of 08/07/2019 -ceftriaxone 2 gram q24 hours which was started on 08/06/2019 primarily used as p rophylaxis in case of Spontaneous bacterial peritonitis (SBP); minimal ascites on 08/05/2019 imaging, continue ceftriaxone possible urinary tract infection -bacteria is in the urine -urine culture resulted as E.coli which is sensitive toceftriaxone -ceftriaxone 2 gram q24 hours which was started on 08/06/2019 primarily used as prophylaxis in case of Spontaneous bacterial peritonitis (SBP); minimal ascites on 08/05/2019 imaging, continue ceftriaxone Hypernatremia -serum sodium 147 on 08/07/2019 likely from sodium in IV fluid contents -serum sodium 149 on 08/08/2019 and will give D5 1/2 normal saline 80 cc/hr for now -serum sodium 144 on 08/09/2019 and D5 1/2 normal saline is stopped -serum soidum 140 on 08/10/2019 and therefore hypernatremia resolved (7) Swelling of right lower extremity: -ultrasound: No evidence of right lower extremity DVT. (8) Elevated INR (international normalized ratio): -Elevated INR in setting of liver disease -patient has received IV vitamin K on 08/06/2019 but INR still around 2 as of 08/08/2019 (9) T2DM (type 2 diabetes mellitus): -HbA1c 5.0 11/2018 -hold metformin for now -HbA1c 4.6 on this admission -on sliding scale insulin based on blood glucose (10) HTN (hypertension): Tachycardia -will give metoprolol 5 mg IV q6 hours if heart rates above 110 bpm -metoprolol 25 mg succinate restarted on 08/07/2019 -on 08/09/2019 telemetry generally shows sinus rhythm but biomedical electronics technician notes occasional several seconds of possible atrial fibrillation, continue on telemetry for now (11) DVT prophylaxis: SCD/teds will likely need physical rehabilitation after hospital stay for deconditioning patient's Kristina Bass [phone] Subjective Patient seen and examined this AM. She had been able to finish her breakfast. Intermittent level of alertness of per nurse. Patient did respond appropriately to questions this AM from medical doctor. Patient breathing on room air. denies shortness of breath. denies abdominal pain. does not report of other symptoms continues to have peripheral IV on left foot Review of Systems Review of Systems: All systems reviewed & are unremarkable except as noted in HPI & below Physical Exam Constitutional: + frail appearing Eyes: + scleral abnormality (scleral icturus) and EOM intact bilaterally ENMT: external ear and nose normal, oropharynx normal Neck: normal visual inspection Respiratory: normal respiratory effort Cardiovascular: Rate/Rhythm: regular rate Gastrointestinal (Abdomen): Inspection/Auscultation: normal bowel sounds Musculoskeletal: Head/Neck/Chest: normocephalic and head atraumatic Neurologic: moves all extremities Psychiatric: Orientation: cooperative Results & Data Vital Signs (Past 12 Hours) Vital Signs Temp Pulse Pulse Pulse Resp BP Pulse Ox 08/10/19 08:00 97 H 08/10/19 07:23 36.8 C 105 H 20 145/77 H 93 08/09/19 23:19 36.7 C 100 H 20 163/72 H 97 (1) Cirrhosis of liver Ascites presence: unspecified Hepatic cirrhosis type: unspecified hepatic cirrhosis Qualified Code(s): K74.60 - Unspecified cirrhosis of liver
[2019-08-10] MEDS ORDERED: XOPENEX/ATROVENT 1.25mg/0.5MG NEB COMBO NEB PRN (21:31)
[2019-08-10] MEDS ORDERED: LEVALBUTEROL 1.25MG/0.5ML NEB INH PRN (21:45)
[2019-08-10] MEDS ORDERED: IPRATROPIUM BROMIDE NEB SOLN 0.02% 2.5 ML VIAL INH PRN (21:45)
[2019-08-11] MEDS: cefTRIAXone SODIUM 2,000 MG in DEXTROSE 5% 50 ML IV SCH (00:37)
[2019-08-11] MEDS: INSULIN ASPART 100 UNITS/ML 3 ML PEN SC SCH ×4 (08:41→21:07)
[2019-08-11] MEDS: RIFAXIMIN 550 MG TABLET PO SCH ×2 (08:42→21:06)
[2019-08-11] MEDS: METOPROLOL SUCC 25MG EXT REL TAB PO SCH (08:50)
[2019-08-11] MEDS: LACTULOSE SYRUP 30 GM/45 ML UDP PO SCH ×2 (08:51→21:06)
--- NOTE | 2019-08-11 10:27 | Hospitalist Progress Note ---
Date of Service August 11, 2019 Assessment & Plan (1) Hepatic encephalopathy: Acute Hepatic Encephalopathy Hyperammonemia -Mrs. Bass is a 73-year-old female who has significant PMH of alcoholic cirrhosis, dementia in setting of alcohol abuse, chronic thrombocytopenia, elevated INR in setting of cirrhosis, HTN, HLD, depression, history of CVA, angiodysplasia of colon who presents to ED secondary to confusion x 2-3 days. -08/05/[address]: The paranasal sinuses and mastoid air cells are clear. The calvarium and skull base are intact. There is no mass, hematoma, midline shift, acute infarct. White matter hypodensity is nonspecific but suggestive of microvascular ischemic change. The ventricles and sulci demonstrate mild age- related involutional changes. Moderate motion artifact. Old lacunar infarct within the right basal ganglia, unchanged. -Patient with hepatic encephalopathy likely in setting of not using lactulose and progression of cirrhosis with elevated ammonia levels -Patient is evaluated by gastroenterology team was initially on scheduled rectal lactulose as patient not able to cooperate to take oral medications but has been transitioned to oral lactulose as of 08/07/2019 -08/08/2019: Patient took oral lactulose and then eating lunch. She has been having coughs since the oral lactulose. discussed with patient's at bedside that medical doctor to order stat nebulizer treatment. get speech and swallow evaluation. switched back from oral lactulose to lactulose enema -08/09/2019: CXR with no new lung infiltrates. on oral lactulose and rifaximin -08/10/2019: Patient seen and examined this AM. She had been able to finish her breakfast. Intermittent level of alertness of per nurse. Patient did respond appropriately to questions this AM from medical doctor. Patient breathing on room air. denies shortness of breath. denies abdominal pain. does not report of other symptom. continue laculose and rifaximin -06/11/2020: Patient seen and examined this AM. No acute telemetry events. Discussed with nurse about transferring patient from telemetry floor and for per ipheral foot IV to be removed so that patient can be encouraged to ambulate with therapy evaluations. Patient woke up his morning and responding well to questions of medical doctor. she denies shortness of breath. is breathing on room air. she appears relative weak but she denies acute pain. continue laculose and rifaximin (2) Cirrhosis of liver: -management as above (3) Hyperbilirubinemia: -bilirubin consistently near 8, with recent downtrend to 6.7 by 08/09/2019 and then back up to 7.8 on 08/10/2019 -elevated bilirubin secondary to liver dysfunction -follow liver labs (4) Abdominal pain: -no current abdominal pain at this time -avoid acetaminophen at this time given liver problems (5) Thrombocytopenia: -thrombocytopenia is from liver dysfunction -platelets as 46,000 by 08/10/2019, monitor labs (6) Lactic acid acidosis: -admission lactic acid as 2.8 -because of acute haptic encephalopathy, patient has been very difficult to track lactic acid levels -lactic acid levels have remained above 2 and IV fluid formulations and rates have been multiple times on 08/06/2019; currently on normal saline at 125 ml/hr - decision to limit excessive blood draws to follow lactic acid levels have been made given patient being combative to phlebotomy staff, -blood draw attempts more successful as 08/07/2019 and lactic acid normalized with IV fluids, IV fluids now stopped as of 08/07/2019 -ceftriaxone 2 gram q24 hours which was started on 08/06/2019 primarily used as prophylaxis in case of Spontaneous bacterial peritonitis (SBP); minimal ascites on 08/05/2019 imaging, ceftriaxone discontinued on 08/11/2019 possible urinary tract infection -bacteria is in the urine -urine culture resulted as E.coli which is sensitive toceftriaxone -ceftriaxone 2 gram q24 hours which was started on 08/06/2019 primarily used as prophylaxis in case of Spontaneous bacterial peritonitis (SBP); minimal ascites on 08/05/2019 imaging, ceftriaxone discontinued on 08/11/2019 Hypernatremia -serum sodium 147 on 08/07/2019 likely from sodium in IV fluid contents -serum sodium 149 on 08/08/2019 and will give D5 1/2 normal saline 80 cc/hr for now -serum sodium 144 on 08/09/2019 and D5 1/2 normal saline is stopped -serum soidum 140 on 08/10/2019 and therefore hypernatremia resolved (7) Swelling of right lower extremity: -ultrasound: No evidence of right lower extremity DVT. (8) Elevated INR (international normalized ratio): -Elevated INR in setting of liver disease -patient has received IV vitamin K on 08/06/2019 but INR still around 2 as of 08/08/2019 (9) T2DM (type 2 diabetes mellitus): -HbA1c 5.0 11/2018 -hold metformin for now -HbA1c 4.6 on this admission -on sliding scale insulin based on blood glucose (10) HTN (hypertension): Tachycardia -will give metoprolol 5 mg IV q6 hours if heart rates above 110 bpm -metoprolol 25 mg succinate restarted on 08/07/2019 -on 08/09/2019 telemetry generally shows sinus rhythm but underwriting technician notes occasional several seconds of possible atrial fibrillation -08/11/2019: no further telemetry events since, transfer to [facility] (11) DVT prophylaxis: SCD/teds will likely need physical rehabilitation after hospital stay for deconditioning; PT/OT evaluations requested patient's Kristina Bass [phone] Subjective Patient seen and examined this AM. No acute telemetry events. Discussed with nurse about transferring patient from telemetry floor and for peripheral foot IV to be removed so that patient can be encouraged to ambulate with therapy evaluations. Patient woke up his morning and responding well to questions of medical doctor. she denies shortness of breath. is breathing on room air. she appears relative weak but she denies acute pain. Review of Systems Review of Systems: All systems reviewed & are unremarkable except as noted in HPI & below Physical Exam Constitutional: + frail appearing Eyes: PERRL, conjunctivae normal, anicteric sclerae + scleral abnormality (scleral icturus) and EOM intact bilaterally ENMT: external ear and nose normal, oropharynx normal Neck: normal visual inspection Respiratory: normal respiratory effort Cardiovascular: Rate/Rhythm: regular rate Gastrointestinal (Abdomen): Inspection/Auscultation: normal bowel sounds Musculoskeletal: Head/Neck/Chest: normocephalic and head atraumatic Neurologic: moves all extremities Psychiatric: Orientation: cooperative Results & Data Vital Signs (Past 12 Hours) Vital Signs Temp Pulse Pulse Resp BP BP Pulse Ox 08/11/19 07:22 94 H 08/11/19 07:14 36.6 C 83 20 121/56 L 93 08/11/19 03:10 36.5 C 96 H 21 156/65 H 93 08/10/19 23:18 36.7 C 103 H 19 154/62 H 94 (1) Cirrhosis of liver Ascites presence: unspecified Hepatic cirrhosis type: unspecified hepatic cirrhosis Qualified Code(s): K74.60 - Unspecified cirrhosis of liver
[2019-08-12 06:12] LABS: INR 1.7 (0.9-1.1); Prothrombin Time 17.2 Seconds (9.0-12.0)
[2019-08-12 06:35] LABS: Hematocrit (blood only) 25.1 % (37-47); Hemoglobin 8.4 g/dL (12.0-16.0); Mean Corpuscular Hemoglobin 34.1 pg (25-34); Mean Corpuscular Hgb Conc 33.5 g/dL (32-36); Mean Platelet Volume 11.8 fL (7.4-10.4); Platelet Count 48 K/uL (130-400); RDW Coefficient of Variation 20.2 % (11.5-14.5); RDW Standard Deviation 68.3 fL (36.4-46.3); Red Blood Count 2.46 M/uL (4.2-5.4); White Blood Count 6.31 K/uL (4.8-10.8)
[2019-08-12 06:36] LABS: Anisocytosis Present; Basophils # (auto) 0.09 K/uL (0-0.2); Basophils % (auto) 1.4 %; Eosinophils # (auto) 0.54 K/uL (0-0.5); Eosinophils % (auto) 8.6 %; Immature Granulocytes # (auto) 0.06 K/uL (0.00-0.02); Lymphocytes # (auto) 1.15 K/uL (1.2-3.4); Lymphocytes % (auto) 18.2 %; Monocytes # (auto) 0.98 K/uL (0.11-0.59); Monocytes % (auto) 15.5 %; Neutrophils # (auto) 3.49 K/uL (1.4-6.5); Neutrophils % (auto) 55.3 %; Polychromasia 1+
[2019-08-12 06:46] LABS: Albumin Globulin Ratio 0.6 (0.9-2); Bilirubin,Total 7.6 mg/dl (0.2-1); Calcium 8.5 mg/dl (8.5-10.1); Creatinine Clr Calc Pharmacy 79.2 ml/min; Est GFR (African American) 101.2; Est GFR (Non-African American) 87.3; Globulin 3.4 gm/dl (2.5-4.0); Potassium 3.5 mmol/L (3.5-5.1); Total Protein 5.4 gm/dl (6.4-8.2)
[2019-08-12] MEDS ORDERED: POTASSIUM CHLORIDE 20 MEQ/15 ML UDC PO STA (07:50)
[2019-08-12] MEDS: RIFAXIMIN 550 MG TABLET PO SCH ×2 (08:56→21:50)
[2019-08-12] MEDS: METOPROLOL SUCC 25MG EXT REL TAB PO SCH (08:57)
[2019-08-12] MEDS: LACTULOSE SYRUP 30 GM/45 ML UDP PO SCH ×2 (08:57→21:52)
--- NOTE | 2019-08-12 09:34 | Hospitalist Progress Note ---
Date of Service August 12, 2019 Assessment & Plan (1) Hepatic encephalopathy: Acute Hepatic Encephalopathy Hyperammonemia -Mrs. Bass is a 73-year-old female who has significant PMH of alcoholic cirrhosis, dementia in setting of alcohol abuse, chronic thrombocytopenia, elevated INR in setting of cirrhosis, HTN, HLD, depression, history of CVA, angiodysplasia of colon who presents to ED secondary to confusion x 2-3 days. -08/05/[address]: The paranasal sinuses and mastoid air cells are clear. The calvarium and skull base are intact. There is no mass, hematoma, midline shift, acute infarct. White matter hypodensity is nonspecific but suggestive of microvascular ischemic change. The ventricles and sulci demonstrate mild age- related involutional changes. Moderate motion artifact. Old lacunar infarct within the right basal ganglia, unchanged. -Patient with hepatic encephalopathy likely in setting of not using lactulose and progression of cirrhosis with elevated ammonia levels -Patient is evaluated by gastroenterology team was initially on scheduled rectal lactulose as patient not able to cooperate to take oral medications but has been transitioned to oral lactulose as of 08/07/2019 -08/08/2019: Patient took oral lactulose and then eating lunch. She has been having coughs since the oral lactulose. discussed with patient's at bedside that medical doctor to order stat nebulizer treatment. get speech and swallow evaluation. switched back from oral lactulose to lactulose enema -08/09/2019: CXR with no new lung infiltrates. on oral lactulose and rifaximin -08/10/2019: Patient seen and examined this AM. She had been able to finish her breakfast. Intermittent level of alertness of per nurse. Patient did respond appropriately to questions this AM from medical doctor. Patient breathing on room air. denies shortness of breath. denies abdominal pain. does not report of other symptom. continue laculose and rifaximin -06/11/2020: Patient seen and examined this AM. No acute telemetry events. Discussed with nurse about transferring patient from telemetry floor and for per ipheral foot IV to be removed so that patient can be encouraged to ambulate with therapy evaluations. Patient woke up his morning and responding well to questions of medical doctor. she denies shortness of breath. is breathing on room air. she appears relative weak but she denies acute pain. continue lactulose and rifaximin -06/12/2020: Patient seen at bedside this AM with nurse present helping to give her oral lactulose. nurse reports patient has been able to make bowel movements. Patient is cooperative with staff and answers to questions. She cannot tell when asked where is she is at. She is reminded that she is in the hospital. Mental Status appears much improved at this time. patient does not have good strength of her legs when she is asked to do leg raises when on the bed. patient is awaiting PT/OT evaluations. continue lactulose and rifaximin. resume home dose furosemide and spirolactone starting on 08/12/2019 (2) Cirrhosis of liver: -management as above (3) Hyperbilirubinemia: -bilirubin consistently near 8, with recent downtrend to 6.7 by 08/09/2019 and then back up to 7.8 on 08/10/2019, 7.6 on 08/11/2019 -elevated bilirubin secondary to liver dysfunction -follow liver labs (4) Abdominal pain: -no current abdominal pain at this time -avoid acetaminophen at this time given liver problems (5) Thrombocytopenia: -thrombocytopenia is from liver dysfunction -platelets around mid to high 40,000 recently (6) Lactic acid acidosis: -admission lactic acid as 2.8 -because of acute haptic encephalopathy, patient has been very difficult to track lactic acid levels -lactic acid levels have remained above 2 and IV fluid formulations and rates have been multiple times on 08/06/2019; currently on normal saline at 125 ml/hr - decision to limit excessive blood draws to follow lactic acid levels have been made given patient being combative to phlebotomy staff, -blood draw attempts more successful as 08/07/2019 and lactic acid normalized with IV fluids, IV fluids now stopped as of 08/07/2019 -ceftriaxone 2 gram q24 hours which was started on 08/06/2019 primarily used as prophylaxis in case of Spontaneous bacterial peritonitis (SBP); minimal ascites on 08/05/2019 imaging, ceftriaxone discontinued on 08/11/2019 possible urinary tract infection -bacteria is in the urine -urine culture resulted as E.coli which is sensitive toceftriaxone -ceftriaxone 2 gram q24 hours which was started on 08/06/2019 primarily used as prophylaxis in case of Spontaneous bacterial peritonitis (SBP); minimal ascites on 08/05/2019 imaging, ceftriaxone discontinued on 08/11/2019 Hypernatremia -serum sodium 147 on 08/07/2019 likely from sodium in IV fluid contents -serum sodium 149 on 08/08/2019 and will give D5 1/2 normal saline 80 cc/hr for now -serum sodium 144 on 08/09/2019 and D5 1/2 normal saline is stopped -serum soidum 140 on 08/10/2019 and therefore hypernatremia resolved (7) Swelling of right lower extremity: -ultrasound: No evidence of right lower extremity DVT. (8) Elevated INR (international normalized ratio): -Elevated INR in setting of liver disease -patient has received IV vitamin K on 08/06/2019 but INR still around near 2 (9) T2DM (type 2 diabetes mellitus): -HbA1c 5.0 11/2018 -hold metformin for now (likely should avoid metformin on discharge because of risk of lactic acidosis from metformin) -HbA1c 4.6 on this admission -on sliding scale insulin based on blood glucose (10) HTN (hypertension): Tachycardia -will give metoprolol 5 mg IV q6 hours if heart rates above 110 bpm -metoprolol 25 mg succinate restarted on 08/07/2019 -on 08/09/2019 telemetry generally shows sinus rhythm but word processor technician notes occasional several seconds of possible atrial fibrillation -08/11/2019: no further telemetry events since, transfer to [facility] (11) DVT prophylaxis: SCD/teds will likely need physical rehabilitation after hospital stay for deconditioning; PT/OT evaluations requested patient's Kristina Bass [phone] Subjective Patient seen at bedside this AM with nurse present helping to give her oral lactulose. nurse reports patient has been able to make bowel movements. Patient is cooperative with staff and answers to questions. She cannot tell when asked where is she is at. She is reminded that she is in the hospital. Mental Status appears much improved at this time. patient does not have good strength of her legs when she is asked to do leg raises when on the bed. patient is awaiting PT/OT evaluations denies shortness of breath, breathing on room air, she denies pain anywhere of the body. Review of Systems Review of Systems: All systems reviewed & are unremarkable except as noted in HPI & below Physical Exam Constitutional: + frail appearing Eyes: PERRL, conjunctivae normal, anicteric sclerae + scleral abnormality (scleral icturus) and EOM intact bilaterally ENMT: external ear and nose normal, oropharynx normal Neck: normal visual inspection Respiratory: normal respiratory effort Cardiovascular: Rate/Rhythm: regular rate Gastrointestinal (Abdomen): Inspection/Auscultation: normal bowel sounds Musculoskeletal: Head/Neck/Chest: normocephalic and head atraumatic Neurologic: moves all extremities Psychiatric: Orientation: cooperative Results & Data Vital Signs (Past 12 Hours) Vital Signs Temp Pulse Pulse Resp BP BP Pulse Ox 08/12/19 07:12 36.7 C 92 H 15 153/73 H 96 08/11/19 22:55 37.0 C 92 H 16 145/66 H 92 (1) Cirrhosis of liver Ascites presence: unspecified Hepatic cirrhosis type: unspecified hepatic cirrhosis Qualified Code(s): K74.60 - Unspecified cirrhosis of liver
[2019-08-12] MEDS: INSULIN ASPART 100 UNITS/ML 3 ML PEN SC SCH ×4 (09:53→21:47)
[2019-08-12] MEDS: FUROSEMIDE 20 MG TAB PO SCH (10:49)
[2019-08-12] MEDS: SPIRONOLACTONE 25 MG TAB PO SCH ×2 (10:49→18:34)
[2019-08-13 08:29] LABS: Albumin Level 1.9 gm/dl (3.4-5.0); BUN Creatinine Ratio 25.5 (10-20); Calcium 8.7 mg/dl (8.5-10.1); Creatinine Clr Calc Pharmacy 80.8 ml/min; Est GFR (African American) 101.7; Est GFR (Non-African American) 87.7; Magnesium 1.6 mg/dl (1.8-2.4); Potassium 3.9 mmol/L (3.5-5.1)
[2019-08-13 08:31] LABS: Albumin Globulin Ratio 0.6 (0.9-2); Bilirubin,Total 7.6 mg/dl (0.2-1); Globulin 3.3 gm/dl (2.5-4.0); Phosphorus 2.4 mg/dl (2.5-4.9); Total Protein 5.2 gm/dl (6.4-8.2)
[2019-08-13] MEDS: INSULIN ASPART 100 UNITS/ML 3 ML PEN SC SCH ×4 (09:08→20:43)
[2019-08-13] MEDS: LACTULOSE SYRUP 30 GM/45 ML UDP PO SCH (09:08)
[2019-08-13] MEDS: FUROSEMIDE 20 MG TAB PO SCH (09:09)
[2019-08-13] MEDS: METOPROLOL SUCC 25MG EXT REL TAB PO SCH (09:09)
[2019-08-13] MEDS: RIFAXIMIN 550 MG TABLET PO SCH ×2 (09:09→20:42)
[2019-08-13] MEDS: SPIRONOLACTONE 25 MG TAB PO SCH ×2 (09:10→18:42)
[2019-08-13] MEDS: MAGNESIUM OXIDE 400 MG TAB PO SCH ×3 (09:51→20:41)
[2019-08-13] MEDS: POLYETHYLENE (MIRALAX) 17 GM PACK PO PRN (12:49)
--- NOTE | 2019-08-13 14:30 | Hospitalist Progress Note ---
Date of Service August 13, 2019 Assessment & Plan (1) Hepatic encephalopathy: improved from admission per and nursing staff. However, this morning she was spitting pills out and with PT and OT she required significant prompting to accomplish goals. May need another day to continue to reach BM goal of 2-3 and reduce ammonia levels with recovery of mental status. She has already had 2 BMs today and states that she is very sensitive to lactulose so will hold any further doses today. Cont supportive care. (2) Cirrhosis of liver: diuretics were restarted on 08/12. Cont above management. (3) Hyperbilirubinemia: 2/2 advanced cirrhosis, jaundice present. (4) Abdominal pain: resolved. (5) Thrombocytopenia: 2/2 advanced liver cirrhosis and splenomegaly (6) Swelling of right lower extremity: significant posterior leg ecchymosis. Uncertain what trauma occurred if any. states this was not presnet on admission. US reveals no evidence of right lower extremity DVT. Cont supportive care. (7) Elevated INR (international normalized ratio): autoanticoagulated 2/2 advanced liver disease (8) T2DM (type 2 diabetes mellitus): metformin held and will plan to discontinue this at discharge. Inpatient blood sugar is around goal. Cont BSG checks and Novolog with correction factor. (9) HTN (hypertension): around goal-cont Toprol XL, diuretics. (10) DVT prophylaxis: Autoanticoagulated 2/2 advanced liver disease. SCDs DNR Dispo-to [place] when cognition and mental status improves a little bit more. Rosamaria Braswell DO [facility] Hospitalist Subjective fatigued and have to prompt her several times to open her eyes and engage with me. She is oriented to self and thinks she is in [place]. She doesn't report understanding what is wrong with her liver and why she is here. she denies pain and is tolerating PO. states she is very sensitive to lactulose and has been taking reduced doses at home prior to arrival. He states she is oriented to person and place at baseline. She usually doesn't know the date. Review of Systems Review of Systems: All systems reviewed & are unremarkable except as noted in HPI & below Physical Exam Physical Exam: CONSTITUTIONAL: WNWD, vitals as above, generally well- appearing EYES: normal conjunctivae, +scleral icterus ENT: mucous membranes are dry RESPIRATORY: clear to auscultation bilaterally, no crackles, rales or wheezes, normal respiratory effort CARDIOVASCULAR: regular rate and rhythm, S1 and 2 heard without murmurs, gallops or rubs, no JVD, no peripheral edema GASTROINTESTINAL: soft, nontender, nondistended MUSCULOSKELETAL: strength 5/5 throughout, head is normocephalic and atraumatic, neck supple SKIN: warm and dry NEUROLOGIC: no gross focal deficits, has reduced cognition, limited exam 2/2 this Results & Data Vital Signs (Past 12 Hours) Vital Signs Temp Pulse Resp BP Pulse Ox 08/13/19 08:07 36.5 C 88 18 149/75 H 94 Laboratory Results BMP 08/13/19 07:33 Sodium 142 Potassium 3.9 Chloride 113 H Carbon Dioxide 23 BUN 16 Creatinine 0.63 Glucose 111 H Calcium 8.7 Liver Function 08/13/19 Range/Units 07:33 Total Bilirubin 7.6 H (0.2-1) mg/dl AST 59 H (15-37) U/L ALT 39 (12-78) U/L Alkaline Phosphatase 87 (45-117) U/L Albumin 1.9 L (3.4-5.0) gm/dl Medications Administered Current Inpatient Medications Dextrose (Dextrose 50%) 25 - 50 ml IV UD PRN; Protocol PRN Reason: Hypoglycemia Protocol Stop: 09/04/19 16:50 Furosemide (Lasix) 20 mg PO QAM [facility] Stop: 09/11/19 09:44 Last Admin: 08/13/19 09:09 Dose: 20 mg Documented by: Glucagon (Glucagen) 1 mg SQ UD PRN; Protocol PRN Reason: Hypoglycemia Protocol Stop: 09/04/19 16:50 Glucose (Dex4 Glucose) 4 - 8 tabs PO UD PRN; Protocol PRN Reason: Hypoglycemia Protocol Stop: 09/04/19 16:50 Glucose (Glucose 40%) 15 - 30 gm PO UD PRN; Protocol PRN Reason: Hypoglycemia Protocol Stop: 09/04/19 16:50 Magnesium Sulfate/Dextrose (Magnesium Sulfate / D5w) 1 gm in 100 mls @ 100 mls/hr IV Q1H [facility] Stop: 08/13/19 15:24 Insulin Aspart (Novolog Flexpen) 0 units SC ACHS [facility] Stop: 09/06/19 16:29 Last Admin: 01/15/20 12:49 Dose: 4 units Documented by: Ipratropium [place] (Atrovent 0.02% 0.5mg/2.5ml) 0.5 mg INH Q4H PRN PRN Reason: Shortness Of Breath Or Wheezin Stop: 09/09/19 21:44 Lactulose (Chronulac) 30 gm PO BID [facility] Stop: 09/07/19 20:59 Last Admin: 08/13/19 09:08 Dose: 30 gm Documented by: Levalbuterol HCl (Xopenex 1.25mg/0.5ml Neb) 1.25 mg INH Q4H PRN PRN Reason: Shortness Of Breath Or [place]ezin Stop: 09/09/19 21:44 Magnesium Oxide (Mag-Ox) 400 mg PO TID [facility] Stop: 08/16/19 09:14 Last Admin: 08/13/19 12:49 Dose: 400 mg Documented by: Metoprolol Succinate (Toprol Xl) 25 mg PO QAM [facility] Stop: 09/06/19 13:59 Last Admin: 08/13/19 09:09 Dose: 25 mg Documented by: Miscellaneous (Carbohydrates For Hypoglycemia) 15 - 30 gm PO UD PRN PRN Reason: Hypoglycemia Protocol Stop: 09/04/19 16:50 Polyethylene Glycol (Miralax Powder Packet) 17 gm PO DAILY PRN PRN Reason: Constipation Stop: 09/04/19 16:50 Last Admin: 08/13/19 12:49 Dose: 17 gm Documented by: Rifaximin (Xifaxan) 550 mg PO BID [facility] Stop: 09/07/19 20:59 Last Admin: 08/13/19 09:09 Dose: 550 mg Documented by: Spironolactone (Aldactone) 50 mg PO BID17 [facility] Stop: 09/11/19 09:44 Last Admin: 08/13/19 09:10 Dose: 50 mg Documented by: (1) Cirrhosis of liver Ascites presence: unspecified Hepatic cirrhosis type: unspecified hepatic cirrhosis Qualified Code(s): K74.60 - Unspecified cirrhosis of liver
[2019-08-13] MEDS: MAGNESIUM SULFATE / D5W 1 GM/100 ML BAG IV SCH (17:13)
[2019-08-14] MEDS: METOPROLOL SUCC 25MG EXT REL TAB PO SCH (09:16)
[2019-08-14] MEDS: MAGNESIUM OXIDE 400 MG TAB PO SCH ×2 (09:17→13:07)
[2019-08-14] MEDS: LACTULOSE SYRUP 30 GM/45 ML UDP PO SCH ×3 (09:17→22:06)
[2019-08-14] MEDS: SPIRONOLACTONE 25 MG TAB PO SCH ×2 (09:17→17:13)
[2019-08-14] MEDS: RIFAXIMIN 550 MG TABLET PO SCH ×2 (09:17→22:01)
[2019-08-14] MEDS: FUROSEMIDE 20 MG TAB PO SCH (09:17)
[2019-08-14] MEDS: INSULIN ASPART 100 UNITS/ML 3 ML PEN SC SCH ×4 (09:29→22:10)
[2019-08-14 11:04] LABS: Anisocytosis Present; Basophils # (auto) 0.09 K/uL (0-0.2); Basophils % (auto) 1.9 %; Echinocytes 1+; Eosinophils # (auto) 0.38 K/uL (0-0.5); Eosinophils % (auto) 8.1 %; Hematocrit (blood only) 29.1 % (37-47); Hemoglobin 9.1 g/dL (12.0-16.0); Immature Granulocytes # (auto) 0.02 K/uL (0.00-0.02); Immature Granulocytes % (auto) 0.4 %; Lymphocytes # (auto) 0.96 K/uL (1.2-3.4); Lymphocytes % (auto) 20.4 %; Mean Corpuscular Hemoglobin 32.9 pg (25-34); Mean Corpuscular Hgb Conc 31.3 g/dL (32-36); Mean Corpuscular Volume 105.1 fL (80-100); Mean Platelet Volume 9.9 fL (7.4-10.4); Monocytes # (auto) 0.58 K/uL (0.11-0.59); Monocytes % (auto) 12.3 %; Neutrophils # (auto) 2.67 K/uL (1.4-6.5); Neutrophils % (auto) 56.9 %; Platelet Count 13 K/uL (130-400); Platelet Estimate SIGNIFIC DECREASED (Normal); RDW Coefficient of Variation 22.2 % (11.5-14.5); RDW Standard Deviation 82.8 fL (36.4-46.3); Red Blood Count 2.77 M/uL (4.2-5.4)
[2019-08-14 11:33] LABS: BUN Creatinine Ratio 21.4 (10-20); Bilirubin,Total 8.9 mg/dl (0.2-1); Calcium 8.6 mg/dl (8.5-10.1); Creatinine Clr Calc Pharmacy 79.5 ml/min; Est GFR (African American) 101.2; Est GFR (Non-African American) 87.3; Magnesium 1.6 mg/dl (1.8-2.4); Potassium 4.2 mmol/L (3.5-5.1)
[2019-08-14] MEDS: POLYETHYLENE (MIRALAX) 17 GM PACK PO PRN (12:06)
[2019-08-14] MEDS ORDERED: ACETAMINOPHEN 325 MG TAB PO ONE (14:35)
[2019-08-14] MEDS ORDERED: MAGNESIUM SULFATE 50% 4 GM in SODIUM CHLORIDE 0.9% 500 ML IV SCH (15:00)
--- NOTE | 2019-08-14 17:14 | Hospitalist Progress Note ---
Date of Service August 14, 2019 Assessment & Plan (1) Hepatic encephalopathy: somewhat more confused and fatigued again today. Reached goal of 2 BMs daily yesterday and has already had 2 BMs today. Per GI, with ongoing symptoms, will need to titrate lactulose to 3-4 BMs now. Ammonia level was in the 50s today. Will re-evaluate workup to exclude underlying cause. Ambulate as tolerated. (2) Cirrhosis of liver: diuretics were restarted on 08/12. Cont above management. Replace platelets today. Not likely to help by giving extra factors (FFP) to help her coagulopathy so will transfuse platelets to lower her risk of bleeding. (3) Hyperbilirubinemia: 2/2 advanced cirrhosis, jaundice present. (4) Abdominal pain: resolved. (5) Thrombocytopenia: Decreased at baseline 2/2 advanced liver cirrhosis and splenomegaly. Decreased to 13K today acutely. Transfuse one pack of platelets now. Repeat CBC nd INR in am. Repeat earlier if bleeding occurs. (6) Swelling of right lower extremity: significant posterior leg ecchymosis. Uncertain what trauma occurred if any. states this was not present on admission. US reveals no evidence of right lower extremity DVT. Cont supportive care. (7) Elevated INR (international normalized ratio): autoanticoagulated 2/2 advanced liver disease. Trend INR in am. Of note, DIC considered. Cont to monitor. (8) Anemia: 2/2 chronic disease. Stable. cont to monitor. (9) T2DM (type 2 diabetes mellitus): metformin held and will plan to discontinue this at discharge. Inpatient blood sugar is around goal. Cont BSG checks and Novolog with correction factor. (10) HTN (hypertension): around goal-cont Toprol XL, diuretics. (11) Hypomagnesemia: replace IV now that she has an IV in place. Repeat in am. (12) DVT prophylaxis: Autoanticoagulated 2/2 advanced liver disease. Contraindicated in setting of thrombocytopenia. SCDs DNR Dispo-to [place] when cognition and mental status improves a little bit more. Rosamaria Braswell DO [facility] Hospitalist Subjective Lethargic, somewhat able to converse and sounds oriented to place and person. However, and her nurse both think she looks worse today. Continues to have BMs and is currently refusing her lactulose. Woprking with nurse to try and offer miralax instead. Patient denies pain. Review of Systems Review of Systems: Unobtainable due to cognitive status Physical Exam Physical Exam: CONSTITUTIONAL: WNWD, vitals as above, generally fatigued EYES: normal conjunctivae, +scleral icterus ENT: mucous membranes are dry RESPIRATORY: clear to auscultation bilaterally, no crackles, rales or wheezes, normal respiratory effort CARDIOVASCULAR: regular rate and rhythm, S1 and 2 heard without murmurs, gallops or rubs, no JVD, no peripheral edema GASTROINTESTINAL: soft, nontender, nondistended MUSCULOSKELETAL: strength 5/5 throughout, head is normocephalic and atraumatic, neck supple SKIN: warm and dry NEUROLOGIC: no gross focal deficits, has reduced cognition, limited exam 2/2 this Results & Data Vital Signs (Past 12 Hours) Vital Signs Temp Pulse Pulse Resp BP BP Pulse Ox 08/14/19 16:50 36.6 C 84 18 137/72 96 08/14/19 16:20 36.6 C 78 18 123/69 94 08/14/19 16:00 36.7 C 92 H 20 147/69 H 95 08/14/19 15:43 37 C 96 H 20 148/73 H 93 08/14/19 15:30 37.0 C 91 H 18 149/73 H 98 08/14/19 07:32 36.4 C L 88 16 144/69 H 94 Laboratory Results Short CBC 08/14/19 Range/Units 10:25 WBC 4.70 L (4.8-10.8) K/uL Hgb 9.1 L (12.0-16.0) g/dL Hct 29.1 L (37-47) % Plt Count 13 L* (130-400) K/uL BMP 08/14/19 10:25 Sodium 137 Potassium 4.2 Chloride 110 H Carbon Dioxide 23 BUN 14 Creatinine 0.64 Glucose 134 H Calcium 8.6 Liver Function 08/14/19 Range/Units 10:25 Total Bilirubin 8.9 H (0.2-1) mg/dl Medications Administered Current Inpatient Medications Acetaminophen (Tylenol) 650 mg PO PRE-TREAT ONE Stop: 08/14/19 22:36 Last Admin: 08/14/19 15:31 Dose: 650 mg Documented by: Dextrose (Dextrose 50%) 25 - 50 ml IV UD PRN; Protocol PRN Reason: Hypoglycemia Protocol Stop: 09/04/19 16:50 [facility]: 09/11/19 09:44 Last Admin: 08/14/19 09:17 Dose: 20 mg Documented by: Glucagon (Glucagen) 1 mg SQ UD PRN; Protocol PRN Reason: Hypoglycemia Protocol Stop: 09/04/19 16:50 Glucose (Dex4 Glucose) 4 - 8 tabs PO UD PRN; Protocol PRN Reason: Hypoglycemia Protocol Stop: 09/04/19 16:50 Glucose (Glucose 40%) 15 - 30 gm PO UD PRN; Protocol PRN Reason: Hypoglycemia Protocol Stop: 09/04/19 16:50 Magnesium Sulfate 4 gm/ Sodium (Chloride) 508 mls @ 125 mls/hr IV .Q4H4M [facility] Stop: 08/14/19 19:03 Insulin Aspart (Novolog Flexpen) 0 units SC [facility] Stop: 09/06/19 16:29 Last Admin: 08/14/19 13:07 Dose: 3 units Documented by: Ipratropium [place] (Atrovent 0.02% 0.5mg/2.5ml) 0.5 mg INH Q4H PRN PRN Reason: Shortness Of Breath Or Wheezin Stop: 09/09/19 21:44 Lactulose (Chronulac) 30 gm PO BID [facility] Stop: 09/07/19 20:59 Last Admin: 08/14/19 13:05 Dose: Not Given Documented by: Levalbuterol HCl (Xopenex 1.25mg/0.5ml Neb) 1.25 mg INH Q4H PRN PRN Reason: Shortness Of Breath Or Wheezin Stop: 09/09/19 21:44 Metoprolol Succinate ([facility]rol Xl) [facility] [place]: 09/06/19 13:59 Last Admin: 08/14/19 09:16 Dose: 25 mg Documented by: Miscellaneous (Carbohydrates For Hypoglycemia) 15 - 30 gm PO UD PRN PRN Reason: Hypoglycemia Protocol Stop: 09/04/19 16:50 Polyethylene Glycol (Miralax Powder Packet) 17 gm PO DAILY PRN PRN Reason: Constipation Stop: 09/04/19 16:50 Last Admin: 08/14/19 12:06 Dose: 17 gm Documented by: Rifaximin (Xifaxan) 550 mg PO BID [facility] Stop: 09/07/19 20:59 Last Admin: 08/14/19 09:17 Dose: 550 mg Documented by: Spironolactone (Aldactone) 50 mg PO BID17 [facility] Stop: 09/11/19 09:44 Last Admin: 08/14/19 17:13 Dose: 50 mg Documented by: (1) Cirrhosis of liver Ascites presence: unspecified Hepatic cirrhosis type: unspecified hepatic cirrhosis Qualified Code(s): K74.60 - Unspecified cirrhosis of liver
--- NOTE | 2019-08-14 20:03 | XRay Report ---
XR chest 1V portable HISTORY: 73 years-old Female persistent confusion acutely altered mental status COMPARISON: Chest radiograph 08/09/2019 TECHNIQUE: Portable AP view of the chest FINDINGS: Cardiac mediastinal and hilar silhouettes are unchanged. Mild interstitial coarsening appears chronic . Calcified plaque of the thoracic aortic arch. No pneumothorax, pleural effusion or overt pulmonary edema. Degenerative changes of the shoulders and spine. IMPRESSION: Mild chronic interstitial coarsening without acute process. ACT 112: Negative or not required by law. The above report was generated using voice recognition software. It may contain grammatical, syntax o r spelling errors. Electronically signed by: Kvng López M.D. 08/14/2019 8:02 PM
--- NOTE | 2019-08-14 20:46 | CT Scan Report ---
CT head/brain wo con CLINICAL HISTORY: 73 years-old Female with persistent confusion. Acutely altered mental status TECHNIQUE: Multiple axial CT images of the head were obtained without contrast. A dose lowering tech nique was utilized adhering to the principles of ALARA. CT DOSE: 614.27 mGy.cm COMPARISON: Head CT 08/05/2019 FINDINGS: Motion degraded exam. No acute intracranial hemorrhage, midline shift, intracranial mass, hydrocephal us, territorial ischemia or abnormal extra-axial collection. Age-related involutional changes with ex vacuo ventriculomegaly. Patchy white matter hypodensities suggest chronic microvascular ischemic dis ease. Senescent calcifications of the lentiform nuclei. Cerebral vascular calcifications also noted. The calvarium is intact. Prior bilateral cataract repair. The paranasal sinuses, mastoid air cells, a nd middle ear cavities are clear. IMPRESSION: Penile degraded exam without acute intracranial abnormality identified. ACT 112: Negative or not required by law. The above report was generated using voice recognition software. It may contain grammatical, syntax o r spelling errors. Electronically signed by: Kvng López M.D. 08/14/2019 8:45 PM
[2019-08-15] MEDS ORDERED: OXYCODONE HCL IR 5 MG TAB (IMMEDIATE RELEASE) PO PRN (03:08)
[2019-08-15] MEDS ORDERED: ACETAMINOPHEN 325 MG TAB PO PRN (03:08)
[2019-08-15 03:59] LABS: INR 1.7 (0.9-1.1); Prothrombin Time 16.5 Seconds (9.0-12.0)
--- NOTE | 2019-08-15 04:50 | Communication Note ---
Date of Service: August 15, 2019 Made aware by RN all sudden onset abdominal pain. Loose stools, lactulose Rx as per RN. Usual agitation, confusion as per RN. CT abdomen pelvis initial read : left ischial tuberosity fracture, cirrhosis, increased ascites from 08/05 CT abdomen pelvis. Cholelithiasis without cholecystitis. AP Abdominal pain ? SBP Rule out C. difficile Incidental finding of pelvic fracture on initial CT read Ceftriaxone, albumin for now for possible SBP Diagnostic/therapeutic paracentesis if patient family agreeable with procedure. Stool C. difficile Follow official CT abdomen pelvis results RE incidental finding of pelvic fracture Mr. Kristina Bass (patient ) agreeable to ultrasound-guided paracentesis procedure after discussion over the telephone. Will relay to AM provider. ADDENDUM : Not enough ascitic fluid on CT as per [facility] radiologist as per prosthetic lab technician. Hold diagnostic ultrasound-guided paracentesis for now.
[2019-08-15] MEDS: ALBUMIN 25% 50 ML IV SCH ×4 (05:31→23:42)
[2019-08-15 05:45] LABS: Hematocrit (blood only) 26.3 % (37-47); Hemoglobin 8.9 g/dL (12.0-16.0); Mean Corpuscular Hgb Conc 33.8 g/dL (32-36); Mean Corpuscular Volume 103.5 fL (80-100); Mean Platelet Volume 10.6 fL (7.4-10.4); Platelet Count 80 K/uL (130-400); RDW Coefficient of Variation 22.1 % (11.5-14.5); RDW Standard Deviation 81.9 fL (36.4-46.3); Red Blood Count 2.54 M/uL (4.2-5.4); White Blood Count 5.98 K/uL (4.8-10.8)
[2019-08-15 05:46] LABS: Anisocytosis Present; Basophils # (auto) 0.08 K/uL (0-0.2); Basophils % (auto) 1.3 %; Eosinophils # (auto) 0.57 K/uL (0-0.5); Eosinophils % (auto) 9.5 %; Immature Granulocytes # (auto) 0.04 K/uL (0.00-0.02); Immature Granulocytes % (auto) 0.7 %; Lymphocytes # (auto) 1.12 K/uL (1.2-3.4); Lymphocytes % (auto) 18.7 %; Monocytes % (auto) 13.4 %; Neutrophils # (auto) 3.37 K/uL (1.4-6.5); Neutrophils % (auto) 56.4 %; Platelet Estimate Decreased (Normal); Polychromasia 1+
[2019-08-15] MEDS: cefTRIAXone SODIUM 2,000 MG in DEXTROSE 5% 50 ML IV SCH (06:20)
--- NOTE | 2019-08-15 06:52 | CT Scan Report ---
CT abd pelvis wo con CT DOSE: 1279.35 mGy.cm HISTORY: Pain. Pain abd pain TECHNIQUE: Multiaxial CT images of the abdomen and pelvis were performed without contrast. A dose lo wering technique was utilized adhering to the principles of ALARA. COMPARISON STUDY: 08/05/2019 FINDINGS: Lateral body wall soft tissue edematous change versus anasarca. Hepatic cirrhosis. Minimal abdominal and mild pelvic ascites. Nonobstructive bowel pattern. Scattered colonic diverticulosis. Kidneys are negative for hydronephros is. Gallstones. Scattered abdominal pelvic and inguinal adenopathy. Operative changes consistent with a total left hip replacement. Interval fracture posterior aspect left acetabulum and inferior left pubic ring. Trace pleural fluid both lung bases. IMPRESSION: 1. Interval fracture posterior aspect left acetabulum/left inferior pubic ring posteriorly 2. Unchanging findings of hepatic cirrhosis. 3. Trace abdominal and pelvic ascites. 4. Interval development of body wall contusions versus anasarca. ACT 112: Negative or not required by law. The above report was generated using voice recognition software. It may contain grammatical, syntax or spelling errors. Electronically signed by: Alfredo Telles M.D. 08/15/2019 6:51 AM
[2019-08-15 07:17] LABS: BUN Creatinine Ratio 22.6 (10-20); Calcium 8.7 mg/dl (8.5-10.1); Creatinine Clr Calc Pharmacy 84.8 ml/min; Est GFR (African American) 103.3; Est GFR (Non-African American) 89.2; Magnesium 2.3 mg/dl (1.8-2.4); Potassium 4.2 mmol/L (3.5-5.1)
[2019-08-15 07:23] LABS: Albumin Globulin Ratio 0.6 (0.9-2); Bilirubin,Total 8.2 mg/dl (0.2-1); Globulin 3.6 gm/dl (2.5-4.0); Total Protein 5.6 gm/dl (6.4-8.2)
[2019-08-15] MEDS: FUROSEMIDE 20 MG TAB PO SCH (09:32)
[2019-08-15] MEDS: METOPROLOL SUCC 25MG EXT REL TAB PO SCH (09:32)
[2019-08-15] MEDS: SPIRONOLACTONE 25 MG TAB PO SCH ×2 (09:32→17:52)
[2019-08-15] MEDS: RIFAXIMIN 550 MG TABLET PO SCH ×2 (09:32→19:47)
[2019-08-15] MEDS: INSULIN ASPART 100 UNITS/ML 3 ML PEN SC SCH ×4 (09:33→20:57)
[2019-08-15] MEDS: LACTULOSE SYRUP 30 GM/45 ML UDP PO SCH ×2 (09:33→19:47)
[2019-08-15] MEDS: TRAMADOL HCL 50 MG TABLET PO PRN (12:28)
[2019-08-15] MEDS ORDERED: MoRPHine SULFATE 2 MG/ML CARP IV STA (15:04)
[2019-08-15 16:30] LABS: Appearance Urine Cloudy (Clear); Bacteria Urine Automated Negative (Negative); Bilirubin Urine Negative (Negative); Blood Urine Negative (Negative); Color Urine Dark Yellow; Epithelial Cell Urine Auto >30 /lpf (0-5); Glucose Urine UA Negative (Negative); Ketones Urine Negative (Negative); Leukocyte Esterase Urine 1+ (Negative); Nitrite Urine Negative (Negative); Protein Urine Negative (Negative); Specific Gravity Urine 1.015 (1.000-1.030); Urobilinogen Urine Negative (Negative)
--- NOTE | 2019-08-15 17:10 | Hospitalist Progress Note ---
Date of Service August 15, 2019 Assessment & Plan (1) Pelvic fracture: Awaiting input from Ortho, likely nonoperable. Continue supportive care. Activity restrictions with toe-touch weightbearing only per Ortho. (2) Hepatic encephalopathy: Continues to be confused. Continue to titrate lactulose for 2-3 bowel movements a day. Will trend ammonia level intermittently. Placed on ceftriaxone and albumin overnight. We will continue this and touch base with GI regarding length of course recommended for empiric treatment of SBP. Of note paracentesis could not be performed as enough pelvic/abdominal fluid was not available to tap. (3) Cirrhosis of liver: diuretics were restarted on 08/12. Cont above management. (4) Hyperbilirubinemia: 2/2 advanced cirrhosis, jaundice present. (5) Abdominal pain: resolved. (6) Thrombocytopenia: Improved to ADK after transfusion overnight. (7) Elevated INR (international normalized ratio): autoanticoagulated 2/2 advanced liver disease. Trend INR in am. Of note, DIC considered. Cont to monitor. (8) Anemia: 2/2 chronic disease. Stable. cont to monitor. (9) T2DM (type 2 diabetes mellitus): metformin held and will plan to discontinue this at discharge. Inpatient blood sugar is around goal. Cont BSG checks and Novolog with correction factor. (10) HTN (hypertension): around goal-cont Toprol XL, diuretics. (11) Hypomagnesemia: replace IV now that she has an IV in place. Repeat in am. (12) DVT prophylaxis: Autoanticoagulated 2/2 advanced liver disease. Contraindicated in setting of thrombocytopenia. SCDs DNR Dispo-to [facility] when cognition and mental status improves a little bit more. Rosamaria Braswell DO [facility] Hospitalist Subjective altered, reporting pain in her abdomen, chest and very confused/delirious. at bedside and states that she has been reporting pain in her left leg. She has not eaten much per her report. She has a newly discovered pelvic fracture since an in-hospital fall 10 days ago. Ortho consulted and left activity restrictions with additional requests for xrays. She has had at least two BMs today. Platelets improved from 13K to 80K overnight with platelet t ransfusion. Review of Systems Review of Systems: Unobtainable due to cognitive status Physical Exam Physical Exam: CONSTITUTIONAL: WNWD, vitals as above, generally fatigued, confused EYES: normal conjunctivae, +scleral icterus ENT: mucous membranes are dry RESPIRATORY: clear to auscultation bilaterally, no crackles, rales or wheezes, normal respiratory effort CARDIOVASCULAR: regular rate and rhythm, S1 and 2 heard without murmurs, gallops or rubs, no JVD, no peripheral edema GASTROINTESTINAL: soft, nontender, nondistended MUSCULOSKELETAL: strength 5/5 throughout, head is normocephalic and atraumatic, neck supple SKIN: warm and dry, jaundiced, posterior leg leg with extensive ecchymosis from thigh to ankle NEUROLOGIC: moving arms equally, very limited movement of legs and difficulty with bending her left leg. NVI bilat. No gross focal deficits, but limited exam 2/2 reduced cognition. Results & Data Vital Signs (Past 12 Hours) Vital Signs Temp Pulse Pulse Resp BP BP Pulse Ox 08/15/19 16:04 36.8 C 84 20 148/67 H 94 08/15/19 14:29 36.5 C 80 16 132/70 95 08/15/19 12:49 36.5 C 80 16 131/63 95 08/15/19 07:15 36.5 C 86 18 146/86 H 95 08/15/19 06:26 36.4 C L 84 16 143/71 H 96 08/15/19 05:29 36.7 C 86 18 159/68 H 94 Laboratory Results Short CBC 08/15/19 08/15/19 Range/Units 03:27 04:30 WBC Cancelled 5.98 Hgb Cancelled 8.9 L Hct Cancelled 26.3 L Plt Count Cancelled 80 L D BMP 08/15/19 04:30 Sodium 139 Potassium 4.2 Chloride 111 H Carbon Dioxide 24 BUN 14 Creatinine 0.60 Glucose 97 Calcium 8.7 Liver Function 08/15/19 Range/Units 04:30 Total Bilirubin 8.2 H (0.2-1) mg/dl AST 71 H (15-37) U/L ALT 41 (12-78) U/L Alkaline Phosphatase 115 (45-117) U/L Albumin 2.0 L (3.4-5.0) gm/dl Urine 08/15/19 Range/Units 16:10 Urine Color Dark Yellow Urine Appearance Cloudy A (Clear) Urine pH 6.0 (4.5-7.5) Ur Specific [place] 1.015 (1.000-1.030) Urine Protein Negative (Negative) Urine Glucose (UA) Negative (Negative) Diagnostic Findings CT abd pelvis wo con FINDINGS: Lateral body wall soft tissue edematous change versus anasarca. Hepatic cirrhosis. Minimal abdominal and mild pelvic ascites. Nonobstructive bowel pattern. Scattered colonic diverticulosis. Kidneys are negative for hydronephrosis. Gallstones. Scattered abdominal pelvic and inguinal adenopathy. Operative changes consistent with a total left hip replacement. Interval fracture posterior aspect left acetabulum and inferior left pubic ring. Trace pleural fluid both lung bases. IMPRESSION: 1. Interval fracture posterior aspect left acetabulum/left inferior pubic ring posteriorly 2. Unchanging findings of hepatic cirrhosis. 3. Trace abdominal and pelvic ascites. 4. Interval development of body wall contusions versus anasarca. Medications Administered Current Inpatient Medications Acetaminophen (Tylenol) 325 mg PO Q6H PRN PRN Reason: Mild Pain Stop: 09/14/19 03:07 Dextrose (Dextrose 50%) 25 - 50 ml IV UD PRN; Protocol PRN Reason: Hypoglycemia Protocol Stop: 09/04/19 16:50 Furosemide (Lasix) 20 mg PO QAM [facility] Stop: 09/11/19 09:44 Last Admin: 08/15/19 09:32 Dose: 20 mg Documented by: Glucagon (Glucagen) 1 mg SQ UD PRN; Protocol PRN Reason: Hypoglycemia Protocol Stop: 09/04/19 16:50 Glucose (Dex4 Glucose) 4 - 8 tabs PO UD PRN; Protocol PRN Reason: Hypoglycemia Protocol Stop: 09/04/19 16:50 Glucose (Glucose 40%) 15 - 30 gm PO UD PRN; Protocol PRN Reason: Hypoglycemia Protocol Stop: 09/04/19 16:50 Ceftriaxone Sodium 2,000 mg/ (Dextrose) 70 mls @ 100 mls/hr IV Q24H MACK; Protocol Stop: 08/25/19 05:59 Last Infusion: 08/15/19 07:06 Dose: Infused Documented by: Albumin Human (Albumin 25%) 50 mls @ 50 mls/hr IV Q6H [facility] Stop: 08/18/19 04:59 Last Infusion: 08/15/19 14:13 Dose: Infused Documented by: Insulin Aspart (Novolog Flexpen) 0 units SC ACHS [facility] Stop: 09/06/19 16:29 Last Admin: 08/15/19 13:29 Dose: Not Given Documented by: Ipratropium [place] (Atrovent 0.02% 0.5mg/2.5ml) 0.5 mg INH Q4H PRN PRN Reason: Shortness Of Breath Or Wheezin Stop: 09/09/19 21:44 Lactulose (Chronulac) 30 gm PO BID [facility] Stop: 09/07/19 20:59 Last Admin: 08/15/19 09:33 Dose: 30 gm Documented by: Levalbuterol HCl (Xopenex 1.25mg/0.5ml Neb) 1.25 mg INH Q4H PRN PRN Reason: Shortness Of Breath Or Wheezin Stop: 09/09/19 21:44 Metoprolol Succinate (Toprol Xl) 25 mg PO QAM [facility] Stop: 09/06/19 13:59 Last Admin: 08/15/19 09:32 Dose: 25 mg Documented by: Miscellaneous (Carbohydrates For Hypoglycemia) 15 - 30 gm PO UD PRN PRN Reason: Hypoglycemia Protocol Stop: 09/04/19 16:50 Morphine Sulfate (Morphine Sulfate) 2 mg IV Q6H PRN PRN Reason: Moderate Pain Stop: 08/29/19 17:04 Polyethylene Glycol (Miralax Powder Packet) 17 gm PO DAILY PRN PRN Reason: Constipation Stop: 09/04/19 16:50 Last Admin: 08/14/19 12:06 Dose: 17 gm Documented by: Rifaximin (Xifaxan) 550 mg PO BID [facility] Stop: 09/07/19 20:59 Last Admin: 08/15/19 09:32 Dose: 550 mg Documented by: Spironolactone (Aldactone) 50 mg PO BID17 [facility] Stop: 09/11/19 09:44 Last Admin: 08/15/19 09:32 Dose: 50 mg Documented by: Tramadol HCl (Ultram) 25 - 50 mg PO Q4H PRN PRN Reason: Pain Stop: 09/14/19 03:10 Last Admin: 08/15/19 12:28 Dose: 50 mg Documented by: (1) Cirrhosis of liver Ascites presence: unspecified Hepatic cirrhosis type: unspecified hepatic cirrhosis Qualified Code(s): K74.60 - Unspecified cirrhosis of liver
--- NOTE | 2019-08-15 17:22 | XRay Report ---
XR hip LT 2V w pelvis HISTORY: 73 years-old Female Pelvic fx acute left-sided pelvic pain with fracture. COMPARISON: CT abdomen and pelvis of same day at 4:20 AM. TECHNIQUE: AP view of the pelvis with 2 views of the left hip FINDINGS: Demineralized appearance the bones. Left hip total joint arthroplasty appears unremarkable. Acute mil dly displaced fracture of the left ischium extending into the left inferior pubic ramus redemonstrate d with ischial fracture is displaced laterally 10 mm. Imaged proximal left femur appears intact. Mild to moderate right hip osteoarthritis. No avascular necrosis. Soft tissues are within normal limits. IMPRESSION: 1. Acute mildly displaced fracture of the left ischium and left inferior pubic ramus redemonstrated w ith unchanged alignment. 2. Left hip total joint arthroplasty without evidence of hardware complication. ACT 112: Negative or not required by law. The above report was generated using voice recognition software. It may contain grammatical, syntax o r spelling errors. Electronically signed by: Kvng López M.D. 08/15/2019 5:21 PM
--- NOTE | 2019-08-15 18:33 | Orthopedic Consultation ---
Date of Consultation August 15, 2019 Assessment & Plan (1) Pelvic fracture: Left ischial fracture with mild displacement dependent bleeding left leg with stable left total hip replacement. Recommend 50 percent weightbearing with walker for comfort. After 2 weeks will re-x-ray and progress weightbearing as tolerated if x-rays look unchanged. History of Present Illness Attending Physician: Rosamaria Braswell, DO History of Present Illness Patient history per her significant other who said that the patient fell in the hospital within 3 days of her hospitalization here and developed bruising down her left leg and recent CT scan demonstrated did a ischial fracture extending toward the acetabulum. Allergies Allergy/AdvReac Type Severity Reaction Status Date / Time TAMAR Inhibitors AdvReac Mild PALPITATIONS Verified 08/05/19 13:57 (BUT TAKES LISINOPRIL) hydrocodone AdvReac Mild HEART Verified 08/05/19 13:57 RACING meperidine AdvReac Mild SEVERE GI Verified 08/05/19 13:57 oxycodone AdvReac Mild DEPRESSION Verified 08/05/19 13:57 ranitidine AdvReac Mild DIZZINESS Verified 08/05/19 13:57 Sulfa (Sulfonamide AdvReac Mild "SULFA Verified 08/05/19 13:57 Antibiotics) DRUGS": SEVERE GI Home Medications Home Medications Medication Instructions Recorded Confirmed Type ascorbic acid (vitamin C) 1 g PO DAILY 08/05/19 08/05/19 History calcium carbonate-vitamin D3 1 tab PO BID 08/05/19 08/05/19 History [Calcium 500 + D] furosemide 20 mg PO DAILY 08/05/19 08/05/19 History glucos sul [id number] 1 cap PO DAILY 08/05/19 08/05/19 History [Glucosamine Chondroitin] lactulose 20 g PO BID PRN 08/05/19 08/05/19 History metformin 1,000 mg PO DAILY 08/05/19 08/05/19 History metoprolol succinate 25 mg PO DAILY 08/05/19 08/05/19 History multivitamin 1 tab PO DAILY 08/05/19 08/05/19 History omeprazole 20 mg PO BID 08/05/19 08/05/19 History rifaximin [Xifaxan] 550 mg PO BID 08/05/19 08/05/19 History spironolactone 50 mg PO BID 08/05/19 08/05/19 History thiamine HCl (vitamin B1) 100 mg PO DAILY 08/05/19 08/05/19 History tramadol 50 mg PO Q6 PRN 08/05/19 08/05/19 History white petrolatum-mineral oil 0.25 inch OPHTHALMIC (EYE) HS PRN 08/05/19 08/05/19 History [Artificial Tears (murray/min)] zinc sulfate 220 mg PO BID 08/05/19 08/05/19 History Patient History Medical History Alcoholic cirrhosis (Chronic) Asthma with COPD (Chronic) Bakers cyst (Chronic) "removed" CVA (cerebral vascular accident) (Chronic) Diverticulosis (Chronic) Dyslipidemia (Chronic) GERD (gastroesophageal reflux disease) (Chronic) Heel spur (Chronic) "removed" HTN (hypertension) (Chronic) Osteoarthritis (Chronic) Osteoporosis (Chronic) T2DM (type 2 diabetes mellitus) Thrombocytopenia (Chronic) 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) "urine" Surgical History H/O Achilles tendon repair (Chronic) H/O arthroscopic knee surgery (Chronic) H/O hemorrhoidectomy (Chronic) H/O inguinal hernia repair (Chronic) H/O tubal ligation (Chronic) History of partial colectomy (Chronic) "sigmoid" Family History Other No pertinent family history in first degree relatives Social History (Updated 08/05/19 @ 15:01 by Diana Sharif PA-C) Communication Ability: Impaired Beliefs That Will Affect Care: None marital status: Current Living Situation: Spouse 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 Gaitan 6 years ago. Patient has cirrhosis of the liver resulting in mental status change. Physical Exam Physical Exam: Right lower extremity nonpainful. Left lower extremity has ecchymosis along the entire lateral knee and femur area. Patient has some pain with rotation of the leg but the leg appears to be out to length with no shortening. Neurological exam circulation sensation motor exam intact distally. Results & Data Vital Signs (Past 12 Hours) Vital Signs Temp Pulse Resp BP BP Pulse Ox 08/15/19 17:34 36.6 C 85 18 127/68 93 08/15/19 16:04 36.8 C 84 20 148/67 H 94 08/15/19 14:29 36.5 C 80 16 132/70 95 08/15/19 12:49 36.5 C 80 16 131/63 95 08/15/19 07:15 36.5 C 86 18 146/[address] and x-rays ordered today reveal intact left hip replacement and intact stable acetabular component with a mildly displaced ischial fracture and inferior pubic ramus fracture with fracture line extending to the inferior aspect of the acetabular component but not into the component area. Fixation appears to be stable.
[2019-08-15] MEDS: MoRPHine SULFATE 2 MG/ML CARP IV PRN (19:52)
[2019-08-16] MEDS: MoRPHine SULFATE 2 MG/ML CARP IV PRN (06:05)
[2019-08-16] MEDS: cefTRIAXone SODIUM 2,000 MG in DEXTROSE 5% 50 ML IV SCH (06:05)
[2019-08-16] MEDS: ALBUMIN 25% 50 ML IV SCH ×2 (06:52→12:00)
[2019-08-16] MEDS: METOPROLOL SUCC 25MG EXT REL TAB PO SCH (09:09)
[2019-08-16] MEDS: SPIRONOLACTONE 25 MG TAB PO SCH ×2 (09:09→17:50)
[2019-08-16] MEDS: LACTULOSE SYRUP 30 GM/45 ML UDP PO SCH ×2 (09:10→17:48)
[2019-08-16] MEDS: FUROSEMIDE 20 MG TAB PO SCH (09:10)
[2019-08-16] MEDS: RIFAXIMIN 550 MG TABLET PO SCH ×2 (09:11→21:42)
--- NOTE | 2019-08-16 11:55 | Hospitalist Progress Note ---
Date of Service August 16, 2019 Assessment & Plan (1) Pelvic fracture: Nonoperative management per orthopedics. Continue supportive care. Repeat x-rays in 2 weeks in the office. (2) Hepatic encephalopathy: somewhat m improved energy level and she is less lethargic today. Still slightly confused but appears improved overall. Continue lactulose and titrate to 2 bowel movements daily. Appreciate GI input. She remains on ceftriaxone empirically for coverage of SBP. Albumin was stopped. Physical exam reveals a normal nondistended abdomen that is nontender. (3) Cirrhosis of liver: diuretics were restarted on 08/12. Cont above management. (4) Hyperbilirubinemia: 2/2 advanced cirrhosis, jaundice present. (5) Thrombocytopenia: Improved from 13 to 80 after 1 pack of platelets. Follow CBC intermittently. (6) Elevated INR (international normalized ratio): autoanticoagulated 2/2 advanced liver disease. Trend INR in am. Of note, DIC considered. Cont to monitor. (7) Anemia: 2/2 chronic disease. Stable. cont to monitor. (8) T2DM (type 2 diabetes mellitus): metformin held and will plan to discontinue this at discharge. Inpatient blood sugar is around goal. Cont BSG checks and Novolog with correction factor. (9) HTN (hypertension): around goal-cont Toprol XL, diuretics. (10) DVT prophylaxis: Autoanticoagulated 2/2 advanced liver disease. Contraindicated in setting of thrombocytopenia. SCDs DNR Dispo-to [place] when cognition and mental status improves Rosamaria Braswell DO [facility] Hospitalist Subjective The patient appears brighter with more energy today. She continues to drink the lactulose and have at least 2 bowel movements a day. She is clinically improved although still confused with intermittent anxiety seen. She denies any pain today. is at bedside. She is tolerating p.o. today. Review of Systems Review of Systems: Unobtainable due to mental health condition (Confusion) Physical Exam Physical Exam: CONSTITUTIONAL: WNWD, vitals as above, generally fatigued EYES: normal conjunctivae, +scleral icterus ENT: mucous membranes are dry RESPIRATORY: clear to auscultation bilaterally, no crackles, rales or wheezes, normal respiratory effort CARDIOVASCULAR: regular rate and rhythm, S1 and 2 heard without murmurs, gallops or rubs, no JVD, no peripheral edema GASTROINTESTINAL: soft, nontender, nondistended MUSCULOSKELETAL: some difficulty bending knees, appears anxious to do so, head is normocephalic and atraumatic, neck supple SKIN: warm and dry, large area of healing ecchymosis on posterior left leg. NEUROLOGIC: no gross focal deficits, has reduced cognition, limited exam 2/2 this Results & Data Vital Signs (Past 12 Hours) Vital Signs Temp Pulse Pulse Resp BP Pulse Ox 08/16/19 06:50 36.5 C 86 16 125/81 92 08/16/19 00:47 36.9 C 89 16 133/74 95 Laboratory Results Urine 08/15/19 Range/Units 16:10 Urine Color Dark Yellow Urine Appearance Cloudy A (Clear) Urine pH 6.0 (4.5-7.5) Ur Specific Martin 1.015 (1.000-1.030) Urine Protein Negative (Negative) Urine Glucose (UA) Negative (Negative) Medications Administered Current Inpatient Medications Acetaminophen (Tylenol) 325 mg PO Q6H PRN PRN Reason: Mild Pain Stop: 09/14/19 03:07 Dextrose (Dextrose 50%) 25 - 50 ml IV UD PRN; Protocol PRN Reason: Hypoglycemia Protocol Stop: 09/04/19 16:50 Furosemide (Lasix) 20 mg PO QAM [facility] Stop: 09/11/19 09:44 Last Admin: 08/16/19 09:10 Dose: 20 mg Documented by: Glucagon (Glucagen) 1 mg SQ UD PRN; Protocol PRN Reason: Hypoglycemia Protocol Stop: 09/04/19 16:50 Glucose (Dex4 Glucose) 4 - 8 tabs PO UD PRN; Protocol PRN Reason: Hypoglycemia Protocol Stop: 09/04/19 16:50 Glucose (Glucose 40%) 15 - 30 gm PO UD PRN; Protocol PRN Reason: Hypoglycemia Protocol Stop: 09/04/19 16:50 Ceftriaxone Sodium 2,000 mg/ (Dextrose) 70 mls @ 100 mls/hr IV Q24H [facility]; Protocol Stop: 08/25/19 05:59 Last Infusion: 08/16/19 06:54 Dose: Infused Documented by: Albumin Human (Albumin 25%) 50 mls @ 50 mls/hr IV Q6H [facility] Stop: 08/18/19 04:59 Last Admin: 08/16/19 06:52 Dose: 50 mls/hr Documented by: Insulin Aspart (Novolog Flexpen) 0 units SC ACHS [facility] Stop: 09/06/19 16:29 Last Admin: 08/15/19 20:57 Dose: 2 units Documented by: Ipratropium [place] (Atrovent 0.02% 0.5mg/2.5ml) 0.5 mg INH Q4H PRN PRN Reason: Shortness Of Breath Or Wheezin Stop: 09/09/19 21:44 Lactulose (Chronulac) 30 gm PO BID [facility] Stop: 09/07/19 20:59 Last Admin: 08/16/19 09:10 Dose: 30 gm Documented by: Levalbuterol HCl (Xopenex 1.25mg/0.5ml Neb) 1.25 mg INH Q4H PRN PRN Reason: Shortness Of Breath Or Wheezin Stop: 09/09/19 21:44 Metoprolol Succinate (Toprol Xl) 25 mg PO QAM [facility] Stop: 09/06/19 13:59 Last Admin: 08/16/19 09:09 Dose: 25 mg Documented by: Miscellaneous (Carbohydrates For Hypoglycemia) 15 - 30 gm PO UD PRN PRN Reason: Hypoglycemia Protocol Stop: 09/04/19 16:50 Morphine Sulfate (Morphine Sulfate) 2 mg IV Q6H PRN PRN Reason: Moderate Pain Stop: 08/29/19 17:04 Last Admin: 08/16/19 06:05 Dose: 2 mg Documented by: Polyethylene Glycol (Miralax Powder Packet) 17 gm PO DAILY PRN PRN Reason: Constipation Stop: 09/04/19 16:50 Last Admin: 08/14/19 12:06 Dose: 17 gm Documented by: Rifaximin (Xifaxan) 550 mg PO BID [facility] Stop: 09/07/19 20:59 Last Admin: 08/16/19 09:11 Dose: 550 mg Documented by: Spironolactone (Aldactone) 50 mg PO BID17 [facility] Stop: 09/11/19 09:44 Last Admin: 08/16/19 09:09 Dose: 50 mg Documented by: Tramadol HCl (Ultram) 25 - 50 mg PO Q4H PRN PRN Reason: Pain Stop: 09/14/19 03:10 Last Admin: 08/15/19 12:28 Dose: 50 mg Documented by: (1) Cirrhosis of liver Ascites presence: unspecified Hepatic cirrhosis type: unspecified hepatic cirrhosis Qualified Code(s): K74.60 - Unspecified cirrhosis of liver
[2019-08-16] MEDS: TRAMADOL HCL 50 MG TABLET PO PRN (12:23)
[2019-08-16] MEDS: INSULIN ASPART 100 UNITS/ML 3 ML PEN SC SCH ×4 (13:10→21:49)
[2019-08-16] MEDS: TRAMADOL HCL 50 MG TABLET PO SCH ×2 (15:09→21:41)
[2019-08-17] MEDS: cefTRIAXone SODIUM 2,000 MG in DEXTROSE 5% 50 ML IV SCH ×2 (06:09→06:48)
[2019-08-17] MEDS: TRAMADOL HCL 50 MG TABLET PO SCH ×4 (06:09→22:53)
[2019-08-17] MEDS: INSULIN ASPART 100 UNITS/ML 3 ML PEN SC SCH ×4 (07:30→21:17)
[2019-08-17 08:46] LABS: Hematocrit (blood only) 25.7 % (37-47); Hemoglobin 8.6 g/dL (12.0-16.0); Mean Corpuscular Hemoglobin 35.5 pg (25-34); Mean Corpuscular Hgb Conc 33.5 g/dL (32-36); Mean Corpuscular Volume 106.2 fL (80-100); Mean Platelet Volume 10.2 fL (7.4-10.4); Platelet Count 75 K/uL (130-400); Platelet Estimate Decreased (Normal); RDW Coefficient of Variation 22.6 % (11.5-14.5); RDW Standard Deviation 85.5 fL (36.4-46.3); Red Blood Count 2.42 M/uL (4.2-5.4); White Blood Count 6.15 K/uL (4.8-10.8)
[2019-08-17 08:52] LABS: Albumin Level 2.6 gm/dl (3.4-5.0); BUN Creatinine Ratio 16.6 (10-20); Bilirubin Direct 3.3 mg/dl (0-0.2); Bilirubin,Total 7.9 mg/dl (0.2-1); Calcium 9.2 mg/dl (8.5-10.1); Creatinine Clr Calc Pharmacy 74.8 ml/min; Est GFR (African American) 99.2; Est GFR (Non-African American) 85.6; Magnesium 1.5 mg/dl (1.8-2.4); Potassium 4.1 mmol/L (3.5-5.1); Total Protein 5.9 gm/dl (6.4-8.2)
[2019-08-17 08:59] LABS: INR 1.8 (0.9-1.1); Prothrombin Time 17.8 Seconds (9.0-12.0)
[2019-08-17] MEDS: LACTULOSE SYRUP 30 GM/45 ML UDP PO SCH ×2 (09:31→17:48)
[2019-08-17] MEDS: SPIRONOLACTONE 25 MG TAB PO SCH ×2 (09:31→17:49)
[2019-08-17] MEDS: RIFAXIMIN 550 MG TABLET PO SCH ×2 (09:31→21:17)
[2019-08-17] MEDS: METOPROLOL SUCC 25MG EXT REL TAB PO SCH (09:36)
[2019-08-17] MEDS: FUROSEMIDE 20 MG TAB PO SCH (09:36)
[2019-08-17] MEDS ORDERED: TRAMADOL HCL 50 MG TABLET PO ONE (09:45)
[2019-08-17] MEDS: MAGNESIUM SULFATE / D5W 1 GM/100 ML BAG IV SCH ×4 (10:49→13:59)
--- NOTE | 2019-08-17 12:08 | Hospitalist Progress Note ---
Date of Service August 17, 2019 Assessment & Plan (1) Pelvic fracture: Nonoperable fracture. Cont toe touch weight bearing on the left. She is currently unable to follow instruction from nursing or PT, so getting out of bed has been limited. Continue supportive care. Activity restrictions with toe- touch weightbearing only per Ortho. (2) Hepatic encephalopathy: Continues to be confused. Continue to titrate lactulose for 2-3 bowel movements a day. Will trend ammonia level intermittently. Appreciate GI recommendations. (3) Cirrhosis of liver: diuretics were restarted on 08/12. Cont above management. (4) Hyperbilirubinemia: 2/2 advanced cirrhosis, jaundice present. (5) Abdominal pain: resolved. (6) Thrombocytopenia: Improved to 80K after transfusion overnight. (7) Elevated INR (international normalized ratio): autoanticoagulated 2/2 advanced liver disease. Trend INR in am. Of note, DIC considered. Cont to monitor. (8) Anemia: 2/2 chronic disease. Stable. cont to monitor. (9) T2DM (type 2 diabetes mellitus): metformin held and will plan to discontinue this at discharge. Inpatient blood sugar is around goal. Cont BSG checks and Novolog with correction factor. (10) HTN (hypertension): around goal-cont Toprol XL, diuretics. (11) Hypomagnesemia: replace IV now that she has an IV in place. Repeat in am. (12) DVT prophylaxis: Autoanticoagulated 2/2 advanced liver disease. Contraindicated in setting of thrombocytopenia. SCDs DNR Dispo-to [place] when cognition and mental status improves Rosamaria Braswell DO [facility] Hospitalist Subjective confused, lethargic Review of Systems Review of Systems: Other (confusion) Physical Exam Physical Exam: CONSTITUTIONAL: WNWD, vitals as above, NAD, more fatigued and confused. Appears less anxious than yesterday. EYES: normal conjunctivae, +scleral icterus ENT: mucous membranes are moist RESPIRATORY: clear to auscultation bilaterally, no crackles, rales or wheezes, normal respiratory effort CARDIOVASCULAR: regular rate and rhythm, S1 and 2 heard without murmurs, gallops or rubs, no JVD, no peripheral edema GASTROINTESTINAL: soft, nontender, nondistended MUSCULOSKELETAL: some difficulty bending knees, appears anxious to do so, head is normocephalic and atraumatic, neck supple SKIN: warm and dry, large area of healing ecchymosis on posterior left leg, continues to improve. +jaundice NEUROLOGIC: no gross focal deficits, confusion, limited exam 2/2 this Results & Data Vital Signs (Past 12 Hours) Vital Signs Temp Pulse Resp BP Pulse Ox 08/17/19 07:59 36.2 C L 88 18 117/71 92 08/17/19 02:04 91 Laboratory Results Short CBC 08/17/19 Range/Units 08:11 WBC 6.15 (4.8-10.8) K/uL Hgb 8.6 L (12.0-16.0) g/dL Hct 25.7 L (37-47) % Plt Count 75 L (130-400) K/uL BMP 08/17/19 08:11 Sodium 138 Potassium 4.1 Chloride 107 Carbon Dioxide 25 BUN 11 Creatinine 0.68 Glucose 120 H Calcium 9.2 Liver Function 08/17/19 Range/Units 08:11 Total Bilirubin 7.9 H (0.2-1) mg/dl Direct Bilirubin 3.3 H (0-0.2) mg/dl AST 58 H (15-37) U/L ALT 34 (12-78) U/L Alkaline Phosphatase 127 H (45-117) U/L Albumin 2.6 L (3.4-5.0) gm/dl Medications Administered Current Inpatient Medications Acetaminophen (Tylenol) 325 mg PO Q6H PRN PRN Reason: Mild Pain Stop: 09/14/19 03:07 Dextrose (Dextrose 50%) 25 - 50 ml IV UD PRN; Protocol PRN Reason: Hypoglycemia Protocol Stop: 09/04/19 16:50 [facility] Stop: 09/11/19 09:44 Last Admin: 08/17/19 09:36 Dose: 20 mg Documented by: Glucagon (Glucagen) 1 mg SQ UD PRN; Protocol PRN Reason: Hypoglycemia Protocol Stop: 09/04/19 16:50 Glucose (Dex4 Glucose) 4 - 8 tabs PO UD PRN; Protocol PRN Reason: Hypoglycemia Protocol Stop: 09/04/19 16:50 Glucose (Glucose 40%) 15 - 30 gm PO UD PRN; Protocol PRN Reason: Hypoglycemia Protocol Stop: 09/04/19 16:50 Ceftriaxone Sodium 2,000 mg/ (Dextrose) 70 mls @ 100 mls/hr IV Q24H [facility]; Protocol Stop: 08/25/19 05:59 Last Infusion: 08/17/19 07:30 Dose: Infused Documented by: Magnesium Sulfate/Dextrose (Magnesium Sulfate / D5w) 1 gm in 100 mls @ 100 mls/hr IV Q1H [facility] Stop: 08/17/19 14:59 Last Admin: 08/17/19 11:58 Dose: 100 mls/hr Documented by: Insulin Aspart (Novolog Flexpen) 0 units SC ACHS [facility] Stop: 09/06/19 16:29 Last Admin: 08/16/19 21:49 Dose: 2 units Documented by: Ipratropium [place] (Atrovent 0.02% 0.5mg/2.5ml) 0.5 mg INH Q4H PRN PRN Reason: Shortness Of Breath Or Wheezin Stop: 09/09/19 21:44 Lactulose (Chronulac) 30 gm PO BID17 [facility] Stop: 09/15/19 16:59 Last Admin: 08/17/19 09:31 Dose: 30 gm Documented by: Levalbuterol HCl (Xopenex 1.25mg/0.5ml Neb) 1.25 mg INH Q4H PRN PRN Reason: Shortness Of Breath Or Wheezin Stop: 09/09/19 21:44 Magnesium Oxide (Mag-Ox) 400 mg PO BID [facility] Stop: 09/16/19 20:59 Metoprolol Succinate (Toprol Xl) 25 mg PO QAM [facility] Stop: 09/06/19 13:59 Last Admin: 08/17/19 09:36 Dose: 25 mg Documented by: Miscellaneous (Carbohydrates For Hypoglycemia) 15 - 30 gm PO UD PRN PRN Reason: Hypoglycemia Protocol Stop: 09/04/19 16:50 Morphine Sulfate (Morphine Sulfate) 2 mg IV Q6H PRN PRN Reason: Moderate Pain Stop: 08/29/19 17:04 Last Admin: 08/16/19 06:05 Dose: 2 mg Documented by: Polyethylene Glycol (Miralax Powder Packet) 17 gm PO DAILY PRN PRN Reason: Constipation Stop: 09/04/19 16:50 Last Admin: 08/14/19 12:06 Dose: 17 gm Documented by: Rifaximin (Xifaxan) 550 mg PO BID [facility] Stop: 09/07/19 20:59 Last Admin: 08/17/19 09:31 Dose: 550 mg Documented by: Spironolactone (Aldactone) 50 mg PO BID17 [facility] Stop: 09/11/19 09:44 Last Admin: 08/17/19 09:31 Dose: 50 mg Documented by: Tramadol HCl (Ultram) 50 mg PO Q8H [facility] Stop: 09/15/19 12:29 Last Admin: 08/17/19 06:28 Dose: Not Given Documented by: (1) Cirrhosis of liver Ascites presence: unspecified Hepatic cirrhosis type: unspecified hepatic cirrhosis Qualified Code(s): K74.60 - Unspecified cirrhosis of liver
[2019-08-17] MEDS: MAGNESIUM OXIDE 400 MG TAB PO SCH (21:17)
[2019-08-18] MEDS: cefTRIAXone SODIUM 2,000 MG in DEXTROSE 5% 50 ML IV SCH (06:02)
[2019-08-18] MEDS: TRAMADOL HCL 50 MG TABLET PO SCH ×2 (07:14→14:31)
[2019-08-18] MEDS: LACTULOSE SYRUP 30 GM/45 ML UDP PO SCH ×2 (08:53→18:14)
[2019-08-18] MEDS: FUROSEMIDE 20 MG TAB PO SCH (08:53)
[2019-08-18] MEDS: SPIRONOLACTONE 25 MG TAB PO SCH ×2 (08:53→18:13)
[2019-08-18] MEDS: INSULIN ASPART 100 UNITS/ML 3 ML PEN SC SCH ×4 (08:54→22:13)
[2019-08-18] MEDS: METOPROLOL SUCC 25MG EXT REL TAB PO SCH (08:54)
[2019-08-18] MEDS: MAGNESIUM OXIDE 400 MG TAB PO SCH ×2 (08:54→22:14)
[2019-08-18] MEDS: RIFAXIMIN 550 MG TABLET PO SCH ×2 (08:54→22:14)
--- NOTE | 2019-08-18 14:49 | Hospitalist Progress Note ---
Date of Service August 18, 2019 Assessment & Plan (1) Pelvic fracture: Nonoperable fracture. Cont toe touch weight bearing on the left. Mostly bedbound 2/2 confusion and fall risk. at bedside and updated. (2) Hepatic encephalopathy: Continues to be confused. Continue to titrate lactulose for 2-3 bowel movements a day. Will trend ammonia level intermittently. (3) Cirrhosis of liver: diuretics were restarted on 08/12. Cont above management. (4) Hyperbilirubinemia: 2/2 advanced cirrhosis, jaundice present. (5) Abdominal pain: resolved. (6) Thrombocytopenia: Improved after platelet transfusion (7) Elevated INR (international normalized ratio): autoanticoagulated 2/2 advanced liver disease. Trend INR in am. Of note, DIC considered. Cont to monitor. (8) Anemia: 2/2 chronic disease. Stable. cont to monitor. (9) T2DM (type 2 diabetes mellitus): metformin held and will plan to discontinue this at discharge. Inpatient blood sugar is around goal. Cont BSG checks and Novolog with correction factor. (10) HTN (hypertension): around goal-cont Toprol XL, diuretics. (11) Hypomagnesemia: continue replacement and repeat. (12) DVT prophylaxis: Autoanticoagulated 2/2 advanced liver disease. Contraindicated in setting of thrombocytopenia. SCDs DNR Dispo-to [place] when cognition and mental status improves Rosamaria Braswell DO [facility] Hospitalist Subjective confused, lethargic, denies pain. Difficult to converse with because of confusion and slurred speech Review of Systems Review of Systems: Unobtainable due to mental health condition (confusion) Physical Exam Physical Exam: CONSTITUTIONAL: WNWD, vitals as above, generally fatigued, confused EYES: normal conjunctivae, +scleral icterus ENT: mucous membranes are moist RESPIRATORY: clear to auscultation bilaterally, no crackles, rales or wheezes, normal respiratory effort CARDIOVASCULAR: regular rate and rhythm, S1 and 2 heard without murmurs, gallops or rubs, no JVD, no peripheral edema GASTROINTESTINAL: soft, nontender, nondistended MUSCULOSKELETAL: some difficulty bending knees, appears anxious to do so, head is normocephalic and atraumatic, neck supple SKIN: warm and dry, large area of healing ecchymosis on posterior left leg. NEUROLOGIC: no gross focal deficits, has reduced cognition, limited exam 2/2 this Results & Data Vital Signs (Past 12 Hours) Vital Signs Temp Pulse Resp BP Pulse Ox 08/18/19 07:02 36.3 C L 80 18 132/69 93 Medications Administered Current Inpatient Medications Acetaminophen (Tylenol) 325 mg PO Q6H PRN PRN Reason: Mild Pain Stop: 09/14/19 03:07 Last Admin: 08/17/19 19:28 Dose: 325 mg Documented by: Dextrose (Dextrose 50%) 25 - 50 ml IV UD PRN; Protocol PRN Reason: Hypoglycemia Protocol Stop: 09/04/19 16:50 Furosemide (Lasix) 20 mg PO QAM [facility] Stop: 09/11/19 09:44 Last Admin: 08/18/19 08:53 Dose: Not Given Documented by: Glucagon (Glucagen) 1 mg SQ UD PRN; Protocol PRN Reason: Hypoglycemia Protocol Stop: 09/04/19 16:50 Glucose (Dex4 Glucose) 4 - 8 tabs PO UD PRN; Protocol PRN Reason: Hypoglycemia Protocol Stop: 09/04/19 16:50 Glucose (Glucose 40%) 15 - 30 gm PO UD PRN; Protocol PRN Reason: Hypoglycemia Protocol Stop: 09/04/19 16:50 Insulin Aspart (Novolog Flexpen) 0 units SC ACHS [facility] Stop: 09/06/19 16:29 Last Admin: 08/18/19 14:26 Dose: Not Given Documented by: Ipratropium [place] (Atrovent 0.02% 0.5mg/2.5ml) 0.5 mg INH Q4H PRN PRN Reason: Shortness Of Breath Or Wheezin Stop: 09/09/19 21:44 Lactulose (Chronulac) 30 gm PO BID17 [facility] Stop: 09/15/19 16:59 Last Admin: 08/18/19 08:53 Dose: Not Given Documented by: Levalbuterol HCl (Xopenex 1.25mg/0.5ml Neb) 1.25 mg INH Q4H PRN PRN Reason: Shortness Of Breath Or Wheezin Stop: 09/09/19 21:44 Magnesium Oxide (Mag-Ox) 400 mg PO BID [facility] Stop: 09/16/19 20:59 Last Admin: 08/18/19 08:54 Dose: Not Given Documented by: Metoprolol Succinate (Toprol Xl) 25 mg PO QAM [facility] Stop: 09/06/19 13:59 Last Admin: 08/18/19 08:54 Dose: Not Given Documented by: Miscellaneous (Carbohydrates For Hypoglycemia) 15 - 30 gm PO UD PRN PRN Reason: Hypoglycemia Protocol Stop: 09/04/19 16:50 Morphine Sulfate (Morphine Sulfate) 2 mg IV Q6H PRN PRN Reason: Moderate Pain Stop: 08/29/19 17:04 Last Admin: 08/16/19 06:05 Dose: 2 mg Documented by: Polyethylene Glycol (Miralax Powder Packet) 17 gm PO DAILY PRN PRN Reason: Constipation Stop: 09/04/19 16:50 Last Admin: 08/14/19 12:06 Dose: 17 gm Documented by: Rifaximin (Xifaxan) 550 mg PO BID [facility] Stop: 09/07/19 20:59 Last Admin: 08/18/19 08:54 Dose: Not Given Documented by: Spironolactone (Aldactone) 50 mg PO BID17 [facility] Stop: 09/11/19 09:44 Last Admin: 08/18/19 08:53 Dose: Not Given Documented by: Tramadol HCl (Ultram) 50 mg PO Q8H [facility] Stop: 09/15/19 12:29 Last Admin: 08/18/19 14:31 Dose: 50 mg Documented by: (1) Cirrhosis of liver Ascites presence: unspecified Hepatic cirrhosis type: unspecified hepatic cirrhosis Qualified Code(s): K74.60 - Unspecified cirrhosis of liver
[2019-08-18] MEDS: MoRPHine SULFATE 2 MG/ML CARP IV PRN (18:24)
[2019-08-19] MEDS: TRAMADOL HCL 50 MG TABLET PO SCH ×4 (05:52→23:16)
[2019-08-19 09:08] LABS: Albumin Globulin Ratio 0.7 (0.9-2); Albumin Level 2.3 gm/dl (3.4-5.0); Bilirubin,Total 8.3 mg/dl (0.2-1); Calcium 9.1 mg/dl (8.5-10.1); Creatinine Clr Calc Pharmacy 80.8 ml/min; Est GFR (African American) 101.7; Est GFR (Non-African American) 87.7; Globulin 3.4 gm/dl (2.5-4.0); Magnesium 1.5 mg/dl (1.8-2.4); Potassium 4.2 mmol/L (3.5-5.1); Total Protein 5.7 gm/dl (6.4-8.2)
[2019-08-19] MEDS: LACTULOSE SYRUP 30 GM/45 ML UDP PO SCH ×3 (09:32→21:32)
[2019-08-19] MEDS: SPIRONOLACTONE 25 MG TAB PO SCH ×2 (09:32→21:31)
[2019-08-19] MEDS: RIFAXIMIN 550 MG TABLET PO SCH ×2 (09:33→21:32)
[2019-08-19] MEDS: MAGNESIUM OXIDE 400 MG TAB PO SCH ×2 (09:33→21:32)
[2019-08-19] MEDS: FUROSEMIDE 20 MG TAB PO SCH (09:33)
[2019-08-19] MEDS: METOPROLOL SUCC 25MG EXT REL TAB PO SCH (09:34)
[2019-08-19 09:39] LABS: Hematocrit (blood only) 26.3 % (37-47); Hemoglobin 8.8 g/dL (12.0-16.0); Mean Corpuscular Hemoglobin 36.1 pg (25-34); Mean Corpuscular Hgb Conc 33.5 g/dL (32-36); Mean Corpuscular Volume 107.8 fL (80-100); Mean Platelet Volume 10.4 fL (7.4-10.4); Platelet Count 73 K/uL (130-400); RDW Coefficient of Variation 22.8 % (11.5-14.5); RDW Standard Deviation 86.6 fL (36.4-46.3); Red Blood Count 2.44 M/uL (4.2-5.4); White Blood Count 7.09 K/uL (4.8-10.8)
[2019-08-19] MEDS: INSULIN ASPART 100 UNITS/ML 3 ML PEN SC SCH ×4 (09:44→21:34)
[2019-08-19 10:14] LABS: Anisocytosis Present; Basophils % (auto) 1.4 %; Eosinophils # (auto) 0.39 K/uL (0-0.5); Eosinophils % (auto) 5.5 %; Immature Granulocytes # (auto) 0.02 K/uL (0.00-0.02); Immature Granulocytes % (auto) 0.3 %; Lymphocytes # (auto) 1.22 K/uL (1.2-3.4); Lymphocytes % (auto) 17.2 %; Monocytes # (auto) 0.76 K/uL (0.11-0.59); Monocytes % (auto) 10.7 %; Neutrophils % (auto) 64.9 %; Platelet Estimate Decreased (Normal); Polychromasia 1+
--- NOTE | 2019-08-19 10:53 | Gastroenterology Progress Note ---
Date of Service August 19, 2019 Assessment & Plan (1) Cirrhosis of liver: 73 year old female with ETOH cirrhosis, last ETOH use was in April 2019 who was admitted with confusion, found to have a UTI. Was treated for urinary infection w/ ABX therapy, repeat urine culture was negative. At time of admission she also underwent blood culture, chest XR and head CT without any acute findings. She has had intermittent bouts of confusion since admission, has been refusing PO meds at time and suffered a fall w/ resultant nonoperable pelvic fracture. Confusion UTI treated --> urine culture negative blood culture negative Chest XR negative Head CT negative Noncompliant with her xifaxan, lactulose Skipped all PO meds 08/18/19 Last BM was 08/17/19 No asterixis on exam this afternoon Will continue xifaxan 550 BID Will increase lactulose to TID Ascites Scant, new Unable to tap No clinical signs of peritonitis Hepatic duplex Elevated TB Hepatic duplex MRCP Acute hep panel AFP No ETOH Less than 2G of tylenol containing products Low NA diet, less than 2G daily Continue current dosing of diuretics Electrolytes per primary service Will follow. Thank you for allowing us to participate in the care of this patient. Please call with any acute changes, questions or concerns. Please see addendum below with additional recommendation from my supervising physician. Supervising Physician Co-Signing Physician Notes I performed a history and physical examination of the patient, including specifically on physical exam - soft, nontender abdomen. I have discussed the patient's management with Lisa. Please refer to the nurse practitioner's note for the documented findings and plan of care. Continue Lactulose and Xifaxan, give rectally if refusing PO meds. No indication for ABx from GI standpoint. MRCP in view of worsening bilirubin but this is likely due to her decompensated cirrhosis. Alcohol cessation. Subjective GI asked to re-evaluate, persistently elevated LFTs, confusion. at bedside Pt was asleep upon arrival but woke to name She is oriented to self, not to location, time. aids in history. Admitted w/ HE, UTI which was treated. She has had documented clearance of UTI w/ a repeat urine culture. Chest XR, Blood culture and head CT were negative. She remains on Xifaxan 550 BID and lactulose BID. I did discuss with nursing - they state last BM was 08/17/19 and that she had refused all PO meds on 08/18/19 Last documented in the patient chart was 08/17/19. She did have a dose of lactulose this AM. Yet to move bowels. She denies any abdominal pain, nausea/vomiting. Pt notes she is not hungry and not eating much. Diagnosis: Alcoholic cirrhosis, last ETOH use was in April 2019 Decompensations: Varices: none HE: yes on lactulose, xifaxan Ascites: new, scant on CT Screenings: Varices: due HCC: November 2019 Immunizations: unknown Review of Systems Constitutional: + fatigue; no fever and no chills Respiratory: no cough and no dyspnea Cardiovascular: no chest pain and no dyspnea Gastrointestinal: no abdominal pain, no heartburn, no nausea, no blood in stools and no melena Physical Exam Constitutional: + ill appearing (chronically ill); no acute distress Eyes: scleral icterus Neck: trachea midline Respiratory: normal respiratory effort Cardiovascular: Rate/Rhythm: regular rate and regular rhythm Gastrointestinal (Abdomen): normal bowel sounds, soft, nontender, no hepatosplenomegaly Skin: + jaundice Neurologic: Motor/Sensory: no asterixis Results & Data Vital Signs (Past 12 Hours) Vital Signs Temp Pulse Pulse Resp BP Pulse Ox 08/19/19 08:00 36.9 C 92 H 20 131/64 90 08/18/19 23:53 36.5 C 93 H 14 132/68 91 (1) Cirrhosis of liver Ascites presence: unspecified Hepatic cirrhosis type: unspecified hepatic cirrhosis Qualified Code(s): K74.60 - Unspecified cirrhosis of liver
[2019-08-19] MEDS: MAGNESIUM SULFATE / D5W 1 GM/100 ML BAG IV SCH ×4 (11:38→18:34)
--- NOTE | 2019-08-19 13:37 | Ultrasound Report ---
US duplex portal hepatic veins CLINICAL HISTORY: cirrhosis, new ascites, elevated total bilirubin rule out portal vein thrombosis et c COMPARISON STUDY: Abdomen and pelvis CT 08/15/2019. FINDINGS: Near nondiagnostic evaluation of the portal vein due to patient motion. There is color flow identified within the expected location of the portal vein. Direction of flow is unobtainable on thi s study. IMPRESSION: Probable patent portal vein. However, this is not well visualized due to patient motion. This will be better assessed on the same day MRCP. ACT 112: Negative or not required by law. Electronically signed by: Enrike Pryor M.D. 08/19/2019 1:35 PM
--- NOTE | 2019-08-19 16:20 | Hospitalist Progress Note ---
Date of Service August 19, 2019 Assessment & Plan (1) Pelvic fracture: s/p fall on first day of admission. Ortho deemed nonoperable and she will remain toe touch weight bearing. Too confused to follow instructions so she is mostly laying in bed all day. Encourage ambulation as tolerated. (2) Hypomagnesemia: replace and continue chronic supplementation. (3) Anemia: chronic, stable. No need for transfusion at this time. (4) History of alcohol abuse: Pt reported to me that she hasn't drank in 5 years. However, per GI he told them in the office that he gives her alcohol. (5) Cirrhosis of liver: advanced. Not a transplant candidate at this time. Portal vein us ordered and negative. Additionally, they have ordered an MRI (6) Metabolic encephalopathy: persisitent (7) DVT prophylaxis: SCDs DNR/DNI DNR Dispo-uncertain at this time as she remains confused. Rosamaria Braswell DO [facility] Hospitalist Subjective Confused, denies pain, afebrile. Discussed with GI the likelihood of transplant with MELD 21, and they confirmed she has been drinking alcohol in the last year. They went by and spoke with the patient and her about this today. Review of Systems Review of Systems: All systems reviewed & are unremarkable except as noted in HPI & below Physical Exam Physical Exam: CONSTITUTIONAL: WNWD, vitals as above, generally fatigued, confused EYES: normal conjunctivae, +scleral icterus ENT: mucous membranes are moist RESPIRATORY: clear to auscultation bilaterally, no crackles, rales or wheezes, normal respiratory effort CARDIOVASCULAR: regular rate and rhythm, S1 and 2 heard without murmurs, gallops or rubs, no JVD, no peripheral edema GASTROINTESTINAL: soft, nontender, nondistended MUSCULOSKELETAL: some difficulty bending knees, appears anxious to do so, head is normocephalic and atraumatic, neck supple SKIN: warm and dry, large area of healing ecchymosis on posterior left leg. NEUROLOGIC: no gross focal deficits, has reduced cognition, limited exam 2/2 this Results & Data Vital Signs (Past 12 Hours) Vital Signs Temp Pulse Pulse Resp BP Pulse Ox 08/19/19 15:48 36.6 C 90 20 136/69 90 08/19/19 08:00 36.9 C 92 H 20 131/64 90 Laboratory Results Short CBC 08/19/19 Range/Units 08:31 WBC 7.09 (4.8-10.8) K/uL Hgb 8.8 L (12.0-16.0) g/dL Hct 26.3 L (37-47) % Plt Count 73 L (130-400) K/uL BMP 08/19/19 08:31 Sodium 138 Potassium 4.2 Chloride 106 Carbon Dioxide 28 BUN 12 Creatinine 0.63 Glucose 98 Calcium 9.1 Liver Function 08/19/19 Range/Units 08:31 Total Bilirubin 8.3 H (0.2-1) mg/dl AST 52 H (15-37) U/L ALT 30 (12-78) U/L Alkaline Phosphatase 158 H (45-117) U/L Albumin 2.3 L (3.4-5.0) gm/dl Medications Administered Current Inpatient Medications Acetaminophen (Tylenol) 325 mg PO Q6H PRN PRN Reason: Mild Pain Stop: 09/14/19 03:07 Last Admin: 08/17/19 19:28 Dose: 325 mg Documented by: Dextrose (Dextrose 50%) 25 - 50 ml IV UD PRN; Protocol PRN Reason: Hypoglycemia Protocol Stop: 09/04/19 16:50 [facility]Lasix) [facility] [place] Stop: 09/11/19 09:44 Last Admin: 08/19/19 09:33 Dose: 20 mg Documented by: Glucagon (Glucagen) 1 mg SQ UD PRN; Protocol PRN Reason: Hypoglycemia Protocol Stop: 09/04/19 16:50 Glucose (Dex4 Glucose) 4 - 8 tabs PO UD PRN; Protocol PRN Reason: Hypoglycemia Protocol Stop: 09/04/19 16:50 Glucose (Glucose 40%) 15 - 30 gm PO UD PRN; Protocol PRN Reason: Hypoglycemia Protocol Stop: 09/04/19 16:50 Insulin Aspart (Novolog Flexpen) 0 units SC ACHS [facility] Stop: 09/06/19 16:29 Last Admin: 08/19/19 15:20 Dose: Not Given Documented by: Ipratropium Butler (Atrovent 0.02% 0.5mg/2.5ml) 0.5 mg INH Q4H PRN PRN Reason: Shortness Of Breath Or Wheezin Stop: 09/09/19 21:44 Lactulose (Chronulac) 30 gm PO TID [facility] Stop: 09/18/19 13:59 Last Admin: 08/19/19 15:49 Dose: Not Given Documented by: Levalbuterol HCl (Xopenex 1.25mg/0.5ml Neb) 1.25 mg INH Q4H PRN PRN Reason: Shortness Of Breath Or Wheezin Stop: 09/09/19 21:44 Magnesium Oxide (Mag-Ox) 400 mg PO BID [facility] Stop: 09/16/19 20:59 Last Admin: 08/19/19 09:33 Dose: 400 mg Documented by: Metoprolol Succinate (Toprol Xl) 25 mg PO QAM [facility] Stop: 09/06/19 13:59 Last Admin: 08/19/19 09:34 Dose: 25 mg Documented by: Miscellaneous (Carbohydrates For Hypoglycemia) 15 - 30 gm PO UD PRN PRN Reason: Hypoglycemia Protocol Stop: 09/04/19 16:50 Morphine Sulfate (Morphine Sulfate) 2 mg IV Q6H PRN PRN Reason: Moderate Pain Stop: 08/29/19 17:04 Last Admin: 08/18/19 18:24 Dose: 2 mg Documented by: Polyethylene Glycol (Miralax Powder Packet) 17 gm PO DAILY PRN PRN Reason: Constipation Stop: 09/04/19 16:50 Last Admin: 08/14/19 12:06 Dose: 17 gm Documented by: Rifaximin (Xifaxan) 550 mg PO BID [facility] Stop: 09/07/19 20:59 Last Admin: 08/19/19 09:33 Dose: 550 mg Documented by: Spironolactone (Aldactone) 50 mg PO BID17 [facility] Stop: 09/11/19 09:44 Last Admin: 08/19/19 09:32 Dose: 50 mg Documented by: Tramadol HCl (Ultram) 50 mg PO Q8H [facility] Stop: 09/15/19 12:29 Last Admin: 08/19/19 13:57 Dose: 50 mg Documented by: (1) Cirrhosis of liver Ascites presence: unspecified Hepatic cirrhosis type: unspecified hepatic cirrhosis Qualified Code(s): K74.60 - Unspecified cirrhosis of liver
[2019-08-19] MEDS ORDERED: LORazepam 0.5 MG/1 ML VIAL IV PRN (17:41)
--- NOTE | 2019-08-19 22:05 | Magnetic Resonance Report ---
Study: MRCP COMPARISON: 03/05/2013 HISTORY: Cirrhosis. FINDINGS: Mild fatty replacement of liver. Mild hepatic cirrhosis. Mild splenomegaly. Several small u pper abdominal varices. Moderate edematous change surrounding the gallbladder similar as compared to the prior study. The MRCP component of the study is essentially nondiagnostic due to patient respiratory and somatic m otion. Kidneys are negative for hydronephrosis. IMPRESSION: 1. Limited study due to patient respiratory and somatic motion. 2. Hepatic cirrhosis with fatty replacement of the liver. 3. Trace perihepatic ascites with a mild degree of edematous changes surrounding the gallbladder. 4. Nondiagnostic evaluation of the biliary ductal system on the MRCP component of the exam. 5. No significant space-occupying lesion of the liver is appreciated. Electronically signed by: Alfredo Telles M.D. 08/19/2019 10:04 PM
[2019-08-20] MEDS: TRAMADOL HCL 50 MG TABLET PO SCH ×2 (06:36→14:47)
[2019-08-20] MEDS: RIFAXIMIN 550 MG TABLET PO SCH ×2 (09:22→21:35)
[2019-08-20] MEDS: SPIRONOLACTONE 25 MG TAB PO SCH ×2 (09:23→20:06)
[2019-08-20] MEDS: MAGNESIUM OXIDE 400 MG TAB PO SCH (09:23)
[2019-08-20] MEDS: METOPROLOL SUCC 25MG EXT REL TAB PO SCH (09:23)
--- NOTE | 2019-08-20 09:23 | Gastroenterology Progress Note ---
Date of Service August 20, 2019 Assessment & Plan (1) Cirrhosis of liver: 73 year old female with ETOH cirrhosis, last ETOH use was in April 2019 who was admitted with confusion, found to have a UTI. Was treated for urinary infection w/ ABX therapy, repeat urine culture was negative. At time of admission she also underwent blood culture, chest XR and head CT without any acute findings. She has had intermittent bouts of confusion since admission, has been refusing PO meds at time and suffered a fall w/ resultant nonoperable pelvic fracture. AM labs pending. Duplex and MRCP nondiagnostic but without any overt abnormalities appreciated - her TB is likely elevated secondary to decompensated cirrhosis. Would continue therapy for HE with the addition of enema if she is refusing PO intake. At this point in time, family had ongoing concerns about transplantation services - her last ETOH intake was in April and would not likely meet sobriety requirements but could always refer for transplant services as an OP Confusion UTI treated --> urine culture negative blood culture negative Chest XR negative Head CT negative Noncompliant with her xifaxan, lactulose Skipped all PO meds 08/18/19 Last BM was 08/17/19 No asterixis on exam this afternoon Will continue xifaxan 550 BID Will increase lactulose to TID Please administer lactulose enema if she is refusing PO Ascites Scant, new Unable to tap No clinical signs of peritonitis Hepatic duplex nondiagnostic Elevated TB Hepatic duplex nondiagnostic MRCP nondiagnostic Acute hep panel AFP No ETOH Less than 2G of tylenol containing products Low NA diet, less than 2G daily Continue current dosing of diuretics Electrolytes per primary service Will sign off. Thank you for allowing us to participate in the care of this patient. Please call with any acute changes, questions or concerns. Please see addendum below with additional recommendation from my supervising physician. Supervising Physician Co-Signing Physician Notes I have discussed the patient's management with Lisa. Please refer to the nurse practitioner's note for the documented findings and plan of care. Subjective Pt was seen and evaluated, chart reviewed No family at bedside Pt is sleeping but awakens to name She is oriented to person but not place or time Offers no complaints No abd pain No nausea, vomiting Moved bowels yesterday MRCP and duplex nondiagnostic but without any obvious abnormalities Review of Systems Constitutional: no fever and no chills Respiratory: no cough and no dyspnea Cardiovascular: no chest pain Gastrointestinal: no abdominal pain and no melena Physical Exam Constitutional: + ill appearing Neck: trachea midline Respiratory: normal respiratory effort Cardiovascular: Rate/Rhythm: regular rhythm Gastrointestinal (Abdomen): normal bowel sounds, soft, nontender, no hepatosplenomegaly Skin: + jaundice Results & Data Vital Signs (Past 12 Hours) Vital Signs Temp Pulse Resp BP Pulse Ox 08/20/19 07:38 36.7 C 88 21 117/59 L 91 08/19/19 23:24 36.3 C L 87 16 117/65 92 (1) Cirrhosis of liver Ascites presence: unspecified Hepatic cirrhosis type: unspecified hepatic cirrhosis Qualified Code(s): K74.60 - Unspecified cirrhosis of liver
[2019-08-20] MEDS: FUROSEMIDE 20 MG TAB PO SCH (09:24)
[2019-08-20] MEDS: LACTULOSE SYRUP 30 GM/45 ML UDP PO SCH ×2 (09:35→13:25)
[2019-08-20] MEDS: INSULIN ASPART 100 UNITS/ML 3 ML PEN SC SCH ×3 (09:40→20:42)
--- NOTE | 2019-08-20 15:27 | Hospitalist Progress Note ---
Date of Service August 20, 2019 Assessment & Plan (1) Metabolic encephalopathy: ongoing confusion /hepatic encephalopathy : not able to take lactulose for altered mental status ordered for Lactulose enema having occasional agitation , unable to verbalize pain or discomfort per Discussion with wants pt to be comfortable Pain medications /Morphine dose can be liberalized for comfort care (2) Pelvic fracture: s/p fall Nonoperable fracture. appreciate ortho eval pt remains bedbound due to altered mental status pain medication was given in limited dose due to confusion /encephalopathy leaning to comfort care does not pt to suffer in pain IV morphine ordered PRN (3) History of alcohol abuse: hx of retirement ETOH abuse leading to liver cirrhosis presented with decompensated liver failure /hepatic encephalopathy - HIgh MELD score 21 , not a candidate for transplant eval -due to recent abuse of ETOH ( needs complete abstinence for at least 1 yr ) GI eval appreciated pt appears to be dry , not able to eat or drink /not been able to take any PO meds including Lactulose will hold Lasix and Aldactone overall prognosis remains very poor , comfort care /hospice consideration appropriate (4) Cirrhosis of liver: advanced. Not a transplant candidate at this time. Portal vein us ordered and negative. palliative care involved CODE STATUS ; DNR/DNI Subjective Patient remains confused, agitated, severely encephalopathic, screaming occasionally Unable to verbalize any specific complaint Per nursing patient has been refusing all her meds, refused all drink and meals present at bedside, Feels mental status hollins patient has been declining further Understands overall prognosis remains poor, due to advanced liver disease, hip fracture, nonoperable case Does not want her to suffer Wants her to be comfortable, care transitioned to comfort only pain medication liberalized, Patient was unable to take p.o. lactulose, leading to worsening of encephalopathy, per rectal lactulose enema ordered to be given if patient is able to tolerate willing for the palliative care consult Palliative care consult placed Review of Systems Review of Systems: Unobtainable due to cognitive status and Unobtainable due to reduced consciousness Physical Exam Constitutional: + ill appearing and + altered mental status (In encephalopathic but delirious) Deeply icteric, with confusion, altered mental status Eyes: + scleral abnormality (Deeply icteric sclera) ENMT: Very dry oral mucous membrane Respiratory: Bibasilar wheeze noted Cardiovascular: Regular, no lower extremity edema noted Gastrointestinal (Abdomen): Soft, distended, diminished bowel sound Skin: + jaundice Neurologic: Confused, agitated, unable to follow command Results & Data Vital Signs (Past 12 Hours) Vital Signs Temp Pulse Resp BP BP Pulse Ox 08/20/19 15:18 36.9 C 87 20 157/69 H 92 08/20/19 07:38 36.7 C 88 21 117/59 L 91 (1) Cirrhosis of liver Ascites presence: unspecified Hepatic cirrhosis type: unspecified hepatic cirrhosis Qualified Code(s): K74.60 - Unspecified cirrhosis of liver
[2019-08-20] MEDS ORDERED: ONDANSETRON 4 MG OD TAB SL PRN (17:39)
[2019-08-20] MEDS ORDERED: ACETAMINOPHEN 650 MG SUPP PR PRN (17:39)
[2019-08-20] MEDS ORDERED: ONDANSETRON INJ 2 MG/ML 2 ML VIAL IV PRN (17:39)
[2019-08-20] MEDS ORDERED: LORazepam 0.5 MG TAB PO PRN (17:39)
[2019-08-20] MEDS ORDERED: PROMETHAZINE HCL 12.5 MG in SODIUM CHLORIDE 0.9% 50 ML IV PRN (17:39)
[2019-08-20] MEDS: LACTULOSE 200 GM, WATER, STERILE IRRIG 700 ML, BARCODE IDENTIFIER 1 EA PR SCH (18:47)
[2019-08-20] MEDS: MoRPHine SULFATE 2 MG/ML CARP IV PRN (20:15)
[2019-08-20] MEDS: LORazepam 0.5 MG/1 ML VIAL IV PRN (21:34)
[2019-08-21] MEDS: MoRPHine SULFATE 2 MG/ML CARP IV PRN ×2 (05:32→11:51)
[2019-08-21] MEDS: LACTULOSE 200 GM, WATER, STERILE IRRIG 700 ML, BARCODE IDENTIFIER 1 EA PR SCH ×2 (05:33→15:18)
[2019-08-21] MEDS: RIFAXIMIN 550 MG TABLET PO SCH ×2 (09:41→21:52)
[2019-08-21] MEDS: METOPROLOL SUCC 25MG EXT REL TAB PO SCH (09:41)
--- NOTE | 2019-08-21 11:03 | Palliative Care Consultation ---
Date of Consultation August 21, 2019 Assessment & Plan (1) Comfort measures only status: -73 year old female patient with PMH alcoholic cirrhosis, dementia in setting of alcohol abuse, chronic thrombocytopenia, elevated INR in setting of cirrhosis, HTN, HLD, depression, CVA, and others, presented to the hospital 17 days ago with c/o increased confusion per her and son. On admission, patient was found to have ammonia level of 137-- apparently she was taking less than the recommended dose at home. Her platelet count was 2, INR 1.8, total bilirubin 7.8. CT head showed microvascular changes but nothing acute. Patient was admitted with hepatic encephalopathy and decompensated liver cirrhosis. Patient was initially treated with lactulose enemas, it was attempted to switch to oral lactulose but patient was coughing with oral intake likely due to her lethargy and poor mental status, so it was switched back to enemas. Lactulose was titrated for patient to have 3-4 bowel movements a day. Patient also treated for possible UTI and for risk of SBP-- finished course and they were d iscontinued. On 08/11, patient seemed to be improving as far as mental status, the were attempting to get patient up and moving and waiting for PT/OT consults. However, she continued to have waxing and waning of her ammonia level and confusion continued. On 08/15 patient was c/o increased abdominal pain. CT abd/pelvis was completed which showed ascites and incidental finding of left ischial tuberosity fracture. There were not enough ascites to have drained via paracentesis. Ortho was consulted and the patient's pelvic fracture was deemed inoperable. GI has also been following for the liver disease and state that since patient's last alcohol intake was in April 2019, she likely would not meet the sobriety requirements for liver transplant. Patient unfortunately has not been able to make significant recovery during this prolonged and complicated hospital stay. Her platelet count has also been an issue-- has required platelet transfusions throughout her stay. Prognosis is quite poor with the decompensated liver failure as well as this nonoperable pelvic fracture. On 08/20, hospitalist discussed with patient's Kristina and the decision was made to transition to comfort measures only. Palliative care is consulted. -Met with patient and her , Kristina, in room 377. Patient was sleeping soundly when I entered. Upon waking her up, she is extremely lethargic and confused. Crying and yelling out, although when I asked if she was having pain or discomfort she said "no" several times. She did not recognize her , or at least could not articulate his name, but he states earlier this morning she woke up and said "My liver is bad and I'm sorry about that." -Kristina states that the goal is strictly for comfort at this time. He stats he could not take the patient home even with hospice. If she gets to the point of stabilizing on comfort medications, he would be willing to discuss SNF placement for comfort/hospice. -Kristina asked about prognosis. I stated that it is difficult to predict, but given her decline in the last 17 days, reading through her history, looking at her lab values over time, as well as her deteriorating mental mental status and physical condition, my best estimate would be days to weeks. She is eating very little, only sips and bites of soft foods here and there. She has only eaten half a bowel of oatmeal and a few bites of ice cream in the last three days per the . He was asking if he should call family who is out of town and I encouraged him to do so. -Patient has Roxanol, IV morphine, SL and IV lorazepam ordered. I would try to use the sublingual medications first and see if patient can be managed that way in case we do find a window of time to transfer her out of the hospital. -PPS 20%. We will continue to follow for comfort care. (2) Cirrhosis of liver: Ascites presence: unspecified Hepatic cirrhosis type: unspecified hepatic cirrhosis Qualified Code(s): K74.60 - Unspecified cirrhosis of liver (3) Hepatic encephalopathy: (4) Pelvic fracture: History of Present Illness Attending Physician: Jeannine Mendez MD History of Present Illness This 73 year old female patient with PMH alcoholic cirrhosis, dementia in setting of alcohol abuse, chronic thrombocytopenia, elevated INR in setting of cirrhosis, HTN, HLD, depression, CVA, and others, presented to the hospital 17 days ago with c/o increased confusion per her and son. On admission, patient was found to have ammonia level of 137-- apparently she was taking less than the recommended dose at home. Her platelet count was 2, INR 1.8, total bilirubin 7.8. CT head showed microvascular changes but nothing acute. Patient was admitted with hepatic encephalopathy and decompensated liver cirrhosis. Patient was initially treated with lactulose enemas, it was attempted to switch to oral lactulose but patient was coughing with oral intake likely due to her lethargy and poor mental status, so it was switched back to enemas. Lactulose was titrated for patient to have 3-4 bowel movements a day. Patient also treated for possible UTI and for risk of SBP-- finished course and they were discontinued. On 08/11, patient seemed to be improving as far as mental status, the were attempting to get patient up and moving and waiting for PT/OT consults. However, she continued to have waxing and waning of her ammonia level and confusion continued. On 08/15 patient was c/o increased abdominal pain. CT abd/pelvis was completed which showed ascites and incidental finding of left ischial tuberosity fracture. There were not enough ascites to have drained via paracentesis. Ortho was consulted and the patient's pelvic fracture was deemed inoperable. GI has also been following for the liver disease and state that since patient's last alcohol intake was in April 2019, she likely would not meet the sobriety requirements for liver transplant. Patient unfortunately has not been able to make significant recovery during this prolonged and complicated hospital stay. Her platelet count has also been an issue-- has required platelet transfusions throughout her stay. Prognosis is quite poor with the decompensated liver failure as well as this nonoperable pelvic fracture. On 08/20, hospitalist discussed with patient's Kristina and the decision was made to transition to comfort measures only. Palliative care is consulted. Thank you kindly for this consult. Palliative care team will follow as needed. Allergies Allergy/AdvReac Type Severity Reaction Status Date / Time TAMAR Inhibitors AdvReac Mild PALPITATIONS Verified 08/05/19 13:57 (BUT TAKES LISINOPRIL) hydrocodone AdvReac Mild HEART Verified 08/05/19 13:57 RACING meperidine AdvReac Mild SEVERE GI Verified 08/05/19 13:57 oxycodone AdvReac Mild DEPRESSION Verified 08/05/19 13:57 ranitidine AdvReac Mild DIZZINESS Verified 08/05/19 13:57 Sulfa (Sulfonamide AdvReac Mild "SULFA Verified 08/05/19 13:57 Antibiotics) DRUGS": SEVERE GI Home Medications Home Medications Medication Instructions Recorded Confirmed Type ascorbic acid (vitamin C) 1 g PO DAILY 08/05/19 08/05/19 History calcium carbonate-vitamin D3 1 tab PO BID 08/05/19 08/05/19 History [Calcium 500 + D] furosemide 20 mg PO DAILY 08/05/19 08/05/19 History glucos sul [id number] 1 cap PO DAILY 08/05/19 08/05/19 History [Glucosamine Chondroitin] lactulose 20 g PO BID PRN 08/05/19 08/05/19 History metformin 1,000 mg PO DAILY 08/05/19 08/05/19 History metoprolol succinate 25 mg PO DAILY 08/05/19 08/05/19 History multivitamin 1 tab PO DAILY 08/05/19 08/05/19 History omeprazole 20 mg PO BID 08/05/19 08/05/19 History rifaximin [Xifaxan] 550 mg PO BID 08/05/19 08/05/19 History spironolactone 50 mg PO BID 08/05/19 08/05/19 History thiamine HCl (vitamin B1) 100 mg PO DAILY 08/05/19 08/05/19 History tramadol 50 mg PO Q6 PRN 08/05/19 08/05/19 History white petrolatum-mineral oil 0.25 inch OPHTHALMIC (EYE) HS PRN 08/05/19 08/05/19 History [Artificial Tears (murray/min)] zinc sulfate 220 mg PO BID 08/05/19 08/05/19 History Patient History Medical History Alcoholic cirrhosis (Chronic) Asthma with COPD (Chronic) Bakers cyst (Chronic) "removed" CVA (cerebral vascular accident) (Chronic) Diverticulosis (Chronic) Dyslipidemia (Chronic) GERD (gastroesophageal reflux disease) (Chronic) Heel spur (Chronic) "removed" HTN (hypertension) (Chronic) Osteoarthritis (Chronic) Osteoporosis (Chronic) T2DM (type 2 diabetes mellitus) Thrombocytopenia (Chronic) 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) "urine" Surgical History H/O Achilles tendon repair (Chronic) H/O arthroscopic knee surgery (Chronic) H/O hemorrhoidectomy (Chronic) H/O inguinal hernia repair (Chronic) H/O tubal ligation (Chronic) History of partial colectomy (Chronic) "sigmoid" Family History Other No pertinent family history in first degree relatives Social History (Updated 08/05/19 @ 15:01 by Diana Sharif PA-C) Communication Ability: Impaired Beliefs That Will Affect Care: None marital status: Current Living Situation: Spouse 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 Other Information That Helps Us Care for You: No Feels Safe at Home: Yes Smoking Status: Former smoker Hx Alcohol Use: No Hx Substance Use: No Review of Systems Review of Systems: Unobtainable due to cognitive status Physical Exam Constitutional: + ill appearing; + uncomfortable Eyes: bilateral icterus ENMT: Mouth: + dry oral mucous membranes Respiratory: normal respiratory effort Auscultation: + diminished lung sounds Cardiovascular: RRR, no murmur, no edema Gastrointestinal (Abdomen): Inspection/Auscultation: + abdomen distended and normal bowel sounds Percussion/Palpation: + abdomen tender and abdomen soft Skin: + jaundice Neurologic: + confused Psychiatric: Orientation: + not oriented x 3 Time Spent Midlevel 70 minutes with >50% of the time spent at bedside with patient and family discussing comfort measures and symptom management.
[2019-08-21] MEDS: MoRPHine SULFATE 5 MG/0.25 ML UDP PO PRN (14:35)
--- NOTE | 2019-08-21 17:49 | Hospitalist Progress Note ---
Date of Service August 21, 2019 Assessment & Plan (1) Comfort measures only status: over all prognosis remains poor care transitioned to hospice /comfort care per 's request appreciate input from Palliative care team (2) Metabolic encephalopathy: due to hyperbilirubinemia , hepatic encephalopahty , dehydration over all prognosis remains extremely poor hospice , comfort care appropriate (3) Pelvic fracture: non operative pt continues to scream , delerious liberal pain medication , morphine can be utilized as care is focused to comfort only pt appears to be comfortable with current pain regimen (4) Hepatic encephalopathy: hx of [facility] alchohol abuse , alcholoic liver disease -END stage, high MELD score > 20 suggestive of. very poor outcome not a canditate for liver transplant on comfort care now DNR/DNI Subjective pt remains confused , less agitated , getting PRN ativan and morphine on comfort care now over all prognosis is very poor Review of Systems Review of Systems: Unobtainable due to cognitive status Physical Exam Constitutional: + ill appearing and + altered mental status Respiratory: normal respiratory effort Skin: + jaundice
[2019-08-22] MEDS: MoRPHine SULFATE 5 MG/0.25 ML UDP PO PRN ×3 (06:57→13:02)
[2019-08-22] MEDS: LORazepam 0.5 MG/1 ML VIAL IV PRN ×2 (08:24→13:17)
[2019-08-22] MEDS: RIFAXIMIN 550 MG TABLET PO SCH ×2 (09:18→21:03)
[2019-08-22] MEDS: METOPROLOL SUCC 25MG EXT REL TAB PO SCH (09:19)
--- NOTE | 2019-08-22 09:48 | Palliative Care Progress Note ---
Date of Service August 22, 2019 Assessment & Plan (1) Comfort measures only status: -Met with patient in her room. No family members were at the bedside. Patient was moaning and restless with facial grimacing when I entered the room. -After Palliative discussion yesterday, goal is to focus fully on comfort measures only. Roxanol and Ativan both PO and IV are available for use. -She has utilized 2 doses of Roxanol this morning, I spoke with nursing and encouraged administration since she was agitated and moaning with facial grimacing. -Patient is tachycardic on exam as well, likely related to pain/discomfort. Pt has equal and unlabored breathing. No mottling noted. Patient appears afebrile. -Patient has not eaten breakfast. -Continued to encourage utilizing oral and sublingual medications first and see if patient can be managed that way in case we do find a window of time to transfer her out of the hospital. -It does not appear that the patient will NOT pass away over the next few days, she is still producing urine, no signs of mottling and is still responsive, with equal breathing and no signs of apnea. Of course, this could change at any time. Would assess prior to discharge for the aforementioned signs if discharge is planned for this weekend. -PPS 20%. -We will continue to follow for comfort care. (2) Cirrhosis of liver: (3) Hepatic encephalopathy: (4) Pelvic fracture: Subjective Ms. Bass remains confused, restless, moaning. 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 Plan for D/C to SNF this weekend if pt remains stable. Utilizing few doses of Roxanol and Ativan Please see A/P for assessment criteria to consider if weekend discharge planned. Review of Systems Review of Systems: Unobtainable due to cognitive status Physical Exam Constitutional: + ill appearing; + uncomfortable ENMT: Mouth: + dry oral mucous membranes Respiratory: normal respiratory effort Auscultation: + diminished lung sounds Cardiovascular: RRR, no murmur, no edema Gastrointestinal (Abdomen): Inspection/Auscultation: + abdomen distended and normal bowel sounds Percussion/Palpation: + abdomen tender and abdomen soft Skin: + jaundice Neurologic: + confused Psychiatric: Orientation: + not oriented x 3 Genitourinary: indwelling sharif catheter in place, dark yellow urine PG Care Time/CCT Total # of Minutes Spent Total Time Spent with Patient: Total time spent is greater than 50% in coordination of care (as documented) at patient's floor/unit and/or counseling patient: 35 Coding Level of Care Code 83169 Subseq Hosp Care Lvl 3 Diagnoses Comfort measures only status Z51.5 Cirrhosis of liver K74.60 Ascites presence: unspecified Hepatic cirrhosis type: unspecified hepatic cirrhosis Hepatic encephalopathy K72.90 Pelvic fracture S32.9XXA Time Spent (min) 35 Time Spent Midlevel Total time spent 35 minutes with > 50% of that time spent assessing the patient, discussing symptom management with the nursing staff. (1) Cirrhosis of liver Ascites presence: unspecified Hepatic cirrhosis type: unspecified hepatic cirrhosis Qualified Code(s): K74.60 - Unspecified cirrhosis of liver
--- NOTE | 2019-08-22 16:57 | Hospitalist Progress Note ---
Date of Service August 22, 2019 Assessment & Plan (1) Comfort measures only status: over all prognosis remains poor care transitioned to hospice /comfort care per 's request appreciate input from Palliative care team [facility] if pt remains stable over the weekend (2) Metabolic encephalopathy: due to hyperbilirubinemia , hepatic encephalopahty , dehydration over all prognosis remains extremely poor hospice , comfort care appropriate (3) Pelvic fracture: non operative pt continues to scream , delerious liberal pain medication , morphine can be utilized as care is focused to comfort only pt appears to be comfortable with current pain regimen (4) Hepatic encephalopathy: 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 very poor outcome not a canditate for liver transplant on comfort care now DNR/DNI Subjective remains obtunded , sedated during my interview on comfort care /hospice with poor prognosis. required few doses of Roxanol and Ativan palliative care following Review of Systems Review of Systems: Unobtainable due to reduced consciousness Physical Exam Constitutional: + ill appearing and + altered mental status Eyes: + scleral abnormality (Deeply icteric sclera) Respiratory: normal respiratory effort Skin: + jaundice
[2019-08-23] MEDS: MoRPHine SULFATE 2 MG/ML CARP IV PRN (06:37)
[2019-08-23] MEDS: MoRPHine SULFATE 5 MG/0.25 ML UDP PO PRN ×2 (09:26→18:00)
--- NOTE | 2019-08-23 11:00 | Hospitalist Progress Note ---
Date of Service August 23, 2019 Assessment & Plan (1) Comfort measures only status: over all prognosis remains poor care transitioned to hospice /comfort care per 's request appreciate input from Palliative care team plan to [facility] with hospice if pt remains stable over the weekend (2) Metabolic encephalopathy: due to hyperbilirubinemia , hepatic encephalopahty , dehydration over all prognosis remains extremely poor hospice , comfort care appropriate (3) Pelvic fracture: non operative pt continues to scream , delerious liberal pain medication , morphine can be utilized as care is focused to comfort only pt appears to be comfortable with current pain regimen (4) Hepatic encephalopathy: 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 very poor outcome not a canditate for liver transplant on comfort care now DNR/DNI Subjective obtunded ,breathing with mouth open deeply jaundiced skin present at bedside mentioned that pt opened her eyes few times , no recognition of person eyes half open noted , sclera deeply icteric Physical Exam Constitutional: + ill appearing and + altered mental status Eyes: + scleral abnormality (Deeply icteric sclera) Respiratory: normal respiratory effort Skin: + jaundice
[2019-08-24] MEDS: MoRPHine SULFATE 5 MG/0.25 ML UDP PO PRN (10:24)
--- NOTE | 2019-08-24 10:56 | Hospitalist Progress Note ---
Date of Service August 24, 2019 Assessment & Plan (1) Comfort measures only status: over all prognosis remains poor care transitioned to hospice /comfort care per 's request appreciate input from Palliative care team P.o. Roxanol, IV morphine dose and frequency increased as patient was showing sign of discomfort Appears to be sedated with current change of pain medications We will continue to monitor, If requires more frequent IV morphine/patient remains agitated, uncomfortable with intermittent pain medication, IV continuous morphine drip can be considered, but at present current regimen appears to be adequate to control symptoms (2) Metabolic encephalopathy: due to hyperbilirubinemia , hepatic encephalopahty , dehydration over all prognosis remains extremely poor hospice , comfort care appropriate (3) Pelvic fracture: non operative liberal pain medication , morphine is utilized as care is focused to comfort only (4) Hepatic encephalopathy: 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 very poor outcome not a canditate for liver transplant on comfort care now plan to transition to [facility] with hospice if pt remains stable over the weekend DNR/DNI Subjective Patient was having episodes of agitation, noted to be moaning Given p.o. Roxanol by nursing, repeat dose of IV morphine given as well, Patient continues to Show sign of discomfort Roxanol dose increased to 10 mg p.o. every 2 hours as needed IV morphine 1 mg every 1 hour as needed Patient appears to be sedated after repeat dose of IV morphine, Multiple family members present at bedside Review of Systems Review of Systems: Unobtainable due to reduced consciousness Physical Exam Constitutional: + ill appearing and + altered mental status Eyes: + scleral abnormality (Deeply icteric sclera) Skin: + jaundice
[2019-08-24] MEDS: MoRPHine SULFATE 2 MG/ML CARP IV PRN ×8 (11:31→22:41)
[2019-08-24] MEDS ORDERED: MoRPHine SULFATE 5 MG/0.25 ML UDP PO PRN (12:39)
[2019-08-24] MEDS: SCOPOLAMINE 1.5 MG TDSY TD SCH (13:40)
[2019-08-24] MEDS: ATROPINE SULFATE 1% OP SOLN 2 ML BTL SL PRN (13:40)
[2019-08-24] MEDS: CHECK SCOPOLAMINE PATCH PLACEMENT SCH ×2 (15:11→23:23)
[2019-08-25] MEDS: MoRPHine SULFATE 2 MG/ML CARP IV PRN ×6 (01:54→08:22)
[2019-08-25] MEDS: ATROPINE SULFATE 1% OP SOLN 2 ML BTL SL PRN ×9 (03:12→23:25)
[2019-08-25] MEDS: LORazepam 0.5 MG/1 ML VIAL IV PRN ×2 (04:06→13:07)
[2019-08-25] MEDS: CHECK SCOPOLAMINE PATCH PLACEMENT SCH ×3 (08:25→23:25)
--- NOTE | 2019-08-25 09:27 | Palliative Care Progress Note ---
Date of Service August 25, 2019 Assessment & Plan (1) Comfort measures only status: -Visited patient in room 377. Pt and two sons and one other family member at bedside. -Over the weekend, patient was having episodes of agitation and moaning with increased Roxanol use -Now, patient with increased diaphragmatic breathing and increased secretions. -I suctioned patient at the bedside for thick yellow sputum. -Patient unresponsive to tactile or verbal stimuli. Pt did clamp down on yankour when suctioning. -Pt has been receiving Morphine ranging Q1-3 hours. -Will start a Morphine gtt after discussion with family. Morphine gtt 2mg/hour with ability to increase 1mg / hour if any signs of facial grimacing, increased diaphragmatic breathing, terminal agitation. -Discussed above with RN Monika. Encouraged Atropine administration for antic holinergic effect. Discussed end of life signs and symptoms. -Discussed end of life expectations and counseled family members. All questions answered. -We will continue to follow for comfort care. -Patient is NOT stable for discharge from the hospital. No a GIP candidate as symptoms managed adequately. -Anticipated life expectancy hours to a day or so. -PPS: 10% (2) Cirrhosis of liver: (3) Hepatic encephalopathy: (4) Pelvic fracture: Subjective Pt and two sons and one other family member at bedside. Patient was having episodes of agitation, noted to be moaning over the weekend with increased Roxanol use Patient with increased diaphragmatic breathing and increased secretions. Suctioned at the bedside for thick yellow sputum. Patient unresponsive to tactile or verbal stimuli. Pt did clamp down on yankour when suctioning. Pt has been receiving Morphine ranging Q1-3 hours. Will start a Morphine gtt after discussion with family. See A?P for further details. Review of Systems Review of Systems: Unobtainable due to reduced consciousness Physical Exam Constitutional: + ill appearing; + uncomfortable Respiratory: + labored breathing and + uses accessory muscles Cardiovascular: Rate/Rhythm: + tachycardic Gastrointestinal (Abdomen): Inspection/Auscultation: + abdomen distended and normal bowel sounds Percussion/Palpation: + abdomen tender and abdomen soft Skin: + jaundice and + mottling (knees and toes ) Neurologic: + confused Psychiatric: Unresponsive Genitourinary: sharif catheter in place PG Care Time/CCT Total # of Minutes Spent Total Time Spent with Patient: Total time spent is greater than 50% in coordination of care (as documented) at patient's floor/unit and/or counseling patient: 35 Coding Level of Care Code 06755 Subseq Hosp Care Lvl 3 Diagnoses Comfort measures only status Z51.5 Cirrhosis of liver K74.60 Ascites presence: unspecified Hepatic cirrhosis type: unspecified hepatic cirrhosis Hepatic encephalopathy K72.90 Pelvic fracture S32.9XXA Time Spent (min) 35 Time Spent Midlevel Total time spent 35 minutes with > 50% of that time spent assessing the patient, discussing symptom management at end of life with family and IDT (1) Cirrhosis of liver Ascites presence: unspecified Hepatic cirrhosis type: unspecified hepatic cirrhosis Qualified Code(s): K74.60 - Unspecified cirrhosis of liver
[2019-08-25] MEDS: MoRPHine SULF/NSS 250 MG/250 ML BTL IV SCH (10:04)
--- NOTE | 2019-08-25 11:01 | Hospitalist Progress Note ---
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 very poor outcome not a canditate for liver transplant on IV morphine gtt , comfort care DNR/DNI Subjective on iv morphine gtt sedated , intermittent apnea noted on comfort /palliative care prognosis grim Physical Exam Constitutional: + ill appearing (Obtunded) Eyes: + scleral abnormality (Deeply icteric sclera) Respiratory: + labored breathing Skin: + jaundice
[2019-08-26] MEDS: ATROPINE SULFATE 1% OP SOLN 2 ML BTL SL PRN ×2 (02:27→05:21)
[2019-08-26] MEDS: CHECK SCOPOLAMINE PATCH PLACEMENT SCH ×3 (07:47→23:54)
--- NOTE | 2019-08-26 10:17 | Hospitalist Progress Note ---
Date of Service August 26, 2019 Assessment & Plan (1) Comfort measures only status: Comfort measures only status: -Patient is obtunded and on morphine infusion. - over all prognosis remains poor Expected to in hours to days. Not stable for transfer out of hospital. appreciate input from Palliative care team (2) Metabolic encephalopathy: due to hyperbilirubinemia , hepatic encephalopahty , dehydration over all prognosis remains extremely poor hospice , comfort care appropriate (3) Pelvic fracture: non operative (4) Hepatic encephalopathy: hx of chcf alchohol abuse , alcholoic liver disease -END stage, high MELD score > 20 suggestive of. very poor outcome not a canditate for liver transplant on IV morphine gtt , comfort care DNR/DNI Subjective on iv morphine gtt sedated , intermittent apnea noted on comfort /palliative care prognosis grim Physical Exam Constitutional: + ill appearing (Obtunded) Eyes: + scleral abnormality (Deeply icteric sclera) Respiratory: + labored breathing Skin: + jaundice
[2019-08-26] MEDS: MoRPHine SULF/NSS 250 MG/250 ML BTL IV SCH (10:56)
--- NOTE | 2019-08-26 13:23 | Palliative Care Progress Note ---
Date of Service August 26, 2019 Assessment & Plan (1) Comfort measures only status: -Patient is obtunded and appears very comfortable on morphine infusion. -Morphine infusing at 3mg/hr. - Kristina and other family member happy with her care and had no questions. -Expected to in hours to days. Not stable for transfer out of hospital. (2) Cirrhosis of liver: (3) Hepatic encephalopathy: (4) Pelvic fracture: Subjective Patient is obtunded. Kristina at bedside and another family member. Review of Systems Review of Systems: Unobtainable due to reduced consciousness Physical Exam Constitutional: + ill appearing ENMT: Mouth: + dry oral mucous membranes Respiratory: normal respiratory effort Auscultation: + diminished lung sounds Cardiovascular: RRR, no murmur, no edema Gastrointestinal (Abdomen): Percussion/Palpation: abdomen soft Skin: + jaundice Neurologic: + obtunded Coding Level of Care Code 20581 Subseq Hosp Care Lvl 2 Diagnoses Comfort measures only status Z51.5 Cirrhosis of liver K74.60 Ascites presence: unspecified Hepatic cirrhosis type: unspecified hepatic cirrhosis Hepatic encephalopathy K72.90 Pelvic fracture S32.9XXA Time Spent (min) 25 Time Spent Midlevel 25 minutes with >50% of the time spent at bedside with patient and family discussing comfort measures and end of life care. (1) Cirrhosis of liver Ascites presence: unspecified Hepatic cirrhosis type: unspecified hepatic cirrhosis Qualified Code(s): K74.60 - Unspecified cirrhosis of liver
[2019-08-27] MEDS: CHECK SCOPOLAMINE PATCH PLACEMENT SCH ×3 (08:12→23:33)
[2019-08-27] MEDS: MoRPHine SULF/NSS 250 MG/250 ML BTL IV SCH (11:00)
[2019-08-27] MEDS: SCOPOLAMINE 1.5 MG TDSY TD SCH (13:58)
--- NOTE | 2019-08-27 17:50 | Hospitalist Progress Note ---
Date of Service August 27, 2019 Assessment & Plan (1) Comfort measures only status: Morphine infusion, Ativan PRN, Scopolamine. Family is happy with the plan and how she looks. (2) Hepatic encephalopathy: decompensated cirrhosis that is severe and end-stage. Prolonged hospitalization with minimal improvement in mentation. MELD>20 for majority of her stay with poor prognosis. Not a candidate for liver transplant. Cont supportive measures as above. (3) Pelvic fracture: traumatic fracture from a fall in the hospital while confused and not following nursing instruction. Nonoperative and cont supportive care (4) DVT prophylaxis: Not indicated DNR Dispo-poor prognosis, too unstable to leave the hospital. Rosamaria Braswell DO [facility] Hospitalist Subjective 73 yo cirrhotic female with prolonged hospitalization and recent traumatic pelvic fracture. She was placed on a morphine drip which has been titrated to good effect and is now at 5mg/hr. The patient is obtunded but appears comfortable. Her son and were at the bedside and we discussed how things were going. They were very pleased and applauded the nursing staff especially for how great of care they were taking of the patient. Review of Systems Review of Systems: Unobtainable due to reduced consciousness Physical Exam Physical Exam: CONSTITUTIONAL: WNWD, vitals as above, obtunded EYES: closed ENT: mucous membranes dry RESPIRATORY: normal respiratory effort CARDIOVASCULAR: tachy rate, regular rhythm, S1 and 2 heard without murmurs, gallops or rubs GASTROINTESTINAL: soft, nondistended, no guarding SKIN: warm and dry, ecchymosis on posterior left leg is greatly improved NEUROLOGIC: obtunded PSYCHIATRIC: alert cooperative and oriented to person, place and time. Results & Data Medications Administered Current Inpatient Medications Acetaminophen (Tylenol) 650 mg MD Q6H PRN PRN Reason: Fever 37.8C or greater Stop: 09/19/19 17:38 Atropine Sulfate (Atropine Sulfate 1% Oph Soln) 4 drops SL Q1H PRN PRN Reason: Secretions or Pulm Congestion Stop: 09/19/19 17:38 Last Admin: 08/26/19 05:21 Dose: 4 drops Documented by: Promethazine HCl 12.5 mg/ (Sodium Chloride) 50.5 mls @ 202 mls/hr IV Q6H PRN PRN Reason: Nausea And Vomiting Stop: 09/19/19 17:38 Lorazepam (Ativan) 0.5 mg in 1 mls @ 1 mls/min IV Q4H PRN PRN Reason: Anxiety/Agitation Stop: 09/19/19 17:38 Last Admin: 08/25/19 13:07 Dose: 1 mls/min Documented by: Morphine Sulfate (Morphine Sulf/Nss) 250 mg in 250 mls @ 5 mls/hr IV .Q24H MACK; Protocol Stop: 09/08/19 09:29 Last Titration: 08/27/19 15:01 Dose: 5 mg/hr, 5 mls/hr Documented by: Ipratropium [place] (Atrovent 0.02% 0.5mg/2.5ml) 0.5 mg INH Q4H PRN PRN Reason: Shortness Of Breath Or Wheezin Stop: 09/09/19 21:44 Levalbuterol HCl (Xopenex 1.25mg/0.5ml Neb) 1.25 mg INH Q4H PRN PRN Reason: Shortness Of Breath Or Wheezin Stop: 09/09/19 21:44 Lorazepam (Ativan) 0.5 mg PO Q4H PRN PRN Reason: Anxiety/Agitation Stop: 09/19/19 17:38 Miscellaneous (Check Scopolamine Patch Placement) 1 ea N/A QS [facility] Stop: 09/23/19 15:59 Last Admin: 08/27/19 16:21 Dose: 1 ea Documented by: Miscellaneous (Remove Transderm-Scop Patch) 1 ea N/A Q72H [facility] Stop: 09/26/19 12:58 Last Admin: 08/27/19 13:57 Dose: 1 ea Documented by: Ondansetron HCl (Zofran) 4 mg IV Q4H PRN PRN Reason: Nausea And Vomiting Stop: 09/19/19 17:38 Scopolamine (Transderm-Scop) 1.5 mg TD Q72H [facility] Stop: 09/23/19 12:59 Last Admin: 08/27/19 13:58 Dose: 1.5 mg Documented by:
[2019-08-28] MEDS: CHECK SCOPOLAMINE PATCH PLACEMENT SCH ×2 (07:28→16:07)
[2019-08-28] MEDS: MoRPHine SULF/NSS 250 MG/250 ML BTL IV SCH (09:14)
[2019-08-28] MEDS: LORazepam 0.5 MG/1 ML VIAL IV PRN (18:35)
[2019-08-28] MEDS ORDERED: MoRPHine SULFATE 2 MG/ML CARP IV STA (19:20)
[2019-08-28] MEDS ORDERED: MoRPHine SULFATE 2 MG/ML CARP IV PRN (19:22)
--- NOTE | 2019-08-28 20:18 | Death Summary ---
Date of Service August 28, 2019 Asked to pronounce: On examination-no response with any stimuli Pupils are fixed and widely dilated No heart rate and no respiration. She was pronounced on 08/28/2019 at 2011 hours. Talk to the family members at bedside. Dr Zeke Roach Pronouncement Note Contributing Factors (1) Comfort measures only status: (2) Hepatic encephalopathy: (3) Pelvic fracture: (4) DVT prophylaxis: Additional Data Attending physician: Rosamaria Braswell DO
--- NOTE | 2019-08-28 23:20 | Hospitalist Progress Note ---
Date of Service August 28, 2019 Assessment & Plan (1) Comfort measures only status: Morphine infusion, Ativan PRN, Scopolamine. Ordered small bolus morphine to help with tachypnea and tachycardia. (2) Hepatic encephalopathy: decompensated cirrhosis that is severe and end-stage. Prolonged hospitalization with minimal improvement in mentation. MELD>20 for majority of her stay with poor prognosis. Not a candidate for liver transplant. Cont richardson pportive measures as above. (3) Pelvic fracture: traumatic fracture from a fall in the hospital while confused and not following nursing instruction. Nonoperative and cont supportive care (4) DVT prophylaxis: Not indicated DNR Dispo-poor prognosis, too unstable to leave the hospital. Rosamaria Braswell DO [facility] Hospitalist Subjective (pt was seen today prior to expiring) Pt was tachypneic into the mid-20s. Per nursing, morphine was running at 6mg/hr. Tachycardic on exam. Pt obtunded. Family at bedside with questions about accelerating the process. We discussed the goal of treating pain and discomfort without intentional acceleration of passing. They verbalized understanding. Did discuss giving her an additional small bolus of morphine now in response to the tachypnea and tachycardia. Family is also good with this. Review of Systems Review of Systems: Unobtainable due to reduced consciousness Physical Exam Physical Exam: CONSTITUTIONAL: WNWD, vitals as above, obtunded EYES: closed ENT: mucous membranes dry RESPIRATORY: increased respiratory effort CARDIOVASCULAR: tachy rate, regular rhythm, S1 and 2 heard without murmurs, gallops or rubs GASTROINTESTINAL: soft, nondistended, no guarding SKIN: warm and dry, ecchymosis on posterior left leg is greatly improved NEUROLOGIC: obtunded PSYCHIATRIC: alert cooperative and oriented to person, place and time. Results & Data ([facility]) Medications Administered Ativan PRN Morphine drip at 6mg/hr
--- NOTE | 2019-08-28 23:23 | Discharge Summary ---
Date of Service August 28, 2019 Admission HPI Per Admitting Provider Mrs. Bass is a 73-year-old female who has significant PMH of alcoholic cirrhosis, dementia in setting of alcohol abuse, chronic thrombocytopenia, elevated INR in setting of cirrhosis, HTN, HLD, depression, history of CVA, angiodysplasia of colon who presents to ED secondary to confusion x 2-3 days. and son are at bedside. Over the past 2 to 3 days she has notably been coming more confused. At baseline she does have dementia secondary to cirrhosis. Known baseline is she is independent of ADLs and she is usually alert and oriented to self and family. Over the past 2 to 3 days she has been becoming increasingly more confused, weak, inability to walk and aggressive. Family denies any known fever or chills, chest pain, nausea, vomiting, hematemesis, melena, hematochezia. states she does move bowels 2 times daily despite not taking lactulose. Has been noncompliant with her lactulose for approximately 1 month. She is taking rifaximin. Unable to obtain ROS from PT. poor oral intake today, but otherwise oral intake has been normal. No apparent weight loss/gain. She been compliant with all other meds. She lives with and normally is ambulatory at baseline. Family denies known current alcohol use. Denies tobacco use. In ED she was found to have elevated ammonia at 137, H&H 11.9 and 34.5, WBC 5.46, platelets 72, INR 1.8, BUN/creatinine 11 and 0.98, total bili 7.8, AST 64, TSH WNL. Chest x-ray is negative for acute abnormality. Head CT negative for acute abnormality, but did reveal chronic microvascular ischemic change along with old lacunar infarct in the right basal ganglia. PMH reviewed in [facility]. Unable to obtain FH due to pt cognitive status Discussed case with ED Provider Dr. Diego and GI provider LEXY Tamayo. Admission Exam Per Admitting Provider Constitutional: Older than appearing age, F, jaundice, vitals as above, restless, sitting up in bed, alert, but somnolent, not answering questions appropriately Head: Normocephalic, Atraumatic Eyes: PERRL, conjunctivae normal, icteric sclerae ENMT: external ear and nose normal, oropharynx dry mucous membranes Neck: trachea midline, no thyromegaly normal visual inspection Respiratory: Poor inspiratory effort secondary to inability to follow commands, lungs otherwise clear to auscultation, no wheeze, rales, rhonchi. Normal insp/exp effort, no accessory muscle use Cardiovascular: Tachycardic, but regular rate with occasional ectopy, bilateral venous stasis changes, right lower extremity edema +1, Vessels: no JVD or carotid bruit Chest: normal inspection of chest Abdomen: normal bowel sounds, soft but tender along RLQ/RUQ without rebound, guarding or rigidity Musculoskeletal: no cyanosis or clubbing, extremities strength inability to test secondary to not following command Skin: no rashes, warm and dry moderate turgor Neurologic: PERRL, EOMI, accommodation nl, no face palsy, no dysarthria CN's II-XI intact bilaterally and moves all extremities Psychiatric: A+O to self only, restless Lymphatic: no cervical or axillary lymphadenopathy : deferred Principal Diagnosis Hepatic encephalopathy Alcoholic cirrhosis of liver Pelvic fracture Hyperbilirubinemia Abdominal pain Thrombocytopenia Chronic anemia Hypomagnesemia. Discharge Data Allergies Allergy/AdvReac Type Severity Reaction Status Date / Time TAMAR Inhibitors AdvReac Mild PALPITATIONS Verified 08/05/19 13:57 (BUT TAKES LISINOPRIL) hydrocodone AdvReac Mild HEART Verified 08/05/19 13:57 RACING meperidine AdvReac Mild SEVERE GI Verified 08/05/19 13:57 oxycodone AdvReac Mild DEPRESSION Verified 08/05/19 13:57 ranitidine AdvReac Mild DIZZINESS Verified 08/05/19 13:57 Sulfa (Sulfonamide AdvReac Mild "SULFA Verified 08/05/19 13:57 Antibiotics) DRUGS": SEVERE GI Consultations 08/05/19 13:34 ED Decision to Admit Stat 08/05/19 13:49 Consult Gastroenterology Routine 08/05/19 16:51 Consult Case Management - Discharge Planning Routine 08/15/19 09:03 Consult Orthopedic Surgery Routine 08/20/19 17:40 Consult Case Management - Discharge Planning Routine Consult Palliative Care Routine Ordered Studies 08/05/19 11:37 CT head/brain wo con Stat 08/05/19 14:27 CT abd pelvis wo con Stat 08/05/19 16:06 US abdomen limited Urgent 08/05/19 16:51 US venous doppler LE RT Urgent 08/14/19 18:25 CT head/brain wo con Urgent 08/15/19 04:04 CT abd pelvis wo con Urgent 08/19/19 11:14 MR MRCP Routine 08/19/19 11:15 US duplex portal hepatic veins Routine Hospital Course (1) Hepatic encephalopathy: (2) Pelvic fracture: 73-year-old female presented with confusion for approximately three days likely secondary to decompensated cirrhosis with hepatic encephalopathy. Work- up included a head CT and chest x-ray which were unremarkable, and blood cultures were drawn and negative. Rocephin was started empirically. A urine culture was drawn and positive for E. coli. Her CT abdomen/pelvis revealed no acute intra-abdominal process and ascitic fluid that was too small of an amount to tap for diagnostic paracentesis. Lactulose was encouraged. Xifaxan was started on 08/08. Despite reaching her BM goal of 2-3 daily, she continued to have slightly elevated ammonia levels and persisting confusion. She also developed swelling of the right lower extremity with posterior leg ecchymosis that was severe. She had underlying thrombocytopenia and an elevated INR secondary to her end-stage cirrhosis, but had fallen while in the hospital and suffered a pelvic fracture that was unrealized for approximately 10 days. Orthopedics was consulted and recommended supportive care with 50% weightbearing status. However, in the setting of confusion it was difficult to have her ambulate safely. Therefore, she remained bedbound for the majority of the time. She continued to eat intermittently and ultimately declined clinically. Palliative care was consulted and transition her to comfort measures only status on 08/21. Supportive care was instituted and a morphine drip was started on 08/25. She ultimately on 08/28 surrounded by family. Total Time Total Time Spent Total Time Spent (In Minutes): 60 Total Time Includes: Examination of the Patient, Discharge Planning, Medication Reconciliation and Communication With Other Providers Discharge Plan Discharge Items Patient Disposition: Reason For Visit: HEPATIC ENCEPHALOPATHY,DECOMENSATED CIRRHOSIS Discharge Diagnosis: acute Hepatic encephalopathy, Hyperammonemia, Cirrhosis of liver, Hyperbilirubinemia, elevated INR, Thrombocytopenia, abdominal pain, possible urinary tract infection, Tachycardia, lactic acidosis, Type 2 diabetes mellitus without terminal press operator current use of insulin Follow-up/Referrals: Alfredo Martines MD [Primary Care Provider] - Addtl Attending Provider Instructions: do not resume metformin on discharge because of risks of lactic acidosis Stand-Alone Forms: My [facility] Admission Data Admit Date/Time: 08/05/19 14:16 Other DC Date/Time DO NOT enter until pt leaves facility: 08/28/19 22:03
== END 2019-08-28 22:03 | disposition expired | DRG 432 ==
LOC: ED 11:10 → 2S 14:16 → SUATTDRO 14:16 → 2S 16:16 → 3N 08-11 09:47